=== PATIENT | female | born 1960 | race Caucasian/White ===

== ENCOUNTER → 2020-05-25 10:30 | Outpatient (CLI) | payer OTHER, SELFPAY ==
--- NOTE | 2020-05-25 10:42 | XR_ITS ---
PROCEDURE: XR WRIST LT MIN 3V CLINICAL INDICATION: left wrist pain/ cts COMPARISON: No exams were available for comparison FINDINGS: Moderate to severe osteoarthritic changes are present at the 1st metacarpal-carpal junction. Faint soft tissue calcification is present lateral to the trapezium. Prominent bony hypertrophy is present at the medial aspect the 1st metacarpal-carpal junction. There are osteoarthritic changes also at the 1st metacarpophalangeal joint. No acute fracture or dislocation. Other findings:None. 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
== END ==
PROVIDERS: PCP Family Medicine; Visit Provider Orthopaedic Surgery
DX: M25.532 Pain in left wrist (principal)
CPT/HCPCS: 73110

== ENCOUNTER → 2020-10-31 07:19 | Outpatient (CLI) | payer OTHER, SELFPAY ==
--- NOTE | 2020-10-31 | CT_ITS ---
PROCEDURE: CT LUNG SCREENING CLINICAL INDICATION: NICOTINE DEPENDENCE COMPARISON: No exams were available for comparison TECHNIQUE: The exam was performed on a GE Light Speed [address] scanner using 2.90 mGy CTDI. A low dose helical CT CHEST was performed on a multi-detector scanner. All CT scans at the facility use one or more dose reduction, viz: automated exposure control, ma/kV adjustment per patient size (including targeted exams where dose is matched to indication, i.e. head), or iterative reconstruction technique. The LDCT was performed in a facility that meets the criteria for the screening program. Data regarding this exam was submitted to [employer] which is an approved registry. The order for this exam indicates that it came as a result of a lung cancer screening counseling shard decision-making visit that included all the elements required of such a visit including smoking cessation. The radiologist interpreting this exam meets the CMS criteria for the LDCT lung cancer screening program. The exam is reported using the Lung-RADS classification scale and reported to the ACR registry. NOTE: This study was performed for the specific purposes of lung cancer screening and is not an alternative to diagnostic chest CT. RADIATION DOSE: CTDI vol(CT dose Index-volume) = 2.90mG DLP (Dose Length Product) = 104.20 mGcm FINDINGS: COPD changes with coarsening of the bronchovascular markings and bronchial thickening. In the left lower lobe there is flat like area of parenchymal opacity is 17 x 9x 20 mm with an adjacent 7 mm opacity medially. These may be due to areas of scarring. A 6 mm opacity is present in the left lower lobe . OTHER FINDINGS: 17 mm right adrenal nodule with some fat density suggesting an adenoma or myelolipoma. IMPRESSION: Lung-RADS Category 4A Suspicious Follow-up: [address] Chest without and with contrast; PET/CT may be used when there is a greater than or equal to a 8 mm solid component. Dictated by: Hong Wilson MD 11/05/2020 10:03 Hong Wilson MD in [facility] 11/05/2020 10:03
== END ==
PROVIDERS: PCP Family Medicine; Visit Provider Family Medicine
DX: Z87.891 Personal history of nicotine dependence (principal); Z12.2 Encounter for screening for malignant neoplasm of respiratory organs
CPT/HCPCS: 71271

== ENCOUNTER → 2021-02-06 11:54 | Outpatient (CLI) | payer OTHER, SELFPAY ==
--- NOTE | 2021-02-06 12:07 | CT_ITS ---
PROCEDURE: CT CHEST WO/W CON CLINCAL INDICATION: FOLLOW UP, ABN FINDING ON IMAGING COMPARISON: CT CT LUNG SCREENING from 10/31/2020 TECHNIQUE: IV Contrast: 75ml Isovue 370 Axial images obtained with sagittal and coronal reformats. All CT scans at the facility use one or more dose reduction, viz: automated exposure control, ma/kV adjustment per patient size (including targeted exams where dose is matched to indication, i.e. head), or iterative reconstruction technique. FINDINGS: HEART AND MEDIASTINAL STRUCTURES: Coronary artery calcification. No mediastinal or hilar mass or adenopathy. LUNGS AND PLEURAL SPACES: There is a faint area of ground-glass attenuation in the right upper lobe medially associated with some minimal atelectatic change. In the left lung base posterior laterally there is an area atelectatic change or scarring. Along the lower and lateral margin of this area volume loss there is an area of nodularity which is somewhat more prominent from the previous exam. This is nonspecific and could be due to progressive area of scarring. One cannot exclude the possibility a neoplastic process. This measures 2.4 by 1.2 cm previously 1.7 x [address] suggested for further evaluation. BONY STRUCTURES: Degenerative changes thoracic spine UPPER ABDOMEN: 2 cm right adrenal nodule which is indeterminate. The unenhanced density is 27 Hounsfield units. ADDITIONAL FINDINGS: Degenerative changes thoracic spine IMPRESSION: The area of volume loss/atelectatic change in the left lower lobe is once again noted. The nodular density associated with this in the subpleural region does appears slightly more prominent. While this could be related to progressive fibrotic or atelectatic changes, 1 cannot exclude the possibility of malignancy. Suggest PET-CT for further evaluation. Faint infiltrate with atelectasis in the right upper lobe Dictated by: Hong Wilson MD 02/07/2021 14:07 Hong Wilson MD in [facility] 02/07/2021 14:07
[2021-02-06 12:38] LABS: Blood Urea Nitrogen 18 mg/dl (7-17); Estimated Glomerular Filt Rate 57 ml/min (>60); GFR (African American) 69 ML/MIN (>60)
== END ==
PROVIDERS: PCP Family Medicine; Visit Provider Family Medicine
DX: R93.89 Abnormal findings on diagnostic imaging of other specified body structures (principal); Z09 Encounter for follow-up examination after completed treatment for conditions other than malignant neoplasm
CPT/HCPCS: 36415; 71270; 82565; 84520; Q9967

== ENCOUNTER → 2021-08-26 09:21 | Outpatient (CLI) | payer OTHER, SELFPAY ==
--- NOTE | 2021-08-26 09:26 | XR_ITS ---
FINAL REPORT CLINICAL HISTORY: PAIN IN RT KNEE, OTHER CHRONIC PAIN, ARTHRITIS FINDINGS: RIGHT KNEE 3 views of the right knee were obtained. There is no acute fracture or dislocation. There is mild to moderate degenerative change with mild medial compartment narrowing. Soft tissues are unremarkable. IMPRESSION: Degenerative change as above with no acute bony abnormality. Reviewed, Interpreted and Dictated by Derrick Claudio III, MD Transcribed by Annmarie Rojas Authenticated and [facility]
--- NOTE | 2021-08-26 09:26 | XR_ITS ---
FINAL REPORT CLINICAL HISTORY: PAIN IN LT KNEE, OTHER CHRONIC PAIN, ARTHRITIS FINDINGS: LEFT KNEE 3 views of the left knee were obtained. There is no acute fracture or dislocation. There is moderate degenerative change with lateral compartment narrowing. There is a suprapatellar calcification measuring 12 mm is likely a loose body. IMPRESSION: Degenerative changes above with no acute bony abnormality. Reviewed, Interpreted and Dictated by Derrick Claudio III, MD Transcribed by Annmarie Rojas Authenticated and [facility]
== END ==
PROVIDERS: PCP Nurse Practitioner Family; Visit Provider Nurse Practitioner Family
DX: M25.562 Pain in left knee (principal); M25.561 Pain in right knee; G89.29 Other chronic pain; M19.90 Unspecified osteoarthritis, unspecified site
CPT/HCPCS: 73562

== ENCOUNTER 2021-09-03 09:56 | Emergency (ER) | payer OTHER, SELFPAY ==
[2021-09-03 09:57] VITALS: BP 134/68; PULSE 70; RESP 16; TEMP 36.7; O2SAT 99; BMI 41.2
--- NOTE | 2021-09-03 09:59 | HMH.EDLOEX ---
ED Disposition Clinical Impression: Laceration Contusion of leg, right Qualifiers: Encounter type: initial encounter Qualified Code(s): S80.11XA - Contusion of right lower leg, initial encounter Contusion Qualifiers: Encounter type: initial encounter Contusion area: hip Laterality: right Qualified Code(s): S70.01XA - Contusion of right hip, initial encounter Disposition: Home, Self-Care Condition on Discharge: Fair Instructions: DI for Contusion, DI for Avulsion Laceration (Not Requiring Sutures) Additional Instructions: Take [id number] ibuprofen and/or Tylenol for your pain. The wound on your leg is too old to be safely repaired today. Follow-up with your primary care doctor in about 3 days to have the wound checked for infection and healing. Please return to the emergency department if you you are worse in any way. Follow-up with your doctor if you do not improve in about 3 to 5 days. Referrals: Olga Golden APRN [Primary Care Provider] - - Critical Care Critical Care Time: No Attestation: On , the high probability of a clinically significant, sudden or life threatening deterioration of the following system(s) required my full and direct attention, intervention and personal management. The time I documented below is in addition to time spent performing reported procedures but includes the following listed in this critical care notation. Medical Decision Making - [place] Inquiry Pt receiving controlled substance: No Vital Signs: 09/03/21 09:57 Temperature 98.1 F Temperature Source Oral Pulse Rate [Right Radial] 70 Respiratory Rate 16 Blood Pressure [Right Arm] 134/68 Blood Pressure Mean [Right Arm] 90 Blood Pressure Source [Right Arm] Automatic Cuff Blood Pressure Position [Right Arm] Left Lateral 02 Sat by Pulse Oximetry 99 Oxygen Delivery Method Room Air Orders (Tests/Meds): ED MEDICATIONS Discontinued Medications Generic Name Dose Route Start Last Admin Trade Name Freq PRN Reason Stop Dose Admin Ketorolac Tromethamine 60 mg 09/03/21 10:06 Ketorolac 60mg/2ml Vial IM 09/03/21 10:07 ONCE ONE Tetanus/Reduced Diphtheria/Acell Pertussis 0.5 ml 09/03/21 10:07 Tet/Diphth/Pert-Adult 0.5ml Syringe IM 09/03/21 10:08 .ONCE ONE - Radiology Data #1 Image(s): Hip Image Reviewed: Yes I reviewed the patient's radiology image, Yes I have reviewed radiologist's interpretation Preliminary Findings: Normal/NAD Medical Decision Narrative: The patient's radiograph does not show any acute fracture or dislocation. Patient is able to bear weight. There are degenerative changes in both hips. The patient's physical exam is most consistent with a contusion and muscle strain. She also has a laceration to the leg. Unfortunately, it is too late for wound repair. I feel that the patient can be safely discharged home with instructions to take lopc-chu-qoigbzm pain medications. Lower Extremity Injury HPI - General Stated Complaint: AO 7/ fall, hip pain Time Seen by Provider: 09/03/21 09:59 Mode of Arrival: Wheelchair - History of Present Illness HPI Narrative: The patient fell from approximately 1 foot height onto some wooden boards yesterday. Since then she is hurting in her right hip. She also has an injury to her right leg. She has been able to bear weight. But it hurts. She denies any other injuries. She did not strike her head. There was no loss of consciousness. MD complaint: hip injury, leg injury - Related Data Home Medications Medication Instructions Recorded Confirmed albuterol sulfate 90 mcg/actuation 2 puff INHALATION Q4-6H PRN 05/30/20 05/30/20 aerosol inhaler diclofenac sodium 50 mg 50 mg PO DAILY 05/30/20 05/30/20 tablet,delayed release fluticasone fur. 100 mcg-umeclid 1 inh INHALATION DAILY 05/30/20 05/30/20 62.5 mcg-vilant 25 mcg inhalat.powder lisinopril 20 1 tab PO DAILY 05/30/20 05/30/20 mg-hydrochlorothiazide 25
--- NOTE | 2021-09-03 10:06 | XR_ITS ---
FINAL REPORT CLINICAL HISTORY: injury, pt states that she fell yesterday and is having right hip pain. FINDINGS: RIGHT HIP The images are suboptimal secondary to patient body habitus. Two views of the right hip including an AP pelvis were obtained. There is no definite fracture or dislocation. There is severe degenerative change of both hips. The visualized bony structures are well aligned. No soft tissue abnormality is seen. IMPRESSION: No definite fracture or dislocation. If indicated, CT or MRI may be helpful. Severe degenerative change of both hips. Reviewed, Interpreted and Dictated by Derrick Claudio III, MD Transcribed by Annmarie Rojas Authenticated and [facility]
--- NOTE | 2021-09-03 10:30 | PC.NURSE ---
cleaned wound and dressed
--- NOTE | 2021-09-03 11:01 | PC.NURSE ---
pt sitting up on bed side
[2021-09-03 11:20] VITALS: BP 122/61; PULSE 67; RESP 20; TEMP 36.7
== END 2021-09-03 11:20 | disposition home or self-care (01) ==
PROVIDERS: Emergency Provider Emergency Medicine; PCP Nurse Practitioner Family
DX: S81.811A Laceration without foreign body, right lower leg, initial encounter (principal); S80.11XA Contusion of right lower leg, initial encounter; S70.01XA Contusion of right hip, initial encounter; W19.XXXA Unspecified fall, initial encounter; Z23 Encounter for immunization; I10 Essential (primary) hypertension; J44.9 Chronic obstructive pulmonary disease, unspecified; Z88.0 Allergy status to penicillin
CPT/HCPCS: 73502; 90471; 90715; 96372; 99283

== ENCOUNTER 2022-04-22 18:29 | Emergency (ER) | payer OTHER, SELFPAY ==
[2022-04-22 19:00] VITALS: BP 130/74; PULSE 74; RESP 20; TEMP 37; O2SAT 97; BMI 40.7
--- NOTE | 2022-04-22 19:07 | EXP.UTC ---
Discharge Plan Disposition Patient Disposition: Home, Self-Care Condition: Good Prescriptions Prescriptions: New furosemide 40 mg tablet 40 mg PO BID Qty: 14 0RF No Action lisinopril-hydrochlorothiazide 20-25 mg tablet 1 tab PO DAILY diclofenac sodium 50 mg tablet,delayed release (DR/EC) 50 mg PO DAILY methocarbamol 500 mg tablet 500 mg PO TID albuterol sulfate 90 mcg/actuation HFA aerosol inhaler 2 puff INHALATION Q4-6H PRN Trelegy Ellipta 100-62.5-25 mcg blister with device 1 inh INHALATION DAILY furosemide 20 mg tablet 20 mg PO DAILY Referrals Follow up/Referrals: Olga Golden APRN [Primary Care Provider] - See instructions Activity Restrictions/Add. Instructions Additional Instructions/Restrictions: Take the higher dose of furosemide (lasix) [address] of your 20 mg tablets for the next several days. Don't take the furosemide 20 mg tablets while you are on the higher dose (40 mg). Follow up with your regular doctor within 48 to 72 hours to have your swelling reevaluated and to see if you still need the higher dose of lasix. GO TO THE ER FOR ANY WORSENING SYMPTOMS Clinical Impressions Clinical Impression: Leg edema Instructions Patient Instructions: DI for Peripheral Edema -- Bilateral, Furosemide Discharge ED Provider: Delon Soler [facility] General Stated complaint: Swelling in Legs Time Seen by Provider: 04/22/22 19:07 History of Present Illness Provider Complaint: she states that over the past 5 days approx she has developed swelling of both her ankles. She takes lasix daily for these symptoms, but she does not think it is strong enough right now. Related Data Home Medications Medication Instructions Recorded Confirmed albuterol sulfate 90 mcg/actuation 2 puff inhalation Q4-6H PRN 05/30/20 05/30/20 aerosol inhaler diclofenac sodium 50 mg 50 mg PO DAILY 05/30/20 05/30/20 tablet,delayed release fluticasone fur. 100 mcg-umeclid 1 inh inhalation DAILY 05/30/20 05/30/20 62.5 mcg-vilant 25 mcg inhalat.powder (Trelegy Ellipta) lisinopril 20 1 tab PO DAILY . 05/30/20 04/22/22 mg-hydrochlorothiazide 25 mg tablet methocarbamol 500 mg tablet 500 mg PO TID 05/30/20 05/30/20 furosemide 20 mg tablet 20 mg PO DAILY . 04/22/22 04/22/22 Previous Rx's Medication Instructions Recorded furosemide 40 mg tablet 40 mg PO BID #14 tabs 04/22/22 Allergies Allergy/AdvReac Type Severity Reaction Status Date / Time penicillin G benethamine Allergy Intermediate rash Verified 04/22/22 19:16 [facility] Disclaimer: The information contained in this section may have been updated after the patient was seen, as this information can be updated by other users. Social History Smoking Status: Current every day smoker alcohol intake: never current occupational status: other Travel in the last 8 weeks: None ROS Obtained: Yes All systems reviewed & no additional complaints except as documented Constitutional Constitutional: Denies chills and Denies fever(s) Eyes Eyes: Denies eye discharge ENT Ears, Nose, Mouth, and Throat: Denies dizziness, Denies otalgia and Denies sore throat Cardiovascular Cardiovascular: Denies chest pain, Denies dyspnea, Denies dyspnea on exertion, Reports edema, Denies irregular heart rhythm, Reports leg edema and Denies leg ulcers Respiratory Respiratory: Denies shortness of breath, Denies chest congestion, Denies cough, Denies dyspnea, Denies dyspnea on exertion, Denies stridor and Denies wheezing Gastrointestinal Gastrointestingal: Denies nausea or vomiting Musculoskeletal Musculoskeletal: Reports system reviewed and no additional complaints, except as documented and Denies arthralgias Integumentary/Breasts Skin/Breast: Denies rash Neurologic Neurologic: Denies dizziness and Denies paresthesias Allergic/Immunologic Allergic/Immunologic
[2022-04-22 20:18] VITALS: BP 130/74; PULSE 74; RESP 20; TEMP 37; O2SAT 97
== END 2022-04-22 20:17 | disposition home or self-care (01) ==
PROVIDERS: Emergency Provider Nurse Practitioner Family; PCP Nurse Practitioner Family
DX: R60.0 Localized edema (principal)
CPT/HCPCS: 99212; 99213; G0463

== ENCOUNTER 2022-08-05 15:28 | Emergency (ER) | payer OTHER, SELFPAY ==
--- NOTE | 2022-08-05 15:18 | ECG_ITS ---
APPROVED REPORT Exam: Resting ECG HR:77 bpm ECG Measurements Heart Rate 77 AXES AL 172 P 67 QRSd 92 QRS 102 QT 351 T 38 QTc 383 Conclusion SINUS RHYTHM RIGHT AXIS DEVIATION [QRS AXIS > 100] LOW QRS VOLTAGE IN PRECORDIAL LEADS [QRS DEFLECTION < 1.0 mV IN CHEST LEADS] ABNORMAL ECG UNCONFIRMED REPORT Electronically signed by : Juliano Burch MD 08/07/2022 09:28:38
[2022-08-05 15:32] VITALS: BMI 36.3
--- NOTE | 2022-08-05 15:33 | XR_ITS ---
FINAL REPORT CLINICAL HISTORY: Precordial chest pain COMPARISON: 12/08/2020 FINDINGS: No acute pulmonary opacity is present. There is no evidence of effusion or pneumothorax. Mediastinum is unremarkable. Heart size is normal. IMPRESSION: No acute abnormality. Reviewed, Interpreted and Dictated by Alice Pace MD Transcribed by Jesica Bolanos Authenticated and [facility]
[2022-08-05 15:46] VITALS: BP 137/67; PULSE 77; RESP 16; TEMP 37.4; O2SAT 95; BMI 36.3
[2022-08-05 15:48] LABS: Basophils % 0.3 % (0.1-2.0); Eosinophils # 0.2 K/mm3 (0.0-0.4); Eosinophils % 1.8 % (0.1-12.0); Hematocrit 40.8 % (37.0-47.0); Lymphocytes # 2.3 K/mm3 (0.7-4.5); Lymphocytes % 18.4 % (10-50); Mean Corpuscular HGB Conc 31.8 g/dL (31.8-35.4); Mean Corpuscular Hemoglobin 30.3 pg (27.0-31.2); Mean Corpuscular Volume 95.3 fl (81-99); Mean Platelet Volume 9.3 fl (7.4-10.4); Monocytes # 0.7 K/mm3 (0.1-1.0); Monocytes % 5.4 % (1.7-9.3); Neutrophils # 9.4 K/mm3 (1.8-7.8); Neutrophils % 74.1 % (37.0-80.0); Platelet Count 244 K/mm3 (142-424); Red Blood Count 4.28 M/mm3 (4.20-5.40); Red Cell Distribution Width 14.2 % (11.5-17.5); White Blood Count 12.6 K/mm3 (4.8-10.8)
[2022-08-05 15:54] LABS: Chloride 101 mmol/L (98-107)
[2022-08-05 15:55] LABS: Potassium 4.3 mmoL/L (3.5-5.1); Sodium 137 mmol/L (136-145)
[2022-08-05 15:57] LABS: Blood Urea Nitrogen 18 mg/dl (7-17); Creatinine Clearance Estimated 95 mL/min (50-200); Estimated Glomerular Filt Rate 50 ml/min (>60); GFR (African American) 61 ML/MIN (>60)
[2022-08-05 15:58] LABS: Anion Gap 9.3 mEq/L (5-15); Calcium 9.6 mg/dl (8.4-10.2); Carbon Dioxide 31 mmol/L (22.0-30.0); Glucose 105 mg/dl (74-100)
[2022-08-05 16:00] VITALS: BP 126/66; PULSE 70; RESP 16; O2SAT 95
--- NOTE | 2022-08-05 16:00 | HMH.EDGENADL ---
Discharge Plan Disposition Patient Disposition: Home, Self-Care Prescriptions Prescriptions: No Action lisinopril-hydrochlorothiazide 20-25 mg tablet 1 tab PO DAILY diclofenac sodium 50 mg tablet,delayed release (DR/EC) 50 mg PO DAILY methocarbamol 500 mg tablet 500 mg PO TID albuterol sulfate 90 mcg/actuation HFA aerosol inhaler 2 puff INHALATION Q4-6H PRN Trelegy Ellipta 100-62.5-25 mcg blister with device 1 inh INHALATION DAILY furosemide 20 mg tablet 20 mg PO DAILY furosemide 40 mg tablet 40 mg PO BID Qty: 14 0RF Referrals Follow up/Referrals: Juliano Ho MD [Primary Care Provider] - See instructions Activity Restrictions/Add. Instructions Additional Instructions/Restrictions: Your epigastric discomfort most likely secondary to gastroesophageal reflux disease you may continue to take your antacids at home and may take bcap-hri-[id number] Pepcid or Maalox as needed at home please follow-up with primary care doctor or return emergency department with any vomiting of any blood black stools or any other concerns. Clinical Impressions Clinical Impression: Dyspepsia Discharge ED Provider: Hailey Saldana General Adult HPI General Chief complaint: Chest Pain Stated complaint: chest pain Time Seen by Provider: 08/05/22 16:00 Mode of Arrival: Wheelchair Source of Information: Patient Limitations: No Limitations Description of Symptoms (Recalled from ER Triage Doc. by RN): 62 yo F presents to ED with c/o chest pain. pain comes and goes. is located in epigastric region. pt states that she has tried antacid medication, some relief but not complete. pt staes that pain originally began a few days ago. History of Present Illness HPI narrative: Patient is a 62-year-old female presenting with epigastric discomfort that is been going on since yesterday. Is not been postprandial in nature no chest pain or shortness of breath no exertional symptoms no diaphoresis. She has no right-sided abdominal pain and states that the pain has been spontaneously improving prior to my evaluation. No melena or hematochezia or other complaints. Related Data Home Medications Medication Instructions Recorded Confirmed albuterol sulfate 90 mcg/actuation 2 puff inhalation Q4-6H PRN 05/30/20 05/30/20 aerosol inhaler diclofenac sodium 50 mg 50 mg PO DAILY 03/31/21 03/31/21 tablet,delayed release fluticasone fur. 100 mcg-umeclid 1 inh inhalation DAILY 05/30/20 05/30/20 62.5 mcg-vilant 25 mcg inhalat.powder (Trelegy Ellipta) lisinopril 20 1 tab PO DAILY . 05/30/20 04/22/22 mg-hydrochlorothiazide 25 mg tablet methocarbamol 500 mg tablet 500 mg PO TID 05/30/20 05/30/20 furosemide 20 mg tablet 20 mg PO DAILY . 04/22/22 04/22/22 Previous Rx's Medication Instructions Recorded furosemide 40 mg tablet 40 mg PO BID #14 tabs 04/22/22 Allergies Allergy/AdvReac Type Severity Reaction Status Date / Time penicillin G benethamine Allergy Intermediate rash Verified 04/22/22 19:16 [facility] Disclaimer: The information contained in this section may have been updated after the patient was seen, as this information can be updated by other users. Social History Smoking Status: Current every day smoker alcohol intake: never current occupational status: other Travel in the last 8 weeks: None ROS Obtained: Yes All systems reviewed & no additional complaints except as documented Physical Exam General General appearance: alert Respiratory Respiratory exam: Present normal lung sounds bilaterally Cardiovascular Cardiovascular exam: Present regular rate; Absent tachycardia Neurological Exam Neurological exam: Present alert and oriented X3 Medical Decision Making [place] Inquiry Pt receiving controlled substance: No Vital Signs: 08/05/22 15:46 08/05/22 16:00 08/05/22 16:30 Temperature 99.4 F Temperature Source Or
[2022-08-05 16:10] LABS: Troponin I 0.01 ng/ml (0.00-0.034)
[2022-08-05 16:30] VITALS: BP 117/70; PULSE 71; RESP 16; O2SAT 97
--- NOTE | 2022-08-05 16:40 | PC.NURSE ---
er at bedside
[2022-08-05 17:12] VITALS: BP 125/78; PULSE 61; RESP 18; TEMP 36.7; O2SAT 96
== END 2022-08-05 17:12 | disposition home or self-care (01) ==
PROVIDERS: Emergency Provider Student in an Organized Health Care Education/Training Program; PCP Family Medicine
DX: R07.9 Chest pain, unspecified (principal); R10.13 Epigastric pain; F17.200 Nicotine dependence, unspecified, uncomplicated
CPT/HCPCS: 71045; 80048; 84484; 85025; 93005; 96374; 99285

== ENCOUNTER → 2022-08-12 15:03 | Outpatient (CLI) | payer OTHER, SELFPAY ==
--- NOTE | 2022-08-12 15:08 | MM_ITS ---
PROCEDURE INFORMATION: Exam: Bilateral Screening 3D Mammography Exam date and time: 08/12/2022 3:00 PM Age: 62 years old Clinical indication: Screening examination TECHNIQUE: Imaging protocol: Bilateral Screening tomosynthesis and 2D mammography including computer-aided detection (CAD) when performed. COMPARISON: No relevant prior studies available. FINDINGS: MAMMOGRAPHY: Breast composition: The breasts are almost entirely fatty. Mass: None. Architectural distortion: None. Calcifications: No suspicious calcifications. Asymmetric density: None. Skin thickening: None. Axillary adenopathy: None. IMPRESSION: No mammographic evidence of malignancy. Annual screening is recommended unless otherwise clinically indicated. ASSESSMENT: BI-RADS Category 1: Negative
== END ==
PROVIDERS: PCP Family Medicine; Visit Provider Family Medicine
DX: Z12.31 Encounter for screening mammogram for malignant neoplasm of breast (principal)
CPT/HCPCS: 77063; 77067

== ENCOUNTER → 2022-11-06 12:31 | Outpatient (CLI) | payer OTHER, SELFPAY ==
--- NOTE | 2022-11-06 12:37 | CA_ITS ---
APPROVED REPORT EXAM: Comprehensive 2D, Doppler, and color-flow Echocardiogram Professional Services Specialist: Daylin Myrick RDCS Ht: 5 ft 9 in Wt: 253lbs BSA: 2.28 BP: 117/70 mmHg Indications: BRADYCARIDA,HTN, 2D Dimensions LVOT 2.02 cm (M/F) 1.5-2.5 LA Volume 102.20 mL LA Volume Index [id number] mL/m2 (M/F) 16-34 M-Mode Dimensions RVDd 3.09 cm (0.9-2.6) LA Diam 4.60 cm (1.9-4.0) LVDd 5.64 cm (3.5-5.7) Ao Diam 2.62 cm (2.0-3.7) LVDs 3.77 cm (3.5-5.7) IVSd 0.59 cm (0.6-1.1) PWd 0.85 cm (0.6-1.1) EF (Teich) 61.10% FS 33.20% EDV (Teich) 156.20 mL TAPSE 2.04 (<1.7) ESV (Teich) 60.80 mL LV Diastology E Decel Time 233.00 (160-240 msec) E/A Ratio 1.2 MED E' 14.70 (< 7 cm/sec) E'/MED E' Ratio 6.67 (>14) LAT E' 14.10 (<10 cm/sec) E/LAT E' Ratio 6.95 (>14) Aortic Valve AO Peak GR. 13.50 mmHg Mitral Valve MV E Max Salvatore. 98.00 (40-130 cm/s) MV A Velocity 84.00 (40-130 cm/s) E/A Ratio 1.16 MV Decel. Time 233.00 (160-240 ms) MV PHT 68.00 ms Pulmonary Valve PV Peak Velocity 104.00 (50-150 cm/s) Tricuspid Valve TR P. Velocity 281.00 cm/s RAP Estimate 10.00 mmHg RVSP 41.50 mmHg Left Ventricle The left ventricle is normal size. The left ventricular systolic function is normal. The left ventricular ejection fraction is within the normal range. There is normal left ventricular wall thickness. There is mild hypokinesis of the septal and inferoseptal LV hopkins. The left ventricular diastolic function is normal. LVEF is 55%. Right Ventricle The right ventricle is normal size. The right ventricular systolic function is normal. Atria Left atrium is mildly dilated. Right atrium is mildly dilated. There is no Doppler evidence of interatrial shunt. Aortic Valve The aortic valve opens well. There is no aortic valvular stenosis. No aortic regurgitation is present. Mitral Valve The mitral valve is normal in structure. No evidence of mitral valve stenosis. Mild mitral regurgitation. Tricuspid Valve The tricuspid valve leaflets are thin and pliable. Mild tricuspid regurgitation. RVSP is 20-25 mmHg. Pulmonic Valve The pulmonary valve is normal in structure. Trace pulmonic regurgitation. Great Vessels The aortic root is normal in size. The ascending aorta is normal in size. IVC is normal in size and collapses >50% with inspiration. Pericardium There is no pericardial effusion. Other Information Study Quality: Fair Conclusion Normal biventricular systolic function. Mild hypokinesis of the septal and inferoseptal LV hopkins. No significant valvular disease. Electronically signed by : Beverly Massey, 11/11/2022 14:48:02
== END ==
PROVIDERS: PCP Family Medicine; Visit Provider Family Medicine
DX: R07.9 Chest pain, unspecified (principal); R00.1 Bradycardia, unspecified
CPT/HCPCS: 93306

== ENCOUNTER 2023-03-27 15:00 | Outpatient (RCR) | payer OTHER, SELFPAY | END 2023-03-27 16:00 | disposition home or self-care (01) | LOC: PT 15:00 | PROVIDERS: PCP Family Medicine; Visit Provider Orthopaedic Surgery | DX: M25.552 Pain in left hip (principal); Z96.642 Presence of left artificial hip joint | CPT/HCPCS: 97016; 97110; 97140; 97163; 97164; 97530; 97760 ==

== ENCOUNTER 2023-04-29 13:00 | Outpatient (RCR) | payer OTHER, SELFPAY | END 2023-04-29 13:05 | disposition home or self-care (01) | LOC: PT 13:00 | PROVIDERS: PCP Family Medicine; Visit Provider Family Medicine | DX: R60.0 Localized edema (principal); I89.0 Lymphedema, not elsewhere classified | CPT/HCPCS: 97140; 97163 ==

== ENCOUNTER 2023-10-29 15:00 | Outpatient (RCR) | payer OTHER, SELFPAY | END 2023-10-29 16:10 | disposition home or self-care (01) | LOC: PT 15:00 | PROVIDERS: Visit Provider Orthopaedic Surgery | DX: M25.551 Pain in right hip (principal); Z96.641 Presence of right artificial hip joint | CPT/HCPCS: 97010; 97110; 97116; 97140; 97163; 97164; 97530 ==

== ENCOUNTER 2024-01-07 16:00 | Outpatient (RCR) | payer OTHER, SELFPAY | END 2024-01-07 23:59 | disposition home or self-care (01) | LOC: PT 16:00 | PROVIDERS: Visit Provider Family Medicine | DX: I89.0 Lymphedema, not elsewhere classified (principal) | CPT/HCPCS: 97140; 97163 ==

== ENCOUNTER 2024-04-25 13:36 | Outpatient (RCR) | payer OTHER, SELFPAY | END 2024-04-25 23:59 | disposition home or self-care (01) | LOC: OT 13:36 | PROVIDERS: PCP Family Medicine; Visit Provider Family Medicine | DX: M25.512 Pain in left shoulder (principal); G89.29 Other chronic pain | CPT/HCPCS: 97014; 97165; G0283 ==

== ENCOUNTER 2024-05-26 14:00 | Outpatient (RCR) | payer OTHER, SELFPAY | END 2024-05-26 23:59 | disposition home or self-care (01) | LOC: OT 14:00 | PROVIDERS: PCP Family Medicine; Visit Provider Family Medicine | DX: M25.512 Pain in left shoulder (principal); G89.29 Other chronic pain | CPT/HCPCS: 97014; 97035; 97110; 97140; 97168; 97530; G0283 ==

== ENCOUNTER 2024-10-24 13:37 | Outpatient (CLI) | payer OTHER, SELFPAY ==
--- OUTSIDE RECORDS SUMMARY | 2021-01-15 07:28 | XMS_ITS | Continuity of Care Document ---
Author Organization [facility] actice Address [address] [facility] [address] [place] [address] Phone Care Team Providers Care Tool And Die Maker Name Role Phone Riddhi APLOMINO FAC FSCAI, Mehdi Unavailable Unava ilable Allergies, Adverse Reactions, Alerts Substance Reaction Status Criticality acetaminophen Active No Information PROPOXYPHENE NAPSYLATE Active No In formation Medications Medication Instructions Dosage Effective Dates (start - stop) Status Comments warfarin 5 mg tablet take 1 tablet by mouth thursday and thursday - Active to take with 7.5mg warfarin 7.5 mg tablet take 1 tablet by mouth every thursday - Active Jardiance 10 mg tablet take 1 tablet by oral route every day in the morning 10 MG - Active simvastatin 40 mg tablet take 1 tablet by oral route every day in the evening 40 MG - Active hydrocortisone 1 % topical cream apply by topical route every day to the affected area(s) - Active Lovenox 120 mg/0.8 mL subcutaneous syringe injectio 240mg sub q every day as directed. - Active meloxicam 15 mg tablet take 1 tablet by oral route every day as needed 15 MG - Active lisinopril 20 mg tablet take 1 tablet by oral route every day 20 MG - Active ibuprofen 200 mg tablet as needed - Active ketoconazole 2 % shampoo as directed - Active Byetta 10 mcg/dose(250 mcg/mL)2.4 mL subcutaneous pen injector inject 0.04 milliliter by subcutaneous route 2 times every day before morning and evening meals - Active Vitamin B-12 1,000 mcg tablet take 1 by Oral route every day 1 - Active metformin 1,000 mg tablet take 1 tablet by oral route 2 times every day with morning and evening meals 1000 MG - Active Lantus 100 unit/mL subcutaneous solution 100 units subq bid - Active Coreg 12.5 mg tablet take 1 tablet (12.5MG) by oral route 2 times every day with food DISP #60 12.5 MG - Active Prilosec 40 mg capsule,delayed release take 1 capsule (40MG) by oral route every day before a meal - Active ONE TOUCH ULTRA TEST STRIPS test daily - Active Insulin Syringe Ultra-Fine 1 mL 31 x 15/64 inject daily - Active One Touch Delica Lancets 30 gauge test tid - Active megestrol 40 mg Tab take 1 Tablet (40MG) by oral route daily - Active multivitamin Cap 1 tab by mouth every day - Active warfarin 7.5 mg tablet take 1 tablet by mouth every thursday - No Longer Active warfarin 5 mg tablet take 1 tablet by mouth thursday and thursday - No Longer Active to take with 7.5mg Procedures Procedure Date Prothrombin time ANTICOAG MGMT PT WARFARIN Prothrombin time Automated hemogram (CBC)L Venipuncture ANTICOAG MGMT PT WARFARIN Prothrombin time Venipuncture ANTICOAG MGMT PT WARFARIN No Charge Duplicate Encounter Prothrombin time ANTICOAG MGMT PT WARFARIN ANTICOAG MGMT PT WARFARIN Prothrombin time Automated hemogram (CBC)L ANTICOAG MGMT PT WARFARIN Prothrombin time Venipuncture Prothrombin time ANTICOAG MGMT PT WARFARIN ANTICOAG MGMT PT WARFARIN Prothrombin time Automated hemogram (CBC)L ANTICOAG MGMT PT WARFARIN Prothrombin time Venipuncture ANTICOAG MGMT PT WARFARIN Prothrombin time ANTICOAG MGMT PT WARFARIN Prothrombin time Office/outpatient visit,est, min 2020 Prothrombin time ANTICOAG MGMT PT WARFARIN Prothrombin time ANTICOAG MGMT PT WARFARIN Prothrombin time ANTICOAG MGMT PT WARFARIN Prothrombin time Office/outpatient visit,est, min 2019 Prothrombin time Venipuncture ANTICOAG MGMT PT WARFARIN Prothrombin time Office/outpatient visit,est, min 2019 Prothrombin time Office/outpatient visit,est, min 2019 Prothrombin time Venipuncture Office/outpatient visit,est, min 2019 Prothrombin time Venipuncture ANTICOAG MGMT PT WARFARIN Prothrombin time Automated hemogram (CBC)L Venipuncture Office/outpatient visit,est, mod 2019 ANTICOAG MGMT PT WARFARIN Prothrombin time Venipuncture Office/outpatient visit,est, min 2019 Prothrombin time Venipuncture ANTICOAG MGMT PT WARFARIN Automated hemogram (CBC)L Prothrombin time Venipuncture ANTICOAG MGMT PT WARFARIN Prothrombin time Venipuncture ANTICOAG MGMT PT WARFARIN Prothrombin time Venipuncture ANTICOAG MGMT PT WARFARIN Automated hemogram (CBC)L Prothrombin time ANTICOAG MGMT PT WARFARIN Prothrombin time Venipuncture ANTICOAG MGMT PT WARFARIN Automated hemogram (CBC)L Prothrombin time Venipuncture ANTICOAG MGMT PT WARFARIN Prothrombin time Venipuncture Office/outpatient visit,est, min 2018 Prothrombin time Venipuncture Office/outpatient visit,est, min 2018 Prothrombin time Venipuncture Inj enoxaparin sodium, Fragmin Per 10 Mg s THER/PROPH/DIAG INJ, SC/IM Prothrombin time Venipuncture Prothrombin time Automated hemogram (CBC)L Venipuncture Prothrombin time Venipuncture Prothrombin time Automated hemogram (CBC)L Venipuncture Prothrombin time Venipuncture Automated hemogram (CBC)L Prothrombin time Venipuncture Prothrombin time Venipuncture Prothrombin time Venipuncture Office/outpatient visit,est, min 2017 Automated hemogram (CBC)L Prothrombin time Venipuncture Prothrombin time Venipuncture Prothrombin time Venipuncture Office/outpatient visit,est, min 2017 Office/outpatient visit,est, mod 2017 EKG Prothrombin time Automated hemogram (CBC)L Prothrombin time Venipuncture Prothrombin time Venipuncture Automated hemogram (CBC)L Prothrombin time Prothrombin time Venipuncture Prothrombin time Office/outpatient visit,est, min 2017 Prothrombin time Automated hemogram (CBC)L Office/outpatient visit,est, min 2016 Prothrombin time Venipuncture Office/outpatient visit,est, min 2016 Prothrombin time Venipuncture Prothrombin time Venipuncture Office/outpatient visit,est, min 2016 Automated hemogram (CBC)L Prothrombin time Prothrombin time Venipuncture Prothrombin time Venipuncture Prothrombin time Venipuncture Prothrombin time Venipuncture Prothrombin time Venipuncture Prothrombin time Automated hemogram (CBC)L Prothrombin time Venipuncture Office/outpatient visit,est, min 2016 Office/outpatient visit,est, mod 2016 EKG Prothrombin time Venipuncture Automated hemogram (CBC)L Prothrombin time Venipuncture Prothrombin time Venipuncture Prothrombin time Venipuncture Automated hemogram (CBC)L Prothrombin time Venipuncture Prothrombin time Venipuncture Prothrombin time Venipuncture Automated hemogram (CBC)L Prothrombin time Venipuncture Prothrombin time Prothrombin time Venipuncture Automated hemogram (CBC)L Prothrombin time Venipuncture Prothrombin time Venipuncture Office/outpatient visit,est, mod 2015 Venous Studies, Ext Demarcus Echo Complete All Dopplers Prothrombin time Venipuncture Prothrombin time Venipuncture Office/outpatient visit,est, high EKG Automated hemogram (CBC)L Prothrombin time Venipuncture Prothrombin time Venipuncture Prothrombin time Venipuncture Prothrombin time Automated hemogram (CBC)L Prothrombin time Venipuncture Prothrombin time Venipuncture Metabolic panel, comprehensive 15 Glycosylated hemoglobin assay 5 Lipid profile Prothrombin time Prothrombin time Prothrombin time Venipuncture Metabolic panel, comprehensive 15 Glycosylated hemoglobin assay 5 Automated hemogram (CBC)L Prothrombin time Venipuncture Prothrombin time Prothrombin time Venipuncture Prothrombin time Office/outpatient visit,est, min 2014 Automated hemogram (CBC)L Prothrombin time Metabolic panel, comprehensive 15 Glycosylated hemoglobin assay 5 Lipid profile Office/outpatient visit,est, min 2014 Prothrombin time Prothrombin time Office/outpatient visit,est, min 2014 Prothrombin time Office/outpatient visit,est, min 2014 Prothrombin time Office/outpatient visit,est, min 2014 Prothrombin time Prothrombin time Office/outpatient visit,est, mod 2014 Automated hemogram (CBC)L Prothrombin time Office/outpatient visit,est, mod 2014 Glycosylated hemoglobin assay 4 Assay, cholest, serum/whole bld ttl Hepatic function panel Assay, blood triglycerides Lipoprotein High Resolution Prothrombin time Venipuncture Prothrombin time Venipuncture Prothrombin time Venipuncture Prothrombin time Venipuncture Prothrombin time Venipuncture Office/outpatient visit,est, min 2013 Office/outpatient visit,est, mod 2013 Glycosylated hemoglobin assay 4 Venipuncture Prothrombin time Venipuncture Arterial Duplex Scan Low Demarcus Arterial Doppler Up/low Single Level Oct Office/outpatient visit,new, mod 2013 X-ray exam of foot, 2 views Venipuncture Prothrombin time Office/outpatient visit,est, mod 2013 Prothrombin time Venipuncture Venipuncture Automated hemogram (CBC)L No Charge Assay, Vitamin B-12 Glycosylated hemoglobin assay 4 Metabolic panel, basic Hepatic function panel Assay thyroid stimulating hormone Urinalysis, automated w/microscopy Lipid profile Prothrombin time Office/outpatient visit,est, min 2013 Prothrombin time Venipuncture Office/outpatient visit,est, mod 2013 Prothrombin time Venipuncture Automated hemogram (CBC)L Office/outpatient visit,est, mod 2013 Preventive checkup, est,40-64 yrs Prothrombin time Glycosylated hemoglobin assay 4 Venipuncture Prothrombin time Venipuncture Prothrombin time Venipuncture Automated hemogram (CBC)L Office/outpatient visit,est, min 2012 Prothrombin time Glycosylated hemoglobin assay 3 Venipuncture Venipuncture Prothrombin time Automated hemogram (CBC)L Prothrombin time Venipuncture Venipuncture Prothrombin time MEASURE BLOOD OXYGEN LEVEL Office/outpatient visit,est, mod 2012 Venipuncture Hepatic function panel Lipid profile Glycosylated hemoglobin assay 3 Office/outpatient visit,est, min 2012 Venipuncture Prothrombin time Office/outpatient visit,est, min 2012 Prothrombin time Venipuncture Office/outpatient visit,est, min 2012 Prothrombin time Automated hemogram (CBC)L Venipuncture Glycosylated hemoglobin assay 3 Office/outpatient visit,est, mod 2012 Venipuncture Prothrombin time Prothrombin time Venipuncture Prothrombin time Venipuncture Automated hemogram (CBC)L Office/outpatient visit,est, min 2012 Venipuncture Prothrombin time Venipuncture Glycosylated hemoglobin assay 3 Hepatic function panel Lipid profile Office/outpatient visit,est, mod 2012 Preventive checkup, est,40-64 yrs Venipuncture Prothrombin time Office/outpatient visit,est, min 2012 Office/outpatient visit,est, min 2012 Venipuncture Prothrombin time Office/outpatient visit,est, min 2012 Venipuncture Prothrombin time THER/PROPH/DIAG INJ, SC/IM Prothrombin time Venipuncture Automated hemogram (CBC)L THER/PROPH/DIAG INJ, SC/IM THER/PROPH/DIAG INJ, SC/IM THER/PROPH/DIAG INJ, SC/IM Office/outpatient visit,est, min 2011 Venipuncture Prothrombin time Prothrombin time Venipuncture Glycosylated hemoglobin assay 2 Hepatic function panel Office/outpatient visit,est, min 2011 Office/outpatient visit,est, mod 2011 Venipuncture Prothrombin time Office/outpatient visit,est, min 2011 Prothrombin time Venipuncture Office/outpatient visit,est, min 2011 Venipuncture Prothrombin time Office/outpatient visit,est, min 2011 Venipuncture Prothrombin time Venipuncture Prothrombin time THER/PROPH/DIAG INJ, SC/IM THER/PROPH/DIAG INJ, SC/IM THER/PROPH/DIAG INJ, SC/IM THER/PROPH/DIAG INJ, SC/IM Hepatic function panel Lipid profile Metabolic panel, basic Venipuncture Office/outpatient visit,est, mod 2011 Office/outpatient visit,est, min 2011 Prothrombin time Venipuncture Cardiac PET Cardiovascular stress test Rb82 rubidium Aminophyllin 250 MG inj Persantine Per 10 Mg Prothrombin time Venipuncture Automated hemogram (CBC)L EKG Office/outpatient visit,est, mod 2011 Echo Complete All Dopplers Office/outpatient visit,est, min 2011 Venipuncture Prothrombin time EKG Office/outpatient visit,est, mod 2011 Office/outpatient visit,est, min 2011 Prothrombin time Venipuncture Venipuncture Prothrombin time Office/outpatient visit,est, min 2011 Venipuncture Prothrombin time Office/outpatient visit,est, mod 2011 Lipid profile Metabolic panel, basic Automated hemogram (CBC)-L Venipuncture Hepatic function panel Office/outpatient visit,est, min 2011 Automated hemogram (CBC)-L Venipuncture Prothrombin time Office/outpatient visit,est, min 2011 Venipuncture Prothrombin time Office/outpatient visit,est, min 2011 Prothrombin time Venipuncture Office/outpatient visit,est, min 2011 Venipuncture Prothrombin time Automated hemogram (CBC)-L Office/outpatient visit,est, high Hepatic function panel Assay, cholest, serum/whole bld ttl Assay, homocystine-L Assay, blood triglycerides Lipoprotein High Resolution Office/outpatient visit,est, min 2010 Prothrombin time Venipuncture Prothrombin time THER/PROPH/DIAG INJ, SC/IM THER/PROPH/DIAG INJ, SC/IM THER/PROPH/DIAG INJ, SC/IM Inj enoxaparin sodium 100mgs Prepackaged THER/PROPH/DIAG INJ, SC/IM Prothrombin time Prothrombin time Office/outpatient visit,est, min 2010 Office/outpatient visit,est, mod 2010 Automated hemogram (CBC)-L Prothrombin time Office/outpatient visit,est, min 2010 Prothrombin time Assay, cholest, serum/whole bld ttl Hepatic function panel Assay, homocystine-L Assay, blood triglycerides Lipoprotein High Resolution Prothrombin time Office/outpatient visit,est, min 2010 Prothrombin time Office/outpatient visit,est, min 2010 Prothrombin time Office/outpatient visit,est, min 2010 Prothrombin time Automated hemogram (CBC)-L THER/PROPH/DIAG INJ, SC/IM Prothrombin time THER/PROPH/DIAG INJ, SC/IM THER/PROPH/DIAG INJ, SC/IM THER/PROPH/DIAG INJ, SC/IM Office/outpatient visit,est, mod 2010 Prothrombin time Office/outpatient visit,est, min 2010 Office/outpatient visit,est, min 2010 Assay, cholest, serum/whole bld ttl Hepatic function panel Assay, homocystine-L Assay, blood triglycerides Lipoprotein High Resolution Prothrombin time Office/outpatient visit,est, min 2010 Office/outpatient visit,est, min 2010 Office/outpatient visit,est, mod 2010 Office/outpatient visit,est, min 2010 THER/PROPH/DIAG INJ, SC/IM Innohep Inj 1000u THER/PROPH/DIAG INJ, SC/IM Office/outpatient visit,est, min 2010 Office/outpatient visit,est, min 2010 Office/outpatient visit,est, min 2010 Office/outpatient visit,est, mod 2009 Office/outpatient visit,est, min 2009 Office/outpatient visit,est, min 2009 Office/outpatient visit,est, min 2009 Office/outpatient visit,est, min 2009 Office/outpatient visit,est, min 2009 Office/outpatient visit,est, mod 2009 Office/outpatient visit,est, min 2009 Office/outpatient visit,est, min 2009 Office/outpatient visit,est, min 2009 Office/outpatient visit,est, mod 2009 Office/outpatient visit,est, min 2009 Office/outpatient visit,est, min 2009 Office/outpatient visit,est, min 2009 THER/PROPH/DIAG INJ, SC/IM THER/PROPH/DIAG INJ, SC/IM Office/outpatient visit,est, mod 2009 THER/PROPH/DIAG INJ, SC/IM THER/PROPH/DIAG INJ, SC/IM Office/outpatient visit,est, mod 2009 Office/outpatient visit,est, min 2009 Office/outpatient visit,est, mod 2009 Office/outpatient visit,est, min 2009 Office/outpatient visit,est, min 2009 Office/outpatient visit,est, min 2009 Prothrombin time Office/outpatient visit,est, min 2009 Office/outpatient visit,est, mod 2009 Office/outpatient visit,est, min 2008 Office/outpatient visit,est, min 2008 Office/outpatient visit,est, min 2008 Office/outpatient visit,est, min 2008 Office/outpatient visit,est, mod 2008 Office/outpatient visit,est, min 2008 Metabolic panel, basic Automated hemogram (CBC)-L Assay thyroid stimulating hormone Prothrombin time Hepatic function panel Assay, cholest, serum/whole bld ttl Assay, blood triglycerides Lipoprotein High Resolution Office/outpatient visit,est, min 2008 Prothrombin time Office/outpatient visit,est, mod 2008 Office/outpatient visit,est, min 2008 Prothrombin time Prothrombin time Automated hemogram (CBC)-L Prothrombin time Assay, Vitamin B-12 Office/outpatient visit,est, min 2008 Office/outpatient visit,est, min 2008 Bone Density Office/outpatient visit,est, mod 2008 Office/outpatient visit,est, min 2008 Hepatic function panel Assay, cholest, serum/whole bld ttl Assay, homocystine-L Lipoprotein High Resolution Assay, blood triglycerides Lipoprotein Office/outpatient visit,est, min 2008 Office/outpatient visit,est, mod 2008 Prothrombin time Prothrombin time Office/outpatient visit,est, min 2008 Office/outpatient visit,est, min 2008 Prothrombin time Office/outpatient visit,est, min 2008 Office/outpatient visit,est, mod 2008 Hepatic function panel Assay, cholest, serum/whole bld ttl Assay, homocystine-L Assay, blood triglycerides Lipoprotein High Resolution Office/outpatient visit,est, min 2008 Prothrombin time Automated hemogram (CBC)-L Prothrombin time Prothrombin time Office/outpatient visit,est, min 2007 Prothrombin time Venipuncture Office/outpatient visit,est, min 2007 Prothrombin time Office/outpatient visit,est, min 2007 Prothrombin time Office/outpatient visit,est, min 2007 Office/outpatient visit,est, min 2007 Prothrombin time Office/outpatient visit,est, min 2007 Office/outpatient visit,est, min 2007 Office/outpatient visit,est, min 2007 Prothrombin time Office/outpatient visit,est, mod 2007 Hepatic function panel Assay, cholest, serum/whole bld ttl Assay, homocystine-L Lipoprotein Assay, blood triglycerides Lipoprotein High Resolution Metabolic panel, basic Automated hemogram (CBC)-L Assay thyroid stimulating hormone Prothrombin time Office/outpatient visit,est, min 2007 Office/outpatient visit,est, min 2007 Office/outpatient visit,est, min 2007 Prothrombin time Venipuncture Office/outpatient visit,est, min 2007 Prothrombin time Office/outpatient visit,est, min 2007 Prothrombin time Office/outpatient visit,est, min 2007 Prothrombin time Prothrombin time Office/outpatient visit,est, min 2007 Prothrombin time Prothrombin time Office/outpatient visit,est, min 2007 Office/outpatient visit,est, min 2007 Office/outpatient visit,est, mod 2007 Hosp F/U Visit, Level 1 Hosp DC, Level 1 Office/outpatient visit,est, min 2007 Hosp F/U Visit, Level 2 Hosp F/U Visit, Level 2 Hosp F/U Visit, Level 2 Hosp F/U Visit, Level 2 Hosp F/U Visit, Level 2 Echocardiogram Hepatic function panel Assay, cholest, serum/whole bld ttl Assay, homocystine-L Assay, blood triglycerides Lipoprotein High Resolution Venipuncture Hosp DC, Level 1 Office/outpatient visit,est, mod 2007 Hepatic function panel Lipid profile Assay, ferritin Hepatic function panel Lipid profile Office/outpatient visit,est, mod 2006 Assay thyroid stimulating hormone Hepatic function panel C-reactive protein high sensitivity Assay, homocystine Lipoprotein Lipid profile Office/outpatient visit,est, mod 2006 Office/outpatient visit,est, mod 2006 Office/outpatient visit,est, mod 2006 Advance Directives Directive Yes / No Effective Date File Name No Information Encounters Encounter Description Practice Location Reason(s) For Visit Diagnoses Date Provider Providers Copied on Encounter [facility], [address] [facility], [place], [place], [id number], [place] tel:[phone] [facility] No Information 1 Riddhi Harding. [address], [address] [facility], [place], [place], [id number], [place]. tel:[phone] Referring Provider: Mehdi Hannon MD, [address] [facility], [place], [address]. tel:[phone] [facility], [address] [place] [address], [id number], tel:[phone] [facility] Other pulmonary embolism without acute cor pulmonale 1 Riddhi Harding. [address], [address] [place] [address], [id number], [place]. tel:[phone] Referring Provider: Mehdi Hannon MD, [address] [facility], [place], [address]. tel:[phone] [facility], [address] [place] [address], [id number], tel:[phone] [facility] Other pulmonary embolism without acute cor pulmonale 1 Riddhi Harding. [address], [address] [facility], [place], [place], [id number], [place]. tel:[phone] Referring Provider: Mehdi Hannon MD, [address] [facility], [place], [address]. tel:[phone] [facility], [address] [place] [address], [id number], tel:[phone] [facility] Other pulmonary embolism without acute cor pulmonaleChr onic embolism and thombos of deep vein of low extrm, biLong term (current) use of anticoagulan ts 1 Riddhi Harding. [address], [address] [facility], [place], [place], [id number], [place]. tel:[phone] Referring Provider: Mehdi Hannon MD, [address] [facility], [place], [address]. tel:[phone] [facility], [address] [place] [address], [id number], [place] tel:[phone] [facility] Other pulmonary embolism without acute cor pulmonale 1 Riddhi Harding. [address], [address] [place] [address], [id number], [place]. tel:[phone] Referring Provider: Mehdi Hannon MD, [address] [facility], [place], [address]. tel:[phone] [facility], [address] [place] [address], [id number], [place] tel:[phone] [facility] No Information 1 Riddhi Harding. [address], [address] [place] [address], [id number], [place]. tel:[phone] [facility], [address] [place] [address], [id number], [place] tel:[phone] [facility] [address] Other pulmonary embolism without acute cor pulmonale 1 Riddhi Harding. [address], [address] [place] [address], [id number], [place]. tel:[phone] Referring Provider: Mehdi Hannon MD, [address], [place], [address]. tel:[phone] [facility], [address] [facility], [place], [place], [id number], tel:[phone] [facility] No Information 1 Riddhi Harding. [address] [facility], [place], [place], [id number], . tel:[phone] Referring Provider: Mehdi Hannon MD, [address] [facility], [place], [address]. tel:[phone] [facility], [address] [place] [address], [id number], tel:[phone] [facility] No Information 1 Riddhi Harding. [address], [address] [facility], [place], [place], [id number], [place]. tel:[phone] Referring Provider: Mehdi Hannon MD, [address] [facility], [place], [address]. tel:[phone] [facility], [address] [place] [address], [id number], tel:[phone] [facility] [address] Other pulmonary embolism without acute cor pulmonale 1 Riddhi Harding. [address], [address] [facility], [place], [place], [id number], [place]. tel:[phone] Referring Provider: Mehdi Hannon MD, [address] [facility], [place], [address]. tel:[phone] [facility], [address] [place] [address], [id number], tel:[phone] [facility] Other pulmonary embolism without acute cor pulmonale 1 Riddhi Harding. [address], [address] [place] [address], [id number], . tel:[phone] Referring Provider: Mehdi Hannon MD, [address] [facility], [place], [address]. tel:[phone] [facility], [address] [place] [address], [id number], tel:[phone] [facility] Other pulmonary embolism without acute cor pulmonale 1 Riddhi Harding. [address], [address] [place] [address], [id number], . tel:[phone] Referring Provider: Mehdi Hannon MD, [address] [place], [place] [address], [address]. tel:[phone] [facility], [address] [place] [address], [id number], tel:[phone] [facility] [address] [place] Other pulmonary embolism without acute cor pulmonale 1 Riddhi Harding. [address], [address] [place] [address], [id number], . tel:[phone] Referring Provider: Mehdi Hannon MD, [address] [place] [address], [address]. tel:[phone] [facility], [address] [place] [address], [id number], tel:[phone] [facility] Other pulmonary embolism without acute cor pulmonale 1 Riddhi Harding. [address], [address] [place] [address], [id number], . tel:[phone] Referring Provider: Mehdi Hannon MD, [address] Suite [facility], [place], [address]. tel:[phone] [facility], [address] [facility], [place], [place], [id number], [place] tel:[phone] [facility] [place] Personal history of pulmonary embolismOthe r pulmonary embolism without acute cor pulmonale 1 Riddhi Harding. [address], Suite [facility], [place], [place], [id number], [place]. tel:[phone] Referring Provider: Daniel Pace, [address], [place], [address]. tel:[phone] [facility], [address] [place] [address], [id number], tel:[phone] [facility] Other pulmonary embolism without acute cor pulmonale 1 Riddhi Harding. [address], Suite [facility], [place], [place], [id number], [place]. tel:[phone] Referring Provider: Daniel Pace, [address], [place], [address]. tel:[phone] [facility], [address] [facility], [place], [place], [id number], [place] tel:[phone] [facility] No Information 1 Riddhi Harding. [address], [address] [place] [address], [id number], [place]. tel:[phone] Referring Provider: Daniel Pace, [address], [place], [address]. tel:[phone] [facility], [address] [facility], [place], [place], [id number], [place] tel:[phone] [facility] Other pulmonary embolism without acute cor pulmonale 1 Riddhi Harding. [address], Suite [facility], [place], [place], [id number], [place]. tel:[phone] Referring Provider: Daniel Pace, [address], [place], [address]. tel:[phone] [facility], [address] [place] [address], [id number], [place] tel:[phone] [facility] [place] Other pulmonary embolism without acute cor pulmonale 1 Riddhi Harding. [address], [address] [place] [address], [id number], [place]. tel:[phone] Referring Provider: Daniel Pace, [address], [place], [address]. tel:[phone] [facility], [address] [place] [address], [id number], tel:[phone] [facility] Other pulmonary embolism without acute cor pulmonale 1 Riddhi Harding. [address], Suite [facility], [place], [place], [id number], [place]. tel:[phone] Referring Provider: Daniel Pace, [address], [place], [address]. tel:[phone] [facility], [address] [place] [address], [id number], [place] tel:[phone] [facility] [place] Other pulmonary embolism without acute cor pulmonale 1 Riddhi Harding. [address], [address], [place], [place], [id number], [place]. tel:[phone] Referring Provider: Daniel Pace, [address], [place], [address]. tel:[phone] [facility], [address] [facility], [place], [place], [id number], [place] tel:[phone] [facility] Other pulmonary embolism without acute cor pulmonale 1 Riddhi Harding. [address], Suite [facility], [place], [place], [id number], [place]. tel:[phone] Referring Provider: Daniel Pace, [address], [place], [address]. tel:[phone] [facility], [address] [place] [address], [id number], [place] tel:[phone] [facility] [place] Other pulmonary embolism without acute cor pulmonale 1 Riddhi Harding. [address], Suite [facility], [place], [place], [id number], [place]. tel:[phone] Referring Provider: Daniel Pace, [address] [place], [address]. tel:[phone] [facility], [address] [place] [address], [id number], [place] tel:[phone] [facility] Other pulmonary embolism without acute cor pulmonale 1 Riddhi Harding. [address], Suite [facility], [place], [place], [id number], [place]. tel:[phone] Referring Provider: Daniel Pace, [address], [place], [address]. tel:[phone] [facility], [address] [place] [address], [id number], tel:[phone] [facility] [place] Other pulmonary embolism without acute cor pulmonale 1 Riddhi Harding. [address], [address] [place] [address], [id number], [place]. tel:[phone] Referring Provider: Mehdi Hannon MD, [address] Suite [facility], [place], [address]. tel:[phone] Office/outpa tient visit,est, min [facility], [address], [id number], tel:[phone] [facility] Other pulmonary embolism without acute cor pulmonale 1 Riddhi Harding. [address], [address] [place] [address], [id number], [place]. tel:[phone] Referring Provider: Mehdi Hannon MD, [address] Suite [facility], [place], [address]. tel:[phone] [facility], [address] [place] [address], [id number], tel:[phone] [facility] [place] Personal history of pulmonary embolism 1 Riddhi Harding. [address], [address] [place] [address], [id number], [place]. tel:[phone] Referring Provider: Mehdi Hannon MD, [address] [place] [address], [address]. tel:[phone] [facility], [address] [place] [address], [id number], tel:[phone] [facility] Other pulmonary embolism without acute cor pulmonale 0 Riddhi Harding. [address], Suite [facility], [place], [place], [id number], . tel:[phone] Referring Provider: Mehdi Hannon MD, [address] Suite [facility], [place], [address]. [phone] [facility], [address] [place] [address], [id number], [phone] [facility] [place] Other pulmonary embolism without acute cor pulmonale 0 Riddhi Harding. [address], [address] [place] [address], [address] [place] [address], . tel:[phone] Referring Provider: Mehdi Hannon MD, [address] [place] [address], [address] [place] [address]. tel:[phone] [facility], [address] [place] [address], [id number], tel:[phone] [facility] Other pulmonary embolism without acute cor pulmonale 0 Riddhi Harding. [address], [address] [place] [address], [id number], . tel:[phone] Referring Provider: Mehdi Hannon MD, [address] [place] [address], [address]. tel:[phone] [facility], [address] [place] [address], [id number], tel:[phone] [facility] [place] Other pulmonary embolism without acute cor pulmonale 0 Riddhi Harding. [address], [address], [place], [place], [id number], [place]. tel:[phone] Referring Provider: Mehdi Hannon MD, [address] Suite [facility], [place], [address]. tel:[phone] [facility], [address] [place] [address], [id number], tel:[phone] [facility] Other pulmonary embolism without acute cor pulmonale Nov-2 0 Riddhi Harding. [address], Suite [facility], [place], [place], [id number], [place]. tel:[phone] Referring Provider: Mehdi Hannon MD, [address] Suite [facility], [place], [address]. tel:[phone] [facility], [address] [place] [address], [id number], tel:[phone] [facility] [place] Other pulmonary embolism without acute cor pulmonale Nov-2 0 Riddhi Harding. [address], Suite [facility], [place], [place], [id number], [place]. tel:[phone] Referring Provider: Mehdi Hannon MD, [address] Suite [facility], [place], [address]. tel:[phone] Office/outpa tient visit,est, min [facility], [address] [place] [address], [id number], [place] tel:[phone] [facility] Other pulmonary embolism without acute cor pulmonale Nov-2 0 Riddhi Harding. [address], [address] [place] [address], [id number], [place]. tel:[phone] Referring Provider: Mehdi Hannon MD, [address], [place], [address]. tel:[phone] [facility], [address] [place] [address], [id number], tel:[phone] [facility] [place] Other pulmonary embolism without acute cor pulmonale Oct-2 2202 0 Riddhi Harding. [address], [address] [place] [address], [id number], [place]. tel:[phone] Referring Provider: Mehdi Hannon MD, [address] [place] [address], [address]. tel:[phone] [facility], [facility] [address] [place] [address], [id number], tel:[phone] [facility] Other pulmonary embolism without acute cor pulmonale Sep-2 0 Riddhi Harding. [address], [address] [place] [address], [id number], [place]. tel:[phone] Referring Provider: Mehdi Hannon MD, [facility] [address] [place] [address], [address]. tel:[phone] [facility], [address] [place] [address] [address] [place] [address], [id number], tel:[phone] [facility] [place] Other pulmonary embolism without acute cor pulmonale Sep-2 202 0 Riddhi Harding. [address], [address] [place] [address], [id number], . tel:[phone] Referring Provider: Mehdi Hannon MD, [address] [place] [address], [address]. tel:[phone] Office/outpa tient visit,est, min [facility], [address] [place] [address], [id number], [place] tel:[phone] [facility] Other pulmonary embolism without acute cor pulmonale Sep-0 0 Riddhi Harding. [address], Suite [facility], [place], [place], [id number], [place]. tel:[phone] Referring Provider: Mehdi Hannon MD, [address] [place] [address], [address]. tel:[phone] [facility], [address] [place] [address], [id number], tel:[phone] [facility] [place] Other pulmonary embolism without acute cor pulmonale Sep-0 0 Riddhi Harding. [address], [address] [place] [address], [id number], . tel:[phone] Referring Provider: Mehdi Hannon MD, [address] [place] [address], [address]. tel:[phone] Office/outpa tient visit,est, min [facility], [address] [place] [address], [id number], tel:[phone] [facility] Other pulmonary embolism without acute cor pulmonale 0 Riddhi Harding. [address], [address] [place] [address], [id number], [place]. tel:[phone] Referring Provider: Mehdi Hannon MD, [address] [place] [address], [address]. tel:[phone] [facility], [address] [place] [address], [id number], tel:[phone] [facility] [place] Other pulmonary embolism without acute cor pulmonale 0 Riddhi Harding. [address], Suite [facility], [place], [id number], [place]. tel:[phone] Referring Provider: Mehdi Hannon MD, [address] Suite [facility], [place], [address]. tel:[phone] Office/outpa tient visit,est, min [facility], [address] [place] [address], [id number], [place] tel:[phone] [facility] Other pulmonary embolism without acute cor pulmonale 0 Riddhi Harding. [address], [address] [place] [address], [id number], [place]. tel:[phone] Referring Provider: Mehdi Hannon MD, [address] Suite [facility], [place], [address]. tel:[phone] [facility], [address] [place] [address], [id number], tel:[phone] [facility] [place] Other pulmonary embolism without acute cor pulmonale 0 Riddhi Harding. [address], [address] [place] [address], [id number], [place]. tel:[phone] Referring Provider: Mehdi Hannon MD, [address] [place] [address], [address]. tel:[phone] [facility], [address] [place] [address], [id number], [place] tel:[phone] [facility] Other pulmonary embolism without acute cor pulmonale 0 Riddhi Harding. [address], [address] [place] [address], [id number], [place]. tel:[phone] Referring Provider: Mehdi Hannon MD, [address] [place] [address], [address]. tel:[phone] [facility], [facility] [address] [place] [address], [id number], [place] tel:[phone] [facility] e Other pulmonary embolism without acute cor pulmonale 0 Riddhi Harding. [address] [facility] , [address] [place] [address], [id number], [place]. tel:[phone] Referring Provider: Mehdi Hannon MD, [address] [place], [place] [address] e [address] [place] [address], [address]. tel:[phone] Office/outpa tient visit,est, mod [facility], [facility] [address] [place] [address], [id number], tel:[phone] [facility] follow-up (chief complaint) Chronic embolism and thombos of deep vein of low extrm, biEssential (primary) hypertension Hyperlipidem ia, unspecifiedH istory of pulmonary embolism 0 Cabrera Danyell. [address] [place] [address], [id number], [place]. tel:[phone] Referring Provider: Mehdi Hannon MD, [address] [place] [address], [address]. tel:[phone] [facility], [address] [place] [address] e [facility] [address] [place] [address], [id number], tel:[phone] [facility] Other pulmonary embolism without acute cor pulmonale 0 Riddhi Harding. [address] [place] [address], [id number], [place]. tel:[phone] Referring Provider: Mehdi Hannon MD, [address] [place] [address], [address]. tel:[phone] [facility], [address] [place] [address], [id number], tel:[phone] [facility] [place] Other pulmonary embolism without acute cor pulmonale 0 Riddhi Harding. [address], [address] [place] [address], [id number], [place]. tel:[phone] Referring Provider: Mehdi Hannon MD, [address] [place] [address], [address]. tel:[phone] Office/outpa tient visit,est, min [facility], [address] [place] [address], [id number], tel:[phone] [facility] Other pulmonary embolism without acute cor pulmonale 0 Riddhi Harding. [address], [address] [place] [address], [id number], [place]. tel:[phone] Referring Provider: Mehdi Hannon MD, [address] [place] [address], [address]. tel:[phone] [facility], [address] [place] [address], [id number], tel:[phone] [facility] [place] Other pulmonary embolism without acute cor pulmonale 0 Riddhi Harding. [address], [address] [place] [address], [id number], [place]. tel:[phone] Referring Provider: Mehdi Hannon MD, [address] [place] [address], [address]. tel:[phone] [facility], [address] [facility], [place], [place], [id number], [place] tel:[phone] [facility] Other pulmonary embolism without acute cor pulmonale 0 Riddhi Harding. [address], [address], [place], [place], [id number], [place]. tel:[phone] Referring Provider: Mehdi Hannon MD, [address] Suite [facility], [place], [address]. tel:[phone] [facility], [address] [place] [address], [id number], [place] tel:[phone] [facility] [place] Other pulmonary embolism without acute cor pulmonale 0 Riddhi Harding. [address], Suite [facility], [place], [place], [id number], [place]. tel:[phone] Referring Provider: Mehdi Hannon MD, [address] Suite [facility], [place], [address]. tel:[phone] [facility], [address] [place] [address], [id number], [place] tel:[phone] [facility] Other pulmonary embolism without acute cor pulmonale 0 Riddhi Harding. [address], Suite [facility], [place], [place], [id number], [place]. tel:[phone] Referring Provider: Mehdi Hannon MD, [address] Suite [facility], [place], [address]. tel:[phone] [facility], [address] [place] [address], [id number], [place] tel:[phone] [facility] [place] Other pulmonary embolism without acute cor pulmonale 0 Riddhi Harding. [address], [address] [place] [address], [id number], . tel:[phone] Referring Provider: Mehdi Hannon MD, [address] Suite [facility], [place], [address]. tel:[phone] [facility], [address] [place] [address], [id number], tel:[phone] [facility] Other pulmonary embolism without acute cor pulmonale 0 Riddhi Harding. [address], [address] [place] [address], [id number], [place]. tel:[phone] Referring Provider: Mehdi Hannon MD, [address] [place] [address], [address]. tel:[phone] [facility], [address] [place] [address], [id number], tel:[phone] [facility] [place] Other pulmonary embolism without acute cor pulmonale 0 Riddhi Harding. [address], [address] [place] [address], [id number], . tel:[phone] Referring Provider: Mehdi Hannon MD, [address] [place] [address], [address]. tel:[phone] [facility], [facility] [address] [place] [address], [id number], tel:[phone] [facility] Other pulmonary embolism without acute cor pulmonale 0 Riddhi Harding. [address], [address] [place] [address], [id number], [place]. tel:[phone] Referring Provider: Mehdi Hannon MD, [address] [place] [address], [address]. 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 [address], [address] [place] [address], [address] [place] [address], . tel:[phone] Referring Provider: Mehdi Hannon MD, [address] [place], [place] [address] [address] [place] [address], [address] [place] [address]. tel:[phone] [facility], [facility] e [address] [place] [address], [address] [place] [address], tel:[phone] [facility] Other pulmonary embolism without acute cor pulmonale 0 3-201 [address] [facility], [address] [place] [address], [address] [place] [address], . tel:[phone] Referring Provider: Mehdi Hannon MD, [address] [facility] [address] [place] [address], [address] [place] [address]. tel:[phone] [facility], [address] [place] [address], [id number], tel:[phone] [facility] [place] [facility] Other pulmonary embolism without acute cor pulmonale 0 3201 9 Riddhi Harding. [address], [address] [place] [address], [id number], . tel:[phone] Referring Provider: Mehdi Hannon MD, [address] [place] [address], [address]. tel:[phone] [facility], [address] [facility], [place], [place], [id number], tel:[phone] [facility] Other pulmonary embolism without acute cor pulmonale 9 Riddhi Harding. [address], Suite [facility], [place], [place], [id number], . tel:[phone] Referring Provider: Mehdi Hannon MD, [address] Suite [facility], [place], [address]. tel:[phone] [facility], [address] [place] [address], [id number], tel:[phone] [facility] [facility] Other pulmonary embolism without acute cor pulmonale 9 Riddhi Harding. [address], Suite [facility], [place], [place], [id number], [place]. tel:[phone] Referring Provider: Mehdi Hannon MD, [address] [facility], [place], [address]. tel:[phone] [facility], [address] [place] [address], [id number], tel:[phone] [facility] Other pulmonary embolism without acute cor pulmonale 9 Riddhi Harding. [address], [address] [place] [address], [id number], [place]. tel:[phone] Referring Provider: Mehdi Hannon MD, [address] [facility], [place], [address]. tel:[phone] [facility], [address] [place] [address], [id number], tel:[phone] [facility] Other pulmonary embolism without acute cor pulmonale Nov-0 9 Riddhi Harding. [address], [address] [place] [address], [id number], . tel:[phone] Referring Provider: Mehdi Hannon MD, [address] [place] [address], [address]. tel:[phone] Office/outpa tient visit,est, [facility], [address] [place] [address], [id number], tel:[phone] [facility] Other pulmonary embolism without acute cor pulmonale Sep- 9 Riddhi Harding. [address], [address] [place] [address], [id number], . [phone] Referring Provider: Mehdi Hannon MD, [address] [place] [address], [address]. [phone] [facility], [address] [place] [address], [id number], [phone] [facility] Other pulmonary embolism without acute cor pulmonale Oct- 9 Riddhi Harding. [address], [address] [place] [address], [id number], . [phone] Referring Provider: Mehdi Hannon MD, [address] [place] [address], [address]. tel:[phone] Office/outpa tient visit,est, [facility], [address] [place] [address], [id number], tel:[phone] [facility] Other pulmonary embolism without acute cor pulmonale 9 Riddhi Harding. [address], [address] [place] [address], [id number], . tel:[phone] Referring Provider: Mehdi Hannon MD, [address] [facility], [place], [address]. tel:[phone] [facility], [address] [place] [address], [id number], tel:[phone] [facility] truck terminal manager (current) use of anticoagulan tsPersonal history of other venous thrombosis and embolism Riddhi Harding. [address], [address] [place] [address], [id number], . tel:[phone] Referring Provider: Mehdi Hannon MD, [address] [place] [address], [address]. tel:[phone] [facility], [address] [place] [address], [id number], tel:[phone] [facility] Other pulmonary embolism without acute cor pulmonale 9 Riddhi Harding. [address], [address] [place] [address], [id number], . tel:[phone] Referring Provider: Mehdi Hannon MD, [address] [place] [address], [address]. tel:[phone] [facility], [address] [place] [address], [id number], tel:[phone] [facility] Other pulmonary embolism without acute cor pulmonale 9 Riddhi Haridng. [address], [address] [place] [address], [id number], [place]. tel:[phone] Referring Provider: Mehdi Hannon MD, [address] [facility], [place], [address]. tel:[phone] [facility], [address] [facility], [place], [id number], [phone] [facility] Other pulmonary embolism without acute cor pulmonale 9 Riddhi Harding. [address], [place], [place], [id number], [place]. [phone] Referring Provider: Mehdi Hannon MD, [address] [facility], [place], [address]. tel:[phone] [facility], [address] [facility], [place], [place], [id number], [phone] [facility] Other pulmonary embolism without acute cor pulmonale 9 Riddhi Harding. [address], Suite [facility], [place], [place], [id number], [place]. [phone] Referring Provider: Mehdi Hannon MD, [address] [facility], [place], [address]. tel:[phone] [facility], [address] [facility], [place], [id number], [place] [phone] [facility] Other pulmonary embolism without acute cor pulmonale 9 Riddhi Harding. [address], [address], [place], [place], [id number], [place]. [phone] Referring Provider: Mehdi Hannon MD, [address], [place], [address]. tel:[phone] [facility], [address] [facility], [place], [place], [id number], [phone] [facility] Other pulmonary embolism without acute cor pulmonale 9 Riddhi Harding. [address], Suite [facility], [place], [id number], [place]. tel:[phone] Referring Provider: Mehdi Hannon MD, [address] [facility], [place], [address]. tel:[phone] [facility], [address] [place], [id number], tel:[phone] [facility] Other pulmonary embolism without acute cor pulmonale 9 Riddhi Harding. [address], [address] [facility], [place], [id number], [place]. tel:[phone] Referring Provider: Mehdi Hannon MD, [address] [facility], [place], [address]. tel:[phone] [facility], [address] [place] [address], [id number], tel:[phone] [facility] Other pulmonary embolism without acute cor pulmonale 9 Riddhi Harding. [address], [address] [facility], [place], [place], [id number], [place]. tel:[phone] Referring Provider: Mehdi Hannon MD, [address] [facility], [place], [address]. [phone] [facility], [address] [place] [address], [id number], tel:[phone] [facility] Other pulmonary embolism without acute cor pulmonale 9 Riddhi Harding. [address], [address] [facility], [place], [place], [id number], . tel:[phone] Referring Provider: Mehdi Hannon MD, [address] [facility], [place], [address]. tel:[phone] [facility], [address] [place] [address], [id number], tel:[phone] [facility] Other pulmonary embolism without acute cor pulmonale 9 Riddhi Harding. [address], Suite [facility], [place], [place], [id number], . tel:[phone] Referring Provider: Mehdi Hannon MD, [address] [facility], [place], [address]. tel:[phone] [facility], [address] [place] [address], [id number], tel:[phone] [facility] Other pulmonary embolism without acute cor pulmonale Feb-0 9 Riddhi Haridng. [address], [address] [place] [address], [id number], . tel:[phone] Referring Provider: Mehdi Hannon MD, [address] [facility], [place], [address]. tel:[phone] [facility], [address] [place] [address], [id number], tel:[phone] [facility] Other pulmonary embolism without acute cor pulmonale Feb-0 9 Riddhi Harding. [address], [address] [facility], [place], [place], [id number], . tel:[phone] Referring Provider: Mehdi Hannon MD, [address] [facility], [place], [address]. [phone] [facility], [address] [place] [address], [id number], tel:[phone] [facility] Other pulmonary embolism without acute cor pulmonale 0201 8 Riddhi Harding. [address], [address] [place] [address], [id number], [place]. tel:[phone] Referring Provider: Mehdi Hannon MD, [address] [place] [address], [address]. tel:[phone] [facility], [address] [place] [address], [id number], tel:[phone] [facility] Other pulmonary embolism without acute cor pulmonale 0 8 Riddhi Harding. [address], [address] [place] [address], [id number], . tel:[phone] Referring Provider: Mehdi Hannon MD, [address] [place] [address], [address]. tel:[phone] [facility], [address] [place] [address], [id number], tel:[phone] [facility] Other pulmonary embolism without acute cor pulmonale 9201 8 Riddhi Harding. [address], [address] [place] [address], [id number], . tel:[phone] Referring Provider: Mehdi Hannon MD, [address] [facility], [place], [address]. tel:[phone] Office/outpa tient visit,est, min [facility], [address], [place], [place], [id number], [phone] [facility] Other pulmonary embolism without acute cor pulmonale 8 Riddhi Harding. [address], [address] [place] [address], [id number], [place]. tel:[phone] Referring Provider: Mehdi Hannon MD, [address] [facility], [place], [address]. [phone] [facility], [address] [place] [address], [id number], [phone] [facility] Other pulmonary embolism without acute cor pulmonale 0 8 Riddhi Harding. [address], [address] [place] [address], [id number], [place]. [phone] Referring Provider: Mehdi Hannon MD, [address] [place] [address], [address]. tel:[phone] [facility], [address] [place] [address], [id number], [place] [phone] [facility] Other pulmonary embolism without acute cor pulmonale 8 Riddhi Harding. [address], [address] [place] [address], [id number], [place]. [phone] Referring Provider: Mehdi Hannon MD, [address] [place] [address], [address]. tel:[phone] [facility], [address] [place] [address], [id number], tel:[phone] [facility] Other pulmonary embolism without acute cor pulmonale Oct-0 5-201 8 Riddhi Harding. [address], [address] [place] [address], [id number], . tel:[phone] Referring Provider: Mehdi Hannon MD, [address] [facility], [place], [address]. tel:[phone] [facility], [address] [place] [address], [id number], tel:[phone] [facility] Other pulmonary embolism without acute cor pulmonale Sep-0 7-201 8 Riddhi Harding. [address], [address] [place] [address], [id number], [place]. tel:[phone] Referring Provider: Mehdi Hannon MD, [address] [place] [address], [address]. tel:[phone] [facility], [address] [place] [address], [id number], tel:[phone] [facility] Other pulmonary embolism without acute cor pulmonale Sep-0 7-201 8 Riddhi Harding. [address], [address] [place] [address], [id number], . tel:[phone] Referring Provider: Mehdi Hannon MD, [address] [place] [address], [address]. tel:[phone] [facility], [address] [place] [address], [id number], tel:[phone] [facility] Other pulmonary embolism without acute cor pulmonale 8 Riddhi Harding. [address], [address] [place] [address], [id number], [place]. [phone] Referring Provider: Mehdi Hannon MD, [address] [place] [address], [address]. tel:[phone] Office/outpa tient visit,[facility], [facility], [address] [place] [address], [id number], [phone] [facility] Other pulmonary embolism without acute cor pulmonale 8 Riddhi Harding. [address], [address], [id number], [place]. tel:[phone] Referring Provider: Mehdi Hannon MD, [address] [place] [address], [address]. 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 [address], [place] [address] [place] [address], [id number], [place]. tel:[phone] Referring Provider: Mehdi Hannon MD, [address] [place] [address], [address]. tel:[phone] [facility], [address], [place], [place], [id number], tel:[phone] [facility] Other pulmonary embolism without acute cor pulmonale 8 Riddhi Haridng. [address], Suite [facility], [place], [place], [id number], . [phone] Referring Provider: Mehdi Hannon MD, [address] [facility], [place], [address]. tel:[phone] [facility], [address] [place] [address], [id number], tel:[phone] [facility] Other pulmonary embolism without acute cor pulmonale 8 Riddhi Harding. [address], [address] [place] [address], [id number], [place]. [phone] Referring Provider: Mehdi Hannon MD, [address] [place] [address], [address]. tel:[phone] [facility], [address] [place] [address], [id number], tel:[phone] [facility] Other pulmonary embolism without acute cor pulmonale 8 Riddhi Harding. [address], Suite [facility], [place], [place], [id number], [place]. [phone] Referring Provider: Mehdi Hannon MD, [address] [facility], [place], [address]. tel:[phone] [facility], [address] [place] [address], [id number], tel:[phone] [facility] Other pulmonary embolism without acute cor pulmonale 0 8 Riddhi Harding. [address], [address] [place] [address], [id number], . tel:[phone] Referring Provider: Mehdi Hannon MD, [address] [place] [address], [address]. tel:[phone] [facility], [facility] [address] [place] [address], [id number], tel:[phone] [facility] Other pulmonary embolism without acute cor pulmonale 0 8 Riddhi Harding. [address], [address] [place] [address], [id number], . tel:[phone] Referring Provider: Mehdi Hannon MD, [address] [place] [address], [address]. tel:[phone] [facility], [address] [place] [address], [id number], tel:[phone] [facility] Other pulmonary embolism without acute cor pulmonale 0 8 Riddhi Harding. [address], [address] [place] [address], [id number], . tel:[phone] Referring Provider: Mehdi Hannon MD, [address] [place] [address], [address]. tel:[phone] [facility], [address] [place] [address], [id number], tel:[phone] [facility] Other pulmonary embolism without acute cor pulmonale 0 8 Riddhi Harding. [address], [address] [place] [address], [id number], [place]. tel:[phone] Referring Provider: Mehdi Hannon MD, [address] [place] [address], [address]. tel:[phone] [facility], [address] [place] [address], [id number], tel:[phone] [facility] Other pulmonary embolism without acute cor pulmonale Apr-0 4-201 8 Riddhi Harding. [address], [address] [place] [address], [id number], [place]. tel:[phone] Referring Provider: Mehdi Hannon MD, [address] [place] [address], [address] [place] [address]. [phone] [facility], [facility] [address] [place] [address], [id number], tel:[phone] [facility] Other pulmonary embolism without acute cor pulmonale Mar-0 2201 8 Riddhi Harding. [address], [address] [place] [address], [id number], [place]. tel:[phone] Referring Provider: Mehdi Hannon MD, [address] [place] [address], [address]. tel:[phone] [facility], [address] [place] [address], [id number], [place] tel:[phone] [facility] Personal history of pulmonary embolism Mar-0 2-201 8 Riddhi Harding. [address], [address] [place] [address], [id number], . tel:[phone] Referring Provider: Mehdi Hannon MD, [address] [place] [address], [address]. tel:[phone] [facility], [address] [place] [address], [id number], tel:[phone] [facility] Other pulmonary embolism without acute cor pulmonale Fe0 2201 8 Riddhi Harding. [address], [address] [place] [address], [id number], [place]. tel:[phone] Referring Provider: Mehdi Hannon MD, [address] [place] [address], [address]. [phone] [facility], [address] [place] [address], [id number], [phone] [facility] [place] Other pulmonary embolism without acute cor pulmonale 0 8 Riddhi Harding. [address], [address] [place] [address], [id number], [place]. tel:[phone] Referring Provider: Mehdi Hannon MD, [address] [place] [address], [address]. tel:[phone] Office/outpa tient visit,est, min [facility], [address] [place] [address], [id number], tel:[phone] [facility] Other pulmonary embolism without acute cor pulmonale 201 8 Riddhi Harding. [address], [address] [place] [address], [id number], [place]. [phone] Referring Provider: Mehdi Hannon MD, [address] [place] [address], [address]. [phone] [facility], [address] [place] [address], [id number], tel:[phone] [facility] alf (current) use of anticoagulan tsPersonal history of pulmonary embolism 8 Riddhi Harding. [address], [address] [place] [address], [id number], . [phone] Referring Provider: Mehdi Hannon MD, [address] [place] [address], [address]. tel:[phone] Office/outpa tient visit,est, [facility], [address] [place], [place] [address] [address] [place] [address], [id number], tel:[phone] [facility] No Information 7 Riddhi Harding. [address], [id number], . tel:[phone] Referring Provider: Mehdi Hannon MD, [address] [place] [address], [address]. tel:[phone] [facility], [facility] [address] [place] [address], [id number], tel:[phone] [facility] Other pulmonary embolism without acute cor pulmonale 7 Riddhi Harding. [address], [address] [place] [address], [id number], . tel:[phone] Referring Provider: Mehdi Hannon MD, [address] [place] [address], [address]. tel:[phone] Office/outpa tient visit,est, [facility], [facility] [address] [place] [address], [id number], tel:[phone] [facility] Other pulmonary embolism without acute cor pulmonale 7 Riddhi Harding. [address], [address] [place] [address], [address] [place] [address], . tel:[phone] Referring Provider: Mehdi Hannon MD, [address] [place] [address], [address] [place] [address]. tel:[phone] [facility], [address] [place] [address], [id number], [phone] [facility] Other pulmonary embolism without acute cor pulmonale 7 Riddhi Harding. [address], [address] [place] [address], [address] [place] [address], . tel:[phone] Referring Provider: Mehdi Hannon MD, [address] [facility], [place], [place], [address] [place] [address]. tel:[phone] [facility], [address] [place] [address], [id number], tel:[phone] [facility] Other pulmonary embolism without acute cor pulmonale 7 Riddhi Harding. [address], [address] [place] [address], [id number], . tel:[phone] Referring Provider: Mehdi Hannon MD, [address] [place] [address], [address]. tel:[phone] [facility], [address] [place] [address], [id number], tel:[phone] [facility] alf (current) use of anticoagulan tsOther pulmonary embolism without acute cor pulmonale 7 Riddhi Harding. [address], [address], [place], [place], [id number], [place]. tel:[phone] Referring Provider: Mehdi Hannon MD, [address] Suite [facility], [place], [address]. [phone] Office/outpa tient visit,est, min [facility], [address] [facility], [place], [place], [id number], [phone] [facility] Other pulmonary embolism without acute cor pulmonale Nov- 7 Riddhi Harding. [address], Suite [facility], [place], [place], [id number], [place]. [phone] Referring Provider: Mehdi Hannon MD, [address] [facility], [place], [address]. tel:[phone] [facility], [address] [place] [address], [id number], [phone] [facility] [address] Other pulmonary embolism without acute cor pulmonale 7 Riddhi Harding. [address], Suite [facility], [place], [place], [id number], . [phone] Referring Provider: Mehdi Hannon MD, [address] [facility], [place], [address]. [phone] [facility], [address] [place] [address], [id number], [phone] [facility] Other pulmonary embolism without acute cor pulmonale Oct- 7 Riddhi Harding. [address], [address], [place], [place], [id number], [place]. [phone] Referring Provider: Mehdi Hannon MD, [address] [facility], [place], [address]. tel:[phone] [facility], [address] [place] [address], [id number], tel:[phone] [facility] [address] Other pulmonary embolism without acute cor pulmonaleLon g term (current) use of anticoagulan ts 7 Riddhi Harding. [address], Suite [facility], [place], [id number], [place]. tel:[phone] Referring Provider: Mehdi Hannon MD, [address] [facility], [place], [address]. tel:[phone] [facility], [address] [place] [address], [id number], tel:[phone] [facility] Other pulmonary embolism without acute cor pulmonale 7 Riddhi Harding. [address], [address] [place] [address], [id number], [place]. tel:[phone] Referring Provider: Mehdi Hannon MD, [address] [place] [address], [address]. tel:[phone] [facility], [address] [place] [address], [id number], tel:[phone] [facility] [address] [address] Other pulmonary embolism without acute cor pulmonaleLon g term (current) use of anticoagulan ts 7 Riddhi Harding. [address], [address] [place] [address], [id number], [place]. tel:[phone] Referring Provider: Mehdi Hannon MD, [address] [place] [address], [address]. [phone] [facility], [address] [facility], [place], [id number], tel:[phone] [facility] Other pulmonary embolism without acute cor pulmonale Riddhi Harding. [address], Suite [facility], [place], [id number], [place]. tel:[phone] Referring Provider: Mehdi Hannon MD, [address] [facility], [place], [address]. tel:[phone] [facility], [address] [place] [address], [id number], tel:[phone] [facility] [address] Other pulmonary embolism without acute cor pulmonale Riddhi Harding. [address], Suite [facility], [place], [place], [id number], [place]. tel:[phone] Referring Provider: Mehdi Hannon MD, [address] [facility], [place], [address]. tel:[phone] [facility], [address] [place] [address], [id number], tel:[phone] [facility] Other pulmonary embolism without acute cor pulmonale Riddhi Harding. [address], Suite [facility], [place], [place], [id number], [place]. tel:[phone] Referring Provider: Mehdi Hannon MD, [address] [facility], [place], [address]. tel:[phone] [facility], [address] [facility], [place], [place], [id number], tel:[phone] [facility] [address] [facility] Other pulmonary embolism without acute cor pulmonale 7 Riddhi Harding. [address], Suite [facility], [place], [id number], . tel:[phone] Referring Provider: Mehdi Hannon MD, [address] [facility], [place], [address]. tel:[phone] [facility], [address] [place] [address], [id number], tel:[phone] [facility] Other pulmonary embolism without acute cor pulmonale 7 Riddhi Harding. [address], [address] [place] [address], [id number], . tel:[phone] Referring Provider: Mehdi Hannon MD, [address] [facility], [place], [address] [place] [address]. tel:[phone] [facility], [address] [place] [address], [id number], tel:[phone] [facility] Other pulmonary embolism without acute cor pulmonale 7 Riddhi Harding. [address], [address] [place] [address], [id number], . tel:[phone] Referring Provider: Mehdi Hannon MD, [address] [place] [address], [address]. [phone] [facility], [address] [place] [address], [id number], tel:[phone] [facility] Other pulmonary embolism without acute cor pulmonale 7 Riddhi Harding. [address], [address] [place] [address], [id number], . tel:[phone] Referring Provider: Mehdi Hannon MD, [address] [facility], [place], [address]. tel:[phone] [facility], [facility] [address] [place] [address], [id number], tel:[phone] [facility] Other pulmonary embolism without acute cor pulmonale 7 Riddhi Harding. [address], [address] [place] [address], [id number], [place]. tel:[phone] Referring Provider: Mehdi Hannon MD, [facility] [address] [place] [address], [address]. tel:[phone] [facility], [facility] [address] [place] [address], [id number], [place] tel:[phone] 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 [address], [address] [place] [address], [id number], [place]. tel:[phone] Referring Provider: Mehdi Hannon MD, [address] [place] [address], [address]. tel:[phone] Office/outpa tient visit,est, min [facility], [address] [place] [address], [id number], [place] tel:[phone] [facility] Other pulmonary embolism without acute cor pulmonale 7 Riddhi Harding. [address], [address] [place] [address], [id number], . tel:[phone] Referring Provider: Mehdi Hannon MD, [address] [facility], [place], [address]. tel:[phone] Office/outpa tient visit,est, mod [facility], [address] [place] [address], [id number], [place] tel:[phone] [facility] follow up (chief complaint) WYNN (dyspnea on exertion)Hx of deep venous thrombosisOS A (obstructive sleep apnea)Essent ial hypertension Dyslipidemia 0 7 Ananda Arroyo. [address] [place], [id number], [place]. tel:[phone] Referring Provider: Mehdi Hannon MD, [address] [place] [address], [address]. tel:[phone] [facility], 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 [address], [address], [id number], [place]. tel:[phone] Referring Provider: Mehdi Hannon MD, [address] [place] [address], [address]. tel:[phone] [facility], [facility] [address] [place] [address], [id number], tel:[phone] [facility] Other pulmonary embolism without acute cor pulmonale [address] [facility] [address], [address], [id number], [place]. tel:[phone] Referring Provider: Mehdi Hannon MD, [address] [facility], [place], [address]. tel:[phone] [facility], [address] [place] [address], [id number], [phone] [facility] Other pulmonary embolism without acute cor pulmonaleLon g term (current) use of anticoagulan ts May- 7 Riddhi Harding. [address], [address] [place] [address], [id number], [place]. tel:[phone] Referring Provider: Mehdi Hannon MD, [address] [place] [address], [address]. [phone] [facility], [address] [place] [address], [id number], [phone] [facility] Other pulmonary embolism without acute cor pulmonale 7 Riddhi Harding. [address], Suite [facility], [place], [id number], [place]. tel:[phone] Referring Provider: Mehdi Hannon MD, [address] [place] [address], [address]. [phone] [facility], [address] [place] [address], [id number], [place] [phone] [facility] alf (current) use of anticoagulan tsOther pulmonary embolism without acute cor pulmonale 7 Riddhi Hadring. [address], [address] [place] [address], [id number], [place]. [phone] Referring Provider: Mehdi Hannon MD, [address] Suite [facility], [place], [address]. [phone] [facility], [facility] [address] [place] [address], [id number], tel:[phone] [facility] Other pulmonary embolism without acute cor pulmonale 7 Riddhi Harding. [address], Suite [facility], [place], [place], [id number], [place]. tel:[phone] Referring Provider: Mehdi Hannon MD, [facility] [address] [place] [address], [address] [place] [address]. [phone] [facility], [facility] [address] [place] [address], [id number], [phone] [facility] e truck terminal manager (current) use of anticoagulan tsOther pulmonary embolism without acute cor pulmonale 7 Riddhi Harding. [address], Suite [facility], [place], [place], [id number], . [phone] Referring Provider: Mehdi Hannon MD, [address] [place] [address], [address]. [phone] [facility], [facility] [address] [place] [address], [id number], tel:[phone] [facility] Other pulmonary embolism without acute cor pulmonale 7 Riddhi Harding. [address], [address] [place] [address], [id number], . [phone] Referring Provider: Mehdi Hannon MD, [address] [place] [address], [address]. tel:[phone] [facility], [address] [facility], [place], [id number], tel:[phone] [facility] [address] Other pulmonary embolism without acute cor pulmonaleLon g term (current) use of anticoagulan ts Riddhi Harding. [address], Suite [facility], [place], [place], [id number], [place]. tel:[phone] Referring Provider: Mehdi Hannon MD, [address] [facility], [place], [address]. tel:[phone] [facility], [address] [place] [address], [id number], tel:[phone] [facility] Other pulmonary embolism without acute cor pulmonale Riddhi Hadring. [address], [address] [place] [address], [id number], [place]. tel:[phone] Referring Provider: Mehdi Hannon MD, [address] [place] [address], [address]. tel:[phone] [facility], [address] [place] [address], [id number], tel:[phone] [facility] Other pulmonary embolism without acute cor pulmonale 6 Riddhi Harding. [address], [address] [place] [address], [id number], [place]. tel:[phone] Referring Provider: Mehdi Hannon MD, [address] [place] [address], [address]. tel:[phone] [facility], [address] [place] [address], [id number], [place] tel:[phone] [facility] alf (current) use of anticoagulan tsOther pulmonary embolism without acute cor pulmonale 6 Riddhi Harding. [address], [address] [place] [address], [id number], [place]. [phone] Referring Provider: Mehdi Hannon MD, [address] [place] [address], [address]. 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 [address], [address] [place] [address], [id number], . [phone] Referring Provider: Mehdi Hannon MD, [address] [place] [address], [address]. tel:[phone] [facility], [address] [place] [address], [id number], [phone] [facility] Other pulmonary embolism without acute cor pulmonale 6 Riddhi Harding. [address], [address] [place] [address], [id number], [place]. tel:[phone] Referring Provider: Mehdi Hannon MD, [address] [place] [address], [address]. tel:[phone] [facility], [address] [place] [address], [id number], tel:[phone] [facility] Other pulmonary embolism without acute cor pulmonale 2 0-201 6 Riddhi Harding. [address], [address] [place] [address], [id number], . tel:[phone] Referring Provider: Mehdi Hannon MD, [address] [facility], [place], [address]. tel:[phone] [facility], [address] [place] [address], [id number], tel:[phone] [facility] Other pulmonary embolism without acute cor pulmonaleLon g term (current) use of anticoagulan ts Oct-2 0-201 6 Riddhi Harding. [address], [address] [place] [address], [id number], . tel:[phone] Referring Provider: Mehdi Hannon MD, [address] [place] [address], [address]. tel:[phone] [facility], [facility] [address] [place] [address], [id number], tel:[phone] [facility] e alf (current) use of anticoagulan ts Sep-2 2-201 6 Riddhi Harding. [address] [place] [address], [id number], . tel:[phone] Referring Provider: Mehdi Hannon MD, [address] [place] [address], [address]. tel:[phone] [facility], [facility] [address] [place] [address], [id number], tel:[phone] [facility] Pulmonary Embolus Sep-2 2-201 6 Riddhi Harding. [address], [address] [place] [address], [id number], . tel:[phone] Referring Provider: Mehdi Hannon MD, [address] [facility], [place], [address]. tel:[phone] [facility], [address] [place] [address], [id number], tel:[phone] [facility] alf (current) use of anticoagulan tsOther pulmonary embolism without acute cor pulmonale 6 Riddhi Harding. [address], [address] [place] [address], [id number], [place]. tel:[phone] Referring Provider: Mehdi Hannon MD, [address] [place] [address], [address] [place] [address]. tel:[phone] [facility], [address] [place] [address], [id number], tel:[phone] [facility] Pulmonary Embolus 6 Riddhi Harding. [address], [address] [place] [address], [id number], . tel:[phone] Referring Provider: Mehdi Hannon MD, [address] [place] [address], [address]. tel:[phone] [facility], [address] [place] [address], [id number], [place] tel:[phone] [facility] Personal history of pulmonary embolismLong term (current) use of anticoagulan ts 6 Riddhi Harding. [address], [address] [place] [address], [id number], . tel:[phone] Referring Provider: Mehdi Hannon MD, [address], [place], [address]. tel:[phone] [facility], [address] [place] [address], [id number], tel:[phone] [facility] Pulmonary Embolus 2 6 Riddhi Harding. [address], [address] [place] [address], [id number], [place]. tel:[phone] Referring Provider: Mehdi Hanonn MD, [address] [place] [address], [address]. tel:[phone] [facility], [facility] [address] [place] [address], [id number], tel:[phone] [facility] Pulmonary Embolus 6 Riddhi Harding. [address], [address] [place] [address], [id number], [place]. tel:[phone] Referring Provider: Mehdi Hannon MD, [facility] [address] [place] [address], [address]. tel:[phone] [facility], [address] [place], [place] [address] [address] [place] [address], [id number], tel:[phone] [facility] truck terminal manager (current) use of anticoagulan tsOther pulmonary embolism without acute cor pulmonale 3201 6 Riddhi Harding. [address], [address] [place] [address], [id number], [place]. tel:[phone] Referring Provider: Mehdi Hannon MD, [address] [place] [address], [address]. tel:[phone] Office/outpa tient visit,est, mod [facility], [address] [place] [address], [id number], [place] tel:[phone] [facility] Dyspnea (chief complaint)Fo llow up (chief complaint) History of DVT (deep vein thrombosis)H istory of pulmonary embolismEsse ntial hypertension Mixed hyperlipidem iaVenous insufficienc y 6 Malave Cruz. [address] [place], [id number], [place]. tel:[phone] Referring Provider: Mehdi Hannon MD, [facility] [address] [place] [address], [address]. tel:[phone] [facility], [facility] [address] [place] [address], [id number], [place] tel:[phone] [facility] No Information Riddhi Harding. [facility], [address] [place] [address], [id number], [place]. tel:[phone] Referring Provider: Mehdi Hannon MD, [address] [place], [place] [address] e [address] [place] [address], [address]. tel:[phone] [facility], [facility] [address] [place] [address], [id number], [place] tel:[phone] [facility] No Information 6 Riddhi Harding. [address] [facility] , [address] [place] [address], [id number], [place]. tel:[phone] Referring Provider: Mehdi Hannon MD, [address] [facility] e [address] [place] [address], [address]. tel:[phone] [facility], [address] [place], [place] [address] e [address] [place] [address], [id number], [place] tel:[phone] [facility] truck terminal manager (current) use of anticoagulan tsOther pulmonary embolism without acute cor pulmonale 3 6 Riddhi Harding. [address], [address] [place] [address], [id number], . tel:[phone] Referring Provider: Mehdi Hannon MD, [address] [place] [address], [address]. [phone] [facility], [address] [place] [address], [id number], [phone] [facility] Pulmonary Embolus 6 Riddhi Harding. [address] [facility] [address], [address] [place] [address], [address] [place] [address], . tel:[phone] Referring Provider: Mehdi Hannon MD, [address] [place] [address], [address] [place] [address]. tel:[phone] [facility], [address] [place] [address], [address] [place] [address], tel:[phone] [facility] Pulmonary Embolus 0 6 Riddhi Harding. [address], [address] [place] [address], [id number], . tel:[phone] Referring Provider: Mehdi Hannon MD, [address] [place] [address], [address]. tel:[phone] [facility], [address] [place] [address], [id number], tel:[phone] [facility]f (current) use of anticoagulan ts 0 6 Riddhi Harding. [address], [address] [place] [address], [id number], . tel:[phone] Referring Provider: Mehdi Hannon MD, [address] [facility] [address] [place] [address], [address]. tel:[phone] Office/outpa tient visit,est, high [facility], [address] [place] [address], [id number], tel:[phone] [facility] new patient consultation (chief complaint) Chronic deep vein thrombosis (DVT) of femoral vein of both lower extremitiesE ssential hypertension Mixed hyperlipidem iaPE (pulmonary thromboembol ism) 6 Riddhi Harding. [address], [id number], . tel:[phone] Referring Provider: Mehdi Hannon MD, [address] [place], [place] [address] [address] [place] [address], [address]. tel:[phone] [facility], [address] [place], [place] [address] [address] [place] [address], [id number], tel:[phone] [facility] e alf (current) use of anticoagulan ts May-2 6 Riddhi Harding. 1200 [facility], [id number], . tel:[phone] Referring Provider: Mehdi Hannon MD, 1200 [facility] [address] [place] [address], [address]. tel:[phone] [facility], [address] [place] [address] e [facility] [address] [place] [address], [id number], tel:[phone] [facility] Pulmonary Embolus Apr-2 6 Riddhi Harding. 1200 [facility], [address], [id number], [place]. tel:[phone] Referring Provider: Mehdi Hannon MD, [address] Suite [facility], [place], [address]. tel:[phone] [facility], [address] [place] [address], [id number], tel:[phone] [facility] [address] alf (current) use of anticoagulan tsOther pulmonary embolism without acute cor pulmonale 6 Riddhi Harding. [address], [address] [place] [address], [id number], [place]. tel:[phone] Referring Provider: Mehdi Hannon MD, [address] [place] [address], [address]. [phone] [facility], [address] [place] [address], [id number], tel:[phone] [facility] Pulmonary Embolus 6 Riddhi Harding. [address], [address] [place] [address], [id number], [place]. tel:[phone] Referring Provider: Mehdi Hannon MD, [address] [place] [address], [address]. 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 [address], [address] [place] [address], [id number], . tel:[phone] Referring Provider: Mehdi Hannon MD, [address] [place] [address] [place], [address]. tel:[phone] [facility], [address] [place] [address], [id number], tel:[phone] [facility] Pulmonary Embolus 6 Riddhi Harding. [address], [address] [place] [address], [id number], [place]. tel:[phone] Referring Provider: Mehdi Hannon MD, [address] Suite [facility], [place], [address]. tel:[phone] [facility], [address] [place] [address], [id number], [place] tel:[phone] [facility] Pulmonary Embolus 6 Riddhi Harding. [address] , [address] [place] [address], [id number], [place]. tel:[phone] Referring Provider: Mehdi Hannon MD, [address] [place] [address], [address]. tel:[phone] [facility], [address] [place] [address], [id number], tel:[phone] [facility] alf (current) use of anticoagulan ts 6 Riddhi Harding. [address], [address] [place] [address], [id number], [place]. tel:[phone] Referring Provider: Mehdi Hannon MD, [address] [place] [address], [address]. tel:[phone] [facility], [address] [place] [address], [id number], [place] tel:[phone] [facility] e alf (current) use of anticoagulan ts 5 Riddhi Harding. [address] , [address] [place] [address], [address] [place] [address], . tel:[phone] Referring Provider: Mehdi Hannon MD, [address] [place] [address], [address] [place] [address]. tel:[phone] [facility], [address] [facility] [address] [place] [address], [address] [place] [address], tel:[phone] [facility] Pulmonary Embolus 5 Riddhi Harding. 1200 [facility] , [address] [place] [address], [address] [place] [address], . tel:[phone] Referring Provider: Mehdi Hannon MD, [address] [facility] [address] [place] [address], [address] [place] [address]. tel:[phone] [facility], [facility] [address] [place] [address], [address] [place] [address], tel:[phone] [facility] e No Information 5 Riddhi Harding. [address] , [address] [place] [address], [id number], . tel:[phone] Referring Provider: Mehdi Hannon MD, [address] [place] [address], [address]. tel:[phone] [facility], [address] [place] [address], [id number], tel:[phone] [facility] Pulmonary Embolus 0 5 Riddhi Harding. [address], [address] [place] [address], [address] [place] [address], . tel:[phone] Referring Provider: Mehdi Hannon MD, 1200 [facility] Suite [facility], [place], [address]. tel:[phone] [facility], [address] [facility] [address] [place] [address], [id number], tel:[phone] [facility] No Information 5 Riddhi Harding. 1200 [facility] e , [address], [place], [place], [id number], . tel:[phone] Referring Provider: Hong Dickerson MD T, [address] [place] [address], [address]. tel:[phone] [facility], 1200 [facility] [address] [place] [address], [id number], tel:[phone] [facility] Pulmonary EmbolusPE (pulmonary thromboembol ism) 5 Riddhi Harding. 1200 [facility], [address] [place] [address], [id number], . tel:[phone] Referring Provider: Mehdi Hannon MD, 1200 [facility] [address] [place] [address], [address]. tel:[phone] [facility], [facility] [address] [place] [address], [id number], tel:[phone] [facility] truck terminal manager (current) use of anticoagulan tsOther senior living (current) drug therapy 5 Riddhi Harding. 1200 [facility] , [address] [place] [address], [id number], . tel:[phone] Referring Provider: Mehdi Hannon MD, 1200 [facility] [address] [place] [address], [address]. tel:[phone] [facility], [address] [facility], [place], [place], [id number], tel:[phone] [facility] [address] PULM EMBOL/INFARC T NEC Riddhi Harding. [address], Suite [facility], [place], [place], [id number], [place]. tel:[phone] Referring Provider: Mehdi Hannon MD, [address] Suite [facility], [place], [address]. tel:[phone] [facility], [address] [facility], [place], [place], [id number], tel:[phone] [facility] Pulmonary Embolus Riddhi Harding. [address], Suite [facility], [place], [place], [id number], [place]. tel:[phone] Referring Provider: Mehdi Hannon MD, [address] Suite [facility], [place], [address]. tel:[phone] [facility], [address] [facility], [place], [place], [id number], tel:[phone] [facility] Pulmonary Embolus 5 Riddhi Harding. [address], Suite [facility], [place], [place], [id number], [place]. tel:[phone] Referring Provider: Mehdi Hannon MD, [address] Suite [facility], [place], [address]. tel:[phone] [facility], [address] [place] [address], [id number], tel:[phone] [facility] PULM EMBOL/INFARC T NEC 5 Riddhi Harding. [address], [address], [place], [place], [id number], . tel:[phone] Referring Provider: Mehdi Hannon MD, [address] Suite [facility], [place], [address]. tel:[phone] [facility], [address], [place], [place], [id number], [place] tel:[phone] [facility] e No Information Riddhi Harding. [address], Suite [facility], [place], [place], [id number], [place]. tel:[phone] Referring Provider: Hong Dickerson MD T, [address], [address]. tel:[phone] [facility], [address] [facility], [place], [place], [address], tel:[phone] [facility] Pulmonary Embolus 5 Riddhi Harding. [address], [address] [place] [address], [id number], . tel:[phone] Referring Provider: Mehdi Hannon MD, [address] Suite [facility], [place], [address]. tel:[phone] [facility], [address] [place] [address], [id number], tel:[phone] [facility] PULM EMBOL/INFARC T NECLONG-TERM USE ANTICOAGUL 5 Riddhi Harding. [address], [address] [place] [address], [id number], [place]. tel:[phone] Referring Provider: Mehdi Hannon MD, [address] Suite [facility], [place], [address]. tel:[phone] [facility], [address] [place] [address], [id number], tel:[phone] [facility] Pulmonary Embolus 5 Riddhi Harding. [address], [address], [place], [place], [id number], [place]. tel:[phone] Referring Provider: Mehdi Hannon MD, [address] [place] [address], [address]. tel:[phone] [facility], [address] [place] [address], [id number], tel:[phone] [facility] [address] LONG-TERM USE ANTICOAGUL 5 Riddhi Harding. [address], [address] [place] [address], [id number], . tel:[phone] Referring Provider: Mehdi Hannon MD, [address] [place] [address], [address]. tel:[phone] [facility], [address] [place] [address], [id number], tel:[phone] [facility] Pulmonary Embolus 5 Riddhi Harding. [address], [address] [place] [address], [id number], . tel:[phone] Referring Provider: Mehdi Hannon MD, [address] [place] [address], [address]. tel:[phone] [facility], [address], [place], [place], [id number], tel:[phone] [facility] PULM EMBOL/INFARC T NEC 5 Riddhi Harding. [address], Suite [facility], [place], [place], [address], . tel:[phone] Referring Provider: Mehdi Hannon MD, [address] Suite [facility], [place], [address]. tel:[phone] [facility], [address] [place] [address], [id number], tel:[phone] [facility] PULM EMBOL/INFARC T NECLONG-TERM USE ANTICOAGUL Riddhi Harding. [address], [address] [place] [address], [id number], [place]. [phone] Referring Provider: Mehdi Hannon MD, [address] [place] [address], [address]. tel:[phone] [facility], [address] [place] [address], [id number], tel:[phone] [facility] Pulmonary Embolus 5 Riddhi Harding. [address], [address] [place] [address], [id number], [place]. tel:[phone] Referring Provider: Mehdi Hannon MD, [address] [place] [address], [address]. tel:[phone] Office/outpa tient visit,est, min [facility], [address] [place] [address], [id number], tel:[phone] [facility] Pulmonary Embolus May- 5 Riddhi Harding. [address], Suite [facility], [place], [place], [address], . tel:[phone] Referring Provider: Mehdi Hannon MD, [address] Suite [facility], [place], [address]. [phone] [facility], [address] [place] [address], [id number], tel:[phone] [facility] LONG-TERM USE ANTICOAGUL 5 Riddhi Harding. [address], Suite [facility], [place], [place], [address], [place]. tel:[phone] Referring Provider: Mehdi Hannon MD, [address] Suite [facility], [place], [address]. tel:[phone] [facility], [address] [place] [address], [id number], tel:[phone] [facility] [facility] PULM EMBOL/INFARC T NEC 5 Riddhi Harding. [address], Suite [facility], [place], [place], [address], . [phone] Referring Provider: Mehdi Hannon MD, [address] Suite [facility], [place], [address]. [phone] [facility], [address] [place] [address], [id number], [phone] [facility] No Information Apr- 5 Riddhi Harding. [address], [address] [place] [address], [id number], [place]. tel:[phone] Referring Provider: Hong Dickerson MD T, [address], [place], [address]. tel:[phone] Office/outpa tient visit,est, min [facility], [address], [place], [place], [id number], [place] tel:[phone] [facility] Pulmonary Embolus Apr- 0 5 Riddhi Harding. [address], [address] [place] [address], [id number], [place]. tel:[phone] Referring Provider: Mehdi Hannon MD, [address] [place] [address], [address]. tel:[phone] [facility], [address] [place] [address], [id number], tel:[phone] [facility] PULM EMBOL/INFARC T NECLONG-TERM USE MEDS NECLONG-TERM USE ANTICOAGUL 0 5 Riddhi Harding. [address], [address] [place] [address], [id number], [place]. tel:[phone] Referring Provider: Mehdi Hannon MD, [address] [place] [address], [address]. tel:[phone] [facility], [address] [place] [address], [id number], [place] tel:[phone] [facility] LONG-TERM USE ANTICOAGULLO NG-TERM USE MEDS NEC 5 Riddhi Harding. [address], [address] [place] [address], [id number], . tel:[phone] Referring Provider: Mehdi Hannon MD, [address] [place] [address], [address]. tel:[phone] Office/outpa tient visit,est, min [facility], [address] [place] [address], [id number], tel:[phone] [facility] Pulmonary Embolus Apr-1 7-201 5 Riddhi Harding. [address], [address] [place] [address], [id number], . tel:[phone] Referring Provider: Mehdi Hannon MD, [address] [place] [address], [address]. tel:[phone] [facility], [address] [place] [address], [id number], tel:[phone] [facility] LONG-TERM USE ANTICOAGULLO NG-TERM USE MEDS NEC Mar-0 3-201 5 Riddhi Harding. [address], [address] [place] [address], [id number], [place]. tel:[phone] Referring Provider: Mehdi Hannon MD, [address] [place] [address], [address]. tel:[phone] Office/outpa tient visit,est, min [facility], [address] [place] [address], [id number], tel:[phone] [facility] Pulmonary Embolus Mar-0 3-201 5 Riddhi Harding. [address], [address], [id number], . tel:[phone] Referring Provider: Mehdi Hannon MD, [address] [place] [address], [address]. tel:[phone] [facility], [address], [place], [place], [id number], [place] tel:[phone] [facility] PULM EMBOL/INFARC T NECLONG-TERM USE ANTICOAGUL 0 5 Riddhi Harding. [address], [address], [place], [place], [id number], [place]. [phone] Referring Provider: Mehdi Hannon MD, [address] Suite [facility], [place], [address]. [phone] [facility], [address] [place] [address], [id number], tel:[phone] [facility] Pulmonary Embolus 5 Riddhi Harding. [address], [address] [place] [address], [id number], [place]. [phone] Referring Provider: Mehdi Hannon MD, [address] [place] [address], [address]. tel:[phone] Office/outpa tient visit,est, min [facility], [address] [facility], [place], [place], [id number], tel:[phone] [facility] Pulmonary Embolus 5 Riddhi Harding. [address], [address] [place] [address], [id number], [place]. tel:[phone] Referring Provider: Mehdi Hannon MD, [address] Suite [facility], [place], [address]. tel:[phone] [facility], [address] [place] [address], [id number], tel:[phone] [facility] LONG-TERM USE ANTICOAGULLO NG-TERM USE MEDS [facility] 5 Riddhi Harding. [address], [address] [place] [address], [id number], . tel:[phone] Referring Provider: Mehdi Hannon MD, [address] [place] [address], [address]. tel:[phone] [facility], [address] [place] [address], [id number], [place] tel:[phone] [facility] [place] PULM EMBOL/INFARC T [facility] 5 Riddhi Hrading. [address], [address], [id number], . tel:[phone] Referring Provider: Mehdi Hannon MD, [address] [place] [address], [address]. tel:[phone] Office/outpa tient visit,est, [facility], [address] [place] [address], [id number], tel:[phone] [facility] No Information 5 Katelynn Sanchez. [address] [place], [id number], . tel:[phone] Referring Provider: Daniel Pace, [address] [place], [address]. tel:[phone] [facility], [address] [place] [address], [id number], tel:[phone] [facility] Pulmonary Embolus 5 Riddhi Harding. [address], [address], [id number], [place]. tel:[phone] Referring Provider: Mehdi Hannon MD, [address] Suite [facility], [place], [address]. tel:[phone] [facility], [address] [place] [address], [id number], [place] tel:[phone] [facility] [place] PULM EMBOL/INFARC T NECLONG-TERM USE ANTICOAGUL 5 Riddhi Harding. [address], Suite [facility], [place], [place], [id number], [place]. tel:[phone] Referring Provider: Mehdi Hannon MD, [address] [place] [address], [address]. tel:[phone] Office/outpa tient visit,est, mod [facility], [address] [facility], [place], [place], [id number], tel:[phone] [facility] No Information 5 Katelynn Sanchez. [address], [id number], . tel:[phone] Referring Provider: Daniel Pace, [address] [place], [address]. tel:[phone] [facility], [address] [place] [address], [id number], [place] tel:[phone] [facility] BENIGN HYPERTENSION HYPERLIPIDEM IA NEC/NOSDMII NEURO UNCNTRLD 4 Katelynn Sanchez. [address], [id number], [place]. tel:[phone] Referring Provider: Daniel Pace, [address] [place], [address]. tel:[phone] [facility], [address] [place] [address], [id number], tel:[phone] [facility] BENIGN HYPERTENSION HYPERLIPIDEM IA NEC/NOSDMII NEURO UNCNTRLD 4 Katelynn Sanchez. [address], [id number], [place]. tel:[phone] Referring Provider: Daniel Pace, [address], [place], [address] [place] [address]. tel:[phone] [facility], [address] [place] [address], [id number], tel:[phone] [facility] PULM EMBOL/INFARC T NECLONG-TERM USE MEDS NEC 4 Riddhi Harding. [address], [address] [place] [address], [id number], [place]. tel:[phone] Referring Provider: Mehdi Hannon MD, [address] [place] [address], [address]. tel:[phone] [facility], [address] [place] [address], [id number], tel:[phone] [facility] Pulmonary Embolus 4 Riddhi Harding. [address], [address] [place] [address], [id number], [place]. tel:[phone] Referring Provider: Mehdi Hannon MD, [address] [place] [address], [address]. tel:[phone] [facility], [address] [place] [address], [address] [place] [address], tel:[phone] [facility] No Information 4 Katelynn Sanchez. [address], [place], [address] [place] [address], . tel:[phone] Referring Provider: Mehdi Hannon MD, [address] Suite [facility], [place], [address]. tel:[phone] [facility], [address] [place] [address], [id number], tel:[phone] [facility] PULM EMBOL/INFARC T NECLONG-TERM USE ANTICOAGUL 4 Riddhi Harding. [address], [address] [place] [address], [address] [place] [address], . tel:[phone] Referring Provider: Mehdi Hannon MD, [address] [place] [address], [address] [place] [address]. tel:[phone] [facility], [address] [place] [address], [address] [place] [address], tel:[phone] [facility] Pulmonary Embolus 4 Riddhi Harding. [address], [address] [place] [address], [address] [place] [address], . tel:[phone] Referring Provider: Mehdi Hannon MD, [address] [place] [address], [address] [place] [address]. tel:[phone] [facility], [address] [place] [address], [address] [place] [address], tel:[phone] [facility] PULM EMBOL/INFARC T NECLONG-TERM USE MEDS NEC 4 Riddhi Harding. [address], [address], [place], [place], [id number], . tel:[phone] Referring Provider: Mehdi Hannon MD, [address] Suite [facility], [place], [address]. tel:[phone] [facility], [address] [place] [address], [id number], tel:[phone] [facility] Embolus 4 Riddhi Harding. [address], Suite [facility], [place], [place], [id number], [place]. tel:[phone] Referring Provider: Mehdi Hannon MD, [address] [place] [address], [address] [place] [address]. tel:[phone] [facility], [address] [place] [address], [id number], tel:[phone] [facility] [address] LONG-TERM USE ANTICOAGULPU LM EMBOL/INFARC T NEC 4 Riddhi Harding. [address], [address] [place] [address], [id number], . tel:[phone] Referring Provider: Mehdi Hannon MD, [address] Suite [facility], [place], [address]. tel:[phone] [facility], [address] [place] [address], [id number], tel:[phone] [facility] Pulmonary Embolus 4 Riddhi Harding. [address], [address] [place] [address], [id number], . tel:[phone] Referring Provider: Mehdi Hannon MD, [address], [place], [address]. tel:[phone] [facility], [address] [facility], [place], [place], [id number], tel:[phone] [facility] Pulmonary Embolus 4 Riddhi Harding. [address], Suite [facility], [place], [place], [id number], [place]. tel:[phone] Referring Provider: Daniel Pace, [address], [place], [address]. tel:[phone] [facility], [address] [place] [address], [id number], [place] tel:[phone] [facility] [place] LONG-TERM USE ANTICOAGUL 4 Katelynn Sanchez. [address], [place], [place], [id number], [place]. tel:[phone] Referring Provider: Daniel Pace, [address] [place], [address]. tel:[phone] Office/outpa tient visit,est, min [facility], [address] [place] [address], [id number], [place] tel:[phone] [facility] No Information 4 Riddhi Harding. [address], [address] [place] [address], [id number], [place]. tel:[phone] Referring Provider: Mehdi Hannon MD, [address] [place] [address], [address]. tel:[phone] Office/outpa tient visit,est, [facility], [address] [place] [address], [address] [place] [address], tel:[phone] [facility] No Information 4 Katelynn Sanchez. [address] [place], [address] [place] [address], . tel:[phone] Referring Provider: Daniel Pace, [address] [place], [address] [place] [address]. tel:[phone] [facility], [address] [place] [address], [address] [place] [address], [phone] [facility] DMII WO CMP NT ST UNCNTR 4 Katelynn Sanchez. [address] [place], [address] [place] [address], . tel:[phone] Referring Provider: Daniel Pace, [address] [place], [address] [place] [address]. tel:[phone] [facility], [address] [place] [address], [address] [place] [address], tel:[phone] [facility] No Information 4 Katelynn Sanchez. [address] [place], [address] [place] [address], . tel:[phone] [facility], [address] [place] [address], [address] [place] [address], tel:[phone] [facility] LONG-TERM USE MEDS NECPULM EMBOL/INFARC T NEC Oct- 4 Riddhi Harding. [address], [address], [address] [place] [address], . tel:[phone] Referring Provider: Mehdi Hannon MD, [address] [place] [address], [address] [place] [address]. tel:[phone] [facility], [facility] [address] [place] [address], [id number], tel:[phone] [facility] Pulmonary Embolus Sep- 4 Katelynn Sanchez. [address] [facility] [place], [id number], [place]. tel:[phone] Referring Provider: Sonia Elliott, [address] [place] [address], [address]. tel:[phone] [facility], [address] [place] [address], [address] [place] [address], tel:[phone] [facility] No Information Sep-0 4 Riddhi Harding. [address] [place], [place] [address], [address], [id number], [place]. tel:[phone] Referring Provider: Sonia Elliott, [address] [place] [address], [address]. tel:[phone] Office/outpa tient visit,[facility], [address] [facility] [address] [place] [address], [id number], tel:[phone] [facility] left foot pain (chief complaint) Limb painDermatop hytosis of nailDiabetes (high blood sugar disease) affecting the nervous system (brain, spinal cord and nerves), blood sugar not under control 4 Shaji Scott. [address] [place], [place] [address], [place], [id number], [place]. tel:[phone] Referring Provider: Daniel Pace, [address] [place], [address]. tel:[phone] [facility], [address] [place], [place] [address]te [address] [place] [address], [address] [place] [address], tel:[phone] [facility] No Information 4 Riddhi Harding. [address] , [address], [address] [place] [address], . tel:[phone] Referring Provider: Sonia Elliott, [address] [facility] [place], [address] [place] [address]. tel:[phone] [facility], [address] [facility] [address] [place] [address], [address] [place] [address], tel:[phone] [facility] [address] LONG-TERM USE MEDS NECLONG-TERM USE ANTICOAGULPU LM EMBOL/INFARC T NECHYPERLIPI DEMIA NEC/NOS 4 Riddhi Harding. [address] , [address], [address] [place] [address], . tel:[phone] Referring Provider: Mehid Hannon MD, [address], [address] [place] [address]. tel:[phone] Office/outpa tient visit,est, [facility], [address] [facility] [address] [place] [address], [address] [place] [address], tel:[phone] [facility] No Information 4 Katelynn Sanchez. [address] [place], [address] [place] [address], . tel:[phone] Referring Provider: Daniel Pace, [address] [place], [address] [place] [address]. tel:[phone] [facility], [address] [facility] [address] [place] [address], [address] [place] [address], tel:[phone] [facility] No Information 4 Katelynn Sanchez. [address], [place], [place], [id number], [place]. tel:[phone] Referring Provider: Mehdi Hannon MD, [address] [place] [address], [address]. tel:[phone] [facility], [address] [place] [address], [id number], [place] tel:[phone] [facility] PULM EMBOL/INFARC T NECLONG-TERM USE MEDS NEC 4 Riddhi Harding. [address], [place] [address], [place], [place], [id number], [place]. tel:[phone] Referring Provider: Mehdi Hannon MD, [address], [address]. tel:[phone] [facility], [address] [place] [address], [id number], [place] tel:[phone] [facility] MORBID OBESITYDMII WO CMP NT ST UNCNTR 4 Katelynn Sanchez. [address] [place], [id number], [place]. tel:[phone] Referring Provider: Daniel Pace, [address], [place], [address]. tel:[phone] [facility], [address] [place] [address], [id number], [place] tel:[phone] [facility] DMII WO CMP NT ST UNCNTRMIXED HYPERLIPIDEM IAHYPERTENSI ON NOSMORBID OBESITYMALAI SE AND FATIGUE NEC 0 4 Katelynn Sanchez. [address], [id number], [place]. tel:[phone] Referring Provider: Daniel Pace, [address] , [place], [address]. tel:[phone] [facility], [address] [place] [address], [id number], tel:[phone] [facility] LONG-TERM USE ANTICOAGULLO NG-TERM USE MEDS NECPULM EMBOL/INFARC T NEC 4 Riddhi Harding. [address], [address] [place] [address], [id number], [place]. tel:[phone] Referring Provider: Mehdi Hannon MD, [address] [place] [address], [address]. tel:[phone] [facility], [facility] [address] [place] [address], [id number], tel:[phone] [facility] Care [facility] VITAMIN D DEFICIENCY NOS 4 Katelynn Sanchez. [address] [place], [id number], [place]. tel:[phone] Referring Provider: Mehdi Hannon MD, [address] [place] [address], [address]. tel:[phone] Office/outpa tient visit,est, min [facility], [address] [place] [address], [id number], tel:[phone] [facility] No Information 4 Riddhi Harding. [address], [address], [id number], . tel:[phone] Referring Provider: Mehdi Hannon MD, [address] [place] [address], [address]. tel:[phone] [facility], [address] [place] [address], [id number], tel:[phone] [facility] LONG-TERM USE ANTICOAGULLO NG-TERM USE MEDS NECPULM EMBOL/INFARC T NEC 4 Riddhi Harding. [address], [address] [place] [address], [id number], [place]. tel:[phone] Referring Provider: Mehdi Hannon MD, [address], [address]. tel:[phone] Office/outpa tient visit,est, [facility], [address] [place] [address], [id number], tel:[phone] [facility] No Information 4 Katelynn Sanchez. [address] [place], [id number], . tel:[phone] Referring Provider: Daniel Pace, [address] [place], [address]. tel:[phone] [facility], [address] [place] [address], [id number], tel:[phone] [facility] [place] LONG-TERM USE ANTICOAGUL 4 Riddhi Harding. [address], [address], [id number], . tel:[phone] Referring Provider: Mehdi Hannon MD, [address] [place] [address], [address]. tel:[phone] [facility], [address] [place] [address], [address] [place] [address], tel:[phone] [facility] LONG-TERM USE ANTICOAGUL 4 Katelynn Sanchez. [address], [id number], . tel:[phone] Referring Provider: Daniel Pace, [address], [place], [address] [place] [address]. tel:[phone] Office/outpa tient visit,est, mod [facility], [address] [place] [address], [id number], tel:[phone] [facility] No Information 4 Katelynn Sanchez. [address] [place], [address] [place] [address], . tel:[phone] Referring Provider: Daniel Pace, [address] [place], [address] [place] [address]. tel:[phone] [facility], [address] [place] [address], [address] [place] [address], tel:[phone] [facility] LONG-TERM USE ANTICOAGUL 4 Riddhi Harding. [address], [address] [place] [address], [id number], . tel:[phone] Referring Provider: Mehdi Hannon MD, [address] [place] [address], [address]. tel:[phone] [facility], [address] [place] [address], [id number], tel:[phone] [facility] DMII WO CMP NT ST UNCNTR 4 Katelynn Sanchez. [address], [place], [place], [id number], . tel:[phone] Referring Provider: Daniel Pace, [address], [place], [address] [place] [address]. tel:[phone] [facility], [address] [facility], [place], [place], [id number], tel:[phone] [facility] No Information 4 Katelynn Sanchez. [address], [place], [place], [id number], [place]. [phone] [facility], [address] [place] [address], [address] [place] [address], tel:[phone] [facility] No Information Riddhi Harding. [address], [address] [place] [address], [address] [place] [address], . [phone] Referring Provider: Mehdi Hannon MD, [address] [place] [address], [address] [place] [address]. tel:[phone] [facility], [address] [place] [address], [id number], tel:[phone] [facility] LONG-TERM USE ANTICOAGUL 4 Riddhi Harding. [address], [address] [place] [address], [id number], . tel:[phone] Referring Provider: Mehdi Hannon MD, [address] [place] [address], [address] [place] [address]. tel:[phone] [facility], [address] [place] [address], [id number], tel:[phone] [facility] LONG-TERM USE ANTICOAGUL 4 Riddhi Harding. [address], [address] [place] [address], [id number], . tel:[phone] Referring Provider: Mehid Hannon MD, [address] [place] [address], [address]. tel:[phone] Office/outpa tient visit,est, min [facility], [address] [place] [address], [id number], tel:[phone] [facility] No Information 3 Riddhi Harding. [address], [address], [id number], [place]. tel:[phone] Referring Provider: Mehdi Hannon MD, [address] [place] [address], [address]. tel:[phone] [facility], [address] [place] [address], [id number], tel:[phone] [facility] [place] LONG-TERM USE ANTICOAGULLO NG-TERM USE MEDS NECVENOUS THROMBOSIS NEC 3 Riddhi Harding. [address], [address], [id number], . tel:[phone] Referring Provider: Mehdi Hannon MD, [address] [place] [address], [address]. tel:[phone] [facility], [address] [place] [address], [id number], tel:[phone] [facility] [place] DMII WO CMP NT ST UNCNTR 3 Katelynn Sanchez. [address], [id number], . tel:[phone] Referring Provider: Daniel Pace, [address], [place], [address] [place] [address]. tel:[phone] [facility], [address] [place] [address], [id number], tel:[phone] [facility] LONG-TERM USE MEDS NECVENOUS THROMBOSIS NECLONG-TERM USE ANTICOAGUL 3 Riddhi Harding. [address], [address], [id number], . tel:[phone] Referring Provider: Mehdi Hannon MD, [address], [address] [place] [address]. tel:[phone] [facility], [address] [place] [address], [address] [place] [address], tel:[phone] [facility] [place] [facility] LONG-TERM USE ANTICOAGUL 3 Riddhi Harding. [address], [address], [id number], . tel:[phone] Referring Provider: Mehdi Hannon MD, [address] [place] [address], [address] [place] [address]. tel:[phone] [facility], [address] [place] [address], [id number], tel:[phone] [facility] LONG-TERM USE MEDS NECLONG-TERM USE ANTICOAGUL 3 Riddhi Harding. [address], [address] [place] [address], [id number], . tel:[phone] Referring Provider: Mehdi Hannon MD, [address] Suite [facility], [place], [address]. tel:[phone] [facility], [address] [place] [address], [id number], tel:[phone] [facility] Diabetes Mellitus Type 2, Uncomplicate d Sep-2 3 Katelynn Sanchez. [address], [place], [place], [id number], [place]. tel:[phone] [facility], [address] [place] [address], [id number], [place] tel:[phone] [facility] LONG-TERM USE ANTICOAGULVE NOUS THROMBOSIS NECLONG-TERM USE MEDS NEC Sep- 3 Riddhi Harding. [address], [address], [id number], [place]. tel:[phone] Referring Provider: Mehdi Hannon MD, [address] [place] [address], [address]. tel:[phone] Office/outpa tient visit,est, [facility], [address] [facility], [place], [place], [id number], tel:[phone] [facility] No Information Sep-2 3 Katelynn Sanchez. [address], [place], [place], [id number], [place]. tel:[phone] Referring Provider: Daniel Pace, [address] [place], [address]. tel:[phone] [facility], [address] [place] [address], [id number], [place] tel:[phone] [facility] [facility] HYPERPOTASSE ALEENA Sep- 3 Katelynn Sanchez. [address], [id number], . tel:[phone] Referring Provider: Daniel Pace, [address], [place], [address]. tel:[phone] Office/outpa tient visit,est, [facility], [address] [place] [address], [id number], [place] tel:[phone] [facility] No Information 3 Riddhi Harding. [address], [address], [id number], [place]. tel:[phone] Referring Provider: Mehdi Hannon MD, [address] [place] [address], [address]. tel:[phone] [facility], [address] [place] [address], [id number], [place] tel:[phone] [facility] LONG-TERM USE ANTICOAGULVE NOUS THROMBOSIS NECLONG-TERM USE MEDS NECPULM EMBOL/INFARC T NEC 3 Riddhi Harding. [address], [address], [id number], . tel:[phone] Referring Provider: Mehdi Hannon MD, [address] [place] [address], [address]. tel:[phone] Office/outpa tient visit,est, [facility], [address] [place] [address], [id number], [place] tel:[phone] [facility] No Information 3 Riddhi Harding. [address], [address], [id number], . tel:[phone] Referring Provider: Mehdi Hannon MD, [address] [place] [address], [address]. tel:[phone] [facility], [address] [place] [address], [id number], tel:[phone] [facility] LONG-TERM USE MEDS NECLONG-TERM USE ANTICOAGUL 3 Riddhi Harding. [address], [address] [place] [address], [id number], . tel:[phone] Referring Provider: Mehdi Hannon MD, [address] [place] [address], [address]. tel:[phone] Office/outpa tient visit,est, min [facility], [address] [place] [address], [id number], tel:[phone] [facility] No Information 3 Riddhi Harding. [address], [address] [place] [address], [id number], . tel:[phone] Referring Provider: Mehdi Hannon MD, [address] [place] [address], [address]. tel:[phone] [facility], [address] [place] [address], [id number], tel:[phone] [id number] [facility] [place] PULM EMBOL/INFARC T NECLONG-TERM USE MEDS NECLONG-TERM USE ANTICOAGULVE NOUS THROMBOSIS NEC 3 Riddhi Harding. [address], [address], [id number], . tel:[phone] Referring Provider: Mehdi Hannon MD, [address] [place] [address], [address]. tel:[phone] [facility], [address] [place] [address], [id number], tel:[phone] [facility] [place] LONG-TERM USE ANTICOAGUL 3 Riddhi Harding. [address], [address] [place] [address], [id number], [place]. tel:[phone] Referring Provider: Mehdi Hannon MD, [address], [address] [place] [address]. tel:[phone] [facility], [address] [place] [address], [address] [place] [address], tel:[phone] [facility] [place] HYPERPOTASSE ALEENA 3 Katelynn Sanchez. [address] [place], [address] [place] [address], [place]. tel:[phone] Referring Provider: Daniel Pace, [address] [place], [address] [place] [address]. tel:[phone] Office/outpa tient visit,est, mod [facility], [address] [place] [address], [id number], tel:[phone] [facility] Hyperkalemia Hypertension , UnspecifiedD iabetes Mellitus Type 2, Uncomplicate d 3 Katelynn Sanchez. [address] [place], [address] [place] [address], [place]. tel:[phone] Referring Provider: Daniel Pace, [address] [place], [address]. tel:[phone] [facility], [address] [facility], [place], [place], [id number], tel:[phone] [facility] [place] PULM EMBOL/INFARC T NECLONG-TERM USE ANTICOAGULLO NG-TERM USE MEDS NEC 3 Riddhi Harding. [address], [address] [place] [address], [id number], [place]. tel:[phone] Referring Provider: Mehdi Hannon MD, [address] [place] [address], [address]. tel:[phone] [facility], [address] [place] [address], [id number], tel:[phone] [facility] [place] LONG-TERM USE ANTICOAGULLO NG-TERM USE MEDS NECPULM EMBOL/INFARC T NECVENOUS THROMBOSIS NEC 3 Riddhi Harding. [address], [address] [place] [address], [id number], [place]. tel:[phone] Referring Provider: Mehdi Hannon MD, [facility] [address] [place] [address], [address]. tel:[phone] [facility], [address] [place] [address], [id number], tel:[phone] [facility] [place] LONG-TERM USE ANTICOAGUL Apr- 3 Riddhi Harding. [address], [address] [place] [address], [id number], . tel:[phone] Referring Provider: Mehdi Hannon MD, [address] [place] [address], [address]. tel:[phone] [facility], [address] [facility], [place], [place], [id number], [place] tel:[phone] [facility] [place] VENOUS THROMBOSIS NECLONG-TERM USE ANTICOAGULPU LM EMBOL/INFARC T NEC 3 Riddhi Harding. [address], Suite [facility], [place], [place], [id number], [place]. tel:[phone] Referring Provider: Mehdi Hannon MD, [address] Suite [facility], [place], [address]. tel:[phone] [facility], [address] [place] [address], [id number], tel:[phone] [facility] No Information 3 Riddhi Harding. [address], [address] [place] [address], [id number], [place]. tel:[phone] Referring Provider: Mehdi Hannon MD, [address] Suite [facility], [place], [address]. tel:[phone] Office/outpa tient visit,est, min [facility], [address] [facility], [place], [place], [id number], tel:[phone] [facility] No Information 3 Riddhi Harding. [address], [address] [place] [address], [id number], [place]. tel:[phone] Referring Provider: Mehdi Hannon MD, [address] Suite [facility], [place], [address]. tel:[phone] [facility], [address] [place] [address], [id number], tel:[phone] [facility] [place] PULM EMBOL/INFARC T NECVENOUS THROMBOSIS NECLONG-TERM USE ANTICOAGUL 3 Riddhi Harding. [address], Suite [facility], [place], [place], [id number], [place]. tel:[phone] Referring Provider: Mehdi Hannon MD, [address] Suite [facility], [place], [address]. tel:[phone] [facility], [address] [place] [address], [id number], [place] tel:[phone] [facility] [place] LONG-TERM USE MEDS NEC 3 Katelynn Sanchez. [address] [place], [id number], [place]. tel:[phone] Referring Provider: Daniel Pace, [address] [place], [address]. tel:[phone] [facility], [address] [place] [address], [id number], tel:[phone] [facility] HYPERLIPIDEM IA NEC/NOSDiabe pricilla Mellitus Type 2, Uncomplicate d 3 Katelynn Sanchez. [address], [id number], [place]. tel:[phone] Referring Provider: Daniel Pace, [address] [place], [address]. tel:[phone] Office/outpa tient visit,est, mod [facility], [address] [place] [address], [id number], tel:[phone] [facility] No Information 3 Katelynn Sanchez. [address] [place] [id number], [place]. tel:[phone] Referring Provider: Daniel Pace, [address], [place], [address]. tel:[phone] [facility], [address] [place] [address], [id number], [place] tel:[phone] [facility] LONG-TERM USE ANTICOAGULVE NOUS THROMBOSIS NECPULM EMBOL/INFARC T NEC 3 Riddhi Harding. [address], [address] [place] [address], [id number], [place]. tel:[phone] Referring Provider: Mehdi Hannon MD, [address] [place] [address], [address]. tel:[phone] Office/outpa tient visit,est, [facility], [address] [facility] [address] [place] [address], [id number], [place] tel:[phone] [facility] No Information 3 Riddhi Harding. 1200 [facility] , [address], [id number], [place]. tel:[phone] Referring Provider: Mehdi Hannon MD, [address] [place] [address], [address]. tel:[phone] lting Provider: Mehdi Hannon MD, [address] [place] [address], [address]. tel:[phone] Office/outpa tient visit,est, [facility], [address] [place] [address], [id number], [place] tel:[phone] [facility] No Information 3 Diane Stark. [address] [place], [place], [facility], . tel:[phone] Referring Provider: Mehdi Hannon MD, [address] Suite [facility], [place], [address]. tel:[phone] lting Provider: Mehdi Hannon MD, [address] [place] [address], [address]. tel:[phone] [facility], [address] [place] [address], [id number], [place] tel:[phone] [facility] [place] LONG-TERM USE ANTICOAGULVE NOUS THROMBOSIS NECPULM EMBOL/INFARC T NEC 3 Riddhi Harding. [address], [address] [place] [address], [id number], [place]. tel:[phone] Referring Provider: Mehdi Hannon MD, [address] [place] [address], [address]. tel:[phone] Office/outpa tient visit,est, min [facility], [address] [place] [address], [id number], tel:[phone] [facility] No Information 3 Riddhi Harding. [address], [address] [place] [address], [id number], [place]. tel:[phone] Referring Provider: Mehdi Hannon MD, [address] [place] [address], [address]. tel:[phone] [facility], [address] [place] [address], [id number], [place] tel:[phone] [facility] [place] LONG-TERM USE ANTICOAGULVE NOUS THROMBOSIS NEC 3 Riddhi Harding. [address], Suite [facility], [place], [place], [id number], [place]. tel:[phone] Referring Provider: Mehdi Hannon MD, [address] Suite [facility], [place], [address]. tel:[phone] [facility], [address] [place] [address], [id number], tel:[phone] [facility] No Information 3 Riddhi Harding. [address], Suite [facility], [place], [place], [id number], [place]. tel:[phone] Referring Provider: Mehdi Hannon MD, [address] [place] [address], [address]. tel:[phone] [facility], [address] [place] [address], [id number], tel:[phone] [facility] [place] LONG-TERM USE ANTICOAGULVE NOUS THROMBOSIS NEC 3 Riddhi Harding. [address], Suite [facility], [place], [place], [id number], [place]. tel:[phone] Referring Provider: Mehdi Hannon MD, [address] Suite [facility], [place], [address]. tel:[phone] [facility], [address] [place] [address], [id number], [place] tel:[phone] [facility] [place] LONG-TERM USE ANTICOAGUL 3 Riddhi Harding. [address], [address] [place] [address], [id number], . tel:[phone] Referring Provider: Mehdi Hannon MD, [address], [place], [address]. tel:[phone] [facility], [address] [place] [address], [id number], [phone] [facility] No Information 7201 3 Diane Stark. [address] [facility], [place], [address], [place]. tel:[phone] Referring Provider: Mehdi Hannon MD, [address] Suite [facility], [place], [address]. tel:[phone] lting Provider: Mehdi Hannon MD, [address] Suite [facility], [place], [address]. [phone] [facility], [address] [place] [address], [id number], [phone] [facility] [place] No Information 6-201 3 Hough Bogdan. [address], [address] [place] [address], [id number], . tel:[phone] Referring Provider: Mehdi Hannon MD, [address] [place] [address], [address]. tel:[phone] lting Provider: Mehdi Hannon MD, [address] [place] [address], [address]. tel:[phone] [facility], [address] [place] [address], [id number], tel:[phone] [facility] [place] No Information 5-201 3 Hough Bogdan. [address], [address], [id number], . tel:[phone] Referring Provider: Mehdi Hannon MD, [address] [place] [address], [address]. tel:[phone] lting Provider: Mehdi Hannon MD, [address] Suite [facility], [place], [address]. tel:[phone] Office/outpa tient visit,est, min [facility], [address] [place] [address], [id number], tel:[phone] [facility] No Information 2 [place]. [address] [place], [place], [id number], . tel:[phone] Referring Provider: Mehdi Hannon MD, [address] [place] [address], [address]. tel:[phone] lting Provider: Mehdi Hannon MD, [address] [place] [address], [address]. tel:[phone] [facility], [facility] [address] [place] [address], [id number], tel:[phone] [facility] [place] VENOUS THROMBOSIS NECLONG-TERM USE ANTICOAGULPU LM EMBOL/INFARC T NEC 2 Riddhi Harding. [address], [address] [place] [address], [id number], [place]. tel:[phone] Referring Provider: Mehdi Hannon MD, [address] [place] [address], [address]. tel:[phone] [facility], [address] [place] [address], [id number], tel:[phone] [facility] [place] LONG-TERM USE ANTICOAGULVE NOUS THROMBOSIS NEC 2 Riddhi Harding. [address], Suite [facility], [place], [place], [id number], [place]. tel:[phone] Referring Provider: Mehdi Hannon MD, [address] [place] [address], [address]. tel:[phone] [facility], [address] [place] [address], [id number], [place] tel:[phone] [facility] [place] HYPERLIPIDEM IA NEC/NOSDMII WO CMP NT ST UNCNTR 2 Katelynn Sanchez. [address] [place], [id number], [place]. tel:[phone] Referring Provider: Daniel Pace, [address] [place], [address]. tel:[phone] Office/outpa tient visit,est, [facility], [address] [place] [address], [id number], tel:[phone] [facility] No Information 2 Cadence Garcia. [address] [place], [id number], [place]. tel:[phone] Referring Provider: Mehdi Hannon MD, [address] [place] [address], [address]. tel:[phone] lting Provider: Mehdi Hannon MD, [address], [address]. tel:[phone] Office/outpa tient visit,est, [facility], [address] [place] [address], [id number], [place] tel:[phone] [facility] HYPERLIPIDEM IA NEC/NOSDiabe pricilla Mellitus Type 2, Uncomplicate d 2 Katelynn Sanchez. [address], [id number], [place]. tel:[phone] Referring Provider: Daniel Pace, [address] [place], [address]. tel:[phone] [facility], [address] [place] [address], [id number], [place] tel:[phone] [facility] [place] LONG-TERM USE ANTICOAGULVE NOUS THROMBOSIS NECPULM EMBOL/INFARC T NEC 2 Riddhi Harding. [address], [address] [place] [address], [id number], . tel:[phone] Referring Provider: Mehdi Hannon MD, [address] [place] [address], [address]. tel:[phone] Office/outpa tient visit,est, min [facility], [address] [place] [address], [id number], tel:[phone] [facility] No Information 2 Riddhi Harding. [address], [address] [place] [address], [id number], . tel:[phone] Referring Provider: Mehdi Hannon MD, [address] [place] [address], [address]. tel:[phone] [facility], [address] [place] [address], [id number], tel:[phone] [facility] [place] LONG-TERM USE ANTICOAGULVE NOUS THROMBOSIS NECPULM EMBOL/INFARC T NEC 2 Riddhi Harding. [address], [address] [place] [address], [id number], [place]. tel:[phone] Referring Provider: Mehdi Hannon MD, [address] Suite [facility], [place], [address]. tel:[phone] Office/outpa tient visit,est, [facility], [address] [place] [address], [id number], [place] tel:[phone] [facility] No Information 2 Riddhi Harding. [address], [address] [place] [address], [id number], [place]. tel:[phone] Referring Provider: Mehdi Hannon MD, [address] [place] [address], [address]. tel:[phone] [facility], [address] [place] [address], [id number], tel:[phone] [facility] LONG-TERM USE ANTICOAGULVE NOUS THROMBOSIS NEC 2 Riddhi Harding. [address], [address] [place] [address], [id number], [place]. tel:[phone] Referring Provider: Mehdi Hannon MD, [address] [place] [address], [address]. tel:[phone] Office/outpa tient visit,est, [facility], [address] [place] [address], [id number], [place] tel:[phone] [facility] No Information 2 Riddhi Harding. [address], [address], [address] [place] [address], . tel:[phone] Referring Provider: Mehdi Hannon MD, [address] [place] [address], [address] [place] [address]. tel:[phone] [facility], [address] [place] [address], [id number], tel:[phone] [facility] LONG-TERM USE ANTICOAGULPU LM EMBOL/INFARC T [facility] Oct-1 0- 2 Riddhi Harding. [address], [address] [place] [address], [id number], . tel:[phone] Referring Provider: Mehdi Hannon MD, [address] [place] [address], [address] [place] [address]. tel:[phone] [facility], [address] [facility] [address] [place] [address], [id number], tel:[phone] [facility] LONG-TERM USE ANTICOAGULVE NOUS THROMBOSIS NECPULM EMBOL/INFARC T [facility] Oct-0 2 Riddhi Harding. [address], [address] [place] [address], [id number], . tel:[phone] Referring Provider: Mehdi Hannon MD, [address] [place] [address], [address] [place] [address]. tel:[phone] [facility], [address] [place] [address], [id number], tel:[phone] [facility] Long-term Use of Anticoagulan Oct-0 1 2 Riddhi Harding. [address], [address] [place] [address], [id number], . tel:[phone] Referring Provider: Mehdi Hannon MD, [address] Suite [facility], [place], [address]. tel:[phone] [facility], [address] [place] [address], [id number], tel:[phone] [facility] No Information Oct-0 1201 2 Riddhi Harding. [address], Suite [facility], [place], [place], [id number], [place]. tel:[phone] Referring Provider: Mehdi Hannon MD, [address] [facility], [place], [address]. tel:[phone] [facility], [address] [facility] [address] [place] [address], [id number], tel:[phone] [facility] No Information Sep-3 0 2 Riddhi Harding. [address] , [address] [place] [address], [id number], [place]. tel:[phone] Referring Provider: Mehdi Hannon MD, [address] [facility] e Suite [facility], [place], [address]. tel:[phone] [facility], [address] [place], [place] [address]te [address] [place] [address], [id number], tel:[phone] [facility] No Information Sep-2 2 Riddhi Harding. [address] [place] [address], [id number], [place]. tel:[phone] Referring Provider: Mehdi Hannon MD, [address] Suite [facility], [place], [address]. tel:[phone] [facility], [address] [place] [address] [address] [place] [address], [id number], tel:[phone] [facility] No Information Oct-2 2 Riddhi Harding. [address], Suite [facility], [place], [place], [id number], [place]. tel:[phone] Referring Provider: Mehdi Hannon MD, [address] Suite [facility], [place], [address]. tel:[phone] [facility], [address] [place] [address], [id number], [place] tel:[phone] [facility] [place] HYPERLIPIDEM IA NEC/NOS Oct- 2 Katelynn Sanchez. [address] [place], [id number], [place]. tel:[phone] Referring Provider: Daniel Pace, [address] [place], [address]. [phone] Office/outpa tient visit,est, mod [facility], [address] [place] [address], [id number], tel:[phone] [facility] No Information Sep- 0 2 Katelynn Sanchez. [address], [id number], [place]. tel:[phone] Referring Provider: Dnaiel Pace, [address] [place], [address]. [phone] Office/outpa tient visit,est, min [facility], [address] [place] [address], [id number], [place] tel:[phone] [facility] No Information 0 2 Riddhi Harding. [address], [address], [id number], [place]. tel:[phone] Referring Provider: Mehdi Hannon MD, [address] Suite [facility], [place], [address]. tel:[phone] [facility], [address] [place] [address], [id number], tel:[phone] [facility] [place] LONG-TERM USE ANTICOAGULVE NOUS THROMBOSIS [facility] 2 Riddhi Harding. [address], [address] [place] [address], [id number], [place]. tel:[phone] Referring Provider: Mehdi Hannon MD, [address] [place] [address], [address]. tel:[phone] [facility], [facility] [address] [place] [address], [id number], tel:[phone] [facility] No Information 2 Riddhi Harding. [address], [address] [place] [address], [id number], [place]. tel:[phone] Referring Provider: Mehdi Hannon MD, [address] [place] [address], [address]. tel:[phone] [facility], [address] [place] [address], [id number], tel:[phone] [facility] LONG-TERM USE ANTICOAGULPU LM EMBOL/INFARC T NECVENOUS THROMBOSIS NEC 2 Riddhi Harding. [address], [address] [place] [address], [id number], [place]. tel:[phone] Referring Provider: Mehdi Hannon MD, [address] [place] [address], [address]. tel:[phone] [facility], [address] [place] [address], [id number], tel:[phone] [facility] [address] LONG-TERM USE ANTICOAGUL 2 Riddhi Harding. [address], [address] [place] [address], [id number], . tel:[phone] Referring Provider: Mehdi Hannon MD, [address] [place] [address], [address]. tel:[phone] Office/outpa tient visit,est, mod [facility], [address], [id number], tel:[phone] [facility] Dyspnea 2 Riddhi Harding. [address], [address] [place] [address], [id number], [place]. tel:[phone] Referring Provider: Mehdi Hannon MD, [address] [place] [address], [address]. tel:[phone] [facility], [address] [place] [address], [id number], tel:[phone] [facility] No Information 2 Riddhi Harding. [address], [address] [place] [address], [id number], [place]. tel:[phone] Referring Provider: Mehdi Hannon MD, [address] [place] [address], [address]. tel:[phone] Office/outpa tient visit,est, min [facility], [address] [place] [address], [id number], [place] tel:[phone] [facility] No Information 2 Riddhi Harding. [address] , [address], [id number], [place]. tel:[phone] Referring Provider: Mehdi Hannon MD, [address] [facility] [address] [place] [address], [address]. tel:[phone] [facility], [address] [place] [address] [address] [place] [address], [id number], [place] tel:[phone] [facility] LONG-[facility]M USE MEDS NECVENOUS THROMBOSIS NECLONG-TERM USE ANTICOAGUL 2 Riddhi Harding. [address] [facility] , [address], [id number], [place]. tel:[phone] Referring Provider: Mehdi Hannon MD, [address] [place] [address] [address] [place] [address], [address]. tel:[phone] Office/outpa tient visit,est, mod [facility], [address] [place] [address] e [facility] [address] [place] [address], [id number], tel:[phone] [facility] Shortness of BreathPulmon airam EmbolusDeep Vein ThrombosisHy pertension, UnspecifiedM ixed Hyperlipidem ia 2 Riddhi Harding. [address] , [address], [id number], [place]. tel:[phone] Referring Provider: Mehdi Hannon MD, [address] [place] [address], [address]. tel:[phone] Office/outpa tient visit,est, min [facility], [address] [place] [address], [id number], [place] tel:[phone] [facility] No Information 2 Riddhi Harding. [address], [address] [place] [address], [id number], . tel:[phone] Referring Provider: Mehdi Hannon MD, [address] [place] [address], [address]. tel:[phone] [facility], [address] [place] [address], [id number], tel:[phone] [facility] LONG-TERM USE ANTICOAGUL 2 Riddhi Harding. [address], [address] [place] [address], [id number], . tel:[phone] Referring Provider: Mehdi Hannon MD, [address] [place] [address], [address]. tel:[phone] [facility], [facility] [address] [place] [address], [id number], tel:[phone] [facility] LONG-TERM USE ANTICOAGULVE NOUS THROMBOSIS NECLONG-TERM USE MEDS NEC 2 Riddhi Harding. [address], [address], [id number], . tel:[phone] Referring Provider: Mehdi Hannon MD, [address] [place] [address], [address]. tel:[phone] Office/outpa tient visit,est, min [facility], [address] [place] [address], [id number], tel:[phone] [facility] No Information 2 Riddhi Harding. [address], [address] [place] [address], [id number], . tel:[phone] Referring Provider: Mehdi Hannon MD, [address] Suite [facility], [place], [address]. tel:[phone] [facility], [address] [place] [address], [id number], tel:[phone] [facility] LONG-TERM USE MEDS NECLONG-TERM USE ANTICOAGULVE NOUS THROMBOSIS NEC 0 2 Riddhi Harding. [address], [place] [address], [place], [place], [id number], . tel:[phone] Referring Provider: Mehdi Hannon MD, [address], [address]. tel:[phone] Office/outpa tient visit,est, mod [facility], [address] [facility], [place], [place], [id number], tel:[phone] [facility] No Information 2 2 Katelynn Sanchez. [address] [place], [id number], . tel:[phone] Referring Provider: Daniel Pace, [address], [place], [address]. tel:[phone] [facility], [address] [place] [address], [id number], tel:[phone] [facility] [address] HYPERLIPIDEM IA NEC/NOS 2 Katelynn Sanchez. [address] [place], [id number], . tel:[phone] Referring Provider: Daniel Pace, [address], [place], [address]. tel:[phone] [facility], [address] [facility], [place], [id number], [place] tel:[phone] [facility] HYPERLIPIDEM IA NEC/NOSHyper tension, Benign Apr-2 5201 2 Katelynn Sanchez. [address], [place], [place], [id number], [place]. tel:[phone] [facility], [address] [place] [address], [id number], [place] tel:[phone] [facility] HYPERLIPIDEM IA NEC/NOSHyper tension, Benign Apr-2 2 Riddhi Harding. [address], [address] [place] [address], [id number], [place]. tel:[phone] Referring Provider: Mehdi Hannon MD, [address] [place] [address], [address]. tel:[phone] Office/outpa tient visit,est, min [facility], [address] [facility], [place], [place], [id number], [place] tel:[phone] [facility] No Information Apr-1 0201 2 Riddhi Harding. [address], [address] [place] [address], [id number], [place]. tel:[phone] Referring Provider: Mehdi Hannon MD, [address] [place] [address], [address]. tel:[phone] [facility], [address] [place] [address], [id number], [place] tel:[phone] [facility] [address] LONG-TERM USE ANTICOAGUL 2 Riddhi Harding. [address], [address] [place] [address], [id number], . tel:[phone] Referring Provider: Mehdi Hannon MD, [address] [place] [address], [address]. tel:[phone] [facility], [address] [place] [address], [id number], tel:[phone] [facility] [address] LONG-TERM USE ANTICOAGULLO NG-TERM USE MEDS [facility] 2 Riddhi Harding. [address], [address], [id number], . tel:[phone] Referring Provider: Mehdi Hannon MD, [address] [place] [address], [address]. tel:[phone] Office/outpa tient visit,est, min [facility], [address] [place] [address], [id number], tel:[phone] [facility] No Information 2 Riddhi Harding. [address], [address], [id number], . tel:[phone] Referring Provider: Mehdi Hannon MD, [address] [place] [address], [address]. tel:[phone] [facility], [facility] [address] [place] [address], [id number], tel:[phone] [facility] [address] LONG-TERM USE ANTICOAGULLO NG-TERM USE MEDS NEC 2 Riddhi Harding. [address], [address] [place] [address], [place], [id number], . tel:[phone] Referring Provider: Mehdi Hannon MD, [address] [place] [address], [address]. tel:[phone] Office/outpa tient visit,est, [facility], [address] [place] [address], [id number], tel:[phone] [facility] No Information 2 Riddhi Harding. [address], [address], [id number], . tel:[phone] Referring Provider: Mehdi Hannon MD, [address], [address]. tel:[phone] [facility], [address] [place] [address], [id number], tel:[phone] [facility] [address] LONG-TERM USE ANTICOAGULLO NG-TERM USE MEDS NECVENOUS THROMBOSIS NEC 2 Riddhi Harding. [address], [address], [id number], . tel:[phone] Referring Provider: Mehdi Hannon MD, [address] [place] [address], [address]. tel:[phone] Office/outpa tient visit,est, [facility], [address] [place] [address], [id number], tel:[phone] [facility] No Information 2 Riddhi Harding. [address], [address], [id number], . tel:[phone] Referring Provider: Mehdi Hannon MD, [address] [place] [address], [address]. tel:[phone] lting Provider: Mehdi Hannon MD, [address], [address]. tel:[phone] [facility], [address] [place] [address], [id number], tel:[phone] [facility] [address] LONG-TERM USE ANTICOAGUL 2 Riddhi Harding. [address] [place] [address], [id number], . tel:[phone] Referring Provider: Mehdi Hannon MD, [address] [place] [address], [address]. tel:[phone] [facility], [address] [place] [address], [id number], tel:[phone] [facility] [address] LONG-TERM USE ANTICOAGULHY PERLIPIDEMIA NEC/NOSPULM EMBOL/INFARC T NEC 2 Riddhi Harding. [address] [facility], [id number], . tel:[phone] Referring Provider: Mehdi Hannon MD, [address] [place], [place] [address], [address]. tel:[phone] Office/outpa tient visit,est, high [facility], [address] [place] [address], [id number], tel:[phone] [facility] HYPERLIPIDEM IA NEC/NOS [address] K[address] [facility] [place], [id number], . tel:[phone] Referring Provider: Daniel Pace, [address], [place], [address]. tel:[phone] [facility], [address] [place] [address], [id number], tel:[phone] [facility] HYPERLIPIDEM IA NEC/NOS 2 Katelynn Sanchez. [address] [place], [id number], . tel:[phone] Referring Provider: Daniel Pace, [address] , [place], [address]. tel:[phone] Office/outpa tient visit,est, min [facility], [address] [place] [address], [id number], tel:[phone] [facility] No Information 1 Riddhi Harding. [address], [address], [id number], . tel:[phone] Referring Provider: Mehdi Hannon MD, [address] [place] [address], [address]. tel:[phone] [facility], [address] [place] [address], [id number], tel:[phone] [facility] LONG-TERM USE ANTICOAGULPU LM EMBOL/INFARC T NEC 1 Riddhi Harding. [address], [address] [place] [address], [id number], . tel:[phone] Referring Provider: Mehdi Hannon MD, [address] [place] [address], [address]. [phone] [facility], [address] [place] [address], [id number], tel:[phone] [facility] LONG-TERM USE ANTICOAGUL 1 Riddhi Harding. [address], [address] [place] [address], [id number], . [phone] Referring Provider: Mehdi Hannon MD, [address] [place] [address], [address]. [phone] [facility], [address] [place] [address], [id number], [phone] [facility] No Information 1 Sherman Law. [address] [place] [address], [id number], . tel:[phone] Referring Provider: Mehdi Hannon MD, [address] [place] [address], [address]. [phone] [facility], [address] [place] [address], [id number], [phone] [facility] No Information 1 Sherman Law. [address] [place], [place], [id number], . tel:[phone] Referring Provider: Mehdi Hannon MD, [address] [place] [address], [address]. tel:[phone] [facility], [address] [place] [address], [id number], [phone] [facility] No Information 1 Riddhi Harding. [address], Suite [facility], [place], [place], [id number], . tel:[phone] Referring Provider: Mehdi Hannon MD, [address] Suite [facility], [place], [address]. tel:[phone] [facility], [address] [place] [address], [id number], tel:[phone] [facility] No Information 1 Riddhi Harding. [address], [address] [place] [address], [id number], . tel:[phone] Referring Provider: Mehdi Hannon MD, [address] [place] [address], [address]. tel:[phone] [facility], [address] [place] [address], [id number], tel:[phone] [facility] PULM EMBOL/INFARC T NECLONG-TERM USE ANTICOAGUL 1 Riddhi Harding. [address], [address] [place] [address], [id number], . tel:[phone] Referring Provider: Mehdi Hannon MD, [address] [place] [address], [address]. tel:[phone] [facility], [address] [place] [address], [id number], tel:[phone] [facility] LONG-TERM USE ANTICOAGULPU LM EMBOL/INFARC T NEC 1 Riddhi Harding. [address], [address] [place] [address], [id number], . tel:[phone] Referring Provider: Mehdi Hannon MD, [address] [place] [address], [address]. tel:[phone] Office/outpa tient visit,est, min [facility], [address] [place] [address], [id number], tel:[phone] [facility] No Information 1 Riddhi Harding. [address], [address] [place] [address], [id number], [place]. tel:[phone] Referring Provider: Mehdi Hannon MD, [address] [place] [address], [address]. tel:[phone] Office/outpa tient visit,est, [facility], [address] [place] [address], [id number], tel:[phone] [facility] HYPERLIPIDEM IA NEC/NOS 1 Katelynn Sanchez. [address] [place], [id number], . tel:[phone] Referring Provider: Daniel Pace, [address] [place], [address]. tel:[phone] [facility], [address] [place] [address], [id number], tel:[phone] [facility] [address] LONG-TERM USE ANTICOAGUL 1 Riddhi Harding. [address], [address] [place] [address], [id number], . tel:[phone] Referring Provider: Mehdi Hannon MD, [address] [place] [address], [address]. tel:[phone] [facility], [address] [place] [address], [id number], tel:[phone] [facility] [place] LONG-TERM USE ANTICOAGULVE NOUS THROMBOSIS NEC 1 Riddhi Harding. [address], [address] [place] [address], [id number], [place]. tel:[phone] Referring Provider: Mehdi Hannon MD, [address] [place] [address], [address]. tel:[phone] [facility], [address] [place] [address], [id number], [place] tel:[phone] [facility] Long-term Use of Anticoagulan ts 1 Riddhi Harding. [address], [address] [place] [address], [id number], [place]. tel:[phone] Referring Provider: Mehdi Hannon MD, [address] [place] [address], [address]. tel:[phone] Office/outpa tient visit,est, min [facility], [address] [place] [address], [id number], tel:[phone] [facility] No Information 1 Riddhi Harding. [address], [address] [place] [address], [id number], [place]. tel:[phone] Referring Provider: Mehdi Hannon MD, [address] Suite [facility], [place], [address]. tel:[phone] [facility], [address] [place] [address], [id number], [place] tel:[phone] [facility] [place] LONG-TERM USE ANTICOAGUL 1 Riddhi Harding. [address] , [address], [id number], . tel:[phone] Referring Provider: Daniel Pace, [address] [place], [place], [address] [place] [address]. tel:[phone] [facility], [address] [place] [address], [id number], tel:[phone] [facility] [place] HYPERLIPIDEM IA NEC/NOS Oct- 1 Katelynn Sanchez. [address] [place], [place], [address] [place] [address], . tel:[phone] Referring Provider: Daniel Pace, [address] [place], [place], [address] [place] [address]. tel:[phone] [facility], [address] [place] [address], [id number], tel:[phone] [facility] [place] LONG-TERM USE ANTICOAGULPU LM EMBOL/INFARC T NEC Oct- 1 Riddhi Harding. [address] , [address], [id number], . tel:[phone] Referring Provider: Mehdi Hannon MD, [address] [place] [address], [address] [place] [address]. tel:[phone] [facility], [address] [place] [address], [id number], tel:[phone] [facility] HYPERLIPIDEM IA NEC/NOS Oct- 1 Katelynn Sanchez. [address] [place], [id number], [place]. tel:[phone] Referring Provider: Daniel Pace, [address], [place], [address]. tel:[phone] Office/outpa tient visit,est, [facility], [address] [facility], [place], [place], [id number], [place] tel:[phone] [facility] No Information 1 Riddhi Harding. [address], Suite [facility], [place], [place], [id number], [place]. tel:[phone] Referring Provider: Mehdi Hannon MD, [address] Suite [facility], [place], [address]. tel:[phone] [facility], [address] [place] [address], [id number], [place] tel:[phone] [facility] [place] LONG-TERM USE ANTICOAGULLO NG-TERM USE MEDS [facility] 1 Riddhi Harding. [address], Suite [facility], [place], [place], [id number], [place]. tel:[phone] Referring Provider: Mehdi Hannon MD, [address] Suite [facility], [place], [address]. tel:[phone] Office/outpa tient visit,[facility], [facility], [address] [facility], [place], [place], [id number], [place] tel:[phone] [facility] No Information 1 Katelynn Sanchez. [address], [id number], [place]. tel:[phone] Referring Provider: Mehdi Hannon MD, [address] Suite [facility] [place], [address]. tel:[phone] [facility], [address] [place] [address], [id number], tel:[phone] [facility] [place] LONG-TERM USE ANTICOAGULLO NG-TERM USE MEDS NEC 1 Riddhi Harding. [address], [address], [id number], . tel:[phone] Referring Provider: Mehdi Hannon MD, [address] [place] [address], [address]. tel:[phone] Office/outpa tient visit,est, min [facility], [address] [place] [address], [id number], tel:[phone] [facility] No Information 1 Riddhi Harding. [address], [address] [place] [address], [id number], [place]. tel:[phone] Referring Provider: Mehdi Hannon MD, [address] [place] [address], [address]. tel:[phone] [facility], [facility] [address] [place] [address], [id number], tel:[phone] [facility] [place] LONG-TERM USE ANTICOAGULLO NG-TERM USE MEDS NEC 1 Riddhi Harding. [address], [address], [id number], . tel:[phone] Referring Provider: Mehdi Hannon MD, [address] [place] [address], [address]. tel:[phone] [facility], [address] [facility], [place], [place], [id number], tel:[phone] [facility] [place] LONG-TERM USE MEDS NEC 1 Katelynn Sanchez. [address], [place], [place], [id number], [place]. tel:[phone] Referring Provider: Daniel Pace, [address], [place], [address]. tel:[phone] [facility], [address] [place] [address], [id number], tel:[phone] [facility] No Information 1 Riddhi Harding. [address], [address] [place] [address], [id number], . tel:[phone] Referring Provider: Mehdi Hannon MD, [address] [facility], [place], [address]. tel:[phone] [facility], [address] [place] [address], [id number], tel:[phone] [facility] [place] LONG-TERM USE MEDS NECLONG-TERM USE ANTICOAGUL 1 Ridhdi Harding. [address], [address] [place] [address], [id number], . tel:[phone] Referring Provider: Mehdi Hannon MD, [address] [facility], [place], [address]. tel:[phone] [facility], [address] [place] [address], [id number], tel:[phone] [facility] No Information 1 Riddhi Harding. [address], Suite [facility], [place], [place], [id number], . tel:[phone] Referring Provider: Mehdi Hannon MD, [address] [facility], [place], [address]. tel:[phone] [facility], [address] [place] [address], [id number], tel:[phone] [facility] No Information 1 Riddhi Harding. [address], [place] [address], [place], [place], [id number], [place]. tel:[phone] Referring Provider: Mehdi Hannon MD, [address] [place] [address], [address]. tel:[phone] [facility], [address] [place] [address], [id number], tel:[phone] [facility] [place] No Information 1 English KIM Johnson. [address] [place] [address], Critical access hospital, . tel:[phone] Referring Provider: Mehdi Hannon MD, [address] [place] [address], [address]. tel:[phone] Office/outpa tient visit,est, [facility], [address] [place] [address], [id number], tel:[phone] [facility] No Information 1 Katelynn Sanchez. [address] [place], [id number], . tel:[phone] Referring Provider: Daniel Pace, [address] [place], [address]. tel:[phone] [facility], [address] [facility], [place], [place], [id number], tel:[phone] [facility] LONG-TERM USE ANTICOAGUL 1 Riddhi Harding. [address], [address] [place] [address], [id number], . tel:[phone] Referring Provider: Mehdi Hannon MD, [address] [facility], [place], [address]. tel:[phone] Office/outpa tient visit,est, [facility], [address] [place] [address], [id number], tel:[phone] [facility] No Information 1 Riddhi Harding. [address], [address] [place] [address], [id number], [place]. tel:[phone] Referring Provider: Mehdi Hannon MD, [address] [place] [address], [address]. tel:[phone] Office/outpa tient visit,est, [facility], [address] [place] [address], [id number], tel:[phone] [facility] No Information 1 Riddhi Harding. [address], [address] [place] [address], [id number], [place]. tel:[phone] Referring Provider: Mehdi Hannon MD, [address] [place] [address], [address]. tel:[phone] [facility], [address] [place] [address], [id number], tel:[phone] [facility] HYPERLIPIDEM IA NEC/NOS 1 Katelynn Sanchez. [address], [id number], . tel:[phone] Referring Provider: Daniel Pace, [address] [place], [address]. tel:[phone] [facility], [address] [place] [address], [id number], tel:[phone] [facility] LONG-TERM USE ANTICOAGUL 1 Riddhi Harding. [address], [address] [place] [address], [id number], . tel:[phone] Referring Provider: Mehdi Hannon MD, [address] [place] [address], [address]. tel:[phone] Office/outpa tient visit,est, min [facility], [address] [place] [address], [id number], tel:[phone] [facility] No Information 1 Riddhi Harding. [address] , [address], [id number], . tel:[phone] Referring Provider: Mehdi Hannon MD, [address] [place] [address], [address]. tel:[phone] [facility], [address] [place] [address], [id number], tel:[phone] [facility] [place] LONG-TERM USE MEDS NECLONG-TERM USE ANTICOAGUL 1 Riddhi Harding. [address], [address] [place] [address], [id number], . tel:[phone] Referring Provider: Mehdi Hannon MD, [address] [facility], [place], [address]. tel:[phone] Office/outpa tient visit,est, min [facility], [address] [facility], [place], [place], [id number], [phone] [facility] No Information 0 1 Riddhi Harding. [address], [address], [id number], . tel:[phone] Referring Provider: Mehdi Hannon MD, [address] [place] [address], [address]. tel:[phone] [facility], [address] [place] [address], [id number], [phone] [facility] [place] LONG-TERM USE ANTICOAGUL 1 Riddhi Harding. [address], [address], [id number], . tel:[phone] Referring Provider: Mehdi Hannon MD, [address] [place] [address], [address]. tel:[phone] [facility], [address] [place] [address], [id number], tel:[phone] [facility] LONG-TERM USE MEDS NEC 1 Riddhi Harding. [address], [address] [place] [address], [id number], . tel:[phone] Referring Provider: Mehdi Hannon MD, [address] [place] [address], [address]. tel:[phone] Office/outpa tient visit,est, mod [facility], [address] [facility] [address] [place] [address], [id number], tel:[phone] [facility] HYPERLIPIDEM IA NEC/NOS 1 Katelynn Sanchez. [address] [place], [id number], [place]. tel:[phone] Referring Provider: Daniel Pace, [address] [place], [address]. tel:[phone] [facility], [address], [id number], tel:[phone] [facility] [place] LONG-TERM USE ANTICOAGUL 1 Riddhi Harding. [address], [id number], [place]. tel:[phone] Referring Provider: Mehdi Hannon MD, [address], [address]. tel:[phone] [facility], [address], [id number], tel:[phone] [facility] [place] LONG-TERM USE MEDS NECLONG-TERM USE ANTICOAGUL 1 Riddhi Harding. [address] , [address], [id number], [place]. tel:[phone] Referring Provider: Mehdi Hannon MD, [address], [address]. tel:[phone] Office/outpa tient visit,est, min [facility], [address] [facility], [place], [place], [id number], tel:[phone] [facility] No Information 1 Riddhi Harding. [address], [address], [place], [place], [id number], . tel:[phone] Referring Provider: Mehdi Hannon MD, [address] [facility], [place], [address]. tel:[phone] [facility], [address] [place] [address], [id number], tel:[phone] [facility] No Information 1 Riddhi Harding. [address], [place] [address], [place], [place], [id number], . tel:[phone] Referring Provider: Mehdi Hannon MD, [address] [facility], [place], [address]. tel:[phone] [facility], [address] [place] [address], [id number], tel:[phone] [facility] No Information 1 Riddhi Harding. [address], [address], [id number], . tel:[phone] Referring Provider: Mehdi Hannon MD, [address] [place] [address], [address]. tel:[phone] Office/outpa tient visit,est, min [facility], [address] [place] [address], [id number], tel:[phone] [facility] No Information 0 1 Riddhi Harding. [address], Suite [facility], [place], [id number], . tel:[phone] Referring Provider: Mehdi Hannon MD, [address] [facility], [place], [address]. tel:[phone] [facility], [address] [place] [address], [id number], tel:[phone] [facility] [place] HYPERLIPIDEM IA NEC/NOSLONG- TERM USE MEDS NEC 1 Katelynn Sanchez. [address], [id number], . tel:[phone] Referring Provider: Daniel Pace, [address] [place], [address] [place] [address]. tel:[phone] [facility], [address] [place] [address], [id number], tel:[phone] [facility] [place] [facility] LONG-TERM USE MEDS NEC 1 Riddhi Harding. [address], [address], [id number], . tel:[phone] Referring Provider: Mehdi Hannon MD, [address] [place] [address], [address]. tel:[phone] Office/outpa tient visit,est, min [facility], [address] [place] [address], [id number], tel:[phone] [facility] No Information 1 Riddhi Harding. [address], [address], [id number], . tel:[phone] Referring Provider: Mehdi Hannon MD, [address] [place] [address], [address]. [phone] [facility], [address] [place] [address], [id number], [phone] [facility] [place] LONG-TERM USE MEDS NECLONG-TERM USE ANTICOAGUL 1 Riddhi Harding. [address], [address] [place] [address], [id number], [place]. [phone] Referring Provider: Mehdi Hannon MD, [address] [place] [address], [address]. [phone] Office/outpa tient visit,est, min [facility], [address] [place] [address], [id number], [phone] [facility] No Information 1 Riddhi Harding. [address] , [address], [id number], . [phone] Referring Provider: Mehdi Hannon MD, [address] [place] [address], [address]. [phone] Office/outpa tient visit,est, [facility], [address] [place] [address], [id number], tel:[phone] [facility] HYPERLIPIDEM IA NEC/NOS 0 Katelynn Sanchez. [address], [id number], . tel:[phone] Referring Provider: Daniel Pace, [address] [place], [address]. tel:[phone] [facility], [address] [place] [address], [id number], tel:[phone] [facility] [place] [facility] LONG-TERM USE ANTICOAGUL 0 Riddhi Harding. [address], [address], [id number], . tel:[phone] Referring Provider: Mehdi Hannon MD, [address] [place] [address], [address]. tel:[phone] Office/outpa tient visit,est, min [facility], [address] [place] [address], [id number], tel:[phone] [facility] No Information 0 Riddhi Harding. [address], [address], [id number], . tel:[phone] Referring Provider: Mehdi Hannon MD, [address], [address] [place] [address]. tel:[phone] [facility], [address] [facility] [address] [place] [address], [id number], tel:[phone] [facility] [place] HYPERTENSION NOSHYPERLIPI DEMIA NEC/NOS 0 Katelynn Sanchez. [address] [place], [id number], [place]. tel:[phone] Referring Provider: Daniel Pace, [address] [place], [address]. tel:[phone] [facility], [address] [facility] [address] [place] [address], [id number], tel:[phone] [facility] [place] LONG-TERM USE MEDS NEC 0 Riddhi Harding. [address], [address], [id number], . tel:[phone] Referring Provider: Mehdi Hannon MD, [address] [place] [address], [address]. tel:[phone] Office/outpa tient visit,est, [facility], [address] [place] [address], [id number], tel:[phone] [facility] No Information 0 Riddhi Harding. [address] , [address], [id number], . tel:[phone] Referring Provider: Mehdi Hannon MD, [address] [place] [address], [address]. tel:[phone] [facility], [facility] [place] [facility] [address] [place] [address], [id number], tel:[phone] [facility] [place] LONG-TERM USE ANTICOAGUL 0 Riddhi Harding. [address], [address], [id number], . tel:[phone] Referring Provider: Mehdi Hannon MD, [address] [place] [address], [address]. tel:[phone] Office/outpa tient visit,est, [facility], [address] [place] [address], [id number], tel:[phone] [facility] No Information 0 Riddhi Harding. [address], [place] [address], [place], [place], [id number], . tel:[phone] Referring Provider: Mehdi Hannon MD, [address] [facility], [place], [address]. tel:[phone] [facility], [address] [place] [address], [id number], tel:[phone] [facility] [place] LONG-TERM USE [facility] 0 Riddhi Harding. [address] , [address] [place] [address], [id number], . tel:[phone] Referring Provider: Mehdi Hannon MD, [address] [place] [address], [address]. tel:[phone] [facility], [facility] [address] [place] [address], [id number], tel:[phone] [facility] [place] LONG-TERM USE MEDS [facility] 0 Riddhi Harding. [address] [facility], [address] [place] [address], [id number], . tel:[phone] Referring Provider: Mehdi Hannon MD, 1200 [facility] [address] [place] [address], [address]. tel:[phone] [facility], [address] [facility] [address] [place] [address], [id number], tel:[phone] [facility] Long-term Use of Anticoagulan ts 0 Riddhi Harding. [address] , [address] [place] [address], [id number], . tel:[phone] Referring Provider: Mehdi Hannon MD, [address] [place] [address], [address]. tel:[phone] Office/outpa tient visit,est, min [facility], [address] [place] [address], [id number], tel:[phone] [facility] No Information 0 Riddhi Harding. [address], [address] [place] [address], [id number], . tel:[phone] Referring Provider: Mehdi Hannon MD, [address] [place] [address], [address]. tel:[phone] [facility], [address] [place] [address], [id number], tel:[phone] [facility] [place] LONG-TERM USE ANTICOAGUL Oct- 0 Riddhi Harding. [address], [address] [place] [address], [id number], [place]. tel:[phone] Referring Provider: Mehdi Hannon MD, [address] [place] [address], [address]. tel:[phone] Office/outpa tient visit,est, [facility], [address] [place] [address], [id number], tel:[phone] [facility] No Information 0 Riddhi Harding. [address], [address], [id number], . tel:[phone] Referring Provider: Mehdi Hannon MD, [address] [place] [address], [address]. tel:[phone] [facility], [address] [place] [address], [id number], tel:[phone] [facility] [place] LONG-TERM USE MEDS NECLONG-TERM USE ANTICOAGUL 0 Riddhi Harding. [address], [address], [id number], . tel:[phone] Referring Provider: Mehdi Hanonn MD, [address], [address]. tel:[phone] Office/outpa tient visit,est, [facility], [address], [id number], tel:[phone] [facility] HYPERTENSION NOSHYPERLIPI DEMIA NEC/NOS 0 Katelynn Sanchez. [address] [place], [id number], [place]. tel:[phone] Referring Provider: Daniel Pace, [address] [place], [address]. tel:[phone] Office/outpa tient visit,[facility], [facility], [address] [facility] [address] [place] [address], [id number], tel:[phone] [facility] No Information 0 Riddhi Harding. [address] , [address], [id number], [place]. tel:[phone] Referring Provider: Mehdi Hannon MD, [address], [address]. tel:[phone] [facility], [address], [id number], tel:[phone] [facility] [place] LONG-TERM USE ANTICOAGUL 0 Riddhi Harding. [address], [address] [place] [address], [id number], . tel:[phone] Referring Provider: Mehdi Hannon MD, [address] [place] [address], [address]. tel:[phone] [facility], [address] [place] [address], [id number], tel:[phone] [facility] [place] LONG-TERM USE ANTICOAGUL 0 Riddhi Harding. [address], [address], [id number], . tel:[phone] Referring Provider: Mehdi Hannon MD, [address], [address] [place] [address]. tel:[phone] [facility], [address] [place] [address], [id number], tel:[phone] [facility] [place] HYPERLIPIDEM IA NEC/NOS 0 Katelynn Sanhcez. [address] [place], [id number], . tel:[phone] Referring Provider: Daniel Pace, [address] [place], [address]. tel:[phone] Office/outpa tient visit,est, min [facility], [address] [place] [address], [id number], tel:[phone] [facility] No Information 0 Riddhi Harding. [address], [address], [id number], . tel:[phone] Referring Provider: Mehdi Hannon MD, [address] [place] [address], [address]. tel:[phone] [facility], [address] [place], [place] [address] e StSte [address] [place] [address], [id number], tel:[phone] [facility] LONG-TERM USE ANTICOAGULLO NG-TERM USE MEDS NEC 0-201 0 Riddhi Harding. [address] [facility] , [address] [place] [address], [id number], [place]. tel:[phone] Referring Provider: Mehdi Hannon MD, [address] [place] [address], [address]. tel:[phone] Office/outpa tient visit,est, min [facility], [address] [place], [place] [address] [address] [place] [address], [id number], tel:[phone] [facility] No Information 8201 0 Riddhi Harding. [address], [id number], . tel:[phone] Referring Provider: Mehdi Hannon MD, 1200 [facility] e [address], [address]. tel:[phone] [facility], [address] [place] [address] [address] [place] [address], [id number], tel:[phone] [facility] [place] [facility] LONG-TERM USE ANTICOAGULLO NG-TERM USE MEDS NEC 8201 0 Riddhi Harding. [address] , [address], [id number], . tel:[phone] Referring Provider: Mehdi Hannon MD, 1200 [facility] e [address] [place] [address], [address]. tel:[phone] Office/outpa tient visit,est, [facility], [address] [place] [address], [id number], tel:[phone] [facility] HYPERLIPIDEM IA NEC/NOS 0 Ktaelynn Sanchez. [address], [place], [place], [id number], [place]. tel:[phone] Referring Provider: Daniel Pace, [address] [place], [address]. tel:[phone] Office/outpa tient visit,[facility], [facility], [address] [place] [address], [id number], tel:[phone] [facility] No Information 0 Riddhi Harding. [address], [address] [place] [address], [id number], [place]. tel:[phone] Referring Provider: Mehdi Hannon MD, [address] [place] [address], [address]. tel:[phone] [facility], [address] [place] [address], [id number], tel:[phone] [facility] [place] PULM EMBOL/INFARC T NECLONG-TERM USE ANTICOAGUL 0 Riddhi Harding. [address], [address] [place] [address], [id number], . tel:[phone] Referring Provider: Mehdi Hannon MD, [address] [place] [address], [address]. tel:[phone] Office/outpa tient visit,est, [facility], [address] [place] [address], [id number], tel:[phone] [facility] No Information 0 Riddhi Harding. [address], Suite [facility], [place], [place], [id number], [place]. tel:[phone] Referring Provider: Mehdi Hannon MD, [address] [place] [address], [address]. tel:[phone] [facility], [address] [place] [address], [id number], tel:[phone] [facility] [place] LONG-TERM USE ANTICOAGUL 0 Riddhi Harding. [address], [address], [id number], . tel:[phone] Referring Provider: Mehdi Hannon MD, [address] [place] [address], [address]. tel:[phone] Office/outpa tient visit,est, min [facility], [address] [place] [address], [id number], tel:[phone] [facility] No Information 0 0 Cadence Garcia. [address], [id number], [place]. tel:[phone] Referring Provider: Mehdi Hannon MD, [address] [place] [address], [address]. tel:[phone] [facility], [address] [place] [address], [id number], tel:[phone] [facility] [place] LONG-TERM USE ANTICOAGUL May-2 0-201 0 Riddhi Harding. [address], Suite [facility], [place], [place], [id number], . tel:[phone] Referring Provider: Mehdi Hannon MD, [address] Suite [facility], [place], [address]. tel:[phone] [facility], [address] [place] [address], [id number], tel:[phone] [facility] [place] LONG-TERM USE MEDS NECLONG-TERM USE ANTICOAGUL 0 Riddhi Harding. [address], Suite [facility], [place], [place], [id number], . tel:[phone] Referring Provider: Mehdi Hannon MD, [address] [place] [address], [address]. tel:[phone] [facility], [address] [place] [address], [id number], tel:[phone] [facility] No Information 0 Riddhi Harding. [address], [address] [place] [address], [id number], . tel:[phone] Referring Provider: Mehdi Hannon MD, [address] [place] [address], [address]. tel:[phone] [facility], [address] [place] [address], [id number], tel:[phone] [facility] No Information 0 Riddhi Harding. [address], [address] [place] [address], [id number], . tel:[phone] Referring Provider: Mehdi Hannon MD, [address] [place] [address], [address]. tel:[phone] Office/outpa tient visit,est, [facility], [address] [place] [address], [id number], tel:[phone] [facility] HYPERLIPIDEM IA NEC/NOS 0 Katelynn Sanchez. [address] [place], [id number], [place]. tel:[phone] Referring Provider: Daniel Pace, [address] [place], [address]. tel:[phone] [facility], [address], [id number], tel:[phone] [facility] No Information 0 Riddhi Harding. [address] , [address] [place] [address], [id number], [place]. tel:[phone] Referring Provider: Mehdi Hannon MD, [address] [place] [address], [address]. tel:[phone] [facility], [address] [facility], [id number], tel:[phone] [facility] No Information 0 Cadence Garcia. [address] [place], [id number], [place]. tel:[phone] Referring Provider: Mehdi Hannon MD, [address] [place] [address], [address]. tel:[phone] Office/outpa tient visit,est, [facility], [address] [facility] [address] [place] [address], [id number], [place] tel:[phone] [facility] Deep Vein ThrombosisPu lmonary EmbolusObesi ty, MorbidHypert ension, BenignMixed Hyperlipidem iaSleep ApneaMixed Hyperlipidem ia June-0 0 Riddhi Harding. [address], [address], [place], [place], [id number], [place]. tel:[phone] Referring Provider: MD Lisa Esteves., [address] [facility] [address], [place], [address]. tel:[phone] Office/outpa tient visit,est, min [facility], [address] [place] [address], [id number], [place] tel:[phone] [facility] No Information 0 [place] MD Stark. [address] [place], [address], [place]. tel:[phone] Referring Provider: Mehdi Hannon MD, [address] Suite [facility], [place], [address]. tel:[phone] [facility], [address] [place] [address], [id number], tel:[phone] [facility] [place] LONG-TERM USE ANTICOAGUL 0 Riddhi Harding. [address], [address], [place], [place], [id number], [place]. tel:[phone] Referring Provider: Mehdi Hannon MD, [address] Suite [facility], [place], [address]. tel:[phone] [facility], [address] [facility], [place], [place], [id number], [place] tel:[phone] [facility] HYPERLIPIDEM IA NEC/NOS May-0 7201 0 Katelynn Sanchez. [address] [place], [id number], [place]. tel:[phone] Referring Provider: Daniel Pace, [address] [place], [address]. tel:[phone] Office/outpa tient visit,est, mod [facility], [address] [place] [address], [id number], tel:[phone] [facility] No Information 0 Katelynn Sanchez. [address] [place], [id number], [place]. tel:[phone] Referring Provider: Daniel Pace, [address] [place], [place], [address] [place] [address]. tel:[phone] [facility], [address] [place] [address], [id number], [place] tel:[phone] [facility] [place] HYPERLIPIDEM IA NEC/NOSLONG- TERM USE MEDS NEC 0 Katelynn Sanchez. [address] [place], [id number], . tel:[phone] Referring Provider: Daniel Pace, [address] [place], [address]. tel:[phone] [facility], [address] [place] [address], [id number], tel:[phone] [facility] [place] LONG-TERM USE ANTICOAGUL Apr- 2201 0 Riddhi Harding. [address], [address] [place] [address], [id number], [place]. tel:[phone] Referring Provider: Mehdi Hannon MD, [address] [place] [address], [address]. tel:[phone] Office/outpa tient visit,[facility], [facility], [address] [place] [address], [id number], tel:[phone] [facility] No Information Mar-2 2-201 0 Riddhi Harding. [address], [address] [place] [address], [id number], [place]. tel:[phone] Referring Provider: Mehdi Hannon MD, [address] [place] [address], [address]. tel:[phone] [facility], [address] [place] [address], [id number], tel:[phone] [facility] [place] LONG-TERM USE MEDS NECLONG-TERM USE ANTICOAGUL Mar-0 8-201 0 Riddhi Harding. [address], [address], [id number], [place]. tel:[phone] Referring Provider: Mehdi Hannon MD, [address] [place] [address], [address]. tel:[phone] Office/outpa tient visit,[facility], [facility], [address] [place] [address], [id number], [place] tel:[phone] [facility] No Information Mar-0 8-201 0 Riddhi Harding. [address], [address], [id number], [place]. tel:[phone] Referring Provider: Mehdi Hannon MD, [address] [place] [address], [address]. tel:[phone] Office/outpa tient visit,est, min [facility], [address] [place] [address], [id number], tel:[phone] [facility] No Information 0 Riddhi Harding. [address], [address], [id number], [place]. tel:[phone] Referring Provider: Mehdi Hannon MD, [address], [address]. tel:[phone] [facility], [address] [place] [address], [id number], tel:[phone] [facility] [place] LONG-TERM USE ANTICOAGULLO NG-TERM USE MEDS NEC 0 Riddhi Harding. [address], [address], [id number], [place]. tel:[phone] Referring Provider: Mehdi Hannon MD, [address], [address]. tel:[phone] [facility], [address] [place] [address], [id number], tel:[phone] [facility] [place] No Information 0 Riddhi Harding. [address], [address], [id number], [place]. tel:[phone] Referring Provider: Mehdi Hannon MD, [address], [address]. tel:[phone] Office/outpa tient visit,est, min [facility], [facility] [address] [place] [address], [id number], tel:[phone] [facility] HYPERLIPIDEM IA NEC/NOSThera peutic Drug MonitoringFa tigue / Malaise 0 Katelynn Sanchez. [address] [place], [id number], . tel:[phone] Referring Provider: Daniel Pace, [address] [place], [place], [address] [place] [address]. tel:[phone] Office/outpa tient visit,est, mod [facility], [address] [place] [address], [address] [place] [address], tel:[phone] [facility] No Information 0 Katelynn Sanchez. [address] [place], [address] [place] [address], . tel:[phone] Referring Provider: Daniel Pace, [address] [place], [address] [place] [address]. tel:[phone] [facility], [address] [facility] [address] [place] [address], [address] [place] [address], tel:[phone] [facility] [place] LONG-TERM USE ANTICOAGUL 0 Riddhi Harding. [address], [address], [address] [place] [address], . tel:[phone] Referring Provider: Mehdi Hannon MD, [address] [place] [address], [address] [place] [address]. tel:[phone] [facility], [address] [place] [address], [address] [place] [address], tel:[phone] [facility] VITAMIN D DEFICIENCY NOS Jan- 8-200 9 Katelynn Sanchez. [address], [place], [place], [id number], . tel:[phone] Referring Provider: Daniel Pace, [address], [place], [address]. tel:[phone] [facility], [address] [place] [address], [id number], tel:[phone] [facility] [place] HYPERLIPIDEM IA NEC/NOS 200 9 Katelynn Sanchez. [address], [id number], [place]. tel:[phone] Referring Provider: Daniel Pace, [address] [place], [place], [address] [place] [address]. tel:[phone] Office/outpa tient visit,est, min [facility], [address] [place] [address], [id number], tel:[phone] [facility] No Information 9 Riddhi Harding. [address], [address], [id number], . tel:[phone] Referring Provider: Mehdi Hannon MD, [address] [place] [address], [address] [place] [address]. [phone] [facility], [address] [place] [address], [id number], tel:[phone] [facility] [place] LONG-TERM USE ANTICOAGUL 9 Riddhi Harding. [address], [address], [id number], . tel:[phone] Referring Provider: Mehdi Hannon MD, [address] [place] [address], [address]. tel:[phone] [facility], [address] [facility] [address] [place] [address], [id number], tel:[phone] [facility] [place] LONG-TERM USE ANTICOAGULLO NG-TERM USE MEDS NEC Nov-0 9 Riddhi Harding. [address], [address] [place] [address], [id number], [place]. tel:[phone] Referring Provider: Mehdi Hannon MD, [address] [facility] [address], [address]. tel:[phone] Office/outpa tient visit,est, min [facility], [address] [place], [place] [address] [address], [id number], tel:[phone] [facility] No Information 0 9 Riddhi Harding. [address] , [address], [id number], [place]. tel:[phone] Referring Provider: Mehdi Hannon MD, [address], [address]. tel:[phone] [facility], [address] [place], [place] [address]ridg e [facility] [address] [place] [address], [id number], tel:[phone] [facility] [place] LONG-TERM USE MEDS NECLONG-TERM USE ANTICOAGUL Oct200 9 Riddhi Harding. [address] , [address], [id number], . tel:[phone] Referring Provider: Mehdi Hannon MD, [address], [address]. tel:[phone] Office/outpa tient visit,est, min [facility], [address] [facility], [place], [place], [id number], tel:[phone] [facility] No Information 9 Riddhi Harding. [address], [address] [place] [address], [id number], . tel:[phone] Referring Provider: Mehdi Hannon MD, [address] Suite [facility], [place], [address]. tel:[phone] [facility], [address] [place] [address], [id number], tel:[phone] [facility] [place] LONG-TERM USE MEDS NECLONG-TERM USE ANTICOAGUL 9 Riddhi Harding. [address], [address], [id number], [place]. tel:[phone] Referring Provider: Mehdi Hannon MD, [address] [place] [address], [address]. tel:[phone] [facility], [address] [place] [address], [id number], tel:[phone] [facility] [place] HYPERLIPIDEM IA NEC/NOS 9 Katelynn Sanchez. [address], [id number], [place]. tel:[phone] Referring Provider: Daniel Pace, [address], [place], [address]. tel:[phone] Office/outpa tient visit,est, [facility], [address] [facility], [place], [place], [id number], [place] tel:[phone] [facility] No Information Sep-2 3-200 9 Riddhi Harding. [address], [address], [id number], [place]. tel:[phone] Referring Provider: Mehdi Hannon MD, [address] [place] [address], [address]. tel:[phone] Office/outpa tient visit,est, mod [facility], [address] [place] [address], [id number], [place] tel:[phone] [facility] No Information Sep-0 9200 9 Katelynn Sanchez. [address] [place], [id number], [place]. tel:[phone] Referring Provider: Daniel Pace, [address] [place], [address]. tel:[phone] [facility], [address] [place] [address], [id number], [place] tel:[phone] [facility] [place] LONG-TERM USE ANTICOAGULLO NG-TERM USE MEDS NEC Sep-0 9200 9 Riddhi Hardnig. [address], [address], [id number], [place]. tel:[phone] Referring Provider: Mehdi Hannon MD, [address] [place] [address], [address]. tel:[phone] Office/outpa tient visit,est, min [facility], [address] [place] [address], [id number], [place] tel:[phone] [facility] No Information Sep-0 9200 9 Riddhi Harding. [address], [address], [address] [place] [address], . tel:[phone] Referring Provider: Mehdi Hannon MD, [address] [place] [address], [address] [place] [address]. [phone] [facility], [address] [place] [address], [id number], [phone] [facility] [place] No Information 2 9 Katelynn Sanchez. [address], [id number], . [phone] Referring Provider: Daniel Pace, [address] [place], [address] [place] [address]. tel:[phone] Office/outpa tient visit,est, min [facility], [address] [place] [address], [address] [place] [address], tel:[phone] [facility] No Information Sep-0 9 Riddhi Harding. [address], [address], [address] [place] [address], . [phone] Referring Provider: Mehdi Hannon MD, [address] [place] [address], [address] [place] [address]. [phone] [facility], [address] [place] [address], [id number], [phone] [facility] [place] No Information 0 9 Riddhi Harding. [address], [address] [place] [address], [address] [place] [address], . tel:[phone] Referring Provider: Mehdi Hannon MD, [address] [place] [address], [address] [place] [address]. [phone] Office/outpa tient visit,est, mod [facility], [address] [facility], [place], [place], [id number], [place] tel:[phone] [facility] HYPERLIPIDEM IA NEC/NOSThera peutic Drug Monitoring 200 9 Katelynn Sanchez. [address], [place], [place], [id number], [place]. tel:[phone] Referring Provider: Daniel Pace, [address], [place], [address]. tel:[phone] Office/outpa tient visit,est, min [facility], [address], [id number], [place] tel:[phone] [facility] No Information 9 Riddhi Harding. [address], [address] [place] [address], [id number], [place]. tel:[phone] Referring Provider: Mehdi Hannon MD, [address] [place] [address], [address]. tel:[phone] [facility], [address] [place] [address], [id number], tel:[phone] [facility] [place] No Information 9 Riddhi Harding. [address], [address] [place] [address], [id number], [place]. tel:[phone] Referring Provider: Mehdi Hannon MD, [address] [place] [address], [address]. tel:[phone] [facility], [address] [place] [address], [id number], [place] tel:[phone] [facility] [place] [facility] No Information 9 Riddhi Harding. [address], [address] [place] [address], [id number], . tel:[phone] Referring Provider: Mehdi Hannon MD, [address] [place] [address], [address]. [phone] [facility], [address] [place] [address], [id number], [phone] [facility] [place] No Information 9 Riddhi Harding. [address], [address], [id number], . tel:[phone] Referring Provider: Mehdi Hannon MD, [address] [place] [address], [address] [place] [address]. tel:[phone] Office/outpa tient visit,est, [facility], [address] [facility] [address] [place] [address], [id number], tel:[phone] [facility] No Information 9 Riddhi Harding. [address], [address], [id number], . tel:[phone] Referring Provider: Mehdi Hannon MD, [address] [place] [address], [address]. tel:[phone] Office/outpa tient visit,est, [facility], [address] [facility] [address] [place] [address], [id number], tel:[phone] [facility] No Information 9 Riddhi Harding. [address], [address], [address] [place] [address], . tel:[phone] Referring Provider: Mehdi Hannon MD, [address], [address]. tel:[phone] [facility], [address] [place] [address], [id number], tel:[phone] [facility] No Information 9 Katelynn Sanchez. [address] [place], [id number], [place]. tel:[phone] Referring Provider: Daniel Pace, [address] [place], [address]. tel:[phone] Office/outpa tient visit,est, [facility], [address], [id number], [phone] [facility] SCREEN FOR CONDITION NOSHYPERLIPI DEMIA NEC/NOS 9 Katelynn Sanchez. [address] [place], [id number], [place]. tel:[phone] Referring Provider: Daniel Pace, 1200 [facility] [place], [address]. tel:[phone] Office/outpa tient visit,[facility], [facility], [address] [place] [address], [id number], [place] tel:[phone] [facility] No Information 9 Riddhi Harding. [address] , [address], [id number], [place]. tel:[phone] Referring Provider: Mehdi Hannon MD, [address], [address]. tel:[phone] [facility], [address] [place] [address], [id number], [place] tel:[phone] [facility] [place] No Information 9 Riddhi Harding. [address], [address] [place] [address], [id number], [place]. [phone] Referring Provider: Mehdi Hannon MD, [address] [place] [address], [address]. [phone] Office/outpa tient visit,est, [facility], [address] [place] [address], [id number], [phone] [facility] No Information 9 Riddhi Harding. [address], [address] [place] [address], [id number], [place]. tel:[phone] Referring Provider: Mehdi Hannon MD, [address] [place] [address], [address]. tel:[phone] Office/outpa tient visit,est, [facility], [address] [place] [address], [id number], [place] tel:[phone] [facility] HYPERLIPIDEM IA NEC/NOSHYPER TENSION NOS 9 Katelynn Sanchez. [address] [place], [id number], [place]. tel:[phone] Referring Provider: Daniel Pace, [address] [place], [address]. tel:[phone] [facility], [address] [place] [address], [address] [place] [address], tel:[phone] [facility] No Information 9 Riddhi Harding. [address] , [address], [address] [place] [address], . tel:[phone] Referring Provider: Mehdi Hannon MD, [address] [place] [address], [address]. tel:[phone] [facility], [address] [place] [address], [id number], tel:[phone] Immediate Care [facility] No Information 9 Riddhi Harding. [address], [address] [place] [address], . [phone] Referring Provider: Mehdi Hannon MD, [address] [place], [place] [address] e [address] [place] [address], [address] [place] [address]. [phone] Office/outpa tient visit,est, [facility], [address] [place], [place] [address], [address] [place] [address], tel:[phone] [facility] No Information 9 Riddhi Harding. [address], [address] [place] [address], . tel:[phone] Referring Provider: Mehdi Hannon MD, [address] [place] [address], [address] [place] [address]. tel:[phone] Office/outpa tient visit,est, [facility], [facility] [address] [facility] [address] [place] [address], [address] [place] [address], [phone] [facility] No Information 9 Riddhi Harding. [address], Suite [facility], [place], [place], [id number], [place]. tel:[phone] Referring Provider: Mehdi Hannon MD, [address] [facility], [place], [address]. [phone] [facility], [address] [place] [address], [id number], [place] tel:[phone] [facility] No Information 0 9 Riddhi Harding. [address] , [address] [place] [address], [id number], [place]. tel:[phone] Referring Provider: Mehdi Hannon MD, [address] [place] [address], [address]. [phone] Office/outpa tient visit,est, min [facility], [address] [place] [address], [id number], [place] [phone] [facility] No Information 9 Riddhi Harding. [address] , [address], [id number], [place]. tel:[phone] Referring Provider: Mehdi Hannon MD, [address] [place] [address], [address]. [phone] Office/outpa tient visit,est, mod [facility], [address] [place] [address], [id number], [place] tel:[phone] [facility] HYPERLIPIDEM IA NEC/NOS 9 Katelynn Sanchez. [address] [place], [id number], [place]. tel:[phone] Referring Provider: Daniel Pace, [address], [place], [address]. tel:[phone] [facility], [address] [place] [address], [id number], tel:[phone] [facility] [address] No Information 9 Katelynn Sanchez. [address], [place], [id number], [place]. tel:[phone] Referring Provider: Daniel Pace, [address], [place], [address]. tel:[phone] Office/outpa tient visit,est, min [facility], [address] [place] [address], [id number], tel:[phone] [facility] No Information 9 Riddhi Harding. [address], [address] [place] [address], [id number], [place]. tel:[phone] Referring Provider: Mehdi Hannon MD, [address] [place] [address], [address]. tel:[phone] [facility], [address] [place] [address], [id number], [phone] [facility] No Information 9 Riddhi Harding. [address], [address] [place] [address], [id number], [place]. tel:[phone] Referring Provider: Mehdi Hannon MD, [address] Suite [facility], [place], [address]. tel:[phone] [facility], [address] [place] [address], [id number], tel:[phone] [facility] No Information 2200 9 Riddhi Harding. [address] , [address], [address] [place] [address], . tel:[phone] Referring Provider: Mehdi Hannon MD, [address], [address] [place] [address]. tel:[phone] [facility], [address] [facility] [address] [place] [address], [address] [place] [address], tel:[phone] Im[facility] e No Information 8 Riddhi Harding. [address] [facility] [address], [address] [place] [address], . tel:[phone] Referring Provider: Mehdi Hannon MD, [address] [place], [place] [address] [address] [place] [address], [address] [place] [address]. tel:[phone] Office/outpa tient visit,est, min [facility], [address] [facility] [address] [place] [address], [address] [place] [address], tel:[phone] [facility] No Information 8 Riddhi Harding. [address] , [address], [address] [place] [address], . tel:[phone] Referring Provider: Mehdi Hannon MD, [address] [place] [address], [address] [place] [address]. tel:[phone] [facility], [address] [place] [address] [address] [place] [address], [address] [place] [address], tel:[phone] Immediate Care [facility] No Information 200 8 Riddhi Harding. [address] , [address], [id number], . tel:[phone] Referring Provider: Mehdi Hannon MD, [address] [place] [address], [address]. tel:[phone] Office/outpa tient visit,est, [facility], [address] [place] [address], [id number], tel:[phone] [facility] No Information 3200 8 Riddhi Harding. [address], [address] [place] [address], [id number], . tel:[phone] Referring Provider: Mehdi Hannon MD, [address] [place] [address], [address]. [phone] [facility], [address] [place] [address], [id number], tel:[phone] [facility] No Information 0200 8 Riddhi Harding. [address], [address], [id number], . tel:[phone] Referring Provider: Mik[facility], [address] [place], [place], [facility]. Office/outpa tient visit,est, [facility], [address] [place] [address], [id number], tel:[phone] [facility] No Information 9200 8 Riddhi Harding. [address], [address], [id number], . tel:[phone] Referring Provider: Mehdi Hannon MD, [address] [place] [address], [address]. tel:[phone] [facility], [address] [facility], [place], [place], [id number], [place] tel:[phone] [facility] [address] [address] No Information 8-200 8 Riddhi Harding. [address], Suite [facility], [place], [place], [id number], [place]. tel:[phone] Referring Provider: Mehdi Hannon MD, [address] Suite [facility], [place], [address]. tel:[phone] Office/outpa tient visit,est, [facility], [address] [place] [address], [id number], tel:[phone] [facility] No Information 2200 8 Riddhi Harding. [address], Suite [facility], [place], [id number], [place]. tel:[phone] Referring Provider: Mehdi Hannon MD, [address] Suite [facility], [place], [address]. tel:[phone] Office/outpa tient visit,est, [facility], [address] [place] [address], [id number], [place] tel:[phone] [facility] No Information 0200 8 Riddhi Harding. [address], Suite [facility], [place], [id number], [place]. tel:[phone] Referring Provider: Mehdi Hannon MD, [address] Suite [facility], [place], [address]. tel:[phone] [facility], [address] [place] [address], [id number], [place] tel:[phone] [facility] e No Information Nov-200 8 Riddhi Harding. [address], [address] [place] [address], [id number], . tel:[phone] Referring Provider: Mehdi Hannon MD, [address] [place] [address], [address]. tel:[phone] Office/outpa tient visit,est, [facility], [address] [place] [address], [id number], [place] tel:[phone] [facility] No Information 8 Riddhi Harding. [address], [address], [id number], . tel:[phone] Referring Provider: Mehdi Hannon MD, [address] [place] [address], [address]. tel:[phone] Office/outpa tient visit,est, [facility], [address] [facility] [address] [place] [address], [id number], tel:[phone] [facility] No Information 200 8 Riddhi Harding. [address], [address], [id number], . tel:[phone] Referring Provider: Mehdi Hannon MD, [address] [place] [address], [address]. tel:[phone] Office/outpa tient visit,est, [facility], [address] [place] [address], [id number], tel:[phone] [facility] No Information Nov- 0200 8 Riddhi Harding. [address], [address], [place], [id number], [place]. tel:[phone] Referring Provider: Mehdi Hannon MD, [address] Suite [facility], [place], [address]. tel:[phone] [facility], [address] [place] [address], [id number], [place] tel:[phone] [facility] No Information Oct-0 3200 8 Riddhi Harding. [address], Suite [facility], [place], [place], [id number], [place]. tel:[phone] Referring Provider: Mehdi Hannon MD, [address] [place] [address], [address]. tel:[phone] [facility], [address] [place] [address], [id number], [place] tel:[phone] [facility] Hypertension , BenignHYPERL IPIDEMIA NEC/NOSObesi tyTherapeuti c Drug Monitoring Oct-0 1 8 Riddhi Harding. [address], [place] [address], [place], [id number], [place]. tel:[phone] Referring Provider: Daniel Pace, [address] [place], [address]. tel:[phone] Office/outpa tient visit,est, mod [facility], [address] [facility], [place], [place], [id number], [place] tel:[phone] [facility] No Information Nov-0 1200 8 Katelynn Sanchez. [address] [place], [id number], [place]. tel:[phone] Referring Provider: Daniel Pace, [address] [place], [address]. tel:[phone] [facility], [address] [place] [address], [id number], tel:[phone] [facility] [address] No Information Sep-3 0-200 8 Katelynn Sanchez. [address] [place], [id number], [place]. tel:[phone] Referring Provider: Daniel Pace, [address] [place], [address]. tel:[phone] Office/outpa tient visit,est, [facility], [address] [place] [address], [id number], tel:[phone] [facility] No Information Sep-2 6-200 8 Riddhi Harding. [address], [address] [place] [address], [id number], [place]. tel:[phone] Referring Provider: Mehdi Hannon MD, [address] [place] [address], [address]. tel:[phone] Office/outpa tient visit,est, [facility], [address] [place] [address], [id number], tel:[phone] [facility] No Information Sep-2 4-200 8 Riddhi Harding. [address], [address] [place] [address], [id number], [place]. tel:[phone] Referring Provider: Mehdi Hannon MD, [address] [place] [address], [address]. tel:[phone] [facility], [address] [facility] [address] [place] [address], [id number], tel:[phone] [facility] HYPERLIPIDEM [place] NEC/NOSHYPER TENSION NOS Sep-1 0-200 8 Riddhi Harding. [address], [address] [place] [address], [id number], . tel:[phone] Referring Provider: Mehdi Hannon MD, [address], [address]. tel:[phone] Office/outpa tient visit,[facility], [facility], [facility] [address] [place] [address], [id number], tel:[phone] [facility] No Information Sep-1 0-200 8 Riddhi Harding. 1200 [facility] e [address], [id number], . tel:[phone] Referring Provider: Mehdi Hannon MD, [address] [place] [address], [address]. tel:[phone] [facility], [address] [place] [address], [id number], tel:[phone] [facility] No Information Sep-0 3-200 8 Riddhi Harding. [address] , [address], [id number], . tel:[phone] Referring Provider: Mehdi Hannon MD, [address] [place] [address], [address]. tel:[phone] Office/outpa tient visit,est, [facility], [address] [place] [address], [id number], tel:[phone] [facility] No Information Aug-2 7-200 8 Riddhi Harding. [address], [address], [place], [place], [id number], [place]. tel:[phone] Referring Provider: Mehdi Hannon MD, [address] Suite [facility], [place], [address]. tel:[phone] [facility], [address] [facility], [place], [place], [id number], tel:[phone] [facility] No Information 8 Riddhi Harding. [address], Suite [facility], [place], [place], [id number], [place]. tel:[phone] Referring Provider: Mehdi Hannon MD, [address] Suite [facility], [place], [address]. tel:[phone] Office/outpa tient visit,est, min [facility], [address] [facility], [place], [place], [id number], tel:[phone] [facility] No Information 8 Riddhi Harding. [address], Suite [facility], [place], [place], [id number], [place]. tel:[phone] Referring Provider: Mehdi Hannon MD, [address] Suite [facility], [place], [address]. tel:[phone] [facility], [address] [place] [address], [id number], [place] tel:[phone] [facility] No Information 8 Riddhi Harding. [address], [address] [place] [address], [id number], . tel:[phone] Referring Provider: Mehdi Hannon MD, [address], [place], [address]. tel:[phone] Office/outpa tient visit,est, min [facility], [address] [place] [address], [id number], tel:[phone] [facility] No Information 8 Riddhi Harding. [address], [address] [place] [address], [id number], . tel:[phone] Referring Provider: Mehdi Hannon MD, [address] [place] [address], [address]. tel:[phone] [facility], [address] [facility] [address] [place] [address], [id number], tel:[phone] Im[facility] No Information 8 Riddhi Harding. [address] , [address] [place] [address], [id number], [place]. tel:[phone] Referring Provider: Mehdi Hannon MD, [address] [place] [address], [address]. tel:[phone] [facility], [address] [facility] [address] [place] [address], [id number], [phone] [facility] No Information 200 8 Riddhi Harding. [address], [address] [place] [address], [id number], [place]. tel:[phone] Referring Provider: Mehdi Hannon MD, [address] [place] [address], [address]. [phone] Office/outpa tient visit,est, min [facility], [address] [place] [address], [id number], [phone] [facility] No Information 8 Riddhi Harding. 1200 [facility] , [address] [place] [address], [id number], . tel:[phone] Referring Provider: Mehdi Hannon MD, [address] [place] [address] [place] [address], [address]. tel:[phone] [facility], [address] [place], [place] [address]te [address] [place] [address], [id number], [phone] [facility] No Information [address] [facility], [address], [id number], . tel:[phone] Referring Provider: Mehdi Hannon MD, [address] [place] [address] [place] [address], [address] [place] [address]. tel:[phone] [facility], [address] [place] [address], [id number], tel:[phone] [facility] No Information [address] [place] [address], [address], [id number], . tel:[phone] Referring Provider: Mehdi Hannon MD, [address] [place] [address] [place] [address], [address]. tel:[phone] Office/outpa tient visit,est, min [facility], 1200 [facility] [address] [place] [address], [id number], tel:[phone] [facility] Long-term Use of Anticoagulan tsPulmonary EmbolusPulmo nary Embolus 8 Riddhi Harding. [address], Suite [facility], [place], [place], [id number], [place]. tel:[phone] Referring Provider: Mehdi Hannon MD, [address] Suite [facility], [place], [address]. tel:[phone] Office/outpa tient visit,est, min [facility], [address] [place] [address], [id number], [place] tel:[phone] [facility] Pulmonary EmbolusPulmo nary EmbolusLong- term Use of Anticoagulan ts 8 Riddhi Harding. [address], [address] [place] [address], [id number], [place]. tel:[phone] Referring Provider: Mehdi Hannon MD, [address] [place] [address], [address]. tel:[phone] Office/outpa tient visit,est, [facility], [address] [place] [address], [id number], [place] tel:[phone] [facility] No Information 8 Katelynn Sanchez. [address] [place], [id number], [place]. tel:[phone] Referring Provider: Daniel Pace, [address] [place], [address]. tel:[phone] Hosp F/U Visit, Level 1 [facility], [address] [place] [address], [id number], [place] tel:[phone] [facility] No Information 8 Katelynn Sanchez. [address], [id number], [place]. tel:[phone] Referring Provider: Daniel Pace, [address], [place], [address]. tel:[phone] Office/outpa tient visit,est, min [facility], [address] [facility], [place], [place], [id number], [place] tel:[phone] [facility] No Information 8 Riddhi Harding. [address], Suite [facility], [place], [place], [id number], [place]. tel:[phone] Referring Provider: Mehdi Hannon MD, [address] Suite [facility], [place], [address]. tel:[phone] [facility], [address] [place] [address], [id number], [place] tel:[phone] [facility] Long-term Use of Anticoagulan ts 8 Riddhi Harding. [address], Suite [facility], [place], [place], [id number], [place]. tel:[phone] Referring Provider: Daniel Pace, [address], [place], [address]. tel:[phone] Hosp F/U Visit, Level 2 [facility], [address] [facility], [place], [place], [id number], [place] tel:[phone] [facility] No Information 8 Katelynn Sanchez. [address], [place], [place], [id number], [place]. tel:[phone] Referring Provider: Daniel Pace, [address], [place], [address]. tel:[phone] [facility], [address] [place] [address], [id number], [place] [phone] [facility] No Information 8 Diane Stark. [address] [facility], [place], [address], [place]. tel:[phone] Referring Provider: Daniel Pace, [address] [place], [address]. tel:[phone] [facility], [address] [place] [address], [id number], [place] tel:[phone] [facility] No Information 8 Katelynn Sanchez. [address] [place], [id number], [place]. tel:[phone] Referring Provider: Daniel Pace, [address] [place], [address]. [phone] Hosp DC, Level 1 [facility], [address] [place] [address], [id number], [place] tel:[phone] [facility] No Information 8 Katelynn Sanchez. [address] [place], [id number], [place]. [phone] Referring Provider: Daniel Pace, [address] [place], [address]. tel:[phone] Office/outpa tient visit,est, mod [facility], [address] [place] [address], [id number], [place] tel:[phone] [facility] HYPERLIPIDEM IA NEC/NOSObesi ty, MorbidHYPERT ENSION NOS 8 Katelynn Sanchez. [address] [place], [address] [place] [address], . tel:[phone] Referring Provider: Daniel Pace, [address] [place], [address] [place] [address]. tel:[phone] [facility], [address] [place] [place] [address], [address] [place] [address], [phone] [facility] No Information 200 8 Katelynn Sanchez. [address] [place], [place], [address] [place] [address], [place]. tel:[phone] Referring Provider: Daniel Pace, [address] [place], [place], [address] [place] [address]. tel:[phone] [facility], [address] [place] [address], [address] [place] [address], tel:[phone] [facility] No Information 0200 7 Joselito Anna. [address] [place] [address], [facility], . [phone] Referring Provider: Shoshana Yee MD, [address] [place] [address], [facility]. tel:[phone] Office/outpa tient visit,est, [facility], [address] [place] [address], [id number], tel:[phone] [facility] No Information 7 Katelynn Sanchez. [address] [place], [place], [address] [place] [address], . tel:[phone] Referring Provider: Daniel Pace, [address] [place], [place], [address] [place] [address]. tel:[phone] [facility], [address] [facility] [address] [place] [address], [id number], [place] tel:[phone] [facility] Linda e No Information 2200 7 Katelynn Sanchez. [address] [place], [id number], [place]. tel:[phone] Referring Provider: Daniel Pace, [address] [place], [address]. tel:[phone] Office/outpa tient visit,[facility], [address] [place] [address], [id number], tel:[phone] [facility] No Information 0200 7 Katelynn Sanchez. [address] [facility] [place], [id number], [place]. tel:[phone] Referring Provider: Daniel Pace, [address] [place], [place] [address] [place] [place], [address]. tel:[phone] Office/outpa tient visit,[facility], [address] [place], [place] [address] e [address], [id number], tel:[phone] [facility] No Information 200 7 [facility] Erika. [address] [place], [place], [id number], [place]. tel:[phone] Referring Provider: Shoshana Yee MD, [address] [facility], [place], [address]. tel:[phone] Office/outpa tient visit,[facility], [address] [place], [place] [address] e [address], [id number], [place] tel:[phone] [facility] No Information 7 Katelynn Sanchez. [address] [place], [id number], . tel:[phone] Referring Provider: Erika Oconnor PAC, [address] [place], [address]. tel:[phone] lting Provider: Erika Oconnor PAC, [address] [place], [address]. tel:[phone] [facility], [address] [facility] [address] [place] [address], [id number], tel:[phone] [facility] LONG-TERM USE MEDS NEC 5-200 7 Joselito Anna. [address] [place] [address], [facility], . tel:[phone] [facility], [address], [address] [place] [address], tel:[phone] [facility] PURE HYPERCHOLEST EROLEMMALAIS E AND FATIGUE NEC 0-200 7 Joselito Anna. [address] [place] [address], [facility], . tel:[phone] Family History Family Member Type Diagnosis Age At Onset Problem (finding) Family history of hyper tension Problem (finding) Family history of Arthr itis Problem (finding) Family history of diabetes mellitus type 2 Payers Payer name Insurance type Covered democrat ID Authoriza tion(s) Medicaid [facility] [id number] Social History Type Description Quantity Date Captured Comments Sex Female Smoking Status No Information Chief Complaint And Reason For Visit No Information Reason For Referral Reason For Referral No Information Plan Of Treatment Date Type Action Status Goal Mammogram. Due on due Goal ASCVD 10 year risk. Due on due Goal ALT. Due on due Goal Colonoscopy. Due on 021 due Goal Dilated eye exam. Due on Dec due Goal Influenza vaccine. Due on due Goal GFR. Due on due Goal AST. Due on due Goal HPV. Due on due Goal Hep B (). Due on due Goal Foot exam. Due on due Goal Colorectal cance r screen, stool DNA QuARTS with hemoglobin UNRULY. Due on due Goal Flu (3 Years and above). Due on due Goal Urine microalbumin. Due on N due Goal Hemoglobin A1C. Due on due Goal Dental exam. Due on due Goal Pap/HPV testing. Due on due Goal Depression screening. Due on due Goal CT-Colonography. Due on due Goal Lipid panel. Due on 015 due Goal Pneumococcal vaccine. Due on due Goal Td vaccine. Due on 21 due Goal FOBT. Due on due Goal Tdap. Due on due Goal Cardiac Stress Test. Due on due Goal Flu Vaccine (18 to 64). Due on due Goal Sigmoidoscopy. Due on due Goal FIT-DNA. Due on due Goal FIT. Due on due Goal TSH. Due on due Goal Foot exam. Due on due Goal Dilated eye exam. Due on Nov due Goal TSH. Due on due Goal FOBT. Due on due Goal Td vaccine. Due on 21 due Goal Depression screening. Due on due Goal Colorectal cance r screen, stool DNA QuARTS with hemoglobin UNRULY. Due on due Goal ALT. Due on due Goal Flu (3 Years and above). Due on due Goal Colonoscopy. Due on due Goal Pap/HPV testing. Due on due Goal Mammogram. Due on due Goal AST. Due on due Goal GFR. Due on due Goal Influenza vaccine. Due on Oc due Goal Pneumococcal vaccine. Due on due Goal Hep B (1st). Due on due Goal Urine microalbumin. Due on O due Goal Dental exam. Due on due Goal ASCVD 10 year risk. Due on O due Goal Hemoglobin A1C. Due on due Goal FIT. Due on due Goal HPV. Due on due Goal Lipid panel. Due on 015 due Goal Flu Vaccine (18 to 64). Due on due Goal Tdap. Due on due Goal Sigmoidoscopy. Due on due Goal FIT-DNA. Due on due Goal Cardiac Stress Test. Due on due Goal CT-Colonography. Due on due Goal FIT. Due on due Goal Sigmoidoscopy. Due on due Goal Dental exam. Due on due Goal Foot exam. Due on due Goal Urine microalbumin. Due on due Goal Dilated eye exam. Due on Oct due Goal Colorectal cance r screen, stool DNA QuARTS with hemoglobin UNRULY. Due on due Goal Hemoglobin A1C. Due on due Goal Zoster vaccine (). Due on due Goal GFR. Due on due Goal Cardiac Stress Test. Due on due Goal FIT-DNA. Due on due Goal ASCVD 10 year risk. Due on S due Goal Hep B (1st). Due on due Goal Influenza vaccine. Due on due Goal ALT. Due on due Goal Flu Vaccine (18 to 64). Due on due Goal TSH. Due on due Goal Colonoscopy. Due on due Goal Depression screening. Due on due Goal Tdap. Due on due Goal Lipid panel. Due on due Goal AST. Due on due Goal Pap/HPV testing. Due on due Goal CT-Colonography. Due on due Goal Flu (3 Years and above). Due on due Goal FOBT. Due on due Goal Pneumococcal vaccine. Due on due Goal HPV. Due on due Goal Td vaccine. Due on due Goal Mammogram. Due on due Goal Dental exam. Due on due Goal GFR. Due on due Goal Influenza vaccine. Due on due Goal Hep B (). Due on due Goal ASCVD 10 year risk. Due on A due Goal ALT. Due on due Goal Flu (3 Years and above). Due on due Goal AST. Due on due Goal Pap/HPV testing. Due on due Goal HPV. Due on due Goal FOBT. Due on due Goal Colonoscopy. Due on due Goal Foot exam. Due on due Goal Hemoglobin A1C. Due on due Goal Urine microalbumin. Due on A due Goal Dilated eye exam. Due on Sep due Goal Mammogram. Due on due Goal CT-Colonography. Due on due Goal Colorectal cance r screen, stool DNA QuARTS with hemoglobin UNRULY. Due on due Goal TSH. Due on due Goal Sigmoidoscopy. Due on due Goal Tdap. Due on due Goal FIT-DNA. Due on due Goal Cardiac Stress Test. Due on due Goal Td vaccine. Due on due Goal Flu Vaccine (18 to 64). Due on due Goal Lipid panel. Due on due Goal Pneumococcal vaccine. Due on due Goal FIT. Due on due Goal Depression screening. Due on due Goal ASCVD 10 year risk. Due on due Goal Hep B (1st). Due on due Goal Influenza vaccine. Due on due Goal GFR. Due on due Goal Dental exam. Due on due Goal Lipid panel. Due on due Goal Hemoglobin A1C. Due on due Goal Foot exam. Due on due Goal Dilated eye exam. Due on Aug due Goal Urine microalbumin. Due on due Goal Mammogram. Due on due Goal CT-Colonography. Due on due Goal Tdap. Due on due Goal FIT-DNA. Due on due Goal AST. Due on due Goal HPV. Due on due Goal Depression screening. Due on due Goal Flu Vaccine (18 to 64). Due on due Goal FIT. Due on due Goal Flu (3 Years and above). Due on due Goal Pap/HPV testing. Due on due Goal Zoster vaccine (). Due on due Goal TSH. Due on due Goal Colonoscopy. Due on due Goal Pneumococcal vaccine. Due on due Goal Colorectal cance r screen, stool DNA QuARTS with hemoglobin UNRULY. Due on due Goal Sigmoidoscopy. Due on due Goal Cardiac Stress Test. Due on due Goal ALT. Due on due Goal FOBT. Due on due Goal Td vaccine. Due on due Goal HPV. Due on due Goal Colonoscopy. Due on due Goal Td vaccine. Due on due Goal Pap/HPV testing. Due on due Goal Tdap. Due on due Goal ALT. Due on due Goal TSH. Due on due Goal CT-Colonography. Due on due Goal AST. Due on due Goal Flu Vaccine (18 to 64). Due on due Goal Zoster vaccine (1st). Due on due Goal FOBT. Due on due Goal Influenza vaccine. Due on due Goal Pneumococcal vaccine. Due on due Goal Mammogram. Due on due Goal FIT-DNA. Due on due Goal Lipid panel. Due on 015 due Goal Depression screening. Due on due Goal Flu (3 Years and above). Due on due Goal Hemoglobin A1C. Due on due Goal Hep B (). Due on 021 due Goal Colorectal cance r screen, stool DNA QuARTS with hemoglobin UNRULY. Due on due Goal Foot exam. Due on due Goal Cardiac Stress Test. Due on due Goal FIT. Due on due Goal Sigmoidoscopy. Due on due Goal GFR. Due on due Goal Dilated eye exam. Due on Jul due Goal Urine microalbumin. Due on due Goal Dental exam. Due on due Goal ASCVD 10 year risk. Due on due Goal Urine microalbumin. Due on due Goal Influenza vaccine. Due on Ma due Goal Foot exam. Due on due Goal ASCVD 10 year risk. Due on due Goal Dental exam. Due on due Goal GFR. Due on due Goal Dilated eye exam. Due on June due Goal Pap/HPV testing. Due on due Goal CT-Colonography. Due on due Goal Tdap. Due on due Goal Flu Vaccine (18 to 64). Due on due Goal Sigmoidoscopy. Due on due Goal Cardiac Stress Test. Due on due Goal ALT. Due on due Goal TSH. Due on due Goal Colonoscopy. Due on due Goal Mammogram. Due on due Goal Lipid panel. Due on due Goal AST. Due on due Goal Pneumococcal vaccine. Due on due Goal Colorectal cance r screen, stool DNA QuARTS with hemoglobin UNRULY. Due on due Goal Depression screening. Due on due Goal HPV. Due on due Goal Zoster vaccine (1st). Due on due Goal Flu (3 Years and above). Due on due Goal FOBT. Due on due Goal Hep B (). Due on due Goal FIT. Due on due Goal Td vaccine. Due on due Goal FIT-DNA. Due on due Goal Hemoglobin A1C. Due on due Goal Colonoscopy. Due on due Goal Cardiac Stress Test. Due on due Goal TSH. Due on due Goal ALT. Due on due Goal Pap/HPV testing. Due on due Goal Colorectal cance r screen, stool DNA QuARTS with hemoglobin UNRULY. Due on due Goal CT-Colonography. Due on due Goal Flu Vaccine (18 to 64). Due on due Goal Mammogram. Due on due Goal Flu (3 Years and above). Due on due Goal Foot exam. Due on due Goal Dental exam. Due on due Goal Influenza vaccine. Due on due Goal Hep B (1st). Due on due Goal Dilated eye exam. Due on May due Goal GFR. Due on due Goal ASCVD 10 year risk. Due on A due Goal Urine microalbumin. Due on A due Goal Hemoglobin A1C. Due on due Goal FIT-DNA. Due on due Goal FIT. Due on due Goal HPV. Due on due Goal Sigmoidoscopy. Due on due Goal AST. Due on due Goal Zoster vaccine (). Due on due Goal FOBT. Due on due Goal Td vaccine. Due on due Goal Lipid panel. Due on 015 due Goal Tdap. Due on due Goal Depression screening. Due on due Goal Pneumococcal vaccine. Due on due Goal AST. Due on due Goal TSH. Due on due Goal Colorectal cance r screen, stool DNA QuARTS with hemoglobin UNRULY. Due on due Goal Hep B (). Due on 021 due Goal Mammogram. Due on due Goal Dilated eye exam. Due on Apr due Goal Foot exam. Due on due Goal Hemoglobin A1C. Due on due Goal ASCVD 10 year risk. Due on due Goal Flu Vaccine (18 to 64). Due on due Goal FIT. Due on due Goal Dental exam. Due on due Goal GFR. Due on due Goal ALT. Due on due Goal Influenza vaccine. Due on Me due Goal FOBT. Due on due Goal Urine microalbumin. Due on due Goal Lipid panel. Due on due Goal Pneumococcal vaccine. Due on due Goal HPV. Due on due Goal Pap/HPV testing. Due on due Goal Flu (3 Years and above). Due on due Goal Td vaccine. Due on due Goal Sigmoidoscopy. Due on due Goal Depression screening. Due on due Goal CT-Colonography. Due on due Goal Tdap. Due on due Goal Colonoscopy. Due on due Goal Zoster vaccine (1st). Due on due Goal FIT-DNA. Due on due Goal Cardiac Stress Test. Due on due Goal AST. Due on due Goal Foot exam. Due on due Goal ASCVD 10 year risk. Due on due Goal FIT. Due on due Goal TSH. Due on due Goal Mammogram. Due on due Goal Flu Vaccine (18 to 64). Due on due Goal FOBT. Due on due Goal Depression screening. Due on due Goal Colorectal cance r screen, stool DNA QuARTS with hemoglobin UNRULY. Due on due Goal ALT. Due on due Goal Urine microalbumin. Due on due Goal Hep B (). Due on due Goal Influenza vaccine. Due on due Goal FIT-DNA. Due on due Goal GFR. Due on due Goal Colonoscopy. Due on due Goal Cardiac Stress Test. Due on due Goal Hemoglobin A1C. Due on due Goal Dental exam. Due on due Goal Dilated eye exam. Due on Apr due Goal HPV. Due on due Goal Lipid panel. Due on 015 due Goal Pap/HPV testing. Due on due Goal Td vaccine. Due on due Goal Zoster vaccine (). Due on due Goal CT-Colonography. Due on due Goal Tdap. Due on due Goal Sigmoidoscopy. Due on due Goal Flu (3 Years and above). Due on due Goal Pneumococcal vaccine. Due on due Goal Mammogram. Due on due Goal Influenza vaccine. Due on due Goal Td vaccine. Due on due Goal Urine microalbumin. Due on due Goal ASCVD 10 year risk. Due on due Goal Colorectal cance r screen, stool DNA QuARTS with hemoglobin UNRULY. Due on due Goal ALT. Due on due Goal Flu Vaccine (18 to 64). Due on due Goal Dental exam. Due on due Goal FOBT. Due on due Goal CT-Colonography. Due on due Goal Foot exam. Due on due Goal Colonoscopy. Due on due Goal Lipid panel. Due on 015 due Goal Hemoglobin A1C. Due on due Goal Dilated eye exam. Due on Mar due Goal Hep B (). Due on due Goal FIT-DNA. Due on due Goal GFR. Due on due Goal HPV. Due on due Goal Pneumococcal vaccine. Due on due Goal TSH. Due on due Goal Flu (3 Years and above). Due on due Goal Tdap. Due on due Goal Pap/HPV testing. Due on due Goal Depression screening. Due on due Goal FIT. Due on due Goal AST. Due on due Goal Sigmoidoscopy. Due on due Goal Cardiac Stress Test. Due on due Goal Dilated eye exam. Due on Mar due Goal GFR. Due on due Goal Urine microalbumin. Due on due Goal Hep B (). Due on due Goal Foot exam. Due on due Goal ASCVD 10 year risk. Due on due Goal Influenza vaccine. Due on due Goal Cardiac Stress Test. Due on due Goal TSH. Due on due Goal CT-Colonography. Due on due Goal FIT. Due on due Goal Tdap. Due on due Goal Pap/HPV testing. Due on due Goal Zoster vaccine (). Due on due Goal Td vaccine. Due on 21 due Goal FOBT. Due on due Goal HPV. Due on due Goal Flu (3 Years and above). Due on due Goal Sigmoidoscopy. Due on due Goal AST. Due on due Goal Colorectal cance r screen, stool DNA QuARTS with hemoglobin UNRULY. Due on due Goal Hemoglobin A1C. Due on due Goal ALT. Due on due Goal FIT-DNA. Due on due Goal Mammogram. Due on due Goal Flu Vaccine (18 to 64). Due on due Goal Colonoscopy. Due on due Goal Dental exam. Due on due Goal Lipid panel. Due on 015 due Goal Depression screening. Due on due Goal Pneumococcal vaccine. Due on due Goal Cardiac Stress Test. Due on due Goal ALT. Due on due Goal FOBT. Due on due Goal TSH. Due on due Goal Pap/HPV testing. Due on due Goal Zoster vaccine (1st). Due on due Goal Flu (3 Years and above). Due on due Goal FIT. Due on due Goal Td vaccine. Due on 20 due Goal HPV. Due on due Goal Mammogram. Due on 0 due Goal Tdap. Due on due Goal CT-Colonography. Due on due Goal FIT-DNA. Due on due Goal Colorectal cance r screen, stool DNA QuARTS with hemoglobin UNRULY. Due on due Goal Sigmoidoscopy. Due on due Goal Dental exam. Due on due Goal Colonoscopy. Due on due Goal Hemoglobin A1C. Due on due Goal Dilated eye exam. Due on Jan due Goal Flu Vaccine (18 to 64). Due on due Goal Urine microalbumin. Due on due Goal Lipid panel. Due on 015 due Goal ASCVD 10 year risk. Due on due Goal Pneumococcal vaccine. Due on due Goal Foot exam. Due on 0 due Goal GFR. Due on due Goal Depression screening. Due on due Goal Influenza vaccine. Due on due Goal Hep B (). Due on due Goal AST. Due on due Goal Tdap. Due on due Goal Depression screening. Due on due Goal Pap/HPV testing. Due on due Goal Zoster vaccine (1st). Due on due Goal TSH. Due on due Goal CT-Colonography. Due on due Goal Lipid Panel. Due on due Goal FIT-DNA. Due on due Goal Cardiac Stress Test. Due on due Goal FOBT. Due on due Goal Td vaccine. Due on 20 due Goal Colorectal cance r screen, stool DNA QuARTS with hemoglobin UNRULY. Due on due Goal Flu (3 Years and above). Due on due Goal ALT. Due on due Goal AST. Due on due Goal Colonoscopy. Due on due Goal HPV. Due on due Goal Flu Vaccine (18 to 64). Due on due Goal Sigmoidoscopy. Due on due Goal Mammogram. Due on 0 due Goal FIT. Due on due Goal AST. Due on due Goal Flu (3 Years and above). Due on due Goal Mammogram. Due on 0 due Goal FOBT. Due on due Goal Flu Vaccine (18 to 64). Due on due Goal TSH. Due on due Goal Lipid Panel. Due on due Goal Colonoscopy. Due on due Goal HPV. Due on due Goal Pap/HPV testing. Due on due Goal FIT-DNA. Due on due Goal Colorectal cance r screen, stool DNA QuARTS with hemoglobin UNRULY. Due on due Goal Sigmoidoscopy. Due on due Goal ALT. Due on due Goal Tdap. Due on due Goal Cardiac Stress Test. Due on due Goal Depression screening. Due on due Goal Zoster vaccine (). Due on due Goal Td vaccine. Due on [address]-Colon[address]. Due on due Goal FIT. Due on due Goal TSH. Due on due Goal Zoster vaccine (1st). Due on due Goal Colonoscopy. Due on 020 due Goal ALT. Due on due Goal AST. Due on due Goal Lipid Panel. Due on 019 due Goal Mammogram. Due on 0 due Goal Pap/HPV testing. Due on due Goal Depression screening. Due on due Goal Cardiac Stress Test. Due on due Goal Flu (3 Years and above). Due on due Goal FOBT. Due on due Goal Sigmoidoscopy. Due on due Goal FIT. Due on due Goal Td vaccine. Due on due Goal CT-Colonography. Due on due Goal Flu Vaccine (18 to 64). Due on due Goal Colorectal cance r screen, stool DNA QuARTS with hemoglobin UNRULY. Due on due Goal FIT-DNA. Due on due Goal Tdap. Due on due Goal HPV. Due on due Goal Tdap. Due on due Goal TSH. Due on due Goal Cardiac Stress Test. Due on due Goal Pap/HPV testing. Due on due Goal FIT. Due on due Goal Colorectal cance r screen, stool DNA QuARTS with hemoglobin UNRULY. Due on due Goal Lipid Panel. Due on 019 due Goal Depression screening. Due on due Goal FOBT. Due on due Goal FIT-DNA. Due on due Goal Mammogram. Due on 0 due Goal Sigmoidoscopy. Due on due Goal AST. Due on due Goal HPV. Due on due Goal Colonoscopy. Due on 020 due Goal Flu (3 Years and above). Due on due Goal Td vaccine. Due on 20 due Goal ALT. Due on due Goal Flu Vaccine (18 to 64). Due on due Goal CT-Colonography. Due on due Goal HPV. Due on due Goal TSH. Due on due Goal Tdap. Due on due Goal CT-Colonography. Due on due Goal Depression screening. Due on due Goal Sigmoidoscopy. Due on due Goal FIT. Due on due Goal FIT-DNA. Due on due Goal Lipid Panel. Due on due Goal FOBT. Due on due Goal AST. Due on due Goal Zoster vaccine (1st). Due on due Goal Td vaccine. Due on 20 due Goal ALT. Due on due Goal Flu (3 Years and above). Due on due Goal Cardiac Stress Test. Due on due Goal Colorectal cance r screen, stool DNA QuARTS with hemoglobin UNRULY. Due on due Goal Pap/HPV testing. Due on due Goal Mammogram. Due on 0 due Goal Colonoscopy. Due on 020 due Goal Flu Vaccine (18 to 64). Due on due Goal Sigmoidoscopy. Due on due Goal FIT. Due on due Goal AST. Due on due Goal FIT-DNA. Due on due Goal Lipid Panel. Due on 019 due Goal HPV. Due on due Goal Td vaccine. Due on 20 due Goal Flu Vaccine (18 to 64). Due on due Goal Colorectal cance r screen, stool DNA QuARTS with hemoglobin UNRULY. Due on due Goal CT-Colonography. Due on due Goal Depression screening. Due on due Goal Mammogram. Due on 0 due Goal Pap/HPV testing. Due on due Goal Cardiac Stress Test. Due on due Goal Zoster vaccine (1st). Due on due Goal Flu (3 Years and above). Due on due Goal Tdap. Due on due Goal TSH. Due on due Goal Colonoscopy. Due on due Goal ALT. Due on due Goal FOBT. Due on due Goal Sigmoidoscopy. Due on due Goal Colorectal cance r screen, stool DNA QuARTS with hemoglobin UNRULY. Due on due Goal Td vaccine. Due on due Goal TSH. Due on due Goal FIT. Due on due Goal Pap/HPV testing. Due on due Goal Flu Vaccine (18 to 64). Due on due Goal Depression screening. Due on due Goal CT-Colonography. Due on due Goal Colonoscopy. Due on due Goal ALT. Due on due Goal FOBT. Due on due Goal AST. Due on due Goal Tdap. Due on due Goal HPV. Due on due Goal Flu (3 Years and above). Due on due Goal Cardiac Stress Test. Due on due Goal Mammogram. Due on 0 due Goal Zoster vaccine (1st). Due on due Goal FIT-DNA. Due on due Goal Lipid Panel. Due on due Goal TSH. Due on due Goal Td vaccine. Due on 20 due Goal FIT. Due on due Goal Colorectal cance r screen, stool DNA QuARTS with hemoglobin UNRULY. Due on due Goal Sigmoidoscopy. Due on due Goal Tdap. Due on due Goal Colonoscopy. Due on due Goal FIT-DNA. Due on due Goal Cardiac Stress Test. Due on due Goal CT-Colonography. Due on due Goal HPV. Due on due Goal Flu (3 Years and above). Due on due Goal Lipid Panel. Due on due Goal AST. Due on due Goal Flu Vaccine (18 to 64). Due on due Goal Pap/HPV testing. Due on due Goal Mammogram. Due on 0 due Goal ALT. Due on due Goal Depression screening. Due on due Goal FOBT. Due on due Goal CT-Colonography. Due on due Goal HPV. Due on due Goal FIT-DNA. Due on due Goal FOBT. Due on due Goal Colonoscopy. Due on due Goal Depression screening. Due on due Goal Td vaccine. Due on due Goal Tdap. Due on due Goal Sigmoidoscopy. Due on due Goal Flu Vaccine (18 to 64). Due on due Goal Cardiac Stress Test. Due on due Goal TSH. Due on due Goal Flu (3 Years and above). Due on due Goal Lipid Panel. Due on due Goal AST. Due on due Goal Colorectal cance r screen, stool DNA QuARTS with hemoglobin UNRULY. Due on due Goal Zoster vaccine (). Due on due Goal Pap/HPV testing. Due on due Goal Mammogram. Due on 0 due Goal ALT. Due on due Goal FIT. Due on due Goal Depression screening. Due on due Goal TSH. Due on due Goal Colonoscopy. Due on due Goal Pap/HPV testing. Due on due Goal Td vaccine. Due on due Goal Sigmoidoscopy. Due on due Goal Zoster vaccine (). Due on due Goal ALT. Due on due Goal Lipid Panel. Due on due Goal AST. Due on due Goal Tdap. Due on due Goal Mammogram. Due on 0 due Goal Cardiac Stress Test. Due on due Goal Flu (3 Years and above). Due on due Goal Flu Vaccine (18 to 64). Due on due Goal FOBT. Due on due Goal Colorectal cance r screen, stool DNA QuARTS with hemoglobin UNRULY. Due on due Goal Colorectal cance r screen, stool DNA QuARTS with hemoglobin UNRULY. Due on due Goal ALT. Due on due Goal Sigmoidoscopy. Due on due Goal Flu (3 Years and above). Due on due Goal Flu Vaccine (18 to 64). Due on due Goal AST. Due on due Goal Mammogram. Due on 0 due Goal FOBT. Due on due Goal Td vaccine. Due on 20 due Goal Colonoscopy. Due on 020 due Goal Cardiac Stress Test. Due on due Goal Depression screening. Due on due Goal Tdap. Due on due Goal Zoster vaccine (1st). Due on due Goal Lipid Panel. Due on 019 due Goal Pap/HPV testing. Due on due Goal TSH. Due on due Goal Depression screening. Due on due Goal Mammogram. Due on 0 due Goal ALT. Due on due Goal Sigmoidoscopy. Due on due Goal TSH. Due on due Goal FOBT. Due on due Goal Cardiac Stress Test. Due on due Goal Flu (3 Years and above). Due on due Goal Colorectal cance r screen, stool DNA QuARTS with hemoglobin UNRULY. Due on due Goal Flu Vaccine (18 to 64). Due on due Goal Tdap. Due on due Goal Td vaccine. Due on due Goal Pap/HPV testing. Due on due Goal AST. Due on due Goal Lipid Panel. Due on due Goal Zoster vaccine (1st). Due on due Goal Colonoscopy. Due on due Goal Mammogram. Due on 0 due Goal ALT. Due on due Goal Depression screening. Due on due Goal Sigmoidoscopy. Due on due Goal FOBT. Due on due Goal Lipid Panel. Due on due Goal Zoster vaccine (1st). Due on due Goal Flu (3 Years and above). Due on due Goal Colonoscopy. Due on due Goal Tdap. Due on due Goal Td vaccine. Due on due Goal Cardiac Stress Test. Due on due Goal Flu Vaccine (18 to 64). Due on due Goal Pap/HPV testing. Due on due Goal AST. Due on due Goal Colorectal cance r screen, stool DNA QuARTS with hemoglobin UNRULY. Due on due Goal TSH. Due on due Goal Sigmoidoscopy. Due on due Goal AST. Due on due Goal Tdap. Due on due Goal Mammogram. Due on 0 due Goal Depression screening. Due on due Goal FOBT. Due on due Goal Td vaccine. Due on 20 due Goal Colorectal cance r screen, stool DNA QuARTS with hemoglobin UNRULY. Due on due Goal Pap/HPV testing. Due on due Goal Flu (3 Years and above). Due on due Goal Lipid Panel. Due on 019 due Goal ALT. Due on due Goal Cardiac Stress Test. Due on due Goal Flu Vaccine (18 to 64). Due on due Goal TSH. Due on due Goal Colonoscopy. Due on 020 due Goal Zoster vaccine (1st). Due on due Goal AST. Due on due Goal Tdap. Due on due Goal Flu (3 Years and above). Due on due Goal Colonoscopy. Due on 020 due Goal ALT. Due on due Goal Flu Vaccine (18 to 64). Due on due Goal Pap/HPV testing. Due on due Goal Cardiac Stress Test. Due on due Goal Lipid Panel. Due on 019 due Goal Zoster vaccine (). Due on due Goal Td vaccine. Due on 20 due Goal Depression screening. Due on due Goal Colorectal cance r screen, stool DNA QuARTS with hemoglobin UNRULY. Due on due Goal FOBT. Due on due Goal Mammogram. Due on 0 due Goal Sigmoidoscopy. Due on due Goal TSH. Due on due Goal Tdap. Due on due Goal Cardiac Stress Test. Due on due Goal Mammogram. Due on 9 due Goal Depression screening. Due on due Goal Sigmoidoscopy. Due on due Goal Flu Vaccine (18 to 64). Due on due Goal Pap/HPV testing. Due on due Goal Flu (3 Years and above). Due on due Goal ALT. Due on due Goal Td vaccine. Due on 19 due Goal Colorectal cance r screen, stool DNA QuARTS with hemoglobin UNRULY. Due on due Goal Zoster vaccine (1st). Due on due Goal FOBT. Due on due Goal Colonoscopy. Due on due Goal Lipid Panel. Due on due Goal TSH. Due on due Goal AST. Due on due Goal TSH. Due on due Goal Colorectal cance r screen, stool DNA QuARTS with hemoglobin UNRULY. Due on due Goal Flu Vaccine (18 to 64). Due on due Goal ALT. Due on due Goal Colonoscopy. Due on due Goal Td vaccine. Due on 19 due Goal Depression screening. Due on due Goal Zoster vaccine (1st). Due on due Goal AST. Due on due Goal Pap/HPV testing. Due on due Goal Sigmoidoscopy. Due on due Goal Flu (3 Years and above). Due on due Goal Lipid Panel. Due on due Goal Mammogram. Due on 9 due Goal Tdap. Due on due Goal FOBT. Due on due Goal Cardiac Stress Test. Due on due Goal TSH. Due on due Goal Flu Vaccine (18 to 64). Due on due Goal ALT. Due on due Goal Colorectal cance r screen, stool DNA QuARTS with hemoglobin UNRULY. Due on due Goal Mammogram. Due on 9 due Goal AST. Due on due Goal Td vaccine. Due on 19 due Goal Colonoscopy. Due on due Goal Zoster vaccine (1st). Due on due Goal Lipid Panel. Due on due Goal Flu (3 Years and above). Due on due Goal Tdap. Due on due Goal Cardiac Stress Test. Due on due Goal FOBT. Due on due Goal Pap/HPV testing. Due on due Goal Depression screening. Due on due Goal Sigmoidoscopy. Due on due Goal FOBT. Due on due Goal Sigmoidoscopy. Due on due Goal Pap/HPV testing. Due on due Goal Colonoscopy. Due on due Goal Flu (3 Years and above). Due on due Goal Colorectal cance r screen, stool DNA QuARTS with hemoglobin UNRULY. Due on due Goal Cardiac Stress Test. Due on due Goal Tdap. Due on due Goal Lipid Panel. Due on 019 due Goal Td vaccine. Due on 19 due Goal TSH. Due on due Goal AST. Due on due Goal ALT. Due on due Goal Mammogram. Due on 9 due Goal Flu Vaccine (18 to 64). Due on due Goal Depression screening. Due on due Goal AST. Due on due Goal Cardiac Stress Test. Due on due Goal Tdap. Due on due Goal Colonoscopy. Due on due Goal Depression screening. Due on due Goal ALT. Due on due Goal TSH. Due on due Goal Td vaccine. Due on 19 due Goal Flu Vaccine (18 to 64). Due on due Goal Mammogram. Due on 9 due Goal Lipid Panel. Due on due Goal FOBT. Due on due Goal Sigmoidoscopy. Due on due Goal Flu (3 Years and above). Due on due Goal Colorectal cance r screen, stool DNA QuARTS with hemoglobin UNRULY. Due on due Goal Pap/HPV testing. Due on due Goal Cardiac Stress Test. Due on due Goal Flu (3 Years and above). Due on due Goal Pap/HPV testing. Due on due Goal AST. Due on due Goal Sigmoidoscopy. Due on due Goal Mammogram. Due on 9 due Goal Lipid Panel. Due on due Goal FOBT. Due on due Goal Depression screening. Due on due Goal Td vaccine. Due on 19 due Goal Tdap. Due on due Goal Flu Vaccine (18 to 64). Due on due Goal Colorectal cance r screen, stool DNA QuARTS with hemoglobin UNRULY. Due on due Goal ALT. Due on due Goal Colonoscopy. Due on due Goal TSH. Due on due Goal Colonoscopy. Due on due Goal Flu (3 Years and above). Due on due Goal FOBT. Due on due Goal Td vaccine. Due on due Goal Depression screening. Due on due Goal Sigmoidoscopy. Due on due Goal Lipid Panel. Due on due Goal Tdap. Due on due Goal Pap/HPV testing. Due on due Goal ALT. Due on due Goal Colorectal cance r screen, stool DNA QuARTS with hemoglobin UNRULY. Due on due Goal Cardiac Stress Test. Due on due Goal AST. Due on due Goal TSH. Due on due Goal Mammogram. Due on 9 due Goal Flu Vaccine (18 to 64). Due on due Goal Flu Vaccine (18 to 64). Due on due Goal AST. Due on due Goal Pap/HPV testing. Due on due Goal Td vaccine. Due on 19 due Goal Lipid Panel. Due on due Goal Sigmoidoscopy. Due on due Goal Cardiac Stress Test. Due on due Goal ALT. Due on due Goal Mammogram. Due on 9 due Goal Depression screening. Due on due Goal Tdap. Due on due Goal Colonoscopy. Due on due Goal Colorectal cance r screen, stool DNA QuARTS with hemoglobin UNRULY. Due on due Goal TSH. Due on due Goal Flu (3 Years and above). Due on due Goal FOBT. Due on due Goal Tdap. Due on due Goal TSH. Due on due Goal Depression screening. Due on due Goal Cardiac Stress Test. Due on due Goal Mammogram. Due on 9 due Goal ALT. Due on due Goal Td vaccine. Due on 19 due Goal Lipid Panel. Due on due Goal Pap/HPV testing. Due on due Goal Flu (3 Years and above). Due on due Goal Colorectal cance r screen, stool DNA QuARTS with hemoglobin UNRULY. Due on due Goal Colonoscopy. Due on due Goal FOBT. Due on due Goal Sigmoidoscopy. Due on due Goal Flu Vaccine (18 to 64). Due on due Goal AST. Due on due Goal Flu (3 Years and above). Due on due Goal Td vaccine. Due on 19 due Goal Flu Vaccine (18 to 64). Due on due Goal AST. Due on due Goal Pap/HPV testing. Due on due Goal Lipid Panel. Due on due Goal ALT. Due on due Goal FOBT. Due on due Goal Mammogram. Due on 9 due Goal Colonoscopy. Due on due Goal Colorectal cance r screen, stool DNA QuARTS with hemoglobin UNRULY. Due on due Goal Sigmoidoscopy. Due on due Goal Tdap. Due on due Goal Depression screening. Due on due Goal TSH. Due on due Goal Cardiac Stress Test. Due on due Goal ALT. Due on due Goal Depression screening. Due on due Goal Cardiac Stress Test. Due on due Goal TSH. Due on due Goal FOBT. Due on due Goal Td vaccine. Due on 19 due Goal Mammogram. Due on 9 due Goal Sigmoidoscopy. Due on due Goal Pap/HPV testing. Due on due Goal Colonoscopy. Due on due Goal Flu Vaccine (18 to 64). Due on due Goal Lipid Panel. Due on due Goal AST. Due on due Goal Colorectal cance r screen, stool DNA QuARTS with hemoglobin UNRULY. Due on due Goal Flu (3 Years and above). Due on due Goal Tdap. Due on due Goal Sigmoidoscopy. Due on due Goal Flu Vaccine (18 to 64). Due on due Goal Depression screening. Due on due Goal Mammogram. Due on 8 due Goal ALT. Due on due Goal Cardiac Stress Test. Due on due Goal Tdap. Due on due Goal Td vaccine. Due on 18 due Goal AST. Due on due Goal Colorectal cance r screen, stool DNA QuARTS with hemoglobin UNRULY. Due on due Goal Flu (3 Years and above). Due on due Goal Lipid Panel. Due on due Goal TSH. Due on due Goal Colonoscopy. Due on due Goal Pap/HPV testing. Due on due Goal FOBT. Due on due Goal FOBT. Due on due Goal Flu (3 Years and above). Due on due Goal Flu Vaccine (18 to 64). Due on due Goal Cardiac Stress Test. Due on due Goal Lipid Panel. Due on due Goal Tdap. Due on due Goal Pap/HPV testing. Due on due Goal Colorectal cance r screen, stool DNA QuARTS with hemoglobin UNRULY. Due on due Goal Colonoscopy. Due on 018 due Goal AST. Due on due Goal TSH. Due on due Goal Mammogram. Due on 8 due Goal Depression screening. Due on due Goal Sigmoidoscopy. Due on due Goal ALT. Due on due Goal Td vaccine. Due on 18 due Goal ALT. Due on due Goal Flu (3 Years and above). Due on due Goal Colorectal cance r screen, stool DNA QuARTS with hemoglobin UNRULY. Due on due Goal Pap/HPV testing. Due on due Goal Lipid Panel. Due on 019 due Goal Depression screening. Due on due Goal AST. Due on due Goal Colonoscopy. Due on due Goal Td vaccine. Due on 18 due Goal Flu Vaccine (18 to 64). Due on due Goal Sigmoidoscopy. Due on due Goal Mammogram. Due on 8 due Goal TSH. Due on due Goal FOBT. Due on due Goal Cardiac Stress Test. Due on due Goal Tdap. Due on due Goal Sigmoidoscopy. Due on due Goal Colonoscopy. Due on 018 due Goal Flu Vaccine (18 to 64). Due on due Goal ALT. Due on due Goal Td vaccine. Due on 18 due Goal Depression screening. Due on due Goal Cardiac Stress Test. Due on due Goal TSH. Due on due Goal Mammogram. Due on 8 due Goal Tdap. Due on due Goal Colorectal cance r screen, stool DNA QuARTS with hemoglobin UNRULY. Due on due Goal AST. Due on due Goal FOBT. Due on due Goal Lipid Panel. Due on 019 due Goal Pap/HPV testing. Due on due Goal Flu (3 Years and above). Due on due Goal Flu (3 Years and above). Due on due Goal Sigmoidoscopy. Due on due Goal TSH. Due on due Goal AST. Due on due Goal Colonoscopy. Due on due Goal Lipid Panel. Due on 019 due Goal Colorectal cance r screen, stool DNA QuARTS with hemoglobin UNRULY. Due on due Goal Mammogram. Due on 8 due Goal Tdap. Due on due Goal Depression screening. Due on due Goal Cardiac Stress Test. Due on due Goal Flu Vaccine (18 to 64). Due on due Goal Pap/HPV testing. Due on due Goal ALT. Due on due Goal FOBT. Due on due Goal Td vaccine. Due on 18 due Goal Flu Vaccine (18 to 64). Due on due Goal Colorectal cance r screen, stool DNA QuARTS with hemoglobin UNRULY. Due on due Goal Td vaccine. Due on 18 due Goal Colonoscopy. Due on 018 due Goal Cardiac Stress Test. Due on due Goal FOBT. Due on due Goal Pap/HPV testing. Due on due Goal TSH. Due on due Goal Flu (3 Years and above). Due on due Goal Mammogram. Due on 8 due Goal Tdap. Due on due Goal Depression screening. Due on due Goal Sigmoidoscopy. Due on due Goal Lipid Panel. Due on 019 due Goal AST. Due on due Goal ALT. Due on due Goal Influenza vaccine. Due on due Goal Flu (3 Years and above). Due on due Goal AST. Due on due Goal Depression screening. Due on due Goal Sigmoidoscopy. Due on due Goal BMP fasting. Due on 012 due Goal TSH. Due on due Goal Colonoscopy. Due on 018 due Goal Flu Vaccine (18 to 64). Due on due Goal Td vaccine. Due on 18 due Goal Pap/HPV testing. Due on due Goal Influenza vaccine. Due on due Goal Mammogram. Due on 8 due Goal Hemoglobin A1C. Due on due Goal Colorectal cance r screen, stool DNA QuARTS with hemoglobin UNRULY. Due on due Goal Cardiac Stress Test. Due on due Goal ALT. Due on due Goal Tdap. Due on due Goal ECG. Due on due Goal FOBT. Due on due Goal H&P. Due on due Goal ECG. Due on due Goal Influenza vaccine. Due on due Goal FOBT. Due on due Goal Mammogram. Due on 8 due Goal Pap/HPV testing. Due on due Goal Flu (3 Years and above). Due on due Goal Hemoglobin A1C. Due on due Goal AST. Due on due Goal Colorectal cance r screen, stool DNA QuARTS with hemoglobin UNRULY. Due on due Goal Flu Vaccine (18 to 64). Due on due Goal H&P. Due on due Goal Colonoscopy. Due on 018 due Goal Sigmoidoscopy. Due on due Goal Tdap. Due on due Goal Td vaccine. Due on 18 due Goal Depression screening. Due on due Goal TSH. Due on due Goal BMP fasting. Due on 012 due Goal Cardiac Stress Test. Due on due Goal ALT. Due on due Goal Sigmoidoscopy. Due on due Goal Flu (3 Years and above). Due on due Goal ECG. Due on due Goal AST. Due on due Goal Colonoscopy. Due on due Goal Mammogram. Due on 8 due Goal TSH. Due on due Goal Cardiac Stress Test. Due on due Goal FOBT. Due on due Goal Pap/HPV testing. Due on due Goal H&P. Due on due Goal Hemoglobin A1C. Due on due Goal ALT. Due on due Goal Flu Vaccine (18 to 64). Due on due Goal Colorectal cance r screen, stool DNA QuARTS with hemoglobin UNRULY. Due on due Goal Influenza vaccine. Due on due Goal Tdap. Due on due Goal Depression screening. Due on due Goal BMP fasting. Due on 012 due Goal Td vaccine. Due on 18 due Goal Colonoscopy. Due on 018 due Goal Sigmoidoscopy. Due on due Goal Mammogram. Due on 8 due Goal Flu Vaccine (18 to 64). Due on due Goal AST. Due on due Goal Depression screening. Due on due Goal Flu (3 Years and above). Due on due Goal BMP fasting. Due on 012 due Goal Pap/HPV testing. Due on due Goal ALT. Due on due Goal ECG. Due on due Goal Td vaccine. Due on 18 due Goal Tdap. Due on due Goal TSH. Due on due Goal Hemoglobin A1C. Due on due Goal H&P. Due on due Goal Cardiac Stress Test. Due on due Goal Colorectal cance r screen, stool DNA QuARTS with hemoglobin UNRULY. Due on due Goal FOBT. Due on due Goal Influenza vaccine. Due on due Goal Depression screening. Due on due Goal Cardiac Stress Test. Due on due Goal Td vaccine. Due on 18 due Goal ALT. Due on due Goal H&P. Due on due Goal Tdap. Due on due Goal Sigmoidoscopy. Due on due Goal TSH. Due on due Goal Colonoscopy. Due on 018 due Goal BMP fasting. Due on 012 due Goal Influenza vaccine. Due on due Goal ECG. Due on due Goal Pap/HPV testing. Due on due Goal Flu Vaccine (18 to 64). Due on due Goal Flu (3 Years and above). Due on due Goal AST. Due on due Goal FOBT. Due on due Goal Colorectal cance r screen, stool DNA QuARTS with hemoglobin UNRULY. Due on due Goal Hemoglobin A1C. Due on due Goal Mammogram. Due on 8 due Goal Tdap. Due on due Goal H&P. Due on due Goal TSH. Due on due Goal Cardiac Stress Test. Due on due Goal Colorectal cance r screen, stool DNA QuARTS with hemoglobin UNRULY. Due on due Goal Td vaccine. Due on 18 due Goal Depression screening. Due on due Goal Hemoglobin A1C. Due on due Goal Influenza vaccine. Due on due Goal Flu Vaccine (18 to 64). Due on due Goal FOBT. Due on due Goal ECG. Due on due Goal AST. Due on due Goal Colonoscopy. Due on due Goal Sigmoidoscopy. Due on due Goal BMP fasting. Due on 012 due Goal ALT. Due on due Goal Mammogram. Due on 8 due Goal Flu (3 Years and above). Due on due Goal Pap/HPV testing. Due on due Goal Tdap. Due on due Goal H&P. Due on due Goal TSH. Due on due Goal Flu Vaccine (18 to 64). Due on due Goal Td vaccine. Due on 18 due Goal Influenza vaccine. Due on due Goal Colonoscopy. Due on 018 due Goal Cardiac Stress Test. Due on due Goal ALT. Due on due Goal BMP fasting. Due on 012 due Goal Sigmoidoscopy. Due on due Goal Pap/HPV testing. Due on due Goal Depression screening. Due on due Goal Flu (3 Years and above). Due on due Goal FOBT. Due on due Goal AST. Due on due Goal ECG. Due on due Goal Hemoglobin A1C. Due on due Goal Colorectal cance r screen, stool DNA QuARTS with hemoglobin UNRULY. Due on due Goal Mammogram. Due on 8 due Goal BMP fasting. Due on Apr due Goal Hemoglobin A1C. Due on due Goal Pap/HPV testing. Due on due Goal Depression screening. Due on due Goal AST. Due on due Goal Td vaccine. Due on 17 due Goal Tdap. Due on due Goal ALT. Due on due Goal Cardiac Stress Test. Due on due Goal H&P. Due on due Goal Colonoscopy. Due on due Goal TSH. Due on due Goal Colorectal cance r screen, stool DNA QuARTS with hemoglobin UNRULY. Due on due Goal FOBT. Due on due Goal Sigmoidoscopy. Due on due Goal Flu Vaccine (18 to 64). Due on due Goal Flu (3 Years and above). Due on due Goal ECG. Due on due Goal Influenza vaccine. Due on due Goal Mammogram. Due on 7 due Goal Influenza vaccine. Due on due Goal ALT. Due on due Goal H&P. Due on due Goal Colonoscopy. Due on due Goal Cardiac Stress Test. Due on due Goal ECG. Due on due Goal BMP fasting. Due on due Goal TSH. Due on due Goal Tdap. Due on due Goal Sigmoidoscopy. Due on due Goal Hemoglobin A1C. Due on due Goal AST. Due on due Goal FOBT. Due on due Goal Depression screening. Due on due Goal Flu (3 Years and above). Due on due Goal Pap/HPV testing. Due on due Goal Colorectal cance r screen, stool DNA QuARTS with hemoglobin UNRULY. Due on due Goal Mammogram. Due on 7 due Goal Flu Vaccine (18 to 64). Due on due Goal Td vaccine. Due on 17 due Goal FOBT. Due on due Goal Influenza vaccine. Due on due Goal Depression screening. Due on due Goal Tdap. Due on due Goal Colonoscopy. Due on 017 due Goal Flu Vaccine (18 to 64). Due on due Goal AST. Due on due Goal Mammogram. Due on 7 due Goal Colorectal cance r screen, stool DNA QuARTS with hemoglobin UNRULY. Due on due Goal Cardiac Stress Test. Due on due Goal ALT. Due on due Goal ECG. Due on due Goal Pap/HPV testing. Due on due Goal TSH. Due on due Goal H&P. Due on due Goal Flu (3 Years and above). Due on due Goal Td vaccine. Due on 17 due Goal Sigmoidoscopy. Due on due Goal BMP fasting. Due on 012 due Goal Hemoglobin A1C. Due on due Goal Td vaccine. Due on 17 due Goal Influenza vaccine. Due on due Goal Flu (3 Years and above). Due on due Goal Mammogram. Due on 7 due Goal Cardiac Stress Test. Due on due Goal Depression screening. Due on due Goal FOBT. Due on due Goal Sigmoidoscopy. Due on due Goal Tdap. Due on due Goal Pap/HPV testing. Due on due Goal AST. Due on due Goal H&P. Due on due Goal TSH. Due on due Goal BMP fasting. Due on 012 due Goal ALT. Due on due Goal Hemoglobin A1C. Due on due Goal Colonoscopy. Due on 017 due Goal Colorectal cance r screen, stool DNA QuARTS with hemoglobin UNRULY. Due on due Goal ECG. Due on due Goal Flu Vaccine (18 to 64). Due on due Goal Colorectal cance r screen, stool DNA QuARTS with hemoglobin UNRULY. Due on due Goal AST. Due on due Goal ALT. Due on due Goal Sigmoidoscopy. Due on due Goal Hemoglobin A1C. Due on due Goal FOBT. Due on due Goal Colonoscopy. Due on 017 due Goal Tdap. Due on due Goal Flu Vaccine (18 to 64). Due on due Goal ECG. Due on due Goal Depression screening. Due on due Goal Mammogram. Due on 7 due Goal H&P. Due on due Goal TSH. Due on due Goal Cardiac Stress Test. Due on due Goal Td vaccine. Due on 17 due Goal Influenza vaccine. Due on due Goal Pap/HPV testing. Due on due Goal Flu (3 Years and above). Due on due Goal BMP fasting. Due on 012 due Goal TSH. Due on due Goal Colorectal cance r screen, stool DNA QuARTS with hemoglobin UNRULY. Due on due Goal H&P. Due on due Goal Mammogram. Due on 7 due Goal AST. Due on due Goal Influenza vaccine. Due on due Goal Hemoglobin A1C. Due on due Goal ECG. Due on due Goal Depression screening. Due on due Goal Pap/HPV testing. Due on due Goal Colonoscopy. Due on 017 due Goal ALT. Due on due Goal BMP fasting. Due on due Goal Tdap. Due on due Goal FOBT. Due on due Goal Flu (3 Years and above). Due on due Goal Td vaccine. Due on 17 due Goal Flu Vaccine (18 to 64). Due on due Goal Sigmoidoscopy. Due on due Goal Cardiac Stress Test. Due on due Goal Sigmoidoscopy. Due on due Goal H&P. Due on due Goal Pap/HPV testing. Due on due Goal TSH. Due on due Goal ECG. Due on due Goal AST. Due on due Goal Hemoglobin A1C. Due on due Goal Mammogram. Due on 7 due Goal Colorectal cance r screen, stool DNA QuARTS with hemoglobin UNRULY. Due on due Goal Depression screening. Due on due Goal Influenza vaccine. Due on due Goal Colonoscopy. Due on due Goal Td vaccine. Due on 17 due Goal BMP fasting. Due on due Goal Tdap. Due on due Goal FOBT. Due on due Goal Flu (3 Years and above). Due on due Goal ALT. Due on due Goal BMP fasting. Due on 012 due Goal Td vaccine. Due on 17 due Goal Depression screening. Due on due Goal Colonoscopy. Due on 017 due Goal TSH. Due on due Goal H&P. Due on due Goal ALT. Due on due Goal Sigmoidoscopy. Due on due Goal Flu (3 Years and above). Due on due Goal Tdap. Due on due Goal FOBT. Due on due Goal Colorectal cance r screen, stool DNA QuARTS with hemoglobin UNRULY. Due on due Goal ECG. Due on due Goal Pap/HPV testing. Due on due Goal Mammogram. Due on 7 due Goal Influenza vaccine. Due on due Goal AST. Due on due Goal Hemoglobin A1C. Due on due Goal ECG. Due on due Goal H&P. Due on due Goal TSH. Due on due Goal BMP fasting. Due on 012 due Goal Colorectal cance r screen, stool DNA QuARTS with hemoglobin UNRULY. Due on due Goal Depression screening. Due on due Goal AST. Due on due Goal ALT. Due on due Goal FOBT. Due on due Goal Tdap. Due on due Goal Flu (3 Years and above). Due on due Goal Colonoscopy. Due on 017 due Goal Td vaccine. Due on 17 due Goal Sigmoidoscopy. Due on due Goal Pap/HPV testing. Due on due Goal Mammogram. Due on due Goal Hemoglobin A1C. Due on due Goal Influenza vaccine. Due on due Goal Depression screening. Due on due Goal Td vaccine. Due on 17 due Goal BMP fasting. Due on 012 due Goal TSH. Due on due Goal Sigmoidoscopy. Due on due Goal H&P. Due on due Goal Tdap. Due on due Goal Influenza vaccine. Due on due Goal Hemoglobin A1C. Due on due Goal Mammogram. Due on due Goal AST. Due on due Goal ECG. Due on due Goal Colorectal cance r screen, stool DNA QuARTS with hemoglobin UNRULY. Due on due Goal Colonoscopy. Due on 017 due Goal FOBT. Due on due Goal Pap/HPV testing. Due on due Goal ALT. Due on due Goal Flu (3 Years and above). Due on due Goal Depression screening. Due on due Goal ECG. Due on due Goal H&P. Due on due Goal Sigmoidoscopy. Due on due Goal AST. Due on due Goal FOBT. Due on due Goal Mammogram. Due on due Goal Colonoscopy. Due on 017 due Goal Influenza vaccine. Due on due Goal Tdap. Due on due Goal Td vaccine. Due on 17 due Goal Colorectal cance r screen, stool DNA QuARTS with hemoglobin UNRULY. Due on due Goal Flu (3 Years and above). Due on due Goal Hemoglobin A1C. Due on due Goal Pap/HPV testing. Due on due Goal ALT. Due on due Goal BMP fasting. Due on 012 due Goal TSH. Due on due Goal Influenza vaccine. Due on due Goal Mammogram. Due on due Goal Depression screening. Due on due Goal Colorectal cance r screen, stool DNA QuARTS with hemoglobin UNRULY. Due on due Goal Flu (3 Years and above). Due on due Goal Sigmoidoscopy. Due on due Goal Colonoscopy. Due on 017 due Goal TSH. Due on due Goal H&P. Due on due Goal AST. Due on due Goal Tdap. Due on due Goal Td vaccine. Due on 17 due Goal FOBT. Due on due Goal ALT. Due on due Goal Hemoglobin A1C. Due on due Goal ECG. Due on due Goal Pap/HPV testing. Due on due Goal BMP fasting. Due on 012 due Goal Tdap. Due on due Goal TSH. Due on due Goal AST. Due on due Goal Hemoglobin A1C. Due on due Goal Pap/HPV testing. Due on due Goal FOBT. Due on due Goal ECG. Due on due Goal Flu (3 Years and above). Due on due Goal Td vaccine. Due on 17 due Goal BMP fasting. Due on 012 due Goal Colonoscopy. Due on 017 due Goal ALT. Due on due Goal Influenza vaccine. Due on due Goal Mammogram. Due on 7 due Goal Colorectal cance r screen, stool DNA QuARTS with hemoglobin UNRULY. Due on due Goal Depression screening. Due on due Goal H&P. Due on due Goal Sigmoidoscopy. Due on due Goal H&P. Due on due Goal Colorectal cance r screen, stool DNA QuARTS with hemoglobin UNRULY. Due on due Goal Depression screening. Due on due Goal Td vaccine. Due on 17 due Goal ALT. Due on due Goal BMP fasting. Due on due Goal Flu (3 Years and above). Due on due Goal Sigmoidoscopy. Due on due Goal Influenza vaccine. Due on due Goal AST. Due on due Goal Pap/HPV testing. Due on due Goal ECG. Due on due Goal Mammogram. Due on 7 due Goal Hemoglobin A1C. Due on due Goal FOBT. Due on due Goal Tdap. Due on due Goal Colonoscopy. Due on due Goal TSH. Due on due Goal Sigmoidoscopy. Due on due Goal Tdap. Due on due Goal Td vaccine. Due on 17 due Goal Influenza vaccine. Due on due Goal Pap/HPV testing. Due on due Goal Colonoscopy. Due on 017 due Goal AST. Due on due Goal BMP fasting. Due on due Goal H&P. Due on due Goal Flu (3 Years and above). Due on due Goal Colorectal cance r screen, stool DNA QuARTS with hemoglobin UNRULY. Due on due Goal FOBT. Due on due Goal ECG. Due on due Goal Depression screening. Due on due Goal Mammogram. Due on due Goal ALT. Due on due Goal Hemoglobin A1C. Due on due Goal TSH. Due on due Goal Mammogram. Due on 7 due Goal Influenza vaccine. Due on due Goal FOBT. Due on due Goal Pap/HPV testing. Due on due Goal BMP fasting. Due on 012 due Goal H&P. Due on due Goal Hemoglobin A1C. Due on due Goal ECG. Due on due Goal Sigmoidoscopy. Due on due Goal AST. Due on due Goal Depression screening. Due on due Goal Tdap. Due on due Goal Td vaccine. Due on 17 due Goal Colonoscopy. Due on 017 due Goal ALT. Due on due Goal Flu (3 Years and above). Due on due Goal TSH. Due on due Goal Influenza vaccine. Due on due Goal TSH. Due on due Goal Pap/HPV testing. Due on due Goal Mammogram. Due on 7 due Goal FOBT. Due on due Goal Tdap. Due on due Goal ALT. Due on due Goal ECG. Due on due Goal AST. Due on due Goal Sigmoidoscopy. Due on due Goal Td vaccine. Due on 17 due Goal H&P. Due on due Goal Depression screening. Due on due Goal Hemoglobin A1C. Due on due Goal Colonoscopy. Due on 017 due Goal BMP fasting. Due on 012 due Goal Lipid Panel. Due on 016 due Goal Lipid Panel. Due on 016 due Goal Mammogram. Due on 6 due Goal FOBT. Due on due Goal Pap/HPV testing. Due on due Goal BMP fasting. Due on 012 due Goal Sigmoidoscopy. Due on due Goal AST. Due on due Goal Td vaccine. Due on 16 due Goal Hemoglobin A1C. Due on due Goal Influenza vaccine. Due on due Goal ALT. Due on due Goal Depression screening. Due on due Goal ECG. Due on due Goal TSH. Due on due Goal Colonoscopy. Due on 016 due Goal H&P. Due on due Goal Tdap. Due on due Goal Sigmoidoscopy. Due on due Goal FOBT. Due on due Goal Influenza vaccine. Due on due Goal ALT. Due on due Goal Td vaccine. Due on 16 due Goal ECG. Due on due Goal H&P. Due on due Goal Mammogram. Due on 6 due Goal Pap/HPV testing. Due on due Goal Tdap. Due on due Goal TSH. Due on due Goal Lipid Panel. Due on 016 due Goal Depression screening. Due on due Goal Hemoglobin A1C. Due on due Goal BMP fasting. Due on 012 due Goal AST. Due on due Goal Colonoscopy. Due on 016 due Goal Sigmoidoscopy. Due on due Goal Influenza vaccine. Due on due Goal Pap/HPV testing. Due on due Goal FOBT. Due on due Goal Mammogram. Due on 6 due Goal Tdap. Due on due Goal AST. Due on due Goal H&P. Due on due Goal TSH. Due on due Goal Hemoglobin A1C. Due on due Goal Td vaccine. Due on 16 due Goal Colonoscopy. Due on due Goal BMP fasting. Due on due Goal ECG. Due on due Goal Depression screening. Due on due Goal Depression screening. Due on due Goal AST. Due on due Goal Pap/HPV testing. Due on due Goal TSH. Due on due Goal FOBT. Due on due Goal BMP fasting. Due on due Goal Tdap. Due on due Goal Influenza vaccine. Due on due Goal Sigmoidoscopy. Due on due Goal ECG. Due on due Goal Hemoglobin A1C. Due on due Goal Colonoscopy. Due on due Goal Td vaccine. Due on 16 due Goal Mammogram. Due on 6 due Goal H&P. Due on due Goal BMP fasting. Due on due Goal Influenza vaccine. Due on due Goal Pap/HPV testing. Due on due Goal Td vaccine. Due on 16 due Goal H&P. Due on due Goal AST. Due on due Goal ECG. Due on due Goal Tdap. Due on due Goal Sigmoidoscopy. Due on due Goal Hemoglobin A1C. Due on due Goal TSH. Due on due Goal FOBT. Due on due Goal Mammogram. Due on due Goal Depression screening. Due on due Goal Colonoscopy. Due on 016 due Goal AST. Due on due Goal Colonoscopy. Due on 016 due Goal TSH. Due on due Goal H&P. Due on due Goal Td vaccine. Due on 16 due Goal FOBT. Due on due Goal Influenza vaccine. Due on due Goal Sigmoidoscopy. Due on due Goal Tdap. Due on due Goal ECG. Due on due Goal Depression screening. Due on due Goal Pap/HPV testing. Due on due Goal BMP fasting. Due on 012 due Goal Mammogram. Due on 6 due Goal Hemoglobin A1C. Due on due Goal ECG. Due on due Goal Hemoglobin A1C. Due on due Goal Tdap. Due on due Goal Sigmoidoscopy. Due on due Goal Depression screening. Due on due Goal TSH. Due on due Goal Influenza vaccine. Due on due Goal AST. Due on due Goal Mammogram. Due on 6 due Goal BMP fasting. Due on due Goal Colonoscopy. Due on due Goal FOBT. Due on due Goal H&P. Due on due Goal Pap/HPV testing. Due on due Goal Td vaccine. Due on 16 due Goal FOBT. Due on due Goal Tdap. Due on due Goal Mammogram. Due on due Goal BMP fasting. Due on 012 due Goal Hemoglobin A1C. Due on due Goal TSH. Due on due Goal Influenza vaccine. Due on due Goal Sigmoidoscopy. Due on due Goal Pap/HPV testing. Due on due Goal Depression screening. Due on due Goal AST. Due on due Goal Colonoscopy. Due on due Goal ECG. Due on due Goal Td vaccine. Due on 16 due Goal H&P. Due on due Goal Mammogram. Due on 6 due Goal Pap/HPV testing. Due on due Goal Influenza vaccine. Due on due Goal FOBT. Due on due Goal AST. Due on due Goal Depression screening. Due on due Goal Colonoscopy. Due on 016 due Goal Hemoglobin A1C. Due on due Goal Td vaccine. Due on 16 due Goal TSH. Due on due Goal Sigmoidoscopy. Due on due Goal ECG. Due on due Goal H&P. Due on due Goal BMP fasting. Due on 012 due Goal Tdap. Due on due Goal Tdap. Due on due Goal Influenza vaccine. Due on due Goal Td vaccine. Due on 16 due Goal Colonoscopy. Due on 016 due Goal Hemoglobin A1C. Due on due Goal Pap/HPV testing. Due on due Goal ECG. Due on due Goal Mammogram. Due on due Goal BMP fasting. Due on 012 due Goal TSH. Due on due Goal AST. Due on due Goal H&P. Due on due Goal Depression screening. Due on due Goal FOBT. Due on due Goal Sigmoidoscopy. Due on due Goal Tdap. Due on due Goal Hemoglobin A1C. Due on due Goal AST. Due on due Goal Pap/HPV testing. Due on due Goal Mammogram. Due on 6 due Goal Depression screening. Due on due Goal Sigmoidoscopy. Due on due Goal Td vaccine. Due on 16 due Goal ECG. Due on due Goal BMP fasting. Due on due Goal Influenza vaccine. Due on due Goal Colonoscopy. Due on 016 due Goal FOBT. Due on due Goal H&P. Due on due Goal TSH. Due on due Goal H&P. Due on due Goal Tdap. Due on due Goal Depression screening. Due on due Goal Mammogram. Due on 6 due Goal Influenza vaccine. Due on due Goal Colonoscopy. Due on 016 due Goal FOBT. Due on due Goal Pap/HPV testing. Due on due Goal TSH. Due on due Goal Hemoglobin A1C. Due on due Goal BMP fasting. Due on due Goal Td vaccine. Due on 16 due Goal AST. Due on due Goal ECG. Due on due Goal Sigmoidoscopy. Due on due Goal ECG. Due on due Goal Mammogram. Due on 6 due Goal FOBT. Due on due Goal BMP fasting. Due on due Goal Depression screening. Due on due Goal Pap/HPV testing. Due on due Goal Colonoscopy. Due on 016 due Goal Td vaccine. Due on 16 due Goal AST. Due on due Goal Sigmoidoscopy. Due on due Goal Tdap. Due on due Goal Influenza vaccine. Due on due Goal TSH. Due on due Goal Hemoglobin A1C. Due on due Goal H&P. Due on due Goal Depression screening. Due on due Goal BMP fasting. Due on 012 due Goal Mammogram. Due on 6 due Goal AST. Due on due Goal Colonoscopy. Due on 016 due Goal FOBT. Due on due Goal Pap/HPV testing. Due on due Goal Influenza vaccine. Due on due Goal Td vaccine. Due on 16 due Goal TSH. Due on due Goal Hemoglobin A1C. Due on due Goal H&P. Due on due Goal Tdap. Due on due Goal Sigmoidoscopy. Due on due Goal ECG. Due on due Goal Depression screening. Due on due Goal Mammogram. Due on 6 due Goal Pap/HPV testing. Due on due Goal Sigmoidoscopy. Due on due Goal Td vaccine. Due on 16 due Goal FOBT. Due on due Goal Colonoscopy. Due on 016 due Goal AST. Due on due Goal BMP fasting. Due on 012 due Goal Influenza vaccine. Due on due Goal Hemoglobin A1C. Due on due Goal TSH. Due on due Goal Tdap. Due on due Goal ECG. Due on due Goal H&P. Due on due Goal Influenza vaccine. Due on due Goal Colonoscopy. Due on 015 due Goal Tdap. Due on due Goal Depression screening. Due on due Goal Mammogram. Due on 5 due Goal Pap/HPV testing. Due on due Goal Td vaccine. Due on 15 due Goal FOBT. Due on due Goal AST. Due on due Goal BMP fasting. Due on 012 due Goal Sigmoidoscopy. Due on due Goal H&P. Due on due Goal Hemoglobin A1C. Due on due Goal ECG. Due on due Goal TSH. Due on due Goal Depression screening. Due on due Goal FOBT. Due on due Goal Colonoscopy. Due on 015 due Goal AST. Due on due Goal BMP fasting. Due on 012 due Goal Influenza vaccine. Due on due Goal Hemoglobin A1C. Due on due Goal Td vaccine. Due on 15 due Goal TSH. Due on due Goal Pap/HPV testing. Due on due Goal Sigmoidoscopy. Due on due Goal Tdap. Due on due Goal Mammogram. Due on due Goal H&P. Due on due Goal ECG. Due on due Goal Hemoglobin A1C. Due on due Goal Influenza vaccine. Due on due Goal Mammogram. Due on 5 due Goal ECG. Due on due Goal TSH. Due on due Goal Sigmoidoscopy. Due on due Goal Colonoscopy. Due on 015 due Goal Td vaccine. Due on 15 due Goal BMP fasting. Due on 012 due Goal FOBT. Due on due Goal Tdap. Due on due Goal Depression screening. Due on due Goal AST. Due on due Goal Pap/HPV testing. Due on due Goal H&P. Due on due Goal FOBT. Due on due Goal Td vaccine. Due on 15 due Goal Sigmoidoscopy. Due on due Goal Tdap. Due on due Goal Influenza vaccine. Due on due Goal AST. Due on due Goal Colonoscopy. Due on 015 due Goal Mammogram. Due on 5 due Goal BMP fasting. Due on 012 due Goal Pap/HPV testing. Due on due Goal Depression screening. Due on due Goal H&P. Due on due Goal ECG. Due on due Goal TSH. Due on due Goal Hemoglobin A1C. Due on due Goal H&P. Due on due Goal Td vaccine. Due on 15 due Goal Hemoglobin A1C. Due on due Goal ECG. Due on due Goal BMP fasting. Due on due Goal Influenza vaccine. Due on due Goal Tdap. Due on due Goal Sigmoidoscopy. Due on due Goal AST. Due on due Goal TSH. Due on due Goal Depression screening. Due on due Goal Colonoscopy. Due on due Goal Mammogram. Due on 5 due Goal FOBT. Due on due Goal Pap/HPV testing. Due on due Goal AST. Due on due Goal Pap/HPV testing. Due on due Goal Colonoscopy. Due on 015 due Goal FOBT. Due on due Goal Sigmoidoscopy. Due on due Goal Depression screening. Due on due Goal Mammogram. Due on 5 due Goal BMP fasting. Due on due Goal Influenza vaccine. Due on due Goal ECG. Due on due Goal Tdap. Due on due Goal TSH. Due on due Goal Hemoglobin A1C. Due on due Goal H&P. Due on due Goal Td vaccine. Due on 15 due Goal Tdap. Due on due Goal Mammogram. Due on 5 due Goal Td vaccine. Due on 15 due Goal H&P. Due on due Goal ECG. Due on due Goal Influenza vaccine. Due on due Goal Pap/HPV testing. Due on due Goal AST. Due on due Goal FOBT. Due on due Goal Depression screening. Due on due Goal Colonoscopy. Due on due Goal BMP fasting. Due on 012 due Goal Hemoglobin A1C. Due on due Goal Sigmoidoscopy. Due on due Goal AST. Due on due Goal Colonoscopy. Due on due Goal Pap/HPV testing. Due on due Goal BMP fasting. Due on due Goal Mammogram. Due on 5 due Goal Sigmoidoscopy. Due on due Goal FOBT. Due on due Goal Tdap. Due on due Goal Influenza vaccine. Due on due Goal H&P. Due on due Goal Depression screening. Due on due Goal Td vaccine. Due on 15 due Goal ECG. Due on due Goal Hemoglobin A1C. Due on due Goal H&P. Due on due Goal Tdap. Due on due Goal Influenza vaccine. Due on due Goal Pap/HPV testing. Due on due Goal Sigmoidoscopy. Due on due Goal Td vaccine. Due on 15 due Goal Depression screening. Due on due Goal BMP fasting. Due on due Goal Colonoscopy. Due on due Goal AST. Due on due Goal FOBT. Due on due Goal Mammogram. Due on 5 due Goal Hemoglobin A1C. Due on due Goal ECG. Due on due Goal BMP fasting. Due on due Goal Td vaccine. Due on due Goal Tdap. Due on due Goal Mammogram. Due on 5 due Goal Sigmoidoscopy. Due on due Goal Influenza vaccine. Due on due Goal Pap/HPV testing. Due on due Goal Depression screening. Due on due Goal Hemoglobin A1C. Due on due Goal AST. Due on due Goal ECG. Due on due Goal H&P. Due on due Goal Colonoscopy. Due on due Goal FOBT. Due on due Goal Pap/HPV testing. Due on due Goal AST. Due on due Goal Hemoglobin A1C. Due on due Goal ECG. Due on due Goal Colonoscopy. Due on due Goal Mammogram. Due on due Goal BMP fasting. Due on 012 due Goal Depression screening. Due on due Goal H&P. Due on due Goal Sigmoidoscopy. Due on due Goal Influenza vaccine. Due on due Goal FOBT. Due on due Goal Td vaccine. Due on 15 due Goal Tdap. Due on due Goal FOBT. Due on due Goal Mammogram. Due on 5 due Goal Td vaccine. Due on 15 due Goal Pap/HPV testing. Due on due Goal Colonoscopy. Due on 015 due Goal Influenza vaccine. Due on due Goal Depression screening. Due on due Goal AST. Due on due Goal Tdap. Due on due Goal Sigmoidoscopy. Due on due Goal Hemoglobin A1C. Due on due Goal ECG. Due on due Goal BMP fasting. Due on due Goal H&P. Due on due Goal BMP fasting. Due on due Goal AST. Due on due Goal Lipid Panel. Due on due Goal H&P. Due on due Goal ECG. Due on due Goal ALT. Due on due Goal Lipid Panel. Due on due Goal BMP fasting. Due on due Goal AST. Due on due Goal H&P. Due on due Goal ALT. Due on due Goal ECG. Due on due Goal ALT. Due on due Goal Lipid Panel. Due on due Goal BMP fasting. Due on due Goal H&P. Due on due Goal ECG. Due on due Goal AST. Due on due Goal H&P. Due on due Goal Lipid Panel. Due on due Goal BMP fasting. Due on due Goal AST. Due on due Goal ECG. Due on due Goal ALT. Due on due Goal H&P. Due on due Goal AST. Due on due Goal Lipid Panel. Due on due Goal ECG. Due on due Goal BMP fasting. Due on due Goal ALT. Due on due Goal AST. Due on due Goal BMP fasting. Due on due Goal ALT. Due on due Goal ECG. Due on due Goal Lipid Panel. Due on due Goal H&P. Due on due Goal Lipid Panel. Due on due Goal ECG. Due on due Goal AST. Due on due Goal BMP fasting. Due on due Goal H&P. Due on due Goal ALT. Due on due Goal ALT. Due on due Goal AST. Due on due Goal H&P. Due on due Goal ECG. Due on due Goal Lipid Panel. Due on due Goal BMP fasting. Due on due Goal H&P. Due on due Goal Lipid Panel. Due on due Goal ECG. Due on due Goal BMP fasting. Due on due Goal AST. Due on due Goal ALT. Due on due Goal ECG. Due on due Goal BMP fasting. Due on due Goal H&P. Due on due Goal Lipid Panel. Due on due Goal H&P. Due on due Goal Lipid Panel. Due on due Goal BMP fasting. Due on due Goal ECG. Due on due Goal Cardiac Stress Test. Due on due Goal AST. Due on due Goal H&P. Due on due Goal Hemoglobin A1C. Due on due Goal TSH. Due on due Goal ALT. Due on due Goal Lipid Panel. Due on due Goal ECG. Due on due Goal BMP fasting. Due on due Future Order: Lab Order Protime Venous (PTV), Collected on: , Sent on: Sent Future Order: Lab Order Protime Venous (PTV), Collected on: , Sent on: Sent Future Order: Lab Order Protime Venous (PTV), Collected on: , Sent on: Sent Future Order: Lab Order Lipid Panel (LIPI D), Sent on: Sent Future Order: Lab Order Hemoglobin A1c (A 1C), Sent on: Sent Future Order: Lab Order Hepatic Panel (HEPATIC), Sent on: Sent Future Order: Lab Order Protime Venous (PTV), Appointment on: , Sent on: Sent Future Order: Lab Order Protime Venous (PTV), Appointment on: , Sent on: Sent Future Order: Lab Order Hepatic Panel (HEPATIC), Appointment on: , Sent on: Sent Future Order: Lab Order Lipid Pa azra (LIPID), Appointment on: , Sent on: Sent Future Order: Lab Order Hepatic Panel (HEPATIC), Appointment on: , Sent on: Sent Future Order: Lab Order Lipid Pa azra (LIPID), Appointment on: , Sent on: Sent Future Order: Lab Order Lipid Panel (LIPI D), Sent on: Sent Future Order: Lab Order Hepatic Panel (HEPATIC), Sent on: Sent History Of Present Illness Encounter Date Complaint History Of Prese nt Illness follow-up This follow-up o ffice visit is being completed via telemedicine video conversation. Due to recent COVID-19 outbreak they were provided with the option for in office visit vs telephone visit vs video conference. Informed consent has been obtained via phone from the patient prior to discussion of health information. Patient identification has been verified by name and date of . Ms. Jain is seen today for follow-up office visit via [employer] video conference. She reports she has been doing very well since she was last seen. She has actually not been seen for approximately 2 years. She has a history of pulmonary embolism and DVT and is on Coumadin. She is followed by the [facility]. She denies any bleeding issues. She denies any chest pain, shortness of breath, dizziness, palpitations, near-syncope or syncope. Dyspnea Freeform HPI Ms. Jain is se en today for followup. She denies any unusual shortness of breath. She reports she is short of breath only when the humidity is up. Otherwise, she denies any increased shortness of breath with exertion. She denies any chest pain, palpitations, dizziness, near-syncope or syncope. She is on Coumadin with no significant bleeding issues noted.. follow up Mrs. Jain pres ents today for follow up. She has done very well. She denies chest pain, chest discomfort suggestive of ischemia. No PND, orthopnea, weight gain. She continues to lose weight on her diet. She has lost about 6 pounds since her last visit. In total she has lost close to 40 pounds. She is on Coumadin secdonary to DVT and PE. No bleeding issues noted. CBC is within normal limits. She has sleep apnea and uses CPAP regularly. She only uses Meloxicam and Ibuprofen as needed for arthritis. Dyspnea Follow up Mrs. Jain pres ents today for follow up and test results. She says she recently has started on a weight loss program and her head animal trainer requested cardiac consultation before continuing this weight loss program. She has a history of DVT, PE and is on Coumadin. Symptom haynes, she says she does have some WYNN that has improved with weight loss of 35 pounds. She denies any PND or orthopnea. She is very compliant with sodium and fluid restrictions, her head animal trainer makes sure of this. new patient consultation I have not seen this patient since August 2011, close to 4 years. She does come to our [facility] for regulation. She has been enrolled into the hormone program, and they needed updated workup. She has no chest pain. She does get dyspnea on exertio. She has lost 35 lbs since being on the hormone program. She has no orthopnea or PND. She has been compliant with her regimen. She has been taking her Coumadin but has Lovenox on file because she takes Lovenox sometimes when she is going for dental work per the protocol. left foot pain Ms Jain is a [age] year old female who complains of left foot pain. She presents with pain on the right and left side equally. She states that the symptoms have been chronic non-traumatic. The symptoms occur intermittently. The problem is unchanged. Currently the patient states that the symptoms are mild-moderate. The pain is described as aching and sharp. The symptoms occur intermittently. The patient indicates that the pain is located in the bottom of foot on the right and left side equally. Pertinent negatives include bruising, erythema and fever. Functional Status Date Functional Assessmen t No Information Instructions Date Instruction Additional Infor mation No Information Assessments Type Assessment Date No Information Patient Care Teams Name Effective Dates (start - stop) Status Members No Information
--- OUTSIDE RECORDS SUMMARY | 2024-10-07 10:45 | XMS_ITS | Encounter Summary ---
[facility] Address [address] [place] [address] Care Team Providers Care Cutter Apprentice Hand Name Role Phone Juliano Melendez MD Primary Care Provider + Reason for Referral * Diagnostic Imaging (Routine) - Authorized Specialty Diagnoses / Procedures Referred By Contac t Referred To Contact Diagnoses Encounter for screening mammogram for malignant neoplasm of breast Procedures Mammo Screening Digital Tomosynthesis Bilateral With CAD Juliano Melendez MD [address] [place] [address] Phone: tel: fax: [facility] - OUTPT PHYSICAL THERAPY [address] [address] Phone: tel: fax: Referral ID Status Reason Start Date Expiration Date V isits Requested Visits Authorized [id number] Authorized 10/07/2024 01/06/2026 1 1 Reason for Visit * Reason Comments Annual Exam Encounter Details Date Type Department Care Team (Late st Contact Info) Description 10/07/2024 10:45 AM EDT Office Visit [facility] [address] [place] [address] Juliano Melendez MD [address] [facility] [place] [place] [address] Annual physical exam (Primary Dx); Cervical spine arthritis; Class 3 severe obesity due to excess calories with serious comorbidity and body mass index (BMI) of 40.0 to 44.9 in adult; Gastroesophageal reflux disease without esophagitis; Hypothyroidism, unspecified type; Primary hypertension; Encounter for screening mammogram for malignant neoplasm of breast; Colon cancer screening; Vitamin D deficiency; Other emphysema; Gastroesophageal reflux disease without esophagitis; alf current use of diuretic Social History Tobacco Use Types Packs/Day Years Used Date Smoking Tobacco: Former Cigarettes 0.3 15 0 10/16/2007 - 10/15/2022 Smokeless Tobacco: Never Alcohol Use Standard Drinks/Week Comments Not Currently 0 (1 standard drink = 0.6 oz pur e alcohol) PHQ-2 Answer Date Recorded Retired PHQ-9: Brief Depression Severity Measure Score 0 04/28/2022 PHQ-2 Answer Date Recorded Patient Health Questionnaire-2 Score 0 04/04/2024 Comments Unknown Sex and Gender Information Value Date Recorded Sex Assigned at Not on file Legal Sex Female 3:09 PM EST Gender Identity Not on file Sexual Orientation Not on file documented as of this encounter Last Filed Vital Signs Vital Sign Reading Time Taken Comments Blood Pressure 135/72 10/07/2024 10:51 AM EDT Pulse 67 10/07/2024 10:51 AM EDT Temperature 36.3 C (97.3 F) 10/07/2024 10:51 AM EDT Respiratory Rate 24 10/07/2024 10:51 AM EDT Oxygen Saturation 96% 10/07/2024 10:51 AM EDT Inhaled Oxygen Concentration - - Weight 134 kg (296 lb) 10/07/2024 10:51 AM EDT Height 175.3 cm (5' 9 ) 10/07/2024 10:51 AM EDT Body Mass Index 43.71 10/07/2024 10:51 AM EDT documented in this encounter Progress Notes * Juliano Melendez MD - 10/07/2024 10:45 AM EDTAddended by: JULIANO MELENDEZ on: 10/07/2024 11:37 AM Modules accepted: Orders * Juliano Melendez MD - 10/07/2024 10:45 AM EDT Images from the original note were not included. Chief Complaint Patient presents with Annual Exam Subjective Rima Wolf is a 64 y.o. who presents for annual physical and chronic care. Sleep. 7 or more hours per night. Diet. Over the last 2 to 3 months patient has improved the quality of her diet because her weight began to exceed 300 pounds. She has made changes consistent with a low carbohydrate diet and has eliminated sugary sweetened beverages Physical activity. Limited to ADLs The following portions of the patient's history were reviewed and updated as appropriate: allergies, current medications, past family history, past medical history, past social history, past surgicalhistory, and problem list. Review of Systems Cardiovascular: Positive for leg swelling. Negative for palpitations. No claudication Musculoskeletal: Positive for arthralgias. Leg cramps with prolonged standing and at night Objective Vital Signs: BP 135/72 Pulse 67 Temp 97.3 ??F (36.3 ??C) Resp 24 Ht 175.3 cm (69 ) Wt 134 kg (296 lb) SpO2 96% BMI 43.71 kg/m?? Physical Exam Constitutional: General: She is not in acute distress. Appearance: Normal appearance. She is not ill-appearing. HENT: Head: Normocephalic and atraumatic. Right Ear: Tympanic membrane and ear canal normal. Left Ear: Tympanic membrane and ear canal normal. Nose: Nose normal. Mouth/Throat: Mouth: Mucous membranes are moist. Pharynx: Oropharynx is clear. No posterior oropharyngeal erythema. Eyes: Extraocular Movements: Extraocular movements intact. Conjunctiva/sclera: Conjunctivae normal. Pupils: Pupils are equal, round, and reactive to light. Cardiovascular: Rate and Rhythm: Normal rate and regular rhythm. Pulses: Normal pulses. Posterior tibial pulses are 2+ on the right side and 2+ on the left side. Heart sounds: Normal heart sounds. Pulmonary: Effort: Pulmonary effort is normal. No respiratory distress. Breath sounds: Normal breath sounds. Abdominal: General: Abdomen is flat. Bowel sounds are normal. Palpations: Abdomen is soft. Tenderness: There is no abdominal tenderness. Musculoskeletal: General: Normal range of motion. Cervical back: Normal range of motion and neck supple. Right lower le+ Pitting Edema present. Left lower le+ Pitting Edema present. Lymphadenopathy: Cervical: No cervical adenopathy. Skin: General: Skin is warm and dry. Capillary Refill: Capillary refill takes less than 2 seconds. Neurological: General: No focal deficit present. Mental Status: She is alert and oriented to person, place, and time. Mental status is at baseline. Cranial Nerves: No cranial nerve deficit. Sensory: No sensory deficit. Motor: No weakness. Gait: Gait abnormal. Comments: Patient uses a cane as an assistive device Psychiatric: Mood and Affect: Mood normal. Behavior: Behavior normal. Thought Content: Thought content normal. Judgment: Judgment normal. Result Review The following data was reviewed by: Juliano Melendez MD on 10/07/2024: CBC 10/30/2023 16:33 04/04/2024 14:25 CBC WBC 8.2 8.0 RBC 4.46 4.40 Hemoglobin 11.9 11.7 Hematocrit 38.9 37.7 MCV 87 86 MCH 26.7 26.6 MCHC 30.6 31.0 RDW 15.6 15.6 Platelets 266 282 Lipid Panel 04/04/2024 14:25 Lipid Panel Total Cholesterol 138 Triglycerides 84 HDL Cholesterol 35 VLDL Cholesterol 16 LDL Cholesterol 87 TSH 10/30/2023 16:33 04/04/2024 14:25 TSH TSH 4.410 4.680 BMP 10/30/2023 16:33 04/04/2024 14:25 BMP BUN 13 16 Creatinine 1.01 1.22 Sodium 139 131 Potassium 5.1 5.1 Chloride 99 94 CO2 25 23 Calcium 9.6 9.3 UACR--< 30 mg/g Assessment and Plan Diagnoses and all orders for this visit: 1. Annual physical exam (Primary) 2. Cervical spine arthritis 3. Class 3 severe obesity due to excess calories with serious comorbidity and body mass index (BMI)of 40.0 to 44.9 in adult - Comprehensive Metabolic Panel 4. Gastroesophageal reflux disease without esophagitis - omeprazole (priLOSEC) 20 MG capsule; Take 1 capsule by mouth Daily. Dispense: 30 capsule; Refill:5 5. Hypothyroidism, unspecified type - TSH 6. Primary hypertension - Comprehensive Metabolic Panel - Cancel: POC Albumin/Creatinine Ratio Urine - furosemide (LASIX) 40 MG tablet; Take 1 tablet by mouth Daily. Dispense: 30 tablet; Refill: 6 - lisinopril-hydrochlorothiazide (PRINZIDE,ZESTORETIC) 20-12.5 MG per tablet; Take 1 tablet by mouth Daily. Dispense: 30 tablet; Refill: 5 - Magnesium - POC Albumin/Creatinine Ratio Urine 7. Encounter for screening mammogram for malignant neoplasm of breast - Mammo Screening Digital Tomosynthesis Bilateral With CAD; Future 8. Colon cancer screening 9. Vitamin D deficiency - Vitamin D,25-Hydroxy 10. Other emphysema Comments: Stable. Encouraged continued cessation from cigarettes. Continue Anoro. Reassess in 6 months Orders: - albuterol sulfate HFA 108 (90 Base) MCG/ACT inhaler; Inhale 2 puffs Every 4 (Four) Hours As Needed for Wheezing. Dispense: 18 g; Refill: 3 - Umeclidinium-Vilanterol (Anoro Ellipta) 62.5-25 MCG/ACT aerosol powder inhaler; Inhale 1 puff Daily. Dispense: 60 each; Refill: 5 11. Gastroesophageal reflux disease without esophagitis Comments: Stable. Refilled PPI Orders: - omeprazole (priLOSEC) 20 MG capsule; Take 1 capsule by mouth Daily. Dispense: 30 capsule; Refill:5 12. alf current use of diuretic - Magnesium Plan 1. Physical health is stable. Patient was congratulated on recent weight loss and encouraged to continue her dietary modifications. She should increase physical activity in what ever form she enjoys.Patient is limited by arthritis on the type of exercises she could perform. 2. Patient was recommended to receive shingles vaccine. She declines flu or information about COVIDvaccination. She would prefer to have a pneumonia vaccine next year 3. Patient agrees to mammogram which will be ordered 4. Colorectal cancer screening was performed in the past with a positive Cologuard and patient continues to refuse colonoscopy 5. Chronic conditions are stable. Surveillance labs were ordered today 6. Regarding her leg cramps labs will rule out electrolyte imbalances. Considering cramping occurs in both legs simultaneously I suspect a central origin. Vascular disease seems unlikely considering her excellent pulses in the lower extremities Follow Up No follow-ups on file. Patient was given instructions and counseling regarding her condition or for health maintenance advice. Please see specific information pulled into the AVS if appropriate. documented in this encounter Plan of Treatment Upcoming Encounters Date Type Department Care Team (Late st Contact Info) Description 04/14/2025 11:45 AM EST Office Visit [facility] [address], [place] [phone] Juliano Melendez MD [address] [place], [place] [address] Scheduled Orders Name Type Priority Associated Diagnoses Orde r Schedule Mammo Screening Digital Tomosynthesis Bilateral With CAD Imaging Routine Encounter for screening mammogram for malignant neoplasm of breast Expected: 10/14/2024, Expires: 10/07/2025 Magnesium Lab Routine Primary hypertension 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 Ordered: 10/07/2024 documented as of this encounter Procedures Procedure Name Priority Date/Time Associated Diagnosis Comments POC ALBUMIN/CREATININE RATIO Routine 10/07/2024 11:55 AM EDT Primary hypertension VITAMIN D,25-HYDROXY Routine 10/07/2024 11:20 AM EDT Vitamin D deficiency TSH Routine 10/07/2024 11:20 AM EDT Hypothyroidism, unspecified type MAGNESIUM Routine 10/07/2024 11:20 AM EDT COMPREHENSIVE METABOLIC PANEL Routine 10/07/2024 11:20 AM EDT Class 3 severe obesity due to excess calories with serious comorbidity and body mass index (BMI) of 40.0 to 44.9 in adult Primary hypertension documented in this encounter Results * POC Albumin/Creatinine Ratio Urine (10/07/2024 11:55 AM EDT) POC ALBUMIN, URINE 30 mg/L POC CREATININE, URINE 200 mg/dL POC Urine Albumin Creatinine Ratio <30 mg/g <30 Lot Number [id number] Expiration Date 06/29/2025 Urine 10/07/2024 11:5 5 AM EDT Juliano Melendez MD POINT OF CARE TEST ORDER REAL Final Result * Magnesium (10/07/2024 11:20 AM EDT) Magnesium 1.7 1.6 - 2.3 mg/dL [facility] 10/07/2024 11:2 0 AM EDT 10/07/2024 Narrative [facility] (AMBULATORY) - 10/08/2024 8:11 AM EDT Performed at: 01 - [address] [id number] Photogrammetric Engineer: Fran Holloway PhD, Phone: [phone] Patient Fasting: N Juliano Melendez MD LAB BLOOD ORDERABLES Fin al Result [facility] ([facility]) [address] [place] [address], [facility] [address] [place] [address], * Vitamin D,25-Hydroxy (10/07/2024 11:20 AM EDT) 25 Hydroxy, Vitamin D 70.1 30.0 - 100.0 ng/mL [facility] Comment: Vitamin D deficiency has been defined by the [place] [employer] and an Endocrine Society practice guideline as a level of serum 25-OH vitamin D less than 20 ng/mL (1,2). The Endocrine Society went on to further define vitamin D insufficiency as a level between 21 and 29 ng/mL (2). 1. IOM ([place] [employer]). 2010. Dietary reference intakes for calcium and D. [place]: The National Academies Press. 2. Kei CHAVIRA, Marylu BECKER, Sheldon ALEJANDRE, et al. Evaluation, treatment, and prevention of vitamin D deficiency: an Endocrine Society clinical practice guideline. JCEM. 2010; 96(7):1911-30. Blood 10/07/2024 11:2 0 AM EDT 10/07/2024 Narrative [facility] (AMBULATORY) - 10/08/2024 8:11 AM EDT Performed at: - [facility] [address] [place] [id number] Photogrammetric Engineer: Fran Holloway PhD, Phone: [phone] Patient Fasting: N Juliano Melendez MD LAB BLOOD ORDERABLES Fin al Result Performing Organization Address [facility] Co de Phone Number [facility] (AMBULATORY) [address] [place] [address], [facility] [address] [place] [address], * TSH (10/07/2024 11:20 AM EDT) Pathologist [facility] TSH 2.810 0.450 - 4.500 uIU/mL [facility] Blood 10/07/2024 11:2 0 AM EDT 10/07/2024 Narrative [facility] (AMBULATORY) - 10/08/2024 8:11 AM EDT Performed at: [address] [place] [id number] Photogrammetric Engineer: Fran Holloway PhD, Phone: [phone] Patient Fasting: N Juliano Melendez MD LAB BLOOD ORDERABLES Fin al Result Performing Organization Address City/[facility] Co de Phone Number [facility] (AMBULATORY) [address] [place] [address], [place] [phone] [facility] [address] [place] [address], [place] [phone] * (ABNORMAL) Comprehensive Metabolic Panel (10/07/2024 11:20 AM EDT) Glucose 104(H) 70 - 99 mg/dL [facility] BUN 14 8 - 27 mg/dL [facility] Creatinine 1.28(H) 0.57 - 1.00 mg/dL [facility] EGFR Result 47(L) >59 mL/min/1.7 3 [facility] BUN/Creatinine Ratio 11(L) 12 - 28 [facility] Sodium 130(L) 134 - 144 mmol/L [facility] Potassium 5.0 3.5 - 5.2 mmol/L [facility] Chloride 90(L) 96 - 106 mmol/L [facility] Total CO2 21 20 - 29 mmol/L [facility] Calcium 9.5 8.7 - 10.3 mg/dL [facility] Total Protein 6.9 6.0 - 8.5 g/dL [facility] Albumin 4.2 3.9 - 4.9 g/dL [facility] Globulin 2.7 1.5 - 4.5 g/dL [facility] Total Bilirubin 0.7 0.0 - 1.2 mg/dL [facility] Alkaline Phosphatase 92 44 - 121 IU/L [facility] AST (SGOT) 13 0 - 40 IU/L [facility] ALT (SGPT) 15 0 - 32 IU/L [facility] Blood 10/07/2024 11:2 0 AM EDT 10/07/2024 Narrative [facility] (AMBULATORY) - 10/08/2024 8:11 AM EDT Performed at: 01 - [address] [id number] Photogrammetric Engineer: Fran Holloway PhD, Phone: [phone] Patient Fasting: N us Juliano Melendez MD LAB BLOOD ORDERABLES Fin al Result Performing Organization Address City/State/[facility] Co de Phone Number [facility] (AMBULATORY) [address] [place] [address], [facility] [address] [place] [address], documented in this encounter Visit Diagnoses Diagnosis Annual physical exam- Primary Routine general medical examination at a health care facility Cervical spine arthritis Cervical spondylosis without myelopathy Class 3 severe obesity due to excess calories with serious comorbidity and body mass index (BMI) of 40.0 to 44.9 in adult Gastroesophageal reflux disease without esophagitis Esophageal reflux Hypothyroidism, unspecified type Primary hypertension Unspecified essential hypertension Encounter for screening mammogram for malignant neoplasm of breast Colon cancer screening Special screening for malignant neoplasms, colon Vitamin D deficiency Other emphysema 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 documented in this encounter Care Teams Cutter Apprentice Hand Relationship Specialty Start Date End Date Juliano Melendez MD [address] [address] PCP - General Family Medicine 04/28/22 documented as of this encounter
--- OUTSIDE RECORDS SUMMARY | 2024-10-24 13:48 | XMS_ITS | Encounter Summary ---
Author Organization [facility] Address [address] [id number] Care Team Providers Care Manager Call Name Role Phone Juliano Ho MD Primary Care Provider + Reason for Visit * Reason Comments Med Refill Encounter Details Date Type Department Care Team (Late st Contact Info) Description 10/24/2024 Refill [facility] [address] [facility] [address] Juliano Ho MD [address] [facility] [place] [address] Social History Tobacco Use Types Packs/Day Years [...] on file documented as of this encounter Plan of Treatment Upcoming Encounters Date Type Department Care Team (Late st Contact Info) Description 04/14/2025 11:45 AM EST Office Visit [facility] [address] [place] [address] Juliano Ho MD [address] [place] [address] documented as of this encounter Visit Diagnoses Not on filedocumented in this encounter Care Teams Manager Call Relationship Specialty Start Date End Date Juliano Ho MD [address] [address] PCP - General Family Medicine 04/28/22 documented as of this encounter
--- OUTSIDE RECORDS SUMMARY | 2024-10-24 13:48 | XMS_ITS | Encounter Summary ---
[facility] Address [address] [place] [address] Care Team Providers Care Clinical Assessment Manager Name Role Phone Juliano Ho MD Primary Care Provider + Reason for Visit * Reason Onset Date Comments Med Refill 06/26/2022 Encounter Details Date Type Department Care Team (Late st Contact Info) Description 06/26/2022 Refill [facility] [address] [place] [address] Juliano Ho MD [address] [place] [address] Arthritis Social History Tobacco Use Types Packs/Day Years Used Date Smoking Tobacco: Every Day Cigarettes Smokeless Tobacco: Never PHQ-2 Answer Date Recorded Retired PHQ-9: Brief Depression Severity Measure Score 0 04/28/2022 PHQ-2 Answer Date Recorded Retired PHQ-9: Brief Depression Severity Measure Score 0 04/28/2022 Comments Unknown Sex and Gender Information Value Date Recorded Sex Assigned at Not on file Legal Sex Female 3:09 PM EST Gender Identity Not on file Sexual Orientation Not on file documented as of this encounter Miscellaneous Notes * Telephone Encounter - Nkechi Lind RegSched Rep - 06/26/2022 9:32 AM EDT Caller: Rima Wolf Relationship: Self Best call back number: [phone] Requested Prescriptions: Requested Prescriptions Pending Prescriptions Disp Refills ??? Diclofenac Sodium (VOLTAREN) 1 % gel gel 350 g 2 Sig: Apply 4 g topically to the appropriate area as directed 4 (Four) Times a Day. [facility] where [facility] be [facility] [place] [address] - [phone] PH - [phone] FX Last office visit with prescribing clinician: 06/10/2022 Last telemedicine visit with prescribing clinician: 08/01/2022 Next office visit with prescribing clinician: 08/01/2022 Additional details provided by patient: PATIENT IS COMPLETELY OUT. Does the patient have less than a 3 day supply: [x] Yes [] No Would you like a call back once the refill request has been completed: [] Yes [x] No If the office needs to give you a call back, can they leave a voicemail: [] Yes [x] No Xin Ocampo 06/26/22 09:33 EDT documented in this encounter Plan of Treatment Upcoming Encounters Date Type Department Care Team (Late st Contact Info) Description 04/14/2025 11:45 AM EST Office Visit [facility] [address] [place] [phone] Juliano Ho MD [address] [address] documented as of this encounter Visit Diagnoses Diagnosis Arthritis Unspecified arthropathy, site unspecified documented in this encounter Care Teams Clinical Assessment Manager Relationship Specialty Start Date End Date Juliano Ho MD [address] [address] PCP - General Family Medicine 04/28/22 documented as of this encounter
--- OUTSIDE RECORDS SUMMARY | 2024-10-24 13:48 | XMS_ITS | Encounter Summary ---
[facility] Address [address] [id number] Care Team Providers Care Brush Stainer Name Role Phone Juliano Ho MD Primary Care Provider + Encounter Details Date Type Department Care Team (Late st Contact Info) Description 10/10/2024 Results Follow-Up [facility] [address] [facility] [place] [address] Juliano Ho MD [address] [facility] [place] [address] Social History Tobacco Use Types [...] Description 04/14/2025 11:45 AM EST Office Visit [facility] [address] [facility] [place] [address] Juliano Ho MD [address] [address] documented as of this encounter Visit Diagnoses Not on filedocumented in this encounter Care Teams Brush Stainer Relationship Specialty Start Date End Date Juliano Ho MD [address] [place] [address] PCP - General Family Medicine 04/28/22 documented as of this encounter
--- OUTSIDE RECORDS SUMMARY | 2024-10-24 13:48 | XMS_ITS | Encounter Summary ---
[facility] Address [address] [id number] Care Team Providers Care Barbecue Cook Name Role Phone Juliano Ho MD Primary Care Provider + Reason for Visit * Reason Comments Med Refill Encounter Details Date Type Department Care Team (Late st Contact Info) Description 09/03/2024 Refill [facility] [address] [place] [address] Juliano Ho MD [address] [facility] [place] [address] Other emphysema Social History Tobacco Use Types Packs/Day Years [...] Description 04/14/2025 11:45 AM EST Office Visit [facility] [address] [address] Juliano Ho MD [address] [place] [address] documented as of this encounter Visit Diagnoses Diagnosis Other emphysema documented in this encounter Care Teams Barbecue Cook Relationship Specialty Start Date End Date Juliano Ho MD [address] [place] [address] PCP - General Family Medicine 04/28/22 documented as of this encounter
--- OUTSIDE RECORDS SUMMARY | 2024-10-24 13:48 | XMS_ITS | Encounter Summary ---
Author Organization [facility] Address [address] [id number] Care Team Providers Care Funding Analyst Name Role Phone Juliano Ho MD Primary Care Provider + Reason for Visit * Reason Comments Med Refill Encounter Details Date Type Department Care Team (Late st Contact Info) Description 09/26/2024 Refill [facility] [address] [facility] [place] [address] Juliano Ho MD [address] [facility] [place] [address] Social History Tobacco Use Types [...] Description 04/14/2025 11:45 AM EST Office Visit [facility] [address] [place] [address] Juliano Ho MD [address] [place] [address] documented as of this encounter Visit Diagnoses Not on filedocumented in this encounter Care Teams Funding Analyst Relationship Specialty Start Date End Date Juliano Ho MD [address] [address] PCP - General Family Medicine 04/28/22 documented as of this encounter
--- OUTSIDE RECORDS SUMMARY | 2024-10-24 13:48 | XMS_ITS | Clinical Summary ---
[facility] Address [address] [place] [address] Care Team Providers Care Architectural Administrative Assistant Name Role Phone Juliano Ho MD Primary Care Provider + Allergies Active Allergy Reactions Criticality Noted Date Comments Diclofenac Potassium Nausea Only 08/27/2022 Penicillins Rash Low 04/28/2022 Medications ketorolac (ACULAR) 0.5 % ophthalmic solution Administer 1 drop to both eyes Daily. 04/15/19 24 Active acetaminophen (TYLENOL) 650 MG 8 hr tablet Take 1 tablet by mouth. Active baclofen (LIORESAL) 20 MG tabletIndicatio ns:Cervical spine arthritis Take 1 tablet by mouth 2 (Two) Times a Day. 60 tablet 5 04/04/19 25 Active levothyroxine (SYNTHROID, LEVOTHROID) 125 MCG tabletIndicatio ns:Hypothyroidi sm, unspecified type TAKE ONE TABLET BY MOUTH ONCE A DAY 30 tablet 5 09/16/19 25 Active albuterol sulfate HFA 108 (90 Base) MCG/ACT inhalerIndicati ons:Other emphysema Inhale 2 puffs Every 4 (Four) Hours As Needed for Wheezing. 18 g 3 10/08/19 25 Active Umeclidinium-Vi lanterol (Anoro Ellipta) 62.5-25 MCG/ACT aerosol powder inhalerIndicati ons:Other emphysema Inhale 1 puff Daily. 60 each 5 10/08/19 25 Active furosemide (LASIX) 40 MG tabletIndicatio ns:Primary hypertension Take 1 tablet by mouth Daily. 30 tablet 6 10/08/19 25 Active lisinopril-hydr ochlorothiazide (PRINZIDE,ZESTO RETIC) 20-12.5 MG per tabletIndicatio ns:Primary hypertension Take 1 tablet by mouth Daily. 30 tablet 5 10/08/19 25 Active omeprazole (priLOSEC) 20 MG capsuleIndicati ons:Gastroesoph ageal reflux disease without esophagitis Take 1 capsule by mouth Daily. 30 capsule 5 10/08/19 25 Active vitamin D (ERGOCALCIFEROL ) 1.25 MG (40316 UT) capsule capsule TAKE ONE CAPSULE BY MOUTH TWICE WEEKLY 8 capsule 5 10/25/19 25 Active meloxicam (MOBIC) 15 MG tablet Take 1 tablet by mouth Daily. 04/01/19 24 025 Discontinued(* Therapy completed) famotidine (PEPCID) 40 MG tablet Take 1 tablet by mouth. 025 Discontinued(* Therapy completed) furosemide (LASIX) 40 MG tabletIndicatio ns:Primary hypertension Take 1 tablet by mouth Daily. 30 tablet 6 04/04/19 25 025 Discontinued(R eorder) omeprazole (priLOSEC) 20 MG capsuleIndicati ons:Gastroesoph ageal reflux disease without esophagitis Take 1 capsule by mouth Daily. 30 capsule 5 04/04/19 25 025 Discontinued(R eorder) vitamin D (ERGOCALCIFEROL ) 1.25 MG (39035 UT) capsule capsule TAKE ONE CAPSULE BY MOUTH TWICE WEEKLY 8 capsule 2 05/17/19 25 025 Discontinued albuterol sulfate HFA 108 (90 Base) MCG/ACT inhalerIndicati ons:Other emphysema INHALE 2 PUFFS BY MOUTH EVERY 4 HOURS NEEDED FOR WHEEZING 18 g 3 09/06/19 25 025 Discontinued(R eorder) lisinopril-hydr ochlorothiazide (PRINZIDE,ZESTO RETIC) 20-12.5 MG per tabletIndicatio ns:Primary hypertension TAKE ONE TABLET BY MOUTH ONCE A DAY 30 tablet 5 09/16/19 25 025 Discontinued(R eorder) Anoro Ellipta 62.5-25 MCG/ACT aerosol powder inhalerIndicati ons:Other emphysema INHALE 1 PUFF BY MOUTH ONCE A DAY 60 each 5 09/16/19 25 025 Discontinued(R eorder) vitamin D (ERGOCALCIFEROL ) 1.25 MG (80753 UT) capsule capsule TAKE ONE CAPSULE BY MOUTH TWICE WEEKLY 8 capsule 09/27/19 25 025 Discontinued Active Problems Problem Noted Date Diagnosed Date Hypothyroidism 04/04/2024 Other emphysema 04/28/2022 Assessment & Plan (04/28/2022 3:05 PM EST): COPD is Stable. Continue current medications. Stop smoking Bilateral hip joint arthritis 04/28/2022 Cervical spine arthritis 04/28/2022 Assessment & Plan (04/28/2022 3:05 PM EST): Unchanged. Refilled diclofenac and baclofen Class 3 severe obesity due t o excess calories with serious comorbidity and body mass index (BMI) of 40.0 to 44.9 in adult 04/28/2022 Primary hypertension 04/28/2022 Assessment & Plan (04/28/2022 3:04 PM EST): Hypertension is Stable. Continue current treatment regimen. Dietary sodium restriction. Blood pressure will be reassessed at the next regular appointment. Gastroesophageal reflux disease without esophagi tis 04/28/2022 Assessment & Plan (04/28/2022 3:05 PM EST): Stable. Refill omeprazole 1 year Encounters Date Type Department Care Team Description 10/24/2024 Refill [facility] [address] [phone] Juliano Ho MD 10/10/2024 Results Follow-Up [facility] [address] [phone] Juliano Ho MD 10/07/2024 10:45 AM EDT Office Visit [facility] [address] [phone] Juliano Ho MD Annual physical exam (Primary Dx); Cervical spine arthritis; Class 3 severe obesity due to excess calories with serious comorbidity and body mass index (BMI) of 40.0 to 44.9 in adult; Gastroesophageal reflux disease without esophagitis; Hypothyroidism, unspecified type; Primary hypertension; Encounter for screening mammogram for malignant neoplasm of breast; Colon cancer screening; Vitamin D deficiency; Other emphysema; Gastroesophageal reflux disease without esophagitis; [facility] current use of diuretic 10/07/2024 Travel 09/26/2024 Refill [facility] [address] [phone] Juliano Ho MD 09/15/2024 Refill [facility] [address] [phone] Juliano Ho MD Primary hypertension; Hypothyroidism, unspecified type; Other emphysema 09/03/2024 Refill [facility] [address] [phone] Juliano Ho MD Other emphysema from Last 3 Months Immunizations Immunization Administration Dates Next Due COVID-19 (MARY) 01/07/2021,07/13/2020 Tdap 09/03/2021 Family History Medical History Relation Name Comments No Known Problems Father No Known Problems Mother Arthritis Paternal Grandmother Relation Name Status Comments Father Mother Paternal Grandmother Social History Tobacco Use Types Packs/Day Years Used Date Smoking Tobacco: Former Cigarettes 0.3 15 0 10/16/2007 - 10/15/2022 Smokeless Tobacco: Never Tobacco Cessation:Counseling Given: Not Answered Alcohol Use Standard Drinks/Week Comments Not Currently [...] on file Sexual Orientation Not on file Last Filed Vital Signs Vital Sign Reading [...] Mass Index 43.71 10/07/2024 10:51 AM EDT Plan of Treatment Upcoming Encounters Date Type Department Care Team (Late st Contact Info) Description 04/14/2025 11:45 AM EST Office Visit [facility] [address] [facility] [place] [address] Juliano Ho MD [address] [place] [address] Health Maintenance Due Date Last Done Comments Annual Gynecologic Pelvic and Breast Exam 1961 Pneumococcal Vaccine 50+ (1 of 2 - PCV) 1980 PAP SMEAR 1982 COLON CANCER SCREENING 5 YEA R SIGMOIDOSCOPY [address] COLONOGRAPHY 2006 FECAL OCCULT BLOOD TEST 2006 FIT Testing (1 year) 2006 ZOSTER VACCINE (1 of 2) 2011 HEPATITIS C SCREENING 04/28/2022 COVID-19 Vaccine ( - season) 11/01/202309/2020, 07/13/2020 MAMMOGRAM 08/12/2024 08/12/2022, 08/12/2022 INFLUENZA VACCINE 11/30/2024 COLOGUARD 08/21/2025 08/21/2022 COLORECTAL CANCER SCREENING 08/21/2025 ANNUAL PHYSICAL 10/07/2025 10/07/2024 TDAP/TD VACCINES (2 - Td or Tdap) 09/04/2031 022 Procedures Procedure Name Priority Date/Time Associated Diagnosis Comments POC ALBUMIN/CREATININE RATIO Routine 10/07/2024 11:55 AM EDT Primary hypertension MAGNESIUM Routine 10/07/2024 11:20 AM EDT VITAMIN D,25-HYDROXY Routine 10/07/2024 11:20 AM EDT Vitamin D deficiency TSH Routine 10/07/2024 11:20 AM EDT Hypothyroidism, unspecified type COMPREHENSIVE METABOLIC PANEL Routine 10/07/2024 11:20 AM EDT Class 3 severe obesity due to excess calories with serious comorbidity and body mass index (BMI) of 40.0 to 44.9 in adult Primary hypertension COLOGUARD Routine 08/21/2022 6:22 AM EDT Colon cancer screening MAMMO SCREENING DIGITAL TOMOSYNTHESIS BILATERAL W CAD Routine 08/12/2022 Encounter for screening mammogram for malignant neoplasm of breast from Last 3 Months or Most Recently Relevant to Health Maintenance Results * POC Albumin/Creatinine Ratio Urine (10/07/2024 11:55 AM EDT) POC ALBUMIN, URINE 30 mg/L POC CREATININE, URINE 200 mg/dL POC Urine Albumin Creatinine Ratio <30 mg/g <30 Lot Number [id number] Expiration Date 06/29/2025 Urine 10/07/2024 11:5 5 AM EDT Juliano Ho MD POINT OF CARE TEST ORDER REAL Final Result * Vitamin D,25-Hydroxy (10/07/2024 11:20 AM EDT) 25 Hydroxy, Vitamin D 70.1 30.0 - 100.0 ng/mL [facility] Comment: Vitamin D deficiency has been defined by the [place] of [employer] and an Endocrine Society practice guideline as a level of serum 25-OH vitamin D less than 20 ng/mL (1,2). The Endocrine Society went on to further define vitamin D insufficiency as a level between 21 and 29 ng/mL (2). 1. IOM ([place] of [employer]). 2010. Dietary reference intakes for calcium and D. [place]: The National Academies Press. 2. Kei MF, Marylu NC, hSeldon ALEJANDRE, et al. Evaluation, treatment, and prevention of vitamin D deficiency: an Endocrine Society clinical practice guideline. JCEM. 2010; 96(7):1911-30. Blood 10/07/2024 11:2 0 AM EDT 10/07/2024 Narrative [facility] (AMBULATORY) - 10/08/2024 8:11 AM EDT Performed at: - [address] [id number] Museum Technician: Fran Holloway PhD, Phone: [phone] Patient Fasting: N Juliano Ho MD LAB BLOOD ORDERABLES Fin al Result Performing Organization Address [facility]/ZIP Co de Phone Number [facility] [address] [place] [address], [facility] [address] [place] [address], * TSH (10/07/2024 11:20 AM EDT) [facility] TSH 2.810 0.450 - 4.500 uIU/mL [facility] Blood 10/07/2024 11:2 0 AM EDT 10/07/2024 Narrative [facility] ([facility]BUL[facility]) - 10/08/2024 8:11 AM EDT Performed at: [facility] Lab[address] [id number] Museum Technician: Fran Holloway PhD, Phone: [phone] Patient Fasting: N Juliano Ho MD LAB BLOOD ORDERABLES Fin al Result Performing Organization Address City/[facility]/ZIP Co de Phone Number [facility] [address] [place] [address], [facility] [address] [place] [address], * Magnesium (10/07/2024 11:20 AM EDT) Pathologist [facility] Magnesium 1.7 1.6 - 2.3 mg/dL [facility] 10/07/2024 11:2 0 AM EDT 10/07/2024 Narrative [facility] - 10/08/2024 8:11 AM EDT Performed at: - [address] [id number] Museum Technician: Fran Holloway PhD, Phone: [phone] Patient Fasting: N Juliano Ho MD LAB BLOOD ORDERABLES Fin al Result [facility] [address] [place] [address], [facility] [address] [place] [address], * (ABNORMAL) Comprehensive Metabolic Panel (10/07/2024 11:20 [...] 11:2 0 AM EDT 10/07/2024 Narrative [facility] (AMBUL[facility]) - 10/08/2024 8:11 AM EDT Performed at: - [address] [id number] Museum Technician: Fran Holloway PhD, Phone: [phone] Patient Fasting: N Juliano Ho MD LAB BLOOD ORDERABLES Fin al Result [facility] [address] [place] [address], [facility] [address] [place] [address], * (ABNORMAL) Cologuard - Stool, Per Rectum (08/21/2022 6:22 AM EDT) Cologuard Positive( A) Negative 08/28/2022 5:17 AM EDT [employer] (CLIA #:[id number]) Comment: POSITIVE TEST RESULT. A positive Cologuard result should be followed with a colonoscopy or visual examination of the colon. The normal value (reference range) for this assay is negative. TEST DESCRIPTION: Composite algorithmic analysis of stool DNA-biomarkers with hemoglobin immunoassay. Quantitative values of individual biomarkers are not reportable and are not associated with individual biomarker result reference ranges. Cologuard is intended for colorectal cancer screening of adults of either sex, 45 years or older, who are at average-risk for colorectal cancer (CRC). Cologuard has been approved for use by the U.S. FDA. The performance of Cologuard was established in a cross sectional study of average-risk adults aged 50-84. Cologuard performance in patients ages 45 to 49 years was estimated by sub-group analysis of near-age groups. Colonoscopies performed for a positive result may find as the most clinically significant lesion: colorectal cancer [4.0%], advanced adenoma (including sessile serrated polyps greater than or equal to 1cm diameter) [20%] or non- advanced adenoma [31%]; or no colorectal neoplasia [45%]. These estimates are derived from a prospective cross-sectional screening study of 10,000 individuals at average risk for colorectal cancer who were screened with both Cologuard and colonoscopy. (Eugenio Velarde et al, N Engl J Med 2014;370(14):2722-4926.) Cologuard may produce a false negative or false positive result (no colorectal cancer or precancerous polyp present at colonoscopy follow up). A negative Cologuard test result does not guarantee the absence of CRC or advanced adenoma (pre-cancer). The current Cologuard screening interval is every 3 years. ([place] Cancer Society and U.S. Multi-Society Task Force). Cologuard performance data in a 10,000 patient pivotal study using colonoscopy as the reference method can be accessed at the following location: www.Rapt/results. Additional description of the Cologuard test process, warnings and precautions can be found at www.cologuard.com. Stool specimen (specimen) Specimen from rectum / Unknown 08/21/2022 6:22 AM EDT 08/23/2022 6:47 PM EDT Juliano Ho MD BODY FLUIDS AND STOOLS O RDERABLES Final Result [employer] (CLIA #:[id number]) [address] [place] [address], * Mammo screening digital tomosynthesis bilateral w CAD (08/12/2022) Anatomical Region Laterality Modality Breast N/A Mammography Juliano Ho MD IMG MAMMOGRAPHY ORDERABL ES Final Result from Last 3 Months or Most Recently Relevant to Health Maintenance [place] [address] [place] [address] Care Teams Architectural Administrative Assistant Relationship Specialty Start Date End Date Juliano Ho MD [address] [place] [address] PCP - General Family Medicine 04/28/22
--- OUTSIDE RECORDS SUMMARY | 2024-10-24 13:48 | XMS_ITS | Encounter Summary ---
[facility] Address [address] [id number] Care Team Providers Care Senior Site Manager Name Role Phone Juliano Ho MD Primary Care Provider + Reason for Visit * Reason Comments Med Refill Encounter Details Date Type Department Care Team (Late st Contact Info) Description 09/15/[address] [facility] [address] [place] [address] Juliano Ho MD [address] [facility] [place] [address] Primary hypertension; Hypothyroidism, unspecified type; Other emphysema Social History Tobacco Use Types [...] Description 04/14/2025 11:45 AM EST Office Visit [facility] [address] [place] [address] Juliano Ho MD [address] [address] documented as of this encounter Visit Diagnoses Diagnosis Primary hypertension Unspecified essential hypertension Hypothyroidism, unspecified type Other emphysema documented in this encounter Care Teams Senior Site Manager Relationship Specialty Start Date End Date Juliano Ho MD [address] [address] PCP - General Family Medicine 04/28/22 documented as of this encounter
--- OUTSIDE RECORDS SUMMARY | 2024-10-24 13:48 | XMS_ITS | Encounter Summary ---
[facility] Address [address] [place] [address] Care Team Providers Care Digital Advertising Specialist Name Role Phone Juliano Ho MD Primary Care Provider + Encounter Details Date Type Department Care Team (Latest Contact Info) Description 10/07/2024 Travel Social History Tobacco Use Types Packs/Day Years [...] Description 04/14/2025 11:45 AM EST Office Visit [facility] [address] [facility] [place] [address] Juliano Ho MD [address] [place] [address] documented as of this encounter Visit Diagnoses Not on filedocumented in this encounter Care Teams Digital Advertising Specialist Relationship Specialty Start Date End Date Juliano Ho MD [address] [place], [place] [phone] PCP - General Family Medicine 04/28/22 documented as of this encounter
== END 2024-10-24 23:59 | disposition home or self-care (01) ==
LOC: RAD 13:38
PROVIDERS: PCP Family Medicine; Visit Provider Family Medicine
DX: Z12.31 Encounter for screening mammogram for malignant neoplasm of breast (principal)
CPT/HCPCS: 77063; 77067

== ENCOUNTER 2025-02-06 18:20 | Observation (INO) | payer OTHER, SELFPAY ==
--- NOTE | 2025-02-06 17:41 | ECG_ITS ---
APPROVED REPORT Exam: Resting ECG HR:84 bpm ECG Measurements Heart Rate 84 AXES QRSd 102 QRS 96 QT 365 T 3 QTc 406 Conclusion ATRIAL FIBRILLATION BORDERLINE RIGHT AXIS DEVIATION [QRS AXIS > 90] LOW QRS VOLTAGE IN PRECORDIAL LEADS [QRS DEFLECTION < 1.0 mV IN CHEST LEADS] POSSIBLE ANTERIOR MYOCARDIAL INFARCTION , PROBABLY OLD [30 ms Q WAVE IN V3/V4, OR R < 0.2 mV IN V4] No STEMI Electronically signed by : GURPREET LENZ, 02/09/2025 03:10:09
[2025-02-06 18:26] VITALS: BP 153/79; PULSE 82; RESP 20; TEMP 36.7; O2SAT 98; BMI 45.6
--- NOTE | 2025-02-06 18:26 | XR_ITS ---
PROCEDURE INFORMATION: Exam: XR Chest Exam date and time: 02/06/2025 6:31 PM Age: 64 years old Clinical indication: Shortness of breath; PT states she has copd and emphysema, has an inhaler; Additional info: Short of breath TECHNIQUE: Imaging protocol: Radiologic exam of the chest. Views: 1 view. COMPARISON: CR XR CHEST PORTABLE 08/05/2022 3:50 PM FINDINGS: Lungs: No focal consolidation. Pleural spaces: Possible small pleural effusions Heart/Mediastinum: Prominent cardiac silhouette, possibly related to portable AP technique. Bones/joints: No acute osseous findings. Soft tissues: Limited study secondary to patient body habitus. IMPRESSION: No focal consolidation.
[2025-02-06 18:34] LABS: Hematocrit 41.2 % (37.0-47.0); Hemoglobin 13.7 g/dL (12.2-16.2); Immature Granulocytes % 0.6 %; Mean Corpuscular HGB Conc 33.3 g/dL (31.8-35.4); Mean Corpuscular Hemoglobin 27.7 pg (27.0-31.2); Mean Corpuscular Volume 83.4 fl (81-99); Nucleated Red Blood Cells % 0 %; Platelet Count 269 K/mm3 (142-424); Red Blood Count 4.94 M/mm3 (4.20-5.40); Red Cell Distribution Width-SD 50.3 fL; White Blood Count 9.0 K/mm3 (4.8-10.8)
[2025-02-06] MEDS: ONDANSETRON 4MG/2ML VIAL 4 MG IV (18:35)
[2025-02-06] MEDS: SODIUM CHLORIDE 0.9% 10ML VIAL 8 ML IV (18:36)
[2025-02-06] MEDS: FAMOTIDINE 20MG/2ML VIAL 20 MG IV (18:36)
[2025-02-06] MEDS: MORPHINE 4MG/ML SYRINGE 4 MG IV (18:36)
[2025-02-06 18:43] VITALS: PULSE 82
[2025-02-06 18:51] LABS: Activated Partial Thrombo Time 25.8 seconds (22.8-30.6); INR 0.98 (0.9-1.1); Prothrombin Time 10.9 seconds (10.1-12.5)
[2025-02-06 18:53] LABS: VBG HCO3 29.3 mmol/L (23-30); VBG PH 7.34 mmol/L (7.31-7.41); VBG PO2 33.4 mmol/L (28-40)
[2025-02-06 18:53] LABS: Coronavirus 19, PCR Not Detected (NotDetected); Influenza A, PCR Not Detected (NotDetected); Influenza B, PCR Not Detected (NotDetected)
[2025-02-06 18:54] LABS: Lactate Venous 2.2 mmol/L (0.4-2.0); VBG PCO2 55.2 mmol/L (35-51)
--- NOTE | 2025-02-06 19:01 | ED_ITS ---
<Statement entered by Riya Galicia DO - 02/08/25 00:03> I was consulted by the LENIN, and we discussed the complexity of problems being addressed. I approve the treatment and management plan for this patient's care in the emergency department, thus performing a substantial portion of the medical decision making. Riya Galicia DO Discharge Plan Disposition Patient Disposition: Admitted Condition: Good Clinical Impressions Clinical Impression: Leg edema, Atrial fibrillation, new onset Chest pain Qualifiers: Chest pain type: other chest pain Qualified Code(s): R07.89 - Other chest pain Discharge ED Provider: Riya Galicia HPI <Maria Del Carmen Carmelitadayna (ED), KITCHEN MANAGER - Last Filed: 02/06/25 20:44> General Chief Complaint: Chest Pain Stated Complaint: chest pain Time Seen by Provider: 02/06/25 18:25 Mode of Arrival: EMS Source of Information: Patient Description of Symptoms (Recalled from ER Triage Doc. by RN): pt is here for midsternal chest pain that has been going on periodically for two weeks but got worse tonight while sitting at the table. ems gave 324 mg ASA, vitals WNL, History of Present Illness HPI narrative: 64 year old female presents via EMS for midsternal chest pain, this has been going on for 2 weeks but worsened today. It does not radiate. EKG shows new onset afib. EMS gave 324 mg ASA. She has history of HTN, hypothyroidism, and 2 hip replacements. She does take lasix. Related Data Home Medications ?Medication ?Instructions ?Recorded ?Confirmed albuterol sulfate 90 mcg/actuation 2 puff inhalation Q 4HP PRN wheezing 02/06/25 02/07/25 aerosol inhaler baclofen 20 mg tablet 20 mg PO BID 02/06/25 ergocalciferol (vitamin D2) 1,250 1,250 mcg PO DIRE CTED 02/06/25 02/07/25 mcg (50,000 unit) capsule furosemide 40 mg tablet 40 mg PO DAILY 02/06/2510/24 levothyroxine 125 mcg tablet 125 mcg PO DAILY 02/06/25 02/06/25 omeprazole 20 mg capsule,delayed 20 mg PO DAILY 02/06/25 release umeclidinium 62.5 mcg-vilanterol 1 ea inhalation DAILY 02/06/25 02/06/25 25 mcg/actuation powdr for inhalation (Anoro Ellipta) Previous Rx's ?Medication ?Instructions ?Recorded apixaban 5 mg tablet (Eliquis) 5 mg PO BID 30 days #60 tabs 02/07/25 metoprolol succinate 25 mg 12.5 mg (1/2 x 25 mg) PO HS 30 02/07/25 tablet,extended release 24 hr days #15 tabs Allergies Allergy/AdvReac Type Severity Reaction Status Date / Time penicillin G benethamine Allergy Intermediate rash Verified 04/22/22 19:16 PFSH <Maria Del Carmen Betancourt (ED), KITCHEN MANAGER - Last Filed: 02/06/25 20:44> PFS Disclaimer: The information contained in this section may have been updated after the patient was seen, as this information can be updated by other users. Medical History (Updated 02/07/25 @ 13:49 by Radha Barry APRN) Chest pain History of gastroesophageal reflux (GERD) Hypertension Hypothyroid FH: bilateral hip replacements Surgical History (Updated 02/06/25 @ 23:17 by Shraddha Metcalf RN) Hx of cataract surgery Social History (Updated 02/06/25 @ 23:17 by Shraddha Metcalf RN) Smoking Status: Former smoker alcohol intake: never current occupational status: disabled Travel in the last 8 weeks?: None Other Medical History Have you received the Flu Vaccine for this season: No Have you received the Pneumonia Vaccine: No <Maria Del Carmen Betancourt (ED), KITCHEN MANAGER - Last Filed: 02/06/25 20:44> ROS Obtained: Yes Systems reviewed as appropriate & no additional complaints except as documented Constitutional Constitutional: Reports as per HPI Physical Exam <Maria Del Carmen Betancourt (ED), KITCHEN MANAGER - Last Filed: 02/06/25 20:44> General General appearance: alert Head Head exam: normocephalic Eye Eye exam: Present PERRL ENT ENT exam: Present mucous membranes moist Neck Neck exam: Present trachea midline Respiratory Respiratory exam: Present normal lung sounds bilaterally Cardiovascular Cardiovascular exam: Present irregular rhythm, normal heart sounds, +S1 and +S2 Abdominal Exam Abdominal exam: Present soft and normal bowel sounds Extremities Exam Extremities exam: Present edema Neurological Exam Neurological exam: Present alert and oriented X3 Psychiatric Psychiatric exam: Present normal mood Skin Skin exam: Present warm and dry HEART Score <[facility] (ED), KITCHEN MANAGER - Last Filed: 02/06/25 20:44> HEART Score HEART Score assessment performed?: Yes History (anamnesis): Moderately suspicious ECG: Non-specific disturbance Age: 45-65 years Risk factors: 3 or more risk factors Troponin: </= normal limit HEART Score: 5 <Riya Galicia DO - Last Filed: 02/08/25 00:03> HEART Score HEART Score: 5 Critical Care <[facility] (ED), KITCHEN MANAGER - Last Filed: 02/06/25 20:44> Critical Care Time Critical Care Time: No Medical Decision Making <[facility] (ED), KITCHEN MANAGER - Last Filed: 02/06/25 20:44> [place] Inquiry Pt receiving controlled substance: No [place] was queried for this patient: No Vital Signs Vital Signs: 02/06/25 18:26 02/06/25 18:43 02/06/25 21:30 Temperature 98.1 F 98.0 F Temperature Source Oral Oral Pulse Rate 82 Pulse Rate [Left Radial] 82 74 Respiratory Rate 20 16 Blood Pressure Blood Pressure [Right Arm] 153/79 H 98/55 L Blood Pressure Mean [Right Arm] 103 69 Blood Pressure Source [Right Arm] Automatic Cuff Blood Pressure Position [Right Arm] Sitting 02 Sat by Pulse Oximetry 98 96 Oxygen Delivery Method Room Air Room Air 02/06/25 21:45 02/06/25 21:49 Temperature 97.9 F Temperature Source Pulse Rate 74 Pulse Rate [Left Radial] Respiratory Rate 11 L Blood Pressure 112/64 Blood Pressure [Right Arm] Blood Pressure Mean [Right Arm] Blood Pressure Source [Right Arm] Blood Pressure Position [Right Arm] 02 Sat by Pulse Oximetry Oxygen Delivery Method Room Air Room Air Lab Data Labs: Lab Results 02/06/25 18:25: WBC 9.0, RBC 4.94, Hgb 13.7, Hct 41.2, MCV 83.4, MCH 27.7, MCHC 33.3, RDW 16.4, Plt Count 269, MPV 11.4 H, Neut % (Auto) 66.1, Lymph % (Auto) 21.1, [place] % (Auto) 10.6 H, Eos % (Auto) 1.2, Baso % (Auto) 0.4, Neut # (Auto) 5.9, Lymph # (Auto) 1.9, [place] # (Auto) 1.0, Eos # (Auto) 0.1, Baso # (Auto) 0.0, PT 10.9, INR 0.98, APTT 25.8, D-Dimer 0.78 H, Sodium 135 L, Potassium 3.7, C hloride 92 L, Carbon Dioxide 31 H, Anion Gap 15.7 H, BUN 17, Creatinine 1.40 H, Estimated Creat Clear 41, Estimated GFR 38 L, Est GFR ( Amer) 46 L, G lucose 106 H, Calcium 9.2, Magnesium 1.6, Total Bilirubin 0.7, AST 20, ALT 19, Alkaline Phosphatase 81, Troponin I < 0.01, NT-Pro-B Natriuret Pep 759 H, Total Protein 7.8, Albumin 4.5, Globulin 3.3 H, Albumin/Globulin Ratio 1.4, Lipase 56 02/06/25 18:27: VBG pH 7.34, VBG pCO2 55.2 H, VBG pO2 33.4, VBG HCO3 29.3, VBG Total CO2 31.0 H, VBG O2 Saturation 61.2, VBG Base Excess 3.6 H, VBG Lactic Acid 2.2 H 02/06/25 18:45: SARS-CoV-2 (PCR) Not detected, Influenza A Untype (PCR) Not detected, Influenza Type B (PCR) Not detected 02/07/25 06:20 02/07/25 06:20 Response Orders (Tests/Meds): ED MEDICATIONS Discontinued Medications Generic Name Dose Route Start Last Admin Trade Name Lion PRN Reason Stop Dose Admin Acetaminophen 650 mg 02/06/25 22:56 Acetaminophen 325mg Tab PO 03/08/25 22:55 Q4HP PRN Fever or Mild Pain (1-3) Apixaban 5 mg 02/06/25 20:08 02/06/25 21:12 Apixaban 5mg Tablet PO 02/06/25 20:09 5 mg ONCE ONE Administration Apixaban 5 mg 02/07/25 11:15 02/07/25 11:39 Apixaban 5mg Tablet PO 03/09/25 11:14 5 mg BID IDALIA Administration Famotidine 20 mg 02/06/25 18:26 02/06/25 18:36 Famotidine 20mg/2ml Vial IV 02/06/25 18:27 20 mg ONCE ONE Administration Furosemide 40 mg 02/07/25 09:00 02/07/25 08:18 Furosemide 40 Mg Tablet PO 03/09/25 08:59 40 mg DAILY IDALIA Administration Sodium Chloride 1,000 mls @ 500 mls/hr 02/06/25 19:15 02/06/25 23:35 Sod Chlor 0.9% 1000ml Bag IV 03/08/25 19:14 Infused .Q2H IDALIA Infusion Iopamidol 70 ml 02/06/25 19:48 02/06/25 19:49 Iopamidol-370 (76%);100ml Bottle IV 02/06/25 19:49 70 ml ONCE ONE Administration Levothyroxine Sodium 125 mcg 02/07/25 09:00 02/07/25 08:18 Levothyroxine 125mcg (0.125mg) Tab PO 03/09/25 08:59 125 mcg DAILYDM IDALIA Administration Metoprolol Succinate 12.5 mg 02/07/25 21:00 Metoprolol Succinate Xl 25mg Tablet PO 03/09/25 20:59 HS IDALIA Morphine Sulfate 4 mg 02/06/25 18:26 02/06/25 18:36 Morphine 4mg/Ml Syringe IV 02/06/25 18:27 4 mg ONCE ONE Administration Morphine Sulfate 4 mg 02/06/25 21:02 02/06/25 21:23 Morphine 4mg/Ml Syringe IV 02/06/25 21:03 Not Given ONCE ONE Ondansetron HCl 4 mg 02/06/25 18:26 02/06/25 18:35 Ondansetron 4mg/2ml Vial IV 02/06/25 18:27 4 mg ONCE ONE Administration Sodium Chloride 8 ml 02/06/25 18:26 02/06/25 18:36 Sodium Chloride 0.9% 10ml Vial IV 03/08/25 18:25 8 ml NEEDED PRN Administration dilute pepcid Sodium Chloride 50 ml 02/06/25 19:48 02/06/25 19:48 0.9 % Sodium Chloride 50 Ml Vial IV 02/06/25 19:49 50 ml ONCE ONE Administration Sodium Chloride 10 ml 02/06/25 19:48 02/06/25 19:48 Sodium Chloride 0.9% 10ml Syr (Rad Only) IV 03/08/25 19:47 10 ml NEEDED PRN Administration Maintain IV Site ORDERS Category Date Time Status CT angio chest PE protocol Stat Cat Scan 02/06/25 19:27 Completed Chest XR -- portable [XR chest portable] Stat Exams 02/06/25 18:26 Completed BNP [NT Pro Brain Natriuretic Pep.] Stat Lab 02/06/25 18:25 Completed CBC [Complete Blood Count Auto Diff] Stat Lab 02/06/25 18:25 Completed Comprehensive Metabolic Panel Stat Lab 02/06/25 18:25 Completed D-Dimer Stat Lab 02/06/25 18:25 Completed Lipase Stat Lab 02/06/25 18:25 Completed Magnesium Stat Lab 02/06/25 18:25 Completed PT INR [Prothrombin Time INR] Stat Lab 02/06/25 18:25 Completed PTT [Activated Partial Thrombo Time] Stat Lab 02/06/25 18:25 Completed Rapid PCR Covid and Flu A/B Stat Lab 02/06/25 18:45 Completed Trop I [Troponin I] Stat Lab 02/06/25 18:25 Completed Troponin I Q3H Lab 02/06/25 22:02 Completed Troponin I Q3H Lab 02/07/25 00:57 Completed Venous Blood Gas Stat RT 02/06/25 18:27 Completed MDM Narrative Medical Decision Narrative: patient is a 64 year old female presenting to the emergency department for evaluation of chest pain, shortness of air, no radiates, that started 2 weeks ago. Patient is hemodynamically stable and nontoxic-appearing upon arrival, afebrile. Differential diagnosis includesacs, mi, pe, among others. Workup will be conducted with hematologic labs, specific imaging. Initial inventions include crystalloid bolus, analgesics. Initial workup reviewed by me hematologic labs are remarkable for wbc 9, pco2 55, co2 31, lactic 2.2, . [Imaging informally interpreted by me and remarkable for:] [Formal imaging read remarkable for:] Upon repeat evaluation [patient's pain is improved, appears better perfused, appears the same, appears worse, etc.]. Due to this [additional interventions, patient is appropriate for discharge, patient requires admission, etc.]. <Riya Galicia DO - Last Filed: 02/08/25 00:03> Medical Records Medical records reviewed: Yes I reviewed the patient's medical records. Vital Signs Vital Signs: 02/06/25 18:26 02/06/25 18:43 02/06/25 21:30 Temperature 98.1 F 98.0 F Temperature Source Oral Oral Pulse Rate 82 Pulse Rate [Left Radial] 82 74 Respiratory Rate 20 16 Blood Pressure Blood Pressure [Right Arm] 153/79 H 98/55 L Blood Pressure Mean [Right Arm] 103 69 Blood Pressure Source [Right Arm] Automatic Cuff Blood Pressure Position [Right Arm] Sitting 02 Sat by Pulse Oximetry 98 96 Oxygen Delivery Method Room Air Room Air 02/06/25 21:45 02/06/25 21:49 Temperature 97.9 F Temperature Source Pulse Rate 74 Pulse Rate [Left Radial] Respiratory Rate 11 L Blood Pressure 112/64 Blood Pressure [Right Arm] Blood Pressure Mean [Right Arm] Blood Pressure Source [Right Arm] Blood Pressure Position [Right Arm] 02 Sat by Pulse Oximetry Oxygen Delivery Method Room Air Room Air Lab Data Lab results reviewed: Yes I reviewed the patient's lab results. Labs: Lab Results 02/06/25 18:25: WBC 9.0, RBC 4.94, Hgb 13.7, Hct 41.2, MCV 83.4, MCH 27.7, MCHC 33.3, RDW 16.4, Plt Count 269, MPV 11.4 H, Neut % (Auto) 66.1, Lymph % (Auto) 21.1, [place] % (Auto) 10.6 H, Eos % (Auto) 1.2, Baso % (Auto) 0.4, Neut # (Auto) 5.9, Lymph # (Auto) 1.9, [place] # (Auto) 1.0, Eos # (Auto) 0.1, Baso # (Auto) 0.0, PT 10.9, INR 0.98, APTT 25.8, D-Dimer 0.78 H, Sodium 135 L, Potassium 3.7, C hloride 92 L, Carbon Dioxide 31 H, Anion Gap 15.7 H, BUN 17, Creatinine 1.40 H, Estimated Creat Clear 41, Estimated GFR 38 L, Est GFR ( Amer) 46 L, G lucose 106 H, Calcium 9.2, Magnesium 1.6, Total Bilirubin 0.7, AST 20, ALT 19, Alkaline Phosphatase 81, Troponin I < 0.01, NT-Pro-B Natriuret Pep 759 H, Total Protein 7.8, Albumin 4.5, Globulin 3.3 H, Albumin/Globulin Ratio 1.4, Lipase 56 02/06/25 18:27: VBG pH 7.34, VBG pCO2 55.2 H, VBG pO2 33.4, VBG HCO3 29.3, VBG Total CO2 31.0 H, VBG O2 Saturation 61.2, VBG Base Excess 3.6 H, VBG Lactic Acid 2.2 H 02/06/25 18:45: SARS-CoV-2 (PCR) Not detected, Influenza A Untype (PCR) Not detected, Influenza Type B (PCR) Not detected Response Orders (Tests/Meds): ED MEDICATIONS Discontinued Medications Generic Name Dose Route Start Last Admin Trade Name Freq PRN Reason Stop Dose Admin Acetaminophen 650 mg 02/06/25 22:56 Acetaminophen 325mg Tab PO 03/08/25 22:55 Q4HP PRN Fever or Mild Pain (1-3) Apixaban 5 mg 02/06/25 20:08 02/06/25 21:12 Apixaban 5mg Tablet PO 02/06/25 20:09 5 mg ONCE ONE Administration Apixaban 5 mg 02/07/25 11:15 02/07/25 11:39 Apixaban 5mg Tablet PO 03/09/25 11:14 5 mg BID IDALIA Administration Famotidine 20 mg 02/06/25 18:26 02/06/25 18:36 Famotidine 20mg/2ml Vial IV 02/06/25 18:27 20 mg ONCE ONE Administration Furosemide 40 mg 02/07/25 09:00 02/07/25 08:18 Furosemide 40 Mg Tablet PO 03/09/25 08:59 40 mg DAILY IDALIA Administration Sodium Chloride 1,000 mls @ 500 mls/hr 02/06/25 19:15 02/06/25 23:35 Sod Chlor 0.9% 1000ml Bag IV 03/08/25 19:14 Infused .Q2H IDALIA Infusion Iopamidol 70 ml 02/06/25 19:48 02/06/25 19:49 Iopamidol-370 (76%);100ml Bottle IV 02/06/25 19:49 70 ml ONCE ONE Administration Levothyroxine Sodium 125 mcg 02/07/25 09:00 02/07/25 08:18 Levothyroxine 125mcg (0.125mg) Tab PO 03/09/25 08:59 125 mcg DAILYDM IDALIA Administration Metoprolol Succinate 12.5 mg 02/07/25 21:00 Metoprolol Succinate Xl 25mg Tablet PO 03/09/25 20:59 HS IDALIA Morphine Sulfate 4 mg 02/06/25 18:26 02/06/25 18:36 Morphine 4mg/Ml Syringe IV 02/06/25 18:27 4 mg ONCE ONE Administration Morphine Sulfate 4 mg 02/06/25 21:02 02/06/25 21:23 Morphine 4mg/Ml Syringe IV 02/06/25 21:03 Not Given ONCE ONE Ondansetron HCl 4 mg 02/06/25 18:26 02/06/25 18:35 Ondansetron 4mg/2ml Vial IV 02/06/25 18:27 4 mg ONCE ONE Administration Sodium Chloride 8 ml 02/06/25 18:26 02/06/25 18:36 Sodium Chloride 0.9% 10ml Vial IV 03/08/25 18:25 8 ml NEEDED PRN Administration dilute pepcid Sodium Chloride 50 ml 02/06/25 19:48 02/06/25 19:48 0.9 % Sodium Chloride 50 Ml Vial IV 02/06/25 19:49 50 ml ONCE ONE Administration Sodium Chloride 10 ml 02/06/25 19:48 02/06/25 19:48 Sodium Chloride 0.9% 10ml Syr (Rad Only) IV 03/08/25 19:47 10 ml NEEDED PRN Administration Maintain IV Site ORDERS Category Date Time Status CT angio chest PE protocol Stat Cat Scan 02/06/25 19:27 Completed Chest XR -- portable [XR chest portable] Stat Exams 02/06/25 18:26 Completed BNP [NT Pro Brain Natriuretic Pep.] Stat Lab 02/06/25 18:25 Completed CBC [Complete Blood Count Auto Diff] Stat Lab 02/06/25 18:25 Completed Comprehensive Metabolic Panel Stat Lab 02/06/25 18:25 Completed D-Dimer Stat Lab 02/06/25 18:25 Completed Lipase Stat Lab 02/06/25 18:25 Completed Magnesium Stat Lab 02/06/25 18:25 Completed PT INR [Prothrombin Time INR] Stat Lab 02/06/25 18:25 Completed PTT [Activated Partial Thrombo Time] Stat Lab 02/06/25 18:25 Completed Rapid PCR Covid and Flu A/B Stat Lab 02/06/25 18:45 Completed Trop I [Troponin I] Stat Lab 02/06/25 18:25 Completed Troponin I Q3H Lab 02/06/25 22:02 Completed Troponin I Q3H Lab 02/07/25 00:57 Completed Venous Blood Gas Stat RT 02/06/25 18:27 Completed MDM Narrative Medical Decision Narrative: patient is a 64 year old female presenting to the emergency department for evaluation of chest pain, shortness of air, no radiates, that started 2 weeks ago. Patient is hemodynamically stable and nontoxic-appearing upon arrival, afebrile. Differential diagnosis includes acs, mi, pe, among others. Workup will be conducted with hematologic labs, specific imaging. Initial inventions include crystalloid bolus, analgesics. Initial workup reviewed by me hematologic labs are remarkable for wbc 9, pco2 55, co2 31, lactic 2.2. D-dimer elevated at 0.78. Troponin less than 0.01, second troponin less than 0.01. Chest x-ray was reviewed and interpreted by myself and showed no acute intrathoracic pathology. CTA of the chest was obtained which showed no pulmonary embolism or other acute pathology. EKG was reviewed and interpreted by myself which showed A-fib without acute ST or T wave changes concerning for ischemia. Patient was newly in A-fib, patient was rate controlled therefore patient was sent with Eliquis starter pack. Patient was otherwise discharged home in stable condition, return precautions were discussed. Patient was sent with outpatient cardiology follow-up.
[2025-02-06 19:07] LABS: Alanine Aminotransferase 19 U/L (12-78); Albumin Level 4.5 g/dl (3.5-5.0); Albumin/Globulin Ratio 1.4 (1.1-1.8); Alkaline Phosphatase 81 U/L (38-126); Anion Gap 15.7 mEq/L (5-15); Aspartate Amino Transferase 20 U/L (14-36); Bilirubin,Total 0.7 mg/dl (0.2-1.3); Blood Urea Nitrogen 17 mg/dl (7-17); Calcium 9.2 mg/dl (8.4-10.2); Carbon Dioxide 31 mmol/L (22.0-30.0); Chloride 92 mmol/L (98-107); Creatinine Clearance Estimated 41 mL/min (50-200); Creatinine,Serum 1.40 mg/dl (0.52-1.04); Estimated Glomerular Filt Rate 38 ml/min (>60); GFR (African American) 46 ML/MIN (>60); Globulin 3.3 g/dL (1.3-3.2); Glucose 106 mg/dl (74-100); Lipase 56 U/L (23-300); Magnesium 1.6 mg/dl (1.6-2.3); Potassium 3.7 mmoL/L (3.5-5.1); Sodium 135 mmol/L (136-145); Total Protein,Serum 7.8 g/dl (6.3-8.2)
[2025-02-06 19:19] LABS: Troponin I < 0.01 ng/ml (0.00-0.034)
[2025-02-06 19:23] LABS: D-Dimer 0.78 ug/mL (0.0-0.5)
--- NOTE | 2025-02-06 19:27 | CT_ITS ---
PROCEDURE INFORMATION: Exam: CTA Chest With Contrast Exam date and time: 02/06/2025 7:42 PM Age: 64 years old Clinical indication: Shortness of breath and other: R/O pe TECHNIQUE: Imaging protocol: Computed tomographic angiography of the chest with contrast. Exam focused on the arteries. 3D rendering (Not supervised by radiologist): MIP and/or 3D reconstructed images were created by the technologist. Radiation optimization: All CT scans at this facility use at least one of these dose optimization techniques: automated exposure control; mA and/or kV adjustment per patient size (includes targeted exams where dose is matched to clinical indication); or iterative reconstruction. Contrast material: ISOVUE; Contrast volume: 70 ml; Contrast route: INTRAVENOUS (IV); COMPARISON: CR XR CHEST PORTABLE 02/06/2025 6:31 PM FINDINGS: Pulmonary arteries: No CT angiography evidence of pulmonary embolism. Aorta: Unremarkable. No aortic aneurysm. No aortic dissection. Lungs: Dependent bilateral lung base opacities favor atelectasis. Pleural spaces: Unremarkable. No pneumothorax. No pleural effusion. Heart: Unremarkable. No cardiomegaly. No pericardial effusion. Coronary arteries: Mild three-vessel calcific atherosclerotic disease of the coronary arteries is present. Lymph nodes: Unremarkable. No enlarged lymph nodes. Gallbladder and biliary ducts: There are surgical clips within the gallbladder fossa. Adrenal glands: Hypoattenuating right adrenal nodule with internal density of <10 HU compatible with lipid rich adrenal adenoma measuring 24 mm in diameter. Bones/joints: Moderate loss of intervertebral disc space with degenerative changes involving thoracolumbar spine. Soft tissues: Unremarkable. Other findings: Motion artifacts slightly limits sensitivity and specificity of the examination. IMPRESSION: 1. No CT angiography evidence of pulmonary embolism. 2. Motion artifacts slightly limits sensitivity and specificity of the examination.
[2025-02-06 19:28] LABS: NT Pro Brain Natriuretic Pep. 759 pg/mL (0-125)
[2025-02-06] MEDS: 0.9 % SODIUM CHLORIDE 50 ML VIAL IV (19:48)
[2025-02-06] MEDS: SODIUM CHLORIDE 0.9% 10ML SYR (RAD ONLY) 10 ML IV (19:48)
[2025-02-06] MEDS: IOPAMIDOL-370 (76%);100ML BOTTLE 70 ML IV (19:49)
[2025-02-06] MEDS: 0.9 % SODIUM CHLORIDE 1000ML 1,000 ML 500 ML IV (19:56)
[2025-02-06] MEDS: APIXABAN 5MG TABLET 5 MG PO (21:12)
[2025-02-06 21:30] VITALS: BP 98/55; PULSE 74; RESP 16; TEMP 36.7; O2SAT 96; BMI 44.5
[2025-02-06 21:49] VITALS: BP 112/64; PULSE 74; RESP 11; TEMP 36.6; O2SAT 99
[2025-02-06 22:18] LABS: Reflex Lactic Add Lactic Reflex
[2025-02-06 22:50] LABS: Troponin I < 0.01 ng/ml (0.00-0.034)
[2025-02-06 22:59] LABS: Lactic Acid Follow Up (RFLX 1) 1.2 mmol/L (0.7-2.1)
[2025-02-07] VITALS: BP 98/57; PULSE 68; PULSE 70; RESP 16; TEMP 36.4; O2SAT 97
[2025-02-07 00:09] LABS: Microscopic, Urine URINE MICROSCOPIC (MICROSCOPIC)
[2025-02-07 00:14] LABS: Bilirubin,Urine Negative (Negative); Color,Urine YELLOW (Yellow); Glucose,Urine (UA) Negative (Negative); Ketones,Urine Negative (Negative); Leukocyte Esterase,Urine 1+ (Negative); PH,Urine 6.0 (5.0-8.5); Protein,Urine Negative (Negative); Specific Gravity, Urine <= 1.005 (1.005-1.030); Urobilinogen,Urine 0.2 EU/dl (0.2)
--- NOTE | 2025-02-07 00:31 | P.HP_ITS ---
<Statement entered by Delon Stein MD - 02/07/25 07:40> Rounded on patient after nurse practitioner. Personally examined and interviewed patient. Agree with exam findings and care plan as documented. History of Present Illness *Admission Date: 02/06/25 *Reason for visit:: Chest pain *History of present illness: This is a 64-year-old female with a past medical history of SURESH, hypothyroidism, hypertension, GERD, COPD who presents to the emergency department today with complaints of chest pain and mild shortness of breath. She reports midsternal chest pain. She reports ongoing chest pain for approximately 2 weeks but was acutely worse while sitting at the table tonight. She endorses a history of emphysema with some element of shortness of breath at all times but mildly increased tonight. She denies fever, denies any sick contacts. Reports chronic cough. Upon EMSs arrival she was noted to be in what appears to be new onset A-fib with controlled rate. She received aspirin with EMS and was transported without further event. Emergency department workup notable for new onset A-fib noted on EKG. Troponin negative x 2. D-dimer elevated at 0.78, creatinine of 1.4, proBNP of 759 urinalysis with +1 leuk esterase as well as 5-[address] without evidence of PE. Dr. Kaur was consulted and recommends observation overnight with echocardiogram in AM. She received Eliquis in the emergency department admitted to hospitalist service. [facility] Disclaimer: The information contained in this section may have been updated after the patient was seen, as this information can be updated by other users. Medical History (Updated 02/07/25 @ 01:18 by AFIA Ng) History of gastroesophageal reflux (GERD) Hypertension Hypothyroid FH: bilateral hip replacements Surgical History (Updated 02/06/25 @ 23:17 by Shraddha Metcalf RN) Hx of cataract surgery Social History (Updated 02/06/25 @ 23:17 by Shraddha Metcalf RN) Smoking Status: Former smoker alcohol intake: never current occupational status: disabled Travel in the last 8 weeks?: None Have you lived/traveled outside [place] in past 30 days?: No Contact w/someone who lives/traveled outside [place] past 30 days?: No Exposure to someone with infectious disease in past 14 days?: No Do you have a fever (greater than 100.4 F or 38 C)?: No Have you tested positive for COVID-19?: No Exposed to someone with COVID-19 in past 14 days?: No Do you have a sore throat?: No Do you have a cough?: No Do you have any weakness?: No Are you experiencing any nausea/vomitting?: No Do you have any diarrhea?: No Are you experiencing any unusual bleeding?: No Do you have any muscle aches/pain?: No Do you have any abdominal pain?: No Are you experiencing loss of taste or smell?: No Other Medical History Have you received the Flu Vaccine for this season: No Have you received the Pneumonia Vaccine: No Review of Systems Review of Systems Review of systems:: pertinent systems reviewed and negative unless documented below Review of systems (narrative): Negative except for HPI Meds Home Medications and Allergies Home Medications ?Medication ?Instructions ?Recorded ?Confirmed ?Type albuterol sulfate 90 mcg/actuation 2 puff inhalation Q 4H PRN wheezing 02/06/25 02/06/25 History aerosol inhaler baclofen 20 mg tablet 20 mg PO BID 02/06/25 History ergocalciferol (vitamin D2) 1,250 1,250 mcg PO MOTH 02/06/25 History mcg (50,000 unit) capsule furosemide 40 mg tablet 40 mg PO DAILY 02/06/2510/24 History levothyroxine 125 mcg tablet 125 mcg PO DAILY 02/06/25 02/06/25 History lisinopril 20 1 tab PO DAILY 02/06/2510/24 History mg-hydrochlorothiazide 12.5 mg tablet omeprazole 20 mg capsule,delayed 20 mg PO DAILY 02/06/25 History release umeclidinium 62.5 mcg-vilanterol 1 ea inhalation DAILY 02/06/25 02/06/25 History 25 mcg/actuation powdr for inhalation (Anoro Ellipta) New Prescriptions to Start Prescriptions: Allergies Allergy/AdvReac Type Severity Reaction Status Date / Time penicillin G benethamine Allergy Intermediate rash Verified 04/22/22 19:16 Exam Data for Last 24 hours Vital signs and Labs for Last 24 Hours: Temp Pulse Resp BP Pulse Ox O2 Del Method 97.9 F 74 11 L 112/64 96 Room Air 02/06/25 21:49 02/06/25 21:49 02/06/25 21:49 02/06/25 21:49 02/06/25 21:30 02/06/25 23:00 Laboratory Results - last 24 hr 02/06/25 18:25: WBC 9.0, RBC 4.94, Hgb 13.7, Hct 41.2, MCV 83.4, MCH 27.7, MCHC 33.3, RDW 16.4, Plt Count 269, MPV 11.4 H, Neut % (Auto) 66.1, Lymph % (Auto) 21.1, [place] % (Auto) 10.6 H, Eos % (Auto) 1.2, Baso % (Auto) 0.4, Neut # (Auto) 5.9, Lymph # (Auto) 1.9, [place] # (Auto) 1.0, Eos # (Auto) 0.1, Baso # (Auto) 0.0, PT 10.9, INR 0.98, APTT 25.8, D-Dimer 0.78 H, Sodium 135 L, Potassium 3.7, Chloride 92 L, Carbon Dioxide 31 H, Anion Gap 15.7 H, BUN 17, Creatinine 1.40 H, Estimated Creat Clear 41, Estimated GFR 38 L, Est GFR ( Amer) 46 L, Glucose 106 H, Calcium 9.2, Magnesium 1.6, Total Bilirubin 0.7, AST 20, ALT 19, Alkaline Phosphatase 81, Troponin I < 0.01, NT-Pro-B Natriuret Pep 759 H, Total Protein 7.8, Albumin 4.5, Globulin 3.3 H, Albumin/Globulin Ratio 1.4, Lipase 56 02/06/25 18:27: VBG pH 7.34, VBG pCO2 55.2 H, VBG pO2 33.4, VBG HCO3 29.3, VBG Total CO2 31.0 H, VBG O2 Saturation 61.2, VBG Base Excess 3.6 H, VBG Lactic Acid 2.2 H 02/06/25 18:45: SARS-CoV-2 (PCR) Not detected, Influenza A Untype (PCR) Not detected, Influenza Type B (PCR) Not detected 02/06/25 22:02: Troponin I < 0.01 02/06/25 22:48: Lactate 1.2 02/07/25 00:00: Urine Color Yellow, Urine Appearance Clear, Urine pH 6.0, Ur Specific [place] <= 1.005, Urine Protein Negative, Urine Glucose (UA) Negative, Urine Ketones Negative, Urine Blood Negative, Urine Nitrate Negative, Urine Bilirubin Negative, Urine Urobilinogen 0.2, Ur Leukocyte Esterase 1+ A, Urine WBC 5-10 I & O for Last 24 hours: Intake & Output 02/04/25 02/05/25 02/06/25 02/07/25 23:59 23:59 23:59 23:59 Intake Total 1000 / 1000 Output Total 0 / 0 Balance 1000 / 1000 Weight 133.311 kg Constitutional Constitutional: no acute distress *Routine HEENT Exam Head: Present normocephalic Eye: Present EOMI and PERRL ENT: Present mucous membranes moist *Routine Neck Exam Neck: Present supple; Absent lymphadenopathy *Routine Respiratory Exam Respiratory: Present CTA bilaterally *Routine Cardiovascular Exam Cardiovascular: Present RRR *Routine Abdominal Exam Abdominal: Present soft and normoactive bowel sounds; Absent tenderness *Routine Rectal Exam Rectal:: deferred *Routine Genitalia Exam Genitalia:: deferred *Routine Extremities Exam Extremities: Absent cyanosis, clubbing or edema *Routine Skin Exam Skin: Present warm; Absent rash *Routine Neurological Exam Neurological: Present alert and oriented X3 Assessment and Plan *Assessment and plan (1) Atrial fibrillation, new onset: Status: Acute Category: Medical Code(s): I48.91 - Unspecified atrial fibrillation (2) Chest pain: Status: Acute Category: Medical Code(s): R07.9 - Chest pain, unspecified (3) Dyspepsia: Status: Acute Category: Medical Code(s): R10.13 - Epigastric pain (4) Hypertension: Status: Acute Category: Medical Code(s): I10 - Essential (primary) hypertension (5) Hypothyroid: Status: Acute Category: Medical Code(s): E03.9 - Hypothyroidism, unspecified Plan This is a 64-year-old female that presented the emergency department with chest pain. Found to have new onset A-fib with controlled heart rate. Mildly elevated BNP. Admitted for further workup #Atrial fibrillation New onset atrial fibrillation. Rate controlled in the 70s. Received Eliquis in the emergency department Dr. Kaur consulted in the emergency department recommends observation with echocardiogram in a.m. Troponin negative Continue cardiac telemetry Check TSH and free T4 #Hypertension Continue home lisinopril once reconciled #SURESH Continue CPAP nightly #Levothyroxine Check TSH and free T4 otherwise continue 125 mcg p.o. daily #GERD Continue omeprazole 20 mg daily #Emphysema Continue albuterol inhalation every 4 as needed
[2025-02-07 00:39] VITALS: RESP 16
[2025-02-07 01:34] LABS: Troponin I < 0.01 ng/ml (0.00-0.034)
[2025-02-07 01:38] LABS: Adenovirus,PCR Not Detected (NotDetected); Chlamydophila Pneumoniae, PCR Not Detected (NotDetected); Coronavirus 19, PCR Not Detected (NotDetected); Coronovirus HKU1,PCR Not Detected (NotDetected); Influenza A, PCR Not Detected (NotDetected); Influenza AH1, 2009 Not Detected (NotDetected); Influenza AH1, PCR Not Detected (NotDetected); Influenza AH3,PCR Not Detected (NotDetected); Influenza B, PCR Not Detected (NotDetected); Mycoplasma Pneumoniae, PCR Not Detected (NotDetected); Parainfluenza 1, PCR Not Detected (NotDetected); Parainfluenza 2, PCR Not Detected (NotDetected); Parainfluenza 3, PCR Not Detected (NotDetected); Parainfluenza 4, PCR Not Detected (NotDetected)
[2025-02-07 02:30] VITALS: RESP 12
--- NOTE | 2025-02-07 03:48 | PC.NURSE ---
Alert and oriented. Patient complained of some shortness of air, states I think its too hot in here and I dont have my CPAP on , this RN turned heat down and called [facility] for CPAP order, since using CPAP patient has rested well. Ambulates to the restroom with cane and standby assist. Room air when awake. Patient states she has a chest burn sensation in her mid chest area and states I know what I did, I pulled a muscle moving furniture at home , patient did not need any pain medication this shift. Afib on tele, controlled rate. Bilateral lower extremities +2 pitting edema. Lung sounds clear. Call light in reach.
[2025-02-07 04:00] VITALS: BP 104/52; PULSE 67; PULSE 70; RESP 18; TEMP 36.7; BMI 44.5
[2025-02-07 07:11] LABS: Hematocrit 38.8 % (37.0-47.0); Hemoglobin 12.4 g/dL (12.2-16.2); Immature Granulocytes % 0.4 %; Mean Corpuscular HGB Conc 32.0 g/dL (31.8-35.4); Mean Corpuscular Hemoglobin 27.2 pg (27.0-31.2); Mean Corpuscular Volume 85.1 fl (81-99); Nucleated Red Blood Cells % 0 %; Platelet Count 240 K/mm3 (142-424); Red Blood Count 4.56 M/mm3 (4.20-5.40); Red Cell Distribution Width-SD 51.0 fL; White Blood Count 8.6 K/mm3 (4.8-10.8)
[2025-02-07 07:20] LABS: Chloride 94 mmol/L (98-107); Potassium 3.5 mmoL/L (3.5-5.1); Sodium 137 mmol/L (136-145)
[2025-02-07 07:23] LABS: Anion Gap 14.5 mEq/L (5-15); Blood Urea Nitrogen 18 mg/dl (7-17); Calcium 8.3 mg/dl (8.4-10.2); Carbon Dioxide 32 mmol/L (22.0-30.0); Creatinine Clearance Estimated 45 mL/min (50-200); Creatinine,Serum 1.30 mg/dl (0.52-1.04); Estimated Glomerular Filt Rate 41 ml/min (>60); GFR (African American) 50 ML/MIN (>60); Glucose 95 mg/dl (74-100)
[2025-02-07 07:36] LABS: Magnesium 1.8 mg/dl (1.6-2.3)
[2025-02-07 08:00] VITALS: BP 106/52; PULSE 70; RESP 18; TEMP 36.6; O2SAT 100
--- NOTE | 2025-02-07 08:10 | HMH.PHAINT1 ---
Pharmacy Intervention Comments: MEDICATION RECONCILIATION COMPLETED ON PATIENT USING EXTERNAL FILL HISTORY FROM PHARMACY. -CONNIE RAMIREZ, ADELAD
[2025-02-07] MEDS: FUROSEMIDE 40 MG TABLET PO (08:18)
[2025-02-07] MEDS: LEVOTHYROXINE 125MCG (0.125MG) TAB 125 MCG PO (08:18)
--- NOTE | 2025-02-07 11:11 | P.DS_ITS ---
General Admission date:: 02/06/25 Discharge date: 02/07/25 HPI HPI HPI: This is a 64-year-old female with a past medical history of SURESH, hypothyroidism, hypertension, GERD, COPD who presents to the emergency department today with complaints of chest pain and mild shortness of breath. She reports midsternal chest pain. She reports ongoing chest pain for approximately 2 weeks but was acutely worse while sitting at the table tonight. She endorses a history of emphysema with some element of shortness of breath at all times but mildly increased tonight. She denies fever, denies any sick contacts. Reports chronic cough. Upon EMSs arrival she was noted to be in what appears to be new onset A-fib with controlled rate. She received aspirin with EMS and was transported without further event. Emergency department workup notable for new onset A-fib noted on EKG. Troponin negative x 2. D-dimer elevated at 0.78, creatinine of 1.4, proBNP of 759 urinalysis with +1 leuk esterase as well as 5-[address] without evidence of PE. Dr. Kaur was consulted and recommends observation overnight with echocardiogram in AM. She received Eliquis in the emergency department admitted to hospitalist service. Hospital Course Hospital Course Hospital Course: This is a 64-year-old female that presented the emergency department with chest pain. Found to have new onset A-fib with controlled heart rate. Mildly elevated BNP. Admitted for further workup. Did well. Cardiology evaluated. Heart rate with improved control. Started on anticoagulation. Stable discharge home with close follow-up with cardiology as an outpatient. Problems addressed as follows: #Atrial fibrillation New onset atrial fibrillation. Rate controlled in the 70s. Received Eliquis in the ER. Cardiology was consulted and recommended observation overnight. Echocardiogram obtained. Showed normal ejection fraction. Cardiology recommended metoprolol succinate 12.5 mg daily for heart rate control. Continue Eliquis 5 mg twice daily. No plan for inpatient ischemic eval, will consider outpatient ischemic evaluation. Troponin negative. Continue cardiac telemetry Check TSH and free T4 #Hypertension: Blood pressure well-controlled. Only on Lasix 40 mg daily. Continue metoprolol as above. #SURESH: Continue CPAP nightly #Levothyroxine: continue levothyroxine 125 mcg p.o. daily #GERD: Continue omeprazole 20 mg daily #Emphysema: Continue albuterol inhalation every 4 hrs as needed and Anoro daily Urinalysis abnormal, positive for UTI. Culture returned positive for E. coli after discharge. Initiated on cefdinir 300 mg twice daily for 5 days Total time spent on discharge 32 minutes in counseling, documentation, chart review, and direct care with patient. Exam Data for Last 24 hours Vital signs and Labs for Last 24 Hours: Temp Pulse Resp BP Pulse Ox O2 Del Method O2 Flow Rate 97.9 F 70 18 106/52 L 100 Room Air 15 02/07/25 08:00 02/07/25 08:00 02/07/25 08:00 02/07/25 08:00 02/07/25 08:00 02/07/25 10:17 02/07/25 00:00 FiO2 21 02/07/25 02:30 Laboratory Results - last 24 hr 02/06/25 18:25: WBC 9.0, RBC 4.94, Hgb 13.7, Hct 41.2, MCV 83.4, MCH 27.7, MCHC 33.3, RDW 16.4, Plt Count 269, MPV 11.4 H, Neut % (Auto) 66.1, Lymph % (Auto) 21.1, [place] % (Auto) 10.6 H, Eos % (Auto) 1.2, Baso % (Auto) 0.4, Neut # (Auto) 5.9, Lymph # (Auto) 1.9, [place] # (Auto) 1.0, Eos # (Auto) 0.1, Baso # (Auto) 0.0, PT 10.9, INR 0.98, APTT 25.8, D-Dimer 0.78 H, Sodium 135 L, Potassium 3.7, Chloride 92 L, Carbon Dioxide 31 H, Anion Gap 15.7 H, BUN 17, Creatinine 1.40 H, Estimated Creat Clear 41, Estimated GFR 38 L, Est GFR ( Amer) 46 L, Glucose 106 H, Calcium 9.2, Magnesium 1.6, Total Bilirubin 0.7, AST 20, ALT 19, Alkaline Phosphatase 81, Troponin I < 0.01, NT-Pro-B Natriuret Pep 759 H, Total Protein 7.8, Albumin 4.5, Globulin 3.3 H, Albumin/Globulin Ratio 1.4, Lipase 56 02/06/25 18:27: VBG pH 7.34, VBG pCO2 55.2 H, VBG pO2 33.4, VBG HCO3 29.3, VBG Total CO2 31.0 H, VBG O2 Saturation 61.2, VBG Base Excess 3.6 H, VBG Lactic Acid 2.2 H 02/06/25 18:45: SARS-CoV-2 (PCR) Not detected, Influenza A Untype (PCR) Not d etected, Influenza Type B (PCR) Not detected 02/06/25 22:02: Troponin I < 0.01 02/06/25 22:48: Lactate 1.2 02/06/25 23:55: Chlamy pneumoniae PCR Not detected, Adenovirus (PCR) Not detected, B. pertussis DNA (PCR) Not detected, Coronavirus OC43 (PCR) Not detected, Coronavirus HKU1 (PCR) Not detected, Coronavirus 229E (PCR) Not det ected, SARS-CoV-2 (PCR) Not detected, Coronavirus NL63 (PCR) Not detected, Human Metapneumovir PCR Not detected, Influenza A (H1) PCR Not detected, Influ A (H1N1/09) PCR Not detected, Influenza A (H3) PCR Not detected, Influenza Type A (PCR) Not detected, Influenza Type B (PCR) Not detected, M. pneumoniae (PCR) Not detected, Parainfluenza 1 (PCR) Not detected, Parainfluenza 2 (PCR) Not detected, Parainfluenza 3 (PCR) Not detected, Parainfluenza 4 (PCR) Not detected, RSV (PCR) Not detected, Entero/Rhino (PCR) Not detected 02/07/25 00:00: Urine Color Yellow, Urine Appearance Clear, Urine pH 6.0, Ur Specific [place] <= 1.005, Urine Protein Negative, Urine Glucose (UA) Negative, Urine Ketones Negative, Urine Blood Negative, Urine Nitrate Negative, Urine Bilirubin Negative, Urine Urobilinogen 0.2, Ur Leukocyte Esterase 1+ A, Urine WBC 5-10 02/07/25 00:57: Troponin I < 0.01 02/07/25 06:20: WBC 8.6, RBC 4.56, Hgb 12.4, Hct 38.8, MCV 85.1, MCH 27.2, MCHC 32.0, RDW 16.3, Plt Count 240, MPV 11.5 H, Neut % (Auto) 62.3, Lymph % (Auto) 25.4, [place] % (Auto) 9.5 H, Eos % (Auto) 1.8, Baso % (Auto) 0.6, Neut # (Auto) 5.3, Lymph # (Auto) 2.2, [place] # (Auto) 0.8, Eos # (Auto) 0.2, Baso # (Auto) 0.1, Sodium 137, Potassium 3.5, Chloride 94 L, Carbon Dioxide 32 H, Anion Gap 14.5, BUN 18 H, Creatinine 1.30 H, Estimated Creat Clear 45, Estimated GFR 41 L, Est GFR ( Amer) 50 L, Glucose 95, Calcium 8.3 L, Magnesium 1.8 D I & O for Last 24 hours: Intake & Output 02/04/25 02/05/25 02/06/25 02/07/25 23:59 23:59 23:59 23:59 Intake Total 1000 / 1000 0 / 0 Output Total 0 / 200 700 / 700 Balance 1000 / 800 -700 / -700 Weight 133.311 kg 133.311 kg Microbiology Reports for the Last 24 Hours: Microbiology 02/07/25 00:00 Urine,Clean Catch Urine Culture - Preliminary Constitutional Constitutional: no acute distress, morbidly obese and cooperative *Routine HEENT Exam Head: Present normocephalic and atraumatic ENT: Present mucous membranes moist *Routine Neck Exam Neck: Present supple, full ROM and normal carotid upstroke; Absent JVD, carotid bruit or lymphadenopathy *Routine Respiratory Exam Respiratory: Present CTA bilaterally, normal respiratory effort, able to speak in complete sentences and symmetric chest movement; Absent rhonchi *Routine Cardiovascular Exam Cardiovascular: Present Normal S1, Normal S2 and irregularly irregular; Absent murmur or gallop *Routine Abdominal Exam Abdominal: Present soft and normoactive bowel sounds; Absent tenderness, distended or organomegaly *Routine Rectal Exam Patient deferred: visual exam *Routine Exam Patient deferred: external exam *Routine Extremities Exam Extremities: Present full ROM, pulses intact and normal capillary refill; Absent cyanosis, clubbing or edema *Routine Skin Exam Skin: Present intact and warm; Absent erythema *Routine Neurological Exam Neurological: Present alert, oriented X3 and CN II-XII intact; Absent sensory deficit or motor deficit Results Data Completed and Pending Labs on day of discharge: Labs from last 24 hours 12/09/25 12/09/25 12/09/25 06:20 00:57 00:00 WBC 8.6 RBC 4.56 Hgb 12.4 Hct 38.8 MCV 85.1 MCH 27.2 MCHC 32.0 RDW 16.3 Plt Count 240 MPV 11.5 H Neut % (Auto) 62.3 Lymph % (Auto) 25.4 [place] % (Auto) 9.5 H Eos % (Auto) 1.8 Baso % (Auto) 0.6 Neut # (Auto) 5.3 Lymph # (Auto) 2.2 [place] # (Auto) 0.8 Eos # (Auto) 0.2 Baso # (Auto) 0.1 PT INR APTT D-Dimer VBG pH VBG pCO2 VBG pO2 VBG HCO3 VBG Total CO2 VBG O2 Saturation VBG Base Excess VBG Lactic Acid Sodium 137 Potassium 3.5 Chloride 94 L Carbon Dioxide 32 H Anion Gap 14.5 BUN 18 H Creatinine 1.30 H Estimated Creat Clear 45 Estimated GFR 41 L Est GFR ( Amer) 50 L Glucose 95 Lactate Calcium 8.3 L Magnesium 1.8 D Total Bilirubin AST ALT Alkaline Phosphatase Troponin I < 0.01 NT-Pro-B Natriuret Pep Total Protein Albumin Globulin Albumin/Globulin Ratio Lipase Urine Color Yellow Urine Appearance Clear Urine pH 6.0 Ur Specific [place] <= 1.005 Urine Protein Negative Urine Glucose (UA) Negative Urine Ketones Negative Urine Blood Negative Urine Nitrate Negative Urine Bilirubin Negative Urine Urobilinogen 0.2 Ur Leukocyte Esterase 1+ A Urine WBC 5-10 Chlamy pneumoniae PCR Adenovirus (PCR) B. pertussis DNA (PCR) Coronavirus OC43 (PCR) Coronavirus HKU1 (PCR) Coronavirus 229E (PCR) SARS-CoV-2 (PCR) Coronavirus NL63 (PCR) Human Metapneumovir PCR Influenza A (H1) PCR Influ A (H1N1/09) PCR Influenza A (H3) PCR Influenza Type A (PCR) Influenza A Untype (PCR) Influenza Type B (PCR) M. pneumoniae (PCR) Parainfluenza 1 (PCR) Parainfluenza 2 (PCR) Parainfluenza 3 (PCR) Parainfluenza 4 (PCR) RSV (PCR) Entero/Rhino (PCR) 02/06/25 02/06/25 02/06/25 23:55 22:48 22:02 WBC RBC Hgb Hct MCV MCH MCHC RDW Plt Count MPV Neut % (Auto) Lymph % (Auto) [place] % (Auto) Eos % (Auto) Baso % (Auto) Neut # (Auto) Lymph # (Auto) [place] # (Auto) Eos # (Auto) Baso # (Auto) PT INR APTT D-Dimer VBG pH VBG pCO2 VBG pO2 VBG HCO3 VBG Total CO2 VBG O2 Saturation VBG Base Excess VBG Lactic Acid Sodium Potassium Chloride Carbon Dioxide Anion Gap BUN Creatinine Estimated Creat Clear Estimated GFR Est GFR ( Amer) Glucose Lactate 1.2 Calcium Magnesium Total Bilirubin AST ALT Alkaline Phosphatase Troponin I < 0.01 NT-Pro-B Natriuret Pep Total Protein Albumin Globulin Albumin/Globulin Ratio Lipase Urine Color Urine Appearance Urine pH Ur Specific [place] Urine Protein Urine Glucose (UA) Urine Ketones Urine Blood Urine Nitrate Urine Bilirubin Urine Urobilinogen Ur Leukocyte Esterase Urine WBC Chlamy pneumoniae PCR Not detected Adenovirus (PCR) Not detected B. pertussis DNA (PCR) Not detected Coronavirus OC43 (PCR) Not detected Coronavirus HKU1 (PCR) Not detected Coronavirus 229E (PCR) Not detected SARS-CoV-2 (PCR) Not detected Coronavirus NL63 (PCR) Not detected Human Metapneumovir PCR Not detected Influenza A (H1) PCR Not detected Influ A (H1N1/09) PCR Not detected Influenza A (H3) PCR Not detected Influenza Type A (PCR) Not detected Influenza A Untype (PCR) Influenza Type B (PCR) Not detected M. pneumoniae (PCR) Not detected Parainfluenza 1 (PCR) Not detected Parainfluenza 2 (PCR) Not detected Parainfluenza 3 (PCR) Not detected Parainfluenza 4 (PCR) Not detected RSV (PCR) Not detected Entero/Rhino (PCR) Not detected 02/06/25 02/06/25 02/06/25 18:45 18:27 18:25 WBC 9.0 RBC 4.94 Hgb 13.7 Hct 41.2 MCV 83.4 MCH 27.7 MCHC 33.3 RDW 16.4 Plt Count 269 MPV 11.4 H Neut % (Auto) 66.1 Lymph % (Auto) 21.1 [place] % (Auto) 10.6 H Eos % (Auto) 1.2 Baso % (Auto) 0.4 Neut # (Auto) 5.9 Lymph # (Auto) 1.9 [place] # (Auto) 1.0 Eos # (Auto) 0.1 Baso # (Auto) 0.0 PT 10.9 INR 0.98 APTT 25.8 D-Dimer 0.78 H VBG pH 7.34 VBG pCO2 55.2 H VBG pO2 33.4 VBG HCO3 29.3 VBG Total CO2 31.0 H VBG O2 Saturation 61.2 VBG Base Excess 3.6 H VBG Lactic Acid 2.2 H Sodium 135 L Potassium 3.7 Chloride 92 L Carbon Dioxide 31 H Anion Gap 15.7 H BUN 17 Creatinine 1.40 H Estimated Creat Clear 41 Estimated GFR 38 L Est GFR ( Amer) 46 L Glucose 106 H Lactate Calcium 9.2 Magnesium 1.6 Total Bilirubin 0.7 AST 20 ALT 19 Alkaline Phosphatase 81 Troponin I < 0.01 NT-Pro-B Natriuret Pep 759 H Total Protein 7.8 Albumin 4.5 Globulin 3.3 H Albumin/Globulin Ratio 1.4 Lipase 56 Urine Color Urine Appearance Urine pH Ur Specific [place] Urine Protein Urine Glucose (UA) Urine Ketones Urine Blood Urine Nitrate Urine Bilirubin Urine Urobilinogen Ur Leukocyte Esterase Urine WBC Chlamy pneumoniae PCR Adenovirus (PCR) B. pertussis DNA (PCR) Coronavirus OC43 (PCR) Coronavirus HKU1 (PCR) Coronavirus 229E (PCR) SARS-CoV-2 (PCR) Not detected Coronavirus NL63 (PCR) Human Metapneumovir PCR Influenza A (H1) PCR Influ A (H1N1/09) PCR Influenza A (H3) PCR Influenza Type A (PCR) Influenza A Untype (PCR) Not detected Influenza Type B (PCR) Not detected M. pneumoniae (PCR) Parainfluenza 1 (PCR) Parainfluenza 2 (PCR) Parainfluenza 3 (PCR) Parainfluenza 4 (PCR) RSV (PCR) Entero/Rhino (PCR) Preliminary micro results at discharge 02/07/25 00:00 Urine Culture - Preliminary Urine,Clean Catch DS: Diagnosis Discharge Diagnosis (1) Atrial fibrillation, new onset: Status: Acute Code(s): I48.91 - Unspecified atrial fibrillation (2) Chest pain: Status: Acute Code(s): R07.9 - Chest pain, unspecified (3) Dyspepsia: Status: Acute Code(s): R10.13 - Epigastric pain (4) Hypertension: Status: Acute Code(s): I10 - Essential (primary) hypertension (5) Hypothyroid: Status: Acute Code(s): E03.9 - Hypothyroidism, unspecified (6) UTI (urinary tract infection): Status: Acute Code(s): N39.0 - Urinary tract infection, site not specified Problem details: Present on admission Meds Home Medications and Allergies Home Medications ?Medication ?Instructions ?Recorded ?Confirmed ?Type albuterol sulfate 90 mcg/actuation 2 puff inhalation Q 4HP PRN wheezing 02/06/25 02/07/25 History aerosol inhaler baclofen 20 mg tablet 20 mg PO BID 02/06/25 History ergocalciferol (vitamin D2) 1,250 1,250 mcg PO DIRE CTED 02/06/25 02/07/25 History mcg (50,000 unit) capsule furosemide 40 mg tablet 40 mg PO DAILY 02/06/2510/24 History levothyroxine 125 mcg tablet 125 mcg PO DAILY 02/06/25 02/06/25 History omeprazole 20 mg capsule,delayed 20 mg PO DAILY 02/06/25 History release umeclidinium 62.5 mcg-vilanterol 1 ea inhalation DAILY 02/06/25 02/06/25 History 25 mcg/actuation powdr for inhalation (Anoro Ellipta) apixaban 5 mg tablet (Eliquis) 5 mg PO BID 30 days #60 tabs 02/07/25 Rx metoprolol succinate 25 mg 12.5 mg (1/2 x 25 mg) PO HS 30 02/07/25 Rx tablet,extended release 24 hr days #15 tabs cefdinir 300 mg capsule 300 mg PO BID 5 days #10 cap s 02/12/25 Rx New Prescriptions to Start Prescriptions: apixaban [Eliquis] Delon Stein cefdinir Delon Stein metoprolol succinate Delon Stein Allergies Allergy/AdvReac Type Severity Reaction Status Date / Time penicillin G benethamine Allergy Intermediate rash Verified 04/22/22 19:16 Discharge Plan Disposition Patient Disposition: Home, Self-Care Condition: Good Follow up Plan Follow up with: Radha Barry APRN [Nurse Practitioner, Cardiology] - 02/28/25 1:15 pm Juliano Ho MD [Primary Care Provider, Medical] - 02/13/25 11:15 am Prescriptions/Medication Reconciliation: New metoprolol succinate 25 mg Tablet Extended Release 24 Hr 12.5 mg PO HS 30 Days Qty: 15 0RF Eliquis 5 mg Tablet 5 mg PO BID 30 Days Qty: 60 0RF cefdinir 300 mg capsule 300 mg PO BID 5 Days Qty: 10 0RF Continued furosemide 40 mg tablet 40 mg PO DAILY baclofen 20 mg tablet 20 mg PO BID levothyroxine 125 mcg tablet 125 mcg PO DAILY omeprazole 20 mg capsule,delayed release(DR/EC) 20 mg PO DAILY ergocalciferol (vitamin D2) 1,250 mcg (50,000 unit) capsule 1,250 mcg PO DIRECTED Rx Instructions: TWICE WEEKLY albuterol sulfate 90 mcg/actuation HFA aerosol inhaler 2 puff INHALATION Q4HP PRN (Reason: wheezing) umeclidinium-vilanterol [Anoro Ellipta] 62.5-25 mcg/actuation blister with device 1 ea INHALATION DAILY Discontinued lisinopril-hydrochlorothiazide 20-12.5 mg tablet 1 tab PO DAILY Problem Reconciliation Problems Reviewed?: Yes Patient Discharge Instructions ACTIVITY: Continue current activity DIET: continue same diet Patient Instructions: DI for Atrial Fibrillation Print Language: Occitan Providers Primary Care Provider: Juliano Ho Admit Provider: Joseph Jones Attending Provider: Joseph Jones
[2025-02-07] MEDS: APIXABAN 5MG TABLET 5 MG PO (11:39)
[2025-02-07 12:00] VITALS: BP 102/67; PULSE 72; PULSE 80; RESP 16; TEMP 36.6; O2SAT 96
--- NOTE | 2025-02-07 13:43 | P.CONCA_ITS ---
History of Present Illness History of Present Illness Consult date: 02/07/25 Requesting physician: Joseph Jones Consult reason: chest pain Chief complaint: Chest pain History of present illness: This is a 64 white female who presented to the emergency department complaints of chest pain. She reports that this was a midsternal sharp pain that occurred while she was sitting at the table. She had mild shortness of breath associated with the chest pain. She states that this was a symptom that she does not typically have so she decided to come into the emergency department for further evaluation. The patient was found to be in new onset atrial fibrillation with rate control. Her troponins were negative. And she was also found to have a UTI. This morning she states she is feeling much better. She currently denies any chest pain or pressure. She states that her shortness of breath is baseline. She denies any lower extremity edema. She denies any fever, chills, nausea, vomiting, diarrhea, PND or orthopnea. [facility] Disclaimer: The information contained in this section may have been updated after the patient was seen, as this information can be updated by other users. Medical History (Updated 02/07/25 @ 13:49 by Radha Barry APRN) Chest pain History of gastroesophageal reflux (GERD) Hypertension Hypothyroid FH: bilateral hip replacements Surgical History (Updated 02/06/25 @ 23:17 by Shraddha Metcalf RN) Hx of cataract surgery Social History (Updated 02/06/25 @ 23:17 by Shraddha Metcalf RN) Smoking Status: Former smoker alcohol intake: never current occupational status: disabled Travel in the last 8 weeks?: None Review of Systems Review of Systems Review of systems:: pertinent systems reviewed and negative unless documented below Constitutional Constitutional: Reports system reviewed and no additional complaints, except as documented Eyes Eyes: Reports system reviewed and no additional complaints, except as documented ENT Ears, Nose, Mouth, and Throat: Reports system reviewed and no additional complaints, except as documented *Cardiovascular Cardiovascular: Reports system reviewed and no additional complaints, except as documented, Reports chest pain and Reports dyspnea on exertion *Respiratory Respiratory: Reports system reviewed and no additional complaints, except as do cumented and Reports dyspnea on exertion *Gastrointestinal Gastrointestinal: Reports system reviewed and no additional complaints, except as documented *Genitourinary Genitourinary: Reports system reviewed and no additional complaints, except as documented *Musculoskeletal Musculoskeletal: Reports system reviewed and no additional complaints, except as documented Integumentary/Breasts Skin/Breast: Reports system reviewed and no additional complaints, except as documented *Neurologic Neurologic: Reports system reviewed and no additional complaints, except as documented Psychiatric Psychiatric: Reports system reviewed and no additional complaints, except as documented Endocrine Endocrine: Reports system reviewed and no additional complaints, except as documented Hematologic/Lymphatic Hematologic/Lymphatic: Reports system reviewed and no additional complaints, except as documented Allergic/Immunologic Allergic/Immunologic: Reports system reviewed and no additional complaints, except as documented Exam Data for Last 24 hours Vital signs and Labs for Last 24 Hours: Temp Pulse Resp BP Pulse Ox O2 Del Method O2 Flow Rate 97.9 F 72 16 102/67 L 96 Room Air 15 02/07/25 12:00 02/07/25 12:00 02/07/25 12:00 02/07/25 12:00 02/07/25 12:00 02/07/25 12:22 02/07/25 00:00 FiO2 21 02/07/25 02:30 Laboratory Results - last 24 hr 02/06/25 18:25: WBC 9.0, RBC 4.94, Hgb 13.7, Hct 41.2, MCV 83.4, MCH 27.7, MCHC 33.3, RDW 16.4, Plt Count 269, MPV 11.4 H, Neut % (Auto) 66.1, Lymph % (Auto) 21.1, [place] % (Auto) 10.6 H, Eos % (Auto) 1.2, Baso % (Auto) 0.4, Neut # (Auto) 5.9, Lymph # (Auto) 1.9, [place] # (Auto) 1.0, Eos # (Auto) 0.1, Baso # (Auto) 0.0, PT 10.9, INR 0.98, APTT 25.8, D-Dimer 0.78 H, Sodium 135 L, Potassium 3.7, Chloride 92 L, Carbon Dioxide 31 H, Anion Gap 15.7 H, BUN 17, Creatinine 1.40 H, Estimated Creat Clear 41, Estimated GFR 38 L, Est GFR ( Amer) 46 L, Glucose 106 H, Calcium 9.2, Magnesium 1.6, Total Bilirubin 0.7, AST 20, ALT 19, Alkaline Phosphatase 81, Troponin I < 0.01, NT-Pro-B Natriuret Pep 759 H, Total Protein 7.8, Albumin 4.5, Globulin 3.3 H, Albumin/Globulin Ratio 1.4, Lipase 56 02/06/25 18:27: VBG pH 7.34, VBG pCO2 55.2 H, VBG pO2 33.4, VBG HCO3 29.3, VBG Total CO2 31.0 H, VBG O2 Saturation 61.2, VBG Base Excess 3.6 H, VBG Lactic Acid 2.2 H 02/06/25 18:45: SARS-CoV-2 (PCR) Not detected, Influenza A Untype (PCR) Not detected, Influenza Type B (PCR) Not detected 02/06/25 22:02: Troponin I < 0.01 02/06/25 22:48: Lactate 1.2 02/06/25 23:55: Chlamy pneumoniae PCR Not detected, Adenovirus (PCR) Not detected, B. pertussis DNA (PCR) Not detected, Coronavirus OC43 (PCR) Not detected, Coronavirus HKU1 (PCR) Not detected, Coronavirus 229E (PCR) Not detected, SARS-CoV-2 (PCR) Not detected, Coronavirus NL63 (PCR) Not detected, Human Metapneumovir PCR Not detected, Influenza A (H1) PCR Not detected, Influ A (H1N1/09) PCR Not detected, Influenza A (H3) PCR Not detected, Influenza Type A (PCR) Not detected, Influenza Type B (PCR) Not detected, M. pneumoniae (PCR) Not detected, Parainfluenza 1 (PCR) Not detected, Parainfluenza 2 (PCR) Not detected, Parainfluenza 3 (PCR) Not detected, Parainfluenza 4 (PCR) Not detected, RSV (PCR) Not detected, Entero/Rhino (PCR) Not detected 02/07/25 00:00: Urine Color Yellow, Urine Appearance Clear, Urine pH 6.0, Ur Specific [place] <= 1.005, Urine Protein Negative, Urine Glucose (UA) Negative, Urine Ketones Negative, Urine Blood Negative, Urine Nitrate Negative, Urine Bilirubin Negative, Urine Urobilinogen 0.2, Ur Leukocyte Esterase 1+ A, Urine WBC 5-10 02/07/25 00:57: Troponin I < 0.01 02/07/25 06:20: WBC 8.6, RBC 4.56, Hgb 12.4, Hct 38.8, MCV 85.1, MCH 27.2, MCHC 32.0, RDW 16.3, Plt Count 240, MPV 11.5 H, Neut % (Auto) 62.3, Lymph % (Auto) 25.4, [place] % (Auto) 9.5 H, Eos % (Auto) 1.8, Baso % (Auto) 0.6, Neut # (Auto) 5.3, Lymph # (Auto) 2.2, [place] # (Auto) 0.8, Eos # (Auto) 0.2, Baso # (Auto) 0.1, Sodium 137, Potassium 3.5, Chloride 94 L, Carbon Dioxide 32 H, Anion Gap 14.5, BUN 18 H, Creatinine 1.30 H, Estimated Creat Clear 45, Estimated GFR 41 L, Est GFR ( Amer) 50 L, Glucose 95, Calcium 8.3 L, Magnesium 1.8 D I & O for Last 24 hours: Intake & Output 02/04/25 02/05/25 02/06/25 02/07/25 23:59 23:59 23:59 23:59 Intake Total 1000 / 1000 0 / 0 Output Total 0 / 200 1500 / 1500 Balance 1000 / 800 -1500 / -1500 Weight 293 lb 14.4 oz 293 lb 14.407 oz Microbiology Reports for the Last 24 Hours: Microbiology 02/07/25 00:00 Urine,Clean Catch Urine Culture - Preliminary Constitutional Constitutional: no acute distress and average body habitus *Routine HEENT Exam Head: Present normocephalic and atraumatic ENT: Present mucous membranes moist *Routine Neck Exam Neck: Present supple, full ROM and normal carotid upstroke; Absent JVD, carotid bruit or lymphadenopathy *Routine Respiratory Exam Respiratory: Present CTA bilaterally, normal respiratory effort, able to speak in complete sentences and symmetric chest movement *Routine Cardiovascular Exam Cardiovascular: Present Normal S1, Normal S2 and irregularly irregular; Absent murmur or gallop *Routine Abdominal Exam Abdominal: Present soft and normoactive bowel sounds; Absent tenderness, distended or organomegaly *Routine Extremities Exam Extremities: Present full ROM, pulses intact and normal capillary refill; Absent cyanosis, clubbing or edema *Routine Skin Exam Skin: Present intact and warm; Absent erythema *Routine Neurological Exam Neurological: Present alert, oriented X3 and CN II-XII intact; Absent sensory deficit or motor deficit Routine Psychiatric Exam Psychiatric: Present normal affect Meds Home Medications and Allergies Home Medications ?Medication ?Instructions ?Recorded ?Confirmed ?Type albuterol sulfate 90 mcg/actuation 2 puff inhalation Q 4HP PRN wheezing 02/06/25 02/07/25 History aerosol inhaler baclofen 20 mg tablet 20 mg PO BID 02/06/25 History ergocalciferol (vitamin D2) 1,250 1,250 mcg PO DIRE CTED 02/06/25 02/07/25 History mcg (50,000 unit) capsule furosemide 40 mg tablet 40 mg PO DAILY 02/06/2510/24 History levothyroxine 125 mcg tablet 125 mcg PO DAILY 02/06/25 02/06/25 History omeprazole 20 mg capsule,delayed 20 mg PO DAILY 02/06/25 History release umeclidinium 62.5 mcg-vilanterol 1 ea inhalation DAILY 02/06/25 02/06/25 History 25 mcg/actuation powdr for inhalation (Anoro Ellipta) apixaban 5 mg tablet (Eliquis) 5 mg PO BID 30 days #60 tabs 02/07/25 Rx metoprolol succinate 25 mg 12.5 mg (1/2 x 25 mg) PO HS 30 02/07/25 Rx tablet,extended release 24 hr days #15 tabs New Prescriptions to Start Prescriptions: apixaban [Eliquis] Delon Stein metoprolol succinate Delon Stein Allergies Allergy/AdvReac Type Severity Reaction Status Date / Time penicillin G benethamine Allergy Intermediate rash Verified 04/22/22 19:16 Assessment and Plan *Assessment and plan (1) Atrial fibrillation, new onset: Status: Acute Category: Medical Code(s): I48.91 - Unspecified atrial fibrillation (2) Hypertension: Status: Acute Qualifiers: Hypertension type: primary hypertension Qualified Code(s): I10 - Essential (primary) hypertension Category: Medical Code(s): I10 - Essential (primary) hypertension (3) Hypothyroid: Status: Acute Qualifiers: Hypothyroidism type: unspecified Qualified Code(s): E03.9 - Hypothyroidism, unspecified Category: Medical Code(s): E03.9 - Hypothyroidism, unspecified (4) Chest pain: Status: Acute Qualifiers: Chest pain type: other chest pain Qualified Code(s): R07.89 - Other chest pain Category: Medical Code(s): R07.9 - Chest pain, unspecified Plan Plan: 1. The patient presented to the emergency department for chest pain. She is found to be in atrial fibrillation. She was rate controlled. Will start her on Toprol-XL 12.5 mg p.o. daily for heart rate control. 2. The patient has been started on Eliquis for long-term anticoagulation. 3. The patient has ruled out for an NH. No plans for invasive left cardiac catheterization at this time. However, she would benefit from an outpatient ischemic evaluation to rule out ischemia. 4. The patient does have a UTI. This will be treated by the hospitalist. Will defer. 5. Echo shows normal EF. 6. Blood pressure is well-controlled. 7. Her LDL goal is less than 100. Will get a lipid panel. 8. No further recommendations at this time from a cardiac standpoint. The patient can be discharged home today from a cardiac standpoint with follow-up in cardiology clinic in 1 to 2 weeks on an outpatient basis. Thank you for the opportunity to help participate in the care of this patient. All recommendations and orders are per Dr. Massey.
--- NOTE | 2025-02-07 14:10 | SW/DCPLANNER ---
I have arranged transportation w/ [facility] for this patient. Patient will discharge home today.
--- NOTE | 2025-02-07 23:16 | CA_ITS ---
APPROVED REPORT EXAM: Comprehensive 2D, Doppler, and color-flow Echocardiogram Dry Box Operator: Jessenia Castañeda CRT Ht: 5 ft 8 in Wt: 293lbs BSA: 2.40 BP: 112/64 mmHg Indications: AFIB, COPD,HTN, SOB, EX SMOKER 2D Dimensions LA Volume 63.10 mL LA Volume Index 25.70 mL/m2 (M/F) 16-34 M-Mode Dimensions RVDd 2.94 cm (0.9-2.6) LA Diam 4.84 cm (1.9-4.0) LVDd 5.16 cm (3.5-5.7) LVDs 3.32 cm (3.5-5.7) IVSd 1.17 cm (0.6-1.1) PWd 0.83 cm (0.6-1.1) EF (Teich) 64.80% FS 35.70% EDV (Teich) 127.20 mL TAPSE 2.02 (<1.7) ESV (Teich) 44.80 mL LV Diastology E Decel Time 230 (160-240 msec) E/A Ratio 4.03 MED A' 5.10 cm/s LAT A' 4.30 cm/s Aortic Valve GIOVANNI Index 1.08 cm2/m2 AoV Peak Salvatore. 177.0 (50-130 cm/s) AO Peak GR. 12.50 mmHg AO Mean GR. 6.60 (<5 mmHg) AO VTI 33.6 (18-25 cm) GIOVANNI (VTI) 2.66 (2.5-4.5 cm2) Mitral Valve MV E Max Salvatore. 108.0 (40-130 cm/s) MV A Velocity 27.0 (40-130 cm/s) E/A Ratio 4.03 MV PHT 67.0 ms Pulmonary Valve PV Peak Velocity 151.0 (50-150 cm/s) Tricuspid Valve TR P. Velocity 270.00 cm/s RAP Estimate 10.00 mmHg RVSP 39.10 mmHg Left Ventricle The left ventricle is normal size. Left ventricular systolic function is normal. The left ventricular ejection fraction is within the normal range. There is increased left ventricular wall thickness. There is normal LV segmental wall motion. The left ventricular diastolic function is normal. LVEF is 55% Right Ventricle The right ventricle is normal size. The right ventricular systolic function is normal. Atria Left atrium is mildly dilated. Right atrium is mildly dilated. There is no color Doppler evidence of interatrial shunt. Aortic Valve The aortic valve is mildly thickened. There is no hemodynamically significant aortic valvular stenosis. Trace aortic regurgitation is present. Mitral Valve The mitral valve is normal in structure. No evidence of mitral valve stenosis. Trace mitral regurgitation is present. Tricuspid Valve The tricuspid valve leaflets are thin and pliable. Mild tricuspid regurgitation. RVSP is 20-25 mmHg. Pulmonic Valve The pulmonary valve is grossly normal in structure. Trace pulmonic valve regurgitation is present. Great Vessels The aortic root is normal in size. IVC is normal in size and collapses >50% with inspiration. Pericardium There is no pericardial effusion. Other Information Study Quality: Fair Conclusion Normal biventricular systolic function. Biatrial dilation. Mild TR. Electronically signed by : Beverly Massey MD 02/07/2025 11:41:16
--- NOTE | 2025-02-08 14:58 | SW/DCPLANNER ---
Spoke with patient on the phone. Patient stated that she is doing good. Patient stated that she is aware of her upcoming appointments. Patient stated that she was able to picking tech her new medicine. Patient stated that she has no concerns or questions at this time. Gustabo Wan
== END 2025-02-07 14:26 | disposition home or self-care (01) ==
LOC: ER 21:41 → 2ND 21:42
PROVIDERS: Nurse Practitioner; Nurse Practitioner Acute Care; Admitting Provider Student in an Organized Health Care Education/Training Program; Emergency Provider Student in an Organized Health Care Education/Training Program; PCP Family Medicine; Visit Provider Student in an Organized Health Care Education/Training Program
DX: I48.91 Unspecified atrial fibrillation (principal); K21.9 Gastro-esophageal reflux disease without esophagitis; R10.13 Epigastric pain; E03.9 Hypothyroidism, unspecified; Z96.643 Presence of artificial hip joint, bilateral; Z87.891 Personal history of nicotine dependence; Z88.0 Allergy status to penicillin; Z79.899 Other long term (current) drug therapy; Z79.890 Hormone replacement therapy; I07.1 Rheumatic tricuspid insufficiency; G47.33 Obstructive sleep apnea (adult) (pediatric); J43.9 Emphysema, unspecified; I11.9 Hypertensive heart disease without heart failure
CPT/HCPCS: 0223U; 36415; 71045; 71275; 80048; 80053; 81001; 82803; 83605; 83690; 83735; 83880; 84484; 85025; 85378; 85610; 85730; 87086; 87088; 87186; 87636; 93005; 93306; 94660; 94760; 96374; 96375; 96376; 99285; G0378; J1308; J2270; J2405; J7030; Q9967

== ENCOUNTER 2025-02-28 12:37 | Outpatient (CLI) | payer OTHER, SELFPAY ==
--- NOTE | 2025-02-28 | CA_ITS ---
APPROVED REPORT Exam: Pharmacologic Technologist: Isa Ramachandran Stress Nurse: Alberto Ding Ht: 5 ft 8 in Wt: 294 lbs BSA: 2.41 m2 Indications: Chest Pain Medical History Medications: Albuterol, Eliquis, Baclofen, Cefdinir, Vitamin D2, Furosemide, Levothyroxine, Lisinopril-hctz, Metoprolol, Omeprazole, Anoro Ellipta. Stress Test Details Test: Lexiscan Reason for pharmacologic stress test: physical limitation. HR Resting HR: 71 bpm Max Heart Rate (APMHR): 157.064107 bpm Max HR Achieved: 86 bpm Target HR (85% APMHR): 133.470535 bpm % of APMHR: 54.78 Recovery HR: 77 bpm BP Resting BP: 140.0/90.0 mmHg Max BP: 155.0/86.0 mmHg Recovery BP: 155.0/86.0 mmHg ECG Resting ECG: A-fib with CVR Stress ECG Conclusion Symptoms: None. Arrhythmias/Ectopy: None. ST-T Changes: <1.5mm ST Segment changes. Conclusion: Non-diagnostic Lexiscan stress. Electronically signed by : Beverly Massey MD 02/28/2025 18:44:35
--- OUTSIDE RECORDS SUMMARY | 2025-02-28 12:39 | XMS_ITS | Clinical Summary ---
[facility] Address [address] [place] [address] Care Team Providers Care Community Organization Worker Name Role Phone Juliano Ho MD Primary Care Provider + Allergies Active Allergy Reactions Criticality Noted Date Comments Diclofenac Potassium Nausea Only 08/27/2022 Penicillins Rash Low 04/28/2022 Medications ketorolac (ACULAR) 0.5 % ophthalmic solution Administer 1 drop to both eyes Daily. 04/15/19 24 Active acetaminophen (TYLENOL) 650 MG 8 hr tablet Take 1 tablet by mouth. Active levothyroxine (SYNTHROID, LEVOTHROID) 125 MCG tabletIndication s:Hypothyroidism , unspecified type TAKE ONE TABLET BY MOUTH ONCE A DAY 30 tablet 5 09/16/19 25 Active albuterol sulfate HFA 108 (90 Base) MCG/ACT inhalerIndicatio ns:Other emphysema Inhale 2 puffs Every 4 (Four) Hours As Needed for Wheezing. 18 g 3 10/08/19 25 Active Umeclidinium-Makenzie anterol (Anoro Ellipta) 62.5-25 MCG/ACT aerosol powder inhalerIndicatio ns:Other emphysema Inhale 1 puff Daily. 60 each 5 10/08/19 25 Active furosemide (LASIX) 40 MG tabletIndication s:Primary hypertension Take 1 tablet by mouth Daily. 30 tablet 6 10/08/19 25 Active lisinopril-hydro chlorothiazide (PRINZIDE,ZESTOR ETIC) 20-12.5 MG per tabletIndication s:Primary hypertension Take 1 tablet by mouth Daily. 30 tablet 5 10/08/19 25 Active omeprazole (priLOSEC) 20 MG capsuleIndicatio ns:Gastroesophag eal reflux disease without esophagitis Take 1 capsule by mouth Daily. 30 capsule 5 10/08/19 25 Active vitamin D (ERGOCALCIFEROL) 1.25 MG (17860 UT) capsule capsule TAKE ONE CAPSULE BY MOUTH TWICE WEEKLY 8 capsule 5 10/25/19 25 Active cyclobenzaprine (FLEXERIL) 5 MG tablet Take 1 tablet by mouth 3 (Three) Times a Day As Needed for Muscle Spasms. 30 tablet 11/02/19 25 Active baclofen (LIORESAL) 20 MG tabletIndication s:Cervical spine arthritis TAKE ONE TABLET BY MOUTH 2 TIMES A DAY 60 tablet 1 02/09/20 25 Active baclofen (LIORESAL) 20 MG tabletIndication s:Cervical spine arthritis TAKE ONE TABLET BY MOUTH 2 TIMES A DAY 60 tablet 1 12/29/19 25 025 Discontinued Active Problems Problem Noted [...] Encounters Date Type Department Care Team Description 02/08/2025 Refill [facility] [address] [place], [place] [address] Juliano Ho MD Cervical spine arthritis 12/28/2024 Refill [facility] [address] [place] [address] Juliano Ho MD Cervical spine arthritis from Last 3 Months Immunizations Immunization Administration [...] Description 04/14/2025 11:45 AM EST Office Visit [facility] [address] [place] [address] Juliano Ho MD [place] [address] Health Maintenance Due Date Last Done Comments Annual Gynecologic Pelvic an d Breast Exam 1961 Pneumococcal Vaccine 50+ (1 of 2 - PCV) 1980 PAP SMEAR 1982 COLON CANCER SCREENING 5 YEA R SIGMOIDOSCOPY [address] COLONOGRAPHY 2006 FECAL OCCULT BLOOD TEST 2006 FIT Testing (1 year) 2006 ZOSTER VACCINE (1 of 2) 2011 HEPATITIS C SCREENING 04/28/2022 INFLUENZA VACCINE 09/30/2024 COLOGUARD 08/21/2025 08/21/2022 COLORECTAL CANCER SCREENING 08/21/2025 ANNUAL PHYSICAL 10/07/2025 10/07/2024 MAMMOGRAM 10/24/2026 10/26/2024, 10/01, 08/12/2022, Additional history exists TDAP/TD VACCINES (2 - Td or Tdap) 09/04/2031 022 Procedures Procedure Name Priority Date/Time Associated Diagnosis Comments SCANNED EKG 02/06/2025 SCANNED - LABS 02/06/2025 SCANNED - LABS 02/06/2025 SCANNED - LABS 02/06/2025 SCANNED - IMAGING 02/06/2025 MAMMO SCREENING DIGITAL TOMOSYNTHESIS BILATERAL W CAD Routine 10/24/2024 Encounter for screening mammogram for malignant neoplasm of breast COLOGUARD Routine 08/21/2022 6:22 AM EDT Colon cancer screening from Last 3 Months or Most Recently Relevant to Health Maintenance Results * ECG Scan (02/06/2025) Juliano Ho MD ECG ORDERABLES Final Re sult * IMAGING SCANNED (02/06/2025) Anatomical Region Laterality Modality Radiographic Ashwini ging Juliano Ho MD [facility] DI[facility]NOSTIC IMAGING O RDERABLES Final Result * LABS SCANNED (02/06/2025) Only the most recent of3 resultswithin the time period is included. Juliano Ho MD LAB BLOOD ORDERABLES Fin al Result * Mammo Screening Digital Tomosynthesis Bilateral With CAD (10/24/2024) Anatomical Region Laterality Modality Breast N/A Mammography Juliano Ho MD [facility] MAMMOGRAPHY ORDERABL ES Final Result * (ABNORMAL) Cologuard - Stool, Per Rectum (08/21/2022 6:22 AM EDT) Cologuard Positive( A) Negative 08/28/2022 5:17 AM EDT [facility] (CLIA #:[id number]) Comment: POSITIVE TEST RESULT. A positive Cologuard [...] screened with both Cologuard and colonoscopy. (Eugenio Roque al, N Engl J Med 2014;370(14):5837-1442.) Cologuard may produce a false negative or false positive result (no colorectal cancer or precancerous polyp present at colonoscopy follow up). A negative Cologuard test result does not guarantee the absence of CRC or advanced adenoma (pre-cancer). The current Cologuard screening interval is every 3 years. ([employer] [employer] and U.S. Multi-Society Task Force). Cologuard performance data in a 10,000 patient pivotal study using colonoscopy as the reference method can be accessed at the following location: [email or web address]/results. Additional description of the Cologuard test process, warnings and precautions can be found at [email or web address]. Stool specimen (specimen) Specimen from rectum / Unknown 08/21/2022 6:22 AM EDT 08/23/2022 6:47 PM EDT Juliano Ho MD BODY FLUIDS AND STOOLS O RDERABLES Final Result [facility] (CLIA #:[id number]) [address] [place] [address], from Last 3 Months or Most Recently Relevant to Health Maintenance [place] [address] [place] [address] Care Teams Community Organization Worker Relationship Specialty Start Date End Date Juliano Ho MD [address] [place] [address] [place] [address] PCP - General Family Medicine 04/28/22
--- OUTSIDE RECORDS SUMMARY | 2025-02-28 12:39 | XMS_ITS | Encounter Summary ---
[facility] [address] [place] [address] Care Team Providers Care Forms Builder Name Role Phone Juliano Ho MD Primary Care Provider + Reason for Visit * Reason Comments Med Refill Encounter Details Date Type Department Care Team (Late st Contact Info) Description 02/08/2025 Refill [facility] [address] [place] [address] Juliano Ho MD [address] [facility] [place] [address] Cervical spine arthritis Social History Tobacco Use Types Packs/Day Years [...] Description 04/14/2025 11:45 AM EST Office Visit [facility] [address] [place] [address] Juliano Ho MD [address] [place] [address] documented as of this encounter Visit Diagnoses Diagnosis Cervical spine arthritis Cervical spondylosis without myelopathy documented in this encounter Care Teams Forms Builder Relationship Specialty Start Date End Date Juliano Ho MD [address] [place] [address] PCP - General Family Medicine 04/28/22 documented as of this encounter
--- OUTSIDE RECORDS SUMMARY | 2025-02-28 12:39 | XMS_ITS | Encounter Summary ---
[facility] Address [address] [place] [id number] Care Team Providers Care Sweet Dough Mixer Name Role Phone Juliano Ho MD Primary Care Provider + Reason for Visit * Reason Onset Date Comments Med Refill 06/26/2022 Encounter Details Date Type Department Care Team (Late st Contact Info) Description 06/26/2022 Refill [facility] [address] [place] [address] Juliano Ho MD [address] [place] [address] Arthritis Social History Tobacco Use [...] Wolf Relationship: Self Best call back number: [phone] Requested Prescriptions: Requested Prescriptions Pending Prescriptions Disp Refills ??? Diclofenac Sodium (VOLTAREN) 1 % gel gel 350 g 2 Sig: Apply 4 g topically to the appropriate area as directed 4 (Four) Times a Day. [facility] [place] [address] - [phone] PH - [phone] FX Last office visit with prescribing clinician: [...] Description 04/14/2025 11:45 AM EST Office Visit [facility] [address] [phone] Juliano Ho MD [address] [address] documented as of this encounter Visit Diagnoses Diagnosis Arthritis Unspecified arthropathy, site unspecified documented in this encounter Care Teams Sweet Dough Mixer Relationship Specialty Start Date End Date Juliano Ho MD [address] [address] PCP - General Family Medicine 04/28/22 documented as of this encounter
--- OUTSIDE RECORDS SUMMARY | 2025-02-28 12:39 | XMS_ITS | Encounter Summary ---
Author Organization [facility] Address [address] [place] [address] Care Team Providers Care Tactical Intelligence Officer Name Role Phone Juliano Ho MD Primary Care Provider + Encounter Details Date Type Department Care Team (Late st Contact Info) Description 10/10/2024 Results Follow-Up [facility] [address] [facility] [place] [address] Juliano Ho MD [address] [facility] [place] [address] Social History Tobacco Use Types [...] Visit [facility] [address] [facility] [place] [address] Juliano Ho MD [address] [address] documented as of this encounter Visit Diagnoses Not on filedocumented in this encounter Care Teams Tactical Intelligence Officer Relationship Specialty Start Date End Date Juliano Ho MD [address] [place] [address] PCP - General Family Medicine 04/28/22 documented as of this encounter
--- OUTSIDE RECORDS SUMMARY | 2025-02-28 12:39 | XMS_ITS | Clinical Summary ---
Author Organization [employer] ([place], [place], [place], [place], [place]) Address [address] [place] [address] Care Team Providers Care Sewing Teacher Name Role Phone Juliano Ho MD Primary Care Provider Allergies Active Allergy Reactions Criticality Noted Date Comments Diclofenac Potassium Nausea Only 08/27/2022 Penicillin Rash Low 10/28/2022 Medications inhaler,assist device,accesory (INHALER,ASSIST DEVICES,ACCESS MISC) daily. 07/24/2022 Active albuterol HFA (VENTOLIN HFA) 90 mcg/actuation inhaler Inhale 2 puffs by mouth via inhaler as needed Can use every 4 hrs as needed. 04/28/2022 Active lisinopril-hydr oCHLOROthiazide (PRINZIDE,ZESTO RETIC) 20-12.5 mg per tablet Take 1 tablet by mouth in the morning. 08/04/2022 Active baclofen (LIORESAL) 20 MG tablet Take 1 tablet (20 mg total) by mouth 2 (two) times daily. 09/29/2022 Active furosemide (LASIX) 40 MG tablet Take 1 tablet (40 mg total) by mouth as needed. 07/24/2022 Active acetaminophen (TYLENOL) 650 MG CR tablet Take 1 tablet (650 mg total) by mouth every 8 (eight) hours as needed for Pain. Active famotidine (PEPCID) 40 MG tablet Take 1 tablet (40 mg total) by mouth daily as needed for Heartburn. Active omeprazole (PriLOSEC) 20 MG capsule Take 1 capsule (20 mg total) by mouth daily. 05/21/2023 Active levothyroxine (SYNTHROID, LEVOTHROID) 100 MCG tablet Take 1 tablet (100 mcg total) by mouth daily. 05/26/2023 Active umeclidinium brm/vilanterol tr (ANORO ELLIPTA INHL) Inhale by mouth via inhaler. Active moxifloxacin (VIGAMOX) 0.5 % ophthalmic solution SMARTSIG:In Eye(s) 05/15/2023 Active meloxicam (MOBIC) 15 MG tablet Take 1 tablet (15 mg total) by mouth daily. 09/11/2022 Active ergocalciferol (ERGOCALCIFEROL ) 1,250 mcg (50,000 unit) capsule Take 1 capsule (50,000 Units total) by mouth once a week. 07/07/2023 Active Active Problems Problem Noted Date Diagnosed Date Hypothyroid 05/27/2023 Preop examination 10/28/2022 Primary osteoarthritis of left hip 10/28/2022 Emphysema lung 10/28/2022 Bradycardia 10/28/2022 GERD (gastroesophageal reflux disease) Hypertension 10/28/2022 Fluid retention 10/28/2022 SURESH on CPAP 10/28/2022 Vitamin D deficiency 10/28/2022 Obesity (BMI 30-39.9) 10/28/2022 History of smoking Overview (11/26/2022): last smoke was 10/14/2022 Family History Medical History Relation Name Comments Seizures Father Alcohol abuse Mother Relation Name Status Comments Father Mother Social History Tobacco Use Types Packs/Day Years Used Date Smoking Tobacco: Former Cigarettes Q uit: 10/14/2022 Smokeless Tobacco: Never Tobacco Cessation:Counseling Given: Not Answered Alcohol Use Standard Drinks/Week Comments Not Currently 0 (1 standard drink = 0.6 oz pur e alcohol) Food Insecurity Answer Date Recorded Food run out past 12 months Not on file 03/03 Food did not last past 12 months Not on file 03/21/2023 Employment Answer Date Recorded Help finding and keeping a job Not on file 0 03/21/2023 Family and Community Support Answer Hammad e Recorded Help with Day to Day Activities Not on file 03/21/2023 Feeling Lonely or Isolated Not on file 03/21 Educational Attainment Answer Date Chu rded Speak language other than Mongolian at home Not on file 03/21/2023 Want help with school or training Not on file 03/21/2023 Substance Use Answer Date Recorded Used prescription meds for non-medical reasons N ot on file 03/21/2023 Used illegal drugs past 12 months Not on file 03/21/2023 Comments No Sex and Gender Information Value Date Recorded Sex Assigned at Not on file Legal Sex Female 9:39 AM CDT Gender Identity Not on file Sexual Orientation Not on file Last Filed Vital Signs Vital Sign Reading Time Taken Comments Blood Pressure 158/83 07/29/2023 2:28 PM EDT Pulse 64 07/29/2023 2:28 PM EDT Temperature 36.4 C (97.5 F) 07/29/2023 2:21 PM EDT Respiratory Rate 15 07/29/2023 2:28 PM EDT Oxygen Saturation 94% 07/29/2023 2:28 PM EDT Inhaled Oxygen Concentration - - Weight 130.6 kg (288 lb) 07/29/2023 6:55 AM EDT Height 175.3 cm (5' 9 ) 07/15/2023 8:27 AM EDT Body Mass Index 42.53 07/15/2023 8:27 AM EDT Plan of Treatment Health Maintenance Due Date Last Done Comments CT Colonography 1961 Colonoscopy 1961 Colorectal Cancer Screening 1961 FOBT/FIT 1961 Fit-DNA (Cologuard) 1961 Sigmoidoscopy 1961 Depression Screening (12+) 1973 HIV Screening 1976 Hepatitis C Screening 1979 Pneumococcal 50+ years (1 of 2 - PCV) 1980 Pap Smear 1982 Breast Cancer Screening 2001 Lipid Panel 2006 Shingles Vaccine (Zoster) (1 of 2) 2011 Respiratory Syncytial Virus (RSV) Adult or (1 - Risk 60-74 years 1-dose series) 2021 Tobacco Cessation Counseling and Screening (12+) 07/14/2024 07/15/2023 COVID-19 VACCINE (3 - 2024-26 season) 10/31/202409/2020, 07/13/2020 Influenza Vaccine (#1) 2024 DTAP/TDAP/TD VACCINES (2 - Td or Tdap) 09/04/2031 Medical Devices Implanted Type Area System Planning Engineer Device Identifier Shelf Expiration Date Model / Serial / Lot Cup Cluster-Hole Pc Grp 4 50mm [id number] 0 - [id number] Implanted:Qty : 1 on 11/26/2022 by Sanford Johnston MD at [facility] [employer] Left: Hip EXACTECH [id number] 08/20/2032 / [id number] / Liner Ntrl Grp 4 36mm Id 6 - [id number] Implanted:Qty : 1 on 11/26/2022 by Sanford Johnston MD at [facility] [employer] Left: Hip EXACTECH [id number] 09/03/2027 / [id number] / Stem Fem Alteon Sz5 102mm 190 - [id number] Implanted:Qty : 1 on 11/26/2022 by Sanford Johnston MD at [facility] [employer] Left: Hip EXACTECH [id number] 12/02/2025 190 / [id number] / Head Fem Delta 36mm +0mm 36 - [id number] Implanted:Qty : 1 on 11/26/2022 by Sanford Johnston MD at [facility] [employer] Left: Hip EXACTECH [id number] 03/17/2027 170-36-00 / [id number] / Cup Cluster-Hole Pc Grp 4 50mm 43-759-16 0 - [id number] Implanted:Qty : 1 on 07/29/2023 by Sanford Johnston MD at [facility] [employer] Right: Hip EXACTECH 11/12/2032 / [id number] / Liner Ntrl Grp 4 36mm Id 6 - [id number] Implanted:Qty : 1 on 07/29/2023 by Sanford Johnston MD at [facility] [employer] Right: Hip EXACTECH 04/03/2027 01- / [id number] / Stem Fem Pf 02/12 Sz 4 99mm - [id number] Implanted:Qty : 1 on 07/29/2023 by Sanford Johnston MD at [facility] [employer] Right: Hip EXACTECH 12/27/2023 / [id number] / Head Fem Delta 36mm +0mm - [id number] Implanted:Qty : 1 on 07/29/2023 by Sanford Johnston MD at [facility] [employer] Right: Hip EXACTECH 04/18/2028 / [id number] / Insurance [employer] [facility] Advance Directives For more information, please contact: [phone] * Full Code (Latest Code Status on File) Date Activated Date Inactivated Comments 07/29/2023 1:27 PM 07/29/2023 5:55 PM * Full Code Date Activated Date Inactivated Comments 07/29/2023 5:34 AM 07/29/2023 1:27 PM * Full Code Date Activated Date Inactivated Comments 11/26/2022 9:24 AM 11/26/2022 3:29 PM * Full Code Date Activated Date Inactivated Comments 11/26/2022 5:13 AM 11/26/2022 9:24 AM Care Teams Sewing Teacher Relationship Specialty Start Date End Date Juliano Ho MD PCP - General Family Medicine 10/28/22
--- OUTSIDE RECORDS SUMMARY | 2025-02-28 12:39 | XMS_ITS | Referral Summary ---
Author Organization [employer] ([place], [place], [place], [place], [place]) Address [address] [place] [address] Care Team Providers Care Computer Networking Instructor Name Role Phone Juliano Ho MD Primary Care Provider [phone] Allergies Active Allergy Reactions Criticality Noted Date [...] smoking Overview (11/26/2022): last smoke was 10/14/2022 Social History Tobacco Use Types Packs/Day Years [...] Date Chu rded Speak language other than Fijian at home Not on file 03/21/2023 Want [...] 07/15/2023 8:27 AM EDT Plan of Treatment Not on file Medical Devices Implanted Type Area Heel Seat Laster Device Identifier Shelf Expiration Date Model / Serial / Lot Cup Cluster-Hole Pc Grp 4 50mm 69-273-98 0 - [id number] Implanted:Qty : 1 on 11/26/2022 by Sanford Johnston MD at [facility] [employer] Left: Hip EXACTECH [id number] 08/20/20320 / [id number] / Liner Ntrl Grp 4 36mm Id 043 6 - [id number] Implanted:Qty : 1 on 11/26/2022 by Sanford Johnston MD at [facility] [employer] Left: Hip EXACTECH [id number] 09/03/20276 / [id number] / Stem Fem Alteon Sz5 102mm 190-31-05 - [id number] Implanted:Qty : 1 on 11/26/2022 by Sanford Johnston MD at [facility] [employer] Left: Hip EXACTECH [id number] 12/02/2025 / [id number] / Head Fem Delta 36mm +0mm - [id number] Implanted:Qty : 1 on 11/26/2022 by Sanford Johnston MD at [facility] [employer] Left: Hip EXACTECH [id number] 03/17/2027 17036 / [id number] / Cup Cluster-Hole Pc Grp 4 50mm 07-041-60 0 - [id number] Implanted:Qty : 1 on 07/29/2023 by Sanford Johnston MD at [facility] [employer] Right: Hip EXACTECH 11/12/20320 / [id number] / Liner Ntrl Grp 4 36mm Id 6 - [id number] Implanted:Qty : 1 on 07/29/2023 by Sanford Johnston MD at [facility] [employer] Right: Hip EXACTECH 04/03/20276 / [id number] / Stem Fem Pf 02/12 Sz 4 99mm - [id number] Implanted:Qty : 1 on 07/29/2023 by Sanford Johnston MD at [facility] [employer] Right: Hip EXACTECH 12/27/2023 / [id number] / Head Fem Delta 36mm +0mm - [id number] Implanted:Qty : 1 on 07/29/2023 by Sanford Johnston MD at [facility] [employer] Right: Hip EXACTECH 04/18/2028 / [id number] / Insurance [employer] [facility] Advance Directives For more information, please contact: [phone] * Full Code (Latest Code Status on File) Date Activated Date Inactivated Comments 07/29/2023 1:27 PM 07/29/2023 5:55 PM * Full Code Date Activated Date Inactivated Comments 07/29/2023 5:34 AM 07/29/2023 1:27 PM * Full Code Date Activated Date Inactivated Comments 11/26/2022 9:24 AM 11/26/2022 3:29 PM * Full Code Date Activated Date Inactivated Comments 11/26/2022 5:13 AM 11/26/2022 9:24 AM Care Teams Computer Networking Instructor Relationship Specialty Start Date End Date Juliano Ho MD PCP - General Family Medicine 10/28/22
--- NOTE | 2025-02-28 13:00 | NM_ITS ---
APPROVED REPORT Exam: Nuclear Stress Test Indication: hyptension, former tob. use, c.p., sob, abn ekg Patient Location: Outpatient Stress Tech: Isa Mcnamara PA Tech:Gisella Pedro, ARRT, RT (R)(N) Ht: 5 ft 9 in Wt: 294 lbs Bra Size: dd HR: 69 bpm BP: 140/90 mmHg BSA: 2.43 m2 TID: 1.18 BMI: 43.4 History: hyptension, former tob. use, c.p., sob, abn ekg patient cannot lay on abdomen for prone images. Procedure: Patient received 0.4 mg of intravenous Lexiscan, resting heart rate 69 bpm, resting blood pressure 140/90 mmHg, with Lexiscan maximum heart rate achieved was 94 bpm which is % of the maximum predicted heart rate and blood pressure was 155/86 mmHg. With Lexiscan, patient denied any complaint of chest pain. Cardiac Stress and Resting SPECT Images: Cardiac Stress and Resting SPECT images were obtained using technetium 99m Myoview 32.9 mCi stress and 10.10 mCi at rest. The patient could not lie on her abdomen. Therefore, prone stress imaging could not be performed. This may affect the diagnostic interpretation of the study findings. Resting and stress imaging in supine positions demonstrate a medium-sized, moderate, partially reversible perfusion defect in the basal to mid inferior LV hopkins. Gated imaging demonstrates normal global LV systolic function. LVEF is calculated at 55%. Conclusion: Medium-sized, moderate, partially reversible perfusion defect in the basal to mid inferior LV hopkins. Findings are suggestive of reversible ischemia. Gated imaging demonstrates normal global LV systolic function. LVEF is calculated at 55%. Electronically signed by : Beverly Massey MD 02/28/2025 18:18:22
[2025-02-28] MEDS: SODIUM CHLORIDE 0.9% 10ML SYR (RAD ONLY) 10 ML IV ×2 (14:04→14:05)
[2025-02-28] MEDS: ISOTOPE MYOVIEW (PER STUDY) 1 DOSE IV (14:05)
== END 2025-02-28 23:59 | disposition home or self-care (01) ==
LOC: RAD 12:37
PROVIDERS: PCP Family Medicine; Visit Provider Nurse Practitioner Family
DX: I48.91 Unspecified atrial fibrillation (principal); I10 Essential (primary) hypertension; Z87.891 Personal history of nicotine dependence; R94.31 Abnormal electrocardiogram [ECG] [EKG]; R94.39 Abnormal result of other cardiovascular function study; R60.0 Localized edema
CPT/HCPCS: 78452; 93017; 93018; A9502; J2785